=== PATIENT | female | born 1970 | race Caucasian/White ===

== ENCOUNTER 2016-03-24 18:18 | Emergency (ER) | payer OTHER ==
[~2016-03-24 18:18] MED LIST: CETI10TA3 PO; DIPH50CA OR; LISI5TAB PO; MAALSUS8 PO; carafate OR; motrin PO; proventil inhaler INH; singulair OR; vicodin PO
[2016-03-24] MEDS ORDERED: ONDANSETRON 4MG/2ML VIAL (J2405) As Ordered ONE (21:33)
[2016-03-24] MEDS ORDERED: KETOROLAC 30 MG/ML VIAL (J1885) As Ordered ONE (21:33)
[2016-03-24 21:38] LABS: CONTROL LINE UCG INT CTR LINE PRESENT
[2016-03-24 21:39] LABS: CALCIUM OXALATE CRYSTALS SMALL
[2016-03-24 21:48] LABS: BASO # 0.1 K/mm3 (0.0-0.2); BASO % 0.6 % (0.0-1.0); EOS # 0.2 K/mm3 (0.0-0.50); EOS % 1.6 % (0.0-3.0); LARGE UNSTAINED CELL # 0.2 K/mm3 (0.0-0.4); LARGE UNSTAINED CELL % 1.6 % (0.0-4.0); LYMPH # 2.7 K/mm3 (1.5-4.5); LYMPH % 27.1 % (24.0-44.0); MEAN CORPUSCULAR HEMOGLOBIN 32.9 pg (27.0-33.0); MEAN CORPUSCULAR HGB CONC 34.3 g/dl (32.0-36.5); MEAN CORPUSCULAR VOLUME 95.8 fl (80.0-96.0); MONO # 0.5 K/mm3 (0.0-0.8); MONO % 5.3 % (0.0-5.0); NEUTROPHILS # 6.5 K/mm3 (1.8-7.7); NEUTROPHILS % 63.9 % (36.0-66.0); PLATELET COUNT, AUTOMATED 218 k/mm3 (150-450); RED CELL DISTRIBUTION WIDTH 11.7 % (11.5-14.5); WHITE BLOOD COUNT 10.1 K/mm3 (4.0-10.0)
[2016-03-24 22:24] LABS: ALBUMIN 3.8 GM/DL (3.2-5.2); ALBUMIN/GLOBULIN RATIO 1.27 (1.00-1.93); ALKALINE PHOSPHATASE 92 U/L (45-117); ALT/SGPT 23 U/L (12-78); AMYLASE 52 U/L (25-115); ANION GAP 8 MEQ/L (8-16); AST/SGOT 12 U/L (15-37); BILIRUBIN,DIRECT < 0.1 MG/DL (0.0-0.2); BILIRUBIN,TOTAL 0.2 MG/DL (0.2-1.0); BLOOD UREA NITROGEN 15 MG/DL (7-18); CALCIUM LEVEL 8.5 MG/DL (8.5-10.1); CARBON DIOXIDE LEVEL 28 MEQ/L (21-32); CHLORIDE LEVEL 108 MEQ/L (98-107); CREATININE FOR GFR 0.53 MG/DL (0.55-1.02); GLOMERULAR FILTRATION RATE > 60.0 (>58); GLUCOSE, FASTING 88 MG/DL (70-105); POTASSIUM SERUM 4.2 MEQ/L (3.5-5.1); SODIUM LEVEL 144 MEQ/L (136-145); TOTAL PROTEIN 6.8 GM/DL (6.4-8.2)
--- NOTE | 2016-03-24 23:40 | REPUSA ---
CT of the abdomen and pelvis without contrast Clinical statement: Pain. Technique: Multiple axial CT images were obtained from the base of the lungs to the floor of the pelv is utilizing 5 mm axial slices without administration of contrast. Coronal and sagittal reconstructio ns were also obtained. No comparison is available. Findings: Chest: The visualized lung bases are clear. Abdomen: The kidneys are normal in size bilaterally. There is no evidence of hydronephrosis or nephro lithiasis. The liver, spleen, pancreas, and adrenal glands are unremarkable. The aorta demonstrates n ormal caliber and contour. There is no abdominal lymphadenopathy or ascites. Pelvis: The bowel is unremarkable, with no obstructive or inflammatory changes. The urinary bladder i s within normal limits. There is no pelvic lymphadenopathy or ascites. The other pelvic structures ap pear unremarkable. Bones: There are no suspicious osseous abnormalities seen. Impression: Unremarkable CT examination of the abdomen and pelvis.
[2016-03-25] MEDS ORDERED: ACETAMINOPH W/CODEINE #3 TAB UD As Ordered ONE ×2 (00:07→00:13)
[2016-03-25] MEDS ORDERED: ONDANSETRON 4MG/2ML VIAL (J2405) As Ordered ONE (00:08)
[2016-03-25] MEDS ORDERED: PHENAZOPYRIDINE 100 MG TAB As Ordered ONE (00:54)
--- NOTE | 2016-03-25 01:01 | EDDOCDS ---
Nurse's Notes [facility] Name: Nadiya Lozada Age: 45 yrs Sex: Female : 1970 Arrival Date: 03/24/2016 Time: 18:18 Bed I4 / M4 Private MD: Taya Chavez Diagnosis: Low back pain;Dysuria Presentation: 03/24 18:45 Presenting complaint: Patient states: she has had severe pain in her low back - thinks kcs it is her kidneys - pain started a week ago but has been worse the last 2 days - also 'peed her pants and is dizzy. Hurts her back to pee.". Acute neurological deficits are not present. Mechanism of Injury: No Mechanism of Injury. Adult Sepsis Screening: The patient does not have new or worsening altered mentation. Patient's respiratory rate is less than 22. Systolic blood pressure is greater than 100. Patient has a qSOFA score of 0- Negative Sepsis Screen. Suicide/Homicide risk assessment- the patient denies having any suicidal and/or homicidal ideations and does not present with any other emotional, behavioral or mental health complaints. Status: Patient is not a clerk telegraph service or dependent. Transition of care: patient was not received from another setting of care. 18:45 Acuity: RAJIV Level 3 kcs 18:45 Method Of Arrival: Walkin/Carried/Asstd kcs Triage Assessment: 18:53 General: Appears uncomfortable, well developed, well nourished, well groomed, Behavior kcs is cooperative, crying. Pain: Location: low back Pain currently is 10 out of 10 on a pain scale. HIV screening NA for this visit Offered previously. Neurological: Level of Consciousness is awake, alert. Respiratory: Airway is patent Respiratory effort is even, unlabored, Respiratory pattern is regular, symmetrical. : Reports burning with urination incontinence urgency. Derm: Skin is intact, is healthy with good turgor, Skin is dry, Skin is normal. PSYCHOLOGY TECH: 18:53 LMP N/A - Hysterectomy kcs Historical: - Allergies: Erythromycin (Hives); aspartame (Upset stomach); Ceclor (Wheezing); Dilaudid; Latex; liquid magnesium (Anaphylaxis); SUCCINYLCHOLINE; - Home Meds: 1. bariatric fusion chewable tabs 2 tabs twice a day 2. cetirizine 10 mg oral tab 1 tab once daily 3. pantoprazole 40 mg oral TbEC 1 tab 2 times per day 4. azelastine 0.1% 2 sprays in each nostril in am 5. potassium chloride 10 mEq Oral cpER 1 cap once daily 6. Premarin 0.625 mg Oral tab once daily 7. biotin oral 5000 mg 2 in am oral 8. ferrous fumarate 324 mg (106 mg iron) oral tab daily 9. Singulair 10 mg Oral tab 1 tab once daily 10. Magnesium Oxide 64 mg Oral 1 tab daily 11. Benadryl 25 mg Oral cap 2 caps nightly 12. Carafate 1 gram Oral tab 1 tab 4 times per day 13. Cytotec 200 mcg oral tab 4 times per day 14. yeast 2 daily 15. uricalm cranberry 2 chewables daily - PMHx: pseydicholinesterase deficiency; Asthma; brain aneurysm; Hypertension; Seasonal Allergies; - PSHx: Gastric Bypass; Cholecystectomy; Hysterectomy; right knee; Carpal Tunnel Repair- Bilateral; - Social history: Smoking status: Patient uses tobacco products, light tobacco smoker. No barriers to communication noted, The patient speaks fluent Croatian. - Family history: Not pertinent. - : The pt / caregiver states he / she is not on anticoagulants. Home medication list is obtained from the patient. - Exposure Risk Screening:: None identified. Screenin:03 Screening information is obtained from the patient. Fall risk: No risks identified. lf1 Assistance ADL's: requires no assistance with activities of daily living. Abuse/DV Screen: The patient / caregiver reports he/she is: not in a situation that causes fear, pain or injury. Nutritional screening: gastric bypass. Advance Directives: Currently, there is no health care proxy. There is no active DNR order. There is no living will. home support is adequate. Assessment: 21:03 General: Appears uncomfortable, Behavior is cooperative. Pain: Location: BL flank pain lf1 Pain currently is 10 out of 10 on a pain scale. Neurological: Level of Consciousness is awake, alert, Oriented to person, place, time. EENT: No deficits noted. Cardiovascular: Chest pain is denied. Respiratory: Respiratory effort is even, unlabored, Respiratory pattern is regular. GI: Reports diarrhea, nausea. : Reports burning with urination inability to void pain in right in left in bilateral flank(s) with urination urgency urinary frequency. Derm: Skin is pink, warm & dry. Musculoskeletal: No deficits noted. 21:40 General: Appears uncomfortable, Behavior is cooperative. Pain: Location: back and ead abdomen Pain currently is 10 out of 10 on a pain scale. Neurological: No deficits noted. Respiratory: Airway is patent Respiratory effort is unlabored. GI: Abdomen is non- distended Bowel sounds present X 4 quads. Reports diarrhea, lower abdominal pain, nausea. : Reports inability to void pain in right in left in bilateral flank(s) with urination urgency urinary frequency. Derm: Skin is pink, warm & dry. 22:30 General: pt just returned from CT vis wheelchair . dsf 23:30 General: Appears in no apparent distress, Behavior is appropriate for age, cooperative. ead Neurological: No deficits noted. Respiratory: Airway is patent Respiratory effort is even, unlabored. Derm: Skin is pink, warm & dry. 03/25 00:18 General: pt denies being incontinent of urine. pt states she felt like she was going to dsf pee her pants but did not . 00:45 Reassessment: Patient states symptoms have improved. General: Appears in no apparent ead distress. Pain: Pain currently is 6 out of 10 on a pain scale. Neurological: No deficits noted. GI: Denies nausea, vomiting. : Denies discharge, vaginal bleeding. Derm: Skin is pink, warm & dry. Vital Signs: 03/24 18:19 BP 158 / 83; Pulse 82; Resp 18 S; Temp 96.3; Pulse Ox 97% ; Weight 63.5 kg (R); Height gr2 5 ft. 0 in. (152.40 cm) (R); Pain 8/10; 21:03 BP 155 / 86; Pulse 67; Resp 16; Temp 99.3(TE); Pulse Ox 99% ; Pain 10/10; lf1 03/25 00:44 BP 151 / 77; Pulse 72; Resp 16; Temp 96.0(O); Pulse Ox 99% on R/A; Pain 6/10; ead 03/24 18:19 Body Mass Index 27.34 (63.50 kg, 152.40 cm) gr2 Vitals: 03/24 18:19 Log In Time: March 24, 2016 at 18:19. gr2 ED Course: 18:19 Patient visited by Mireille Gupta. gr2 18:19 Taya Chavez is Private Physician. gr2 18:19 Patient moved to Waiting gr2 18:20 Patient visited by Mireille Gupta. gr2 18:20 Patient moved to Pre RCE gr2 18:47 Triage Initiated kcs 21:02 [facility] ck7 21:02 Oj Altamirano MD is Attending Physician. ck7 21:02 Patient moved to Triage 1 lf1 21:16 Patient visited by Francis Christy RPA-C. ck7 21:25 Patient moved to I4 / M4 lf1 21:27 UCG- In Lab Sent. ar3 21:27 Urine Culture Sent. ar3 21:27 UA Sent. ar3 21:38 Amylase Sent. dsf 21:38 Basic Metabolic Profile Sent. dsf 21:39 CBC with Diff Sent. dsf 21:39 Lipase Sent. dsf 21:39 Liver Profile Sent. dsf 21:40 Inserted peripheral IV: 20gauge IV in left antecubital area and blood collected. ead Patient tolerated the procedure well. 21:55 Patient visited by Francis Christy RPA-C. ck7 22:30 Patient visited by Maya Bucio RN. dsf 23:23 Patient visited by Francis Christy RPA-C. ck7 23:54 Patient visited by Francis Christy RPA-C. ck7 03/25 00:15 CT ABD & PELVIS: No Contrast Returned. EDMS 00:19 Patient visited by Maya Bucio RN. dsf 00:38 [facility] Payment Agreement was scanned into [employer] and attached to record. lja 00:46 Taya Chavez is Referral Physician. ck7 00:59 Discontinued IV intact, bleeding controlled, pressure dressing applied, No ead redness/swelling at site. No procedures done that require assistance. 01:00 The patient / caregiver is instructed regarding the plan of care and ED course. ead Administered Medications: 03/24 21:38 Drug: NS 0.9% 1000 ml [sodium chloride 0.9 % injection solution] Route: IV; Rate: dsf bolus; Site: left antecubital; 03/25 00:39 Follow up: IV Status: Completed infusion; IV Intake: 1000ml ead 03/24 21:38 Drug: Ondansetron 4 mg [ondansetron HCl 2 mg/mL intravenous solution (2 mL)] Route: dsf IVP; Site: left antecubital; 22:00 Follow up: Response: Nausea is decreased; No Adverse Reaction ead 21:38 Drug: ketorolac 30 mg [ketorolac 30 mg/mL (1 mL) injection solution (1 mL)] Route: IVP; dsf Site: left antecubital; 22:00 Follow up: Response: No Adverse Reaction; Pain is decreased ead 03/25 00:13 Drug: Ondansetron 4 mg [ondansetron HCl 2 mg/mL intravenous solution (2 mL)] Route: ead IVP; Site: right antecubital; 00:46 Follow up: Response: Nausea is resolved; No Adverse Reaction ead 00:15 Drug: Acetaminophen-Codeine 2 tabs [acetaminophen 300 mg-codeine 30 mg tablet (2 tabs)] ead Route: PO; 00:45 Follow up: Response: Confirmed pt not driving.; No Adverse Reaction; Pain is decreased ead 00:59 Drug: Phenazopyridine 200 mg [phenazopyridine 100 mg tablet (2 tabs)] Route: PO; ead Intake: 00:39 IV: 1000.00ml; Total: 1000.00ml. ead Order Results: Lab Order: UA; SPEC'M 03/24/16 21:24 Test: APPEARANCE, URINE; Value: CLEAR; Range: CLEAR; Status: F Test: COLOR, URINE; Value: YELLOW; Range: YELLOW; Status: F Test: PH,URINE; Value: 5.0; Range: 5.0-9.0; Units: UNITS; Status: F Test: SPECIFIC GRAVITY URINE AUTO; Value: 1.026; Range: 1.002-1.035; Status: F Test: PROTEIN, URINE AUTO; Value: NEGATIVE; Range: NEGATIVE; Units: mg/dL; Status: F Test: GLUCOSE, URINE (UA) AUTO; Value: NEGATIVE; Range: NEGATIVE; Units: mg/dL; Status: F Test: KETONE, URINE AUTO; Value: NEGATIVE; Range: NEGATIVE; Units: mg/dL; Status: F Test: UROBILINOGEN, URINE AUTO; Value: 2.0; Range: 0.0-2.0; Abnormal: Above high normal; Units: mg/dL; Status: F Test: BILIRUBIN, URINE AUTO; Value: NEGATIVE; Range: NEGATIVE; Status: F Test: NITRITE, URINE AUTO; Value: NEGATIVE; Range: NEGATIVE; Status: F Test: LEUKOCYTE ESTERASE, URINE AUTO; Value: NEGATIVE; Range: NEGATIVE; Status: F Test: BLOOD, URINE BLOOD; Value: NEGATIVE; Range: NEGATIVE; Status: F Test: WBC, URINE AUTO; Value: 0; Range: 0-3; Units: /HPF; Status: F Test: RBC, URINE AUTO; Value: 4; Range: 0-3; Abnormal: Above high normal; Units: /HPF; Status: F Test: BACTERIA, URINE AUTO; Value: NEGATIVE; Range: NEGATIVE; Status: F Test: SQUAMOUS EPITHELIAL CELL UR AU; Value: 1; Range: 0-6; Units: /HPF; Status: F Test: MUCUS, URINE; Value: SMALL; Range: NEGATIVE; Status: F Test: HYALINE CAST, URINE AUTO; Value: 0; Range: 0-1; Units: /LPF; Status: F Test: CALCIUM OXALATE CRYSTALS; Value: SMALL; Range: NONE; Status: F Lab Order: UCG- In Lab; SPEC'M 03/24/16 21:24 Test: URINE PREG TEST; Value: NEGATIVE; Range: NEGATIVE; Status: F Lab Order: Amylase; SPEC'M 03/24/16 21:36 Test: AMYLASE; Value: 52; Range: 25-115; Units: U/L; Status: F Lab Order: Basic Metabolic Profile; SPEC'M 03/24/16 21:36 Test: GLUCOSE, FASTING; Value: 88; Range: 70-105; Units: MG/DL; Status: F Test: BLOOD UREA NITROGEN; Value: 15; Range: 7-18; Units: MG/DL; Status: F Test: CREATININE FOR GFR; Value: 0.53; Range: 0.55-1.02; Abnormal: Below low normal; Units: MG/DL; Status: F Test: GLOMERULAR FILTRATION RATE; Value: > 60.0; Range: >58; Status: F Test: SODIUM LEVEL; Value: 144; Range: 136-145; Units: MEQ/L; Status: F Test: POTASSIUM SERUM; Value: 4.2; Range: 3.5-5.1; Units: MEQ/L; Status: F Test: CHLORIDE LEVEL; Value: 108; Range: 98-107; Abnormal: Above high normal; Units: MEQ/L; Status: F Test: CARBON DIOXIDE LEVEL; Value: 28; Range: 21-32; Units: MEQ/L; Status: F Test: ANION GAP; Value: 8; Range: 8-16; Units: MEQ/L; Status: F Test: CALCIUM LEVEL; Value: 8.5; Range: 8.5-10.1; Units: MG/DL; Status: F Test Note: ; Units are mL/min/1.73 m2 Chronic Kidney Disease Staging per NKF: Stage I & II GFR >=60 Normal to Mildly Decreased Stage III GFR 30-59 Moderately Decreased Stage IV GFR 15-29 Severely Decreased Stage V GFR <15 Very Little GFR Left ESRD GFR <15 on DIE REPAIR Lab Order: CBC with Diff; SPEC'M 03/24/16 21:36 Test: WHITE BLOOD COUNT; Value: 10.1; Range: 4.0-10.0; Abnormal: Above high normal; Units: K/mm3; Status: F Test: RED BLOOD COUNT; Value: 4.21; Range: 4.00-5.40; Units: M/mm3; Status: F Test: HEMOGLOBIN; Value: 13.8; Range: 12.0-16.0; Units: g/dl; Status: F Test: HEMATOCRIT; Value: 40.3; Range: 36.0-47.0; Units: %; Status: F Test: MEAN CORPUSCULAR VOLUME; Value: 95.8; Range: 80.0-96.0; Units: fl; Status: F Test: MEAN CORPUSCULAR HEMOGLOBIN; Value: 32.9; Range: 27.0-33.0; Units: pg; Status: F Test: MEAN CORPUSCULAR HGB CONC; Value: 34.3; Range: 32.0-36.5; Units: g/dl; Status: F Test: RED CELL DISTRIBUTION WIDTH; Value: 11.7; Range: 11.5-14.5; Units: %; Status: F Test: PLATELET COUNT, AUTOMATED; Value: 218; Range: 150-450; Units: k/mm3; Status: F Test: NEUTROPHILS %; Value: 63.9; Range: 36.0-66.0; Units: %; Status: F Test: LYMPH %; Value: 27.1; Range: 24.0-44.0; Units: %; Status: F Test: MONO %; Value: 5.3; Range: 0.0-5.0; Abnormal: Above high normal; Units: %; Status: F Test: EOS %; Value: 1.6; Range: 0.0-3.0; Units: %; Status: F Test: BASO %; Value: 0.6; Range: 0.0-1.0; Units: %; Status: F Test: LARGE UNSTAINED CELL %; Value: 1.6; Range: 0.0-4.0; Units: %; Status: F Test: NEUTROPHILS #; Value: 6.5; Range: 1.8-7.7; Units: K/mm3; Status: F Test: LYMPH #; Value: 2.7; Range: 1.5-4.5; Units: K/mm3; Status: F Test: MONO #; Value: 0.5; Range: 0.0-0.8; Units: K/mm3; Status: F Test: EOS #; Value: 0.2; Range: 0.0-0.50; Units: K/mm3; Status: F Test: BASO #; Value: 0.1; Range: 0.0-0.2; Units: K/mm3; Status: F Test: LARGE UNSTAINED CELL #; Value: 0.2; Range: 0.0-0.4; Units: K/mm3; Status: F Lab Order: Lipase; SPEC'M 03/24/16 21:36 Test: LIPASE; Value: 183; Range: 73-393; Units: U/L; Status: F Lab Order: Liver Profile; SPEC'M 03/24/16 21:36 Test: AST/SGOT; Value: 12; Range: 15-37; Abnormal: Below low normal; Units: U/L; Status: F Test: ALT/SGPT; Value: 23; Range: 12-78; Units: U/L; Status: F Test: ALKALINE PHOSPHATASE; Value: 92; Range: 45-117; Units: U/L; Status: F Test: BILIRUBIN,TOTAL; Value: 0.2; Range: 0.2-1.0; Units: MG/DL; Status: F Test: BILIRUBIN,DIRECT; Value: < 0.1; Range: 0.0-0.2; Units: MG/DL; Status: F Test: TOTAL PROTEIN; Value: 6.8; Range: 6.4-8.2; Units: GM/DL; Status: F Test: ALBUMIN; Value: 3.8; Range: 3.2-5.2; Units: GM/DL; Status: F Test: ALBUMIN/GLOBULIN RATIO; Value: 1.27; Range: 1.00-1.93; Status: F Radiology Order: CT ABD & PELVIS: No Contrast Test: CT ABD & PELVIS: No Contrast REASON FOR EXAMINATION: bilateral flank pain, r/o stone; ; CT of the abdomen and pelvis without contrast; Clinical statement: Pain.; Technique: Multiple axial CT images were obtained from the base of the lungs to the floor of the pelv; is utilizing 5 mm axial slices without administration of contrast. Coronal and sagittal reconstructio; ns were also obtained.; No comparison is available.; Findings:; Chest: The visualized lung bases are clear.; Abdomen: The kidneys are normal in size bilaterally. There is no evidence of hydronephrosis or nephro; lithiasis. The liver, spleen, pancreas, and adrenal glands are unremarkable. The aorta demonstrates n; ormal caliber and contour. There is no abdominal lymphadenopathy or ascites.; Pelvis: The bowel is unremarkable, with no obstructive or inflammatory changes. The urinary bladder i; s within normal limits. There is no pelvic lymphadenopathy or ascites. The other pelvic structures ap; pear unremarkable.; Bones: There are no suspicious osseous abnormalities seen.; Impression: Unremarkable CT examination of the abdomen and pelvis.; ; Outcome: 00:46 Discharge ordered by Provider. ck7 00:59 Discharge Assessment: Patient awake and alert. obeys commands, Oriented to person, ead place and time. patient administered narcotics - yes. Pt provided with safe discharge. The following High Risk Discharge criteria are identified: None. Discharged to home ambulatory, with significant other. Condition: improved. Discharge instructions given to patient, significant other, Instructed on discharge instructions, follow up and referral plans. medication usage, no driving heavy equipment, no drinking with medication, Demonstrated understanding of instructions, medications, Pt was receptive of discharge instructions/ teaching. Prescriptions given X 3. CT Study completed. Property sent home with patient. 01:00 Patient left the ED. mary Signatures: Dispatcher [employer] Gardenia Darnell, RN RN Leisa KaiserRN RN lf1 Elise Stone, BLACK TOPPER BLACK TOPPER ar3 Maya BucioRN RN dsf Francis Christy, RPA-C RPA-Cck7 Mireille Gupta gr2 Jennifer Viramontes,RN RN estelled Leisa Marcos MTDD
--- NOTE | 2016-03-25 01:01 | EDDOCDS ---
Physician Documentation [facility] Name: Nadiya Lozada Age: 45 yrs Sex: Female : 1970 Arrival Date: 03/24/2016 Time: 18:18 Bed I4 / M4 Private MD: Taya Chavez Disposition: 03/25/16 00:46 Discharged to Home/Self Care. Impression: Low back pain, Dysuria. - Condition is Stable. - Discharge Instructions: Back Pain, Adult, Dysuria. - Prescriptions for Robaxin 500 mg Oral Tablet - take 2 tablet by ORAL route every 6 hours As needed; 40 tablet. Tylenol- Codeine #3 300-30 mg Oral Tablet - take 2 tablets by ORAL route every 6 hours As needed MDD: 4 tabs; 12 tablet. Pyridium 200 mg Oral Tablet - take 1 tablet by ORAL route every 8 hours for 3 days; 9 tablet. - Work Release Form - 2 day, Medication Reconciliation, Local Pharmacy Hours form. - Follow up: Taya Chavez; When: Tomorrow; Reason: Recheck today's complaints, Continuance of care. - Problem is new. - Symptoms have improved. - Notes: USE MEDICATIONS INSTRUCTED, FOLLOW UP WITH YOUR DOCTOR TOMORROW Historical: - Allergies: Erythromycin (Hives); aspartame (Upset stomach); Ceclor (Wheezing); Dilaudid; Latex; liquid magnesium (Anaphylaxis); SUCCINYLCHOLINE; - Home Meds: 1. bariatric fusion chewable tabs 2 tabs twice a day 2. cetirizine 10 mg oral tab 1 tab once daily 3. pantoprazole 40 mg oral TbEC 1 tab 2 times per day 4. azelastine 0.1% 2 sprays in each nostril in am 5. potassium chloride 10 mEq Oral cpER 1 cap once daily 6. Premarin 0.625 mg Oral tab once daily 7. biotin oral 5000 mg 2 in am oral 8. ferrous fumarate 324 mg (106 mg iron) oral tab daily 9. Singulair 10 mg Oral tab 1 tab once daily 10. Magnesium Oxide 64 mg Oral 1 tab daily 11. Benadryl 25 mg Oral cap 2 caps nightly 12. Carafate 1 gram Oral tab 1 tab 4 times per day 13. Cytotec 200 mcg oral tab 4 times per day 14. yeast 2 daily 15. uricalm cranberry 2 chewables daily - PMHx: pseydicholinesterase deficiency; Asthma; brain aneurysm; Hypertension; Seasonal Allergies; - PSHx: Gastric Bypass; Cholecystectomy; Hysterectomy; right knee; Carpal Tunnel Repair- Bilateral; - Social history: Smoking status: Patient uses tobacco products, light tobacco smoker. No barriers to communication noted, The patient speaks fluent Jordanian. - Family history: Not pertinent. - : The pt / caregiver states he / she is not on anticoagulants. Home medication list is obtained from the patient. - Exposure Risk Screening:: None identified. 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 0 in. (152.40 cm) (R); Pain 8/10; 21:03 BP 155 / 86; Pulse 67; Resp 16; Temp 99.3(TE); Pulse Ox 99% ; Pain 10/10; lf1 03/25 00:44 BP 151 / 77; Pulse 72; Resp 16; Temp 96.0(O); Pulse Ox 99% on R/A; Pain 6/10; ead 03/24 18:19 Body Mass Index 27.34 (63.50 kg, 152.40 cm) gr2 MDM: 03/24 20:00 UA Ordered. EDMS 20:00 Urine Culture Ordered. EDMS 20:01 UCG- In Lab Ordered. EDMS 21:20 Undress patient appropriately for examination ordered. ck7 21:20 IV Saline Lock ordered. ck7 21:20 NS 0.9% 1000 ml IV at bolus once ordered. ck7 21:20 Ondansetron 4 mg IVP once ordered. ck7 21:21 Amylase Ordered. EDMS 21:21 Basic Metabolic Profile Ordered. EDMS 21:21 CBC with Diff Ordered. EDMS 21:21 Lipase Ordered. EDMS 21:21 Liver Profile Ordered. EDMS 21:22 NOTHING BY MOUTH+DIET ordered. EDMS 21:22 ketorolac 30 mg IVP once ordered. ck7 21:55 UA Reviewed. ck7 21:55 CBC with Diff Reviewed. ck7 21:55 UCG- In Lab Reviewed. ck7 21:58 CT ABD & PELVIS: No Contrast Ordered. EDMS 22:32 Basic Metabolic Profile Reviewed. ck7 22:32 Liver Profile Reviewed. ck7 22:32 Amylase Reviewed. ck7 22:32 Lipase Reviewed. ck7 23:42 Financial registration complete. 03/25 00:06 Ondansetron 4 mg IVP once ordered. ck7 00:06 Acetaminophen-Codeine 300 mg-30 mg 2 tabs PO once ordered. ck7 00:38 [facility] Payment Agreement was scanned into [facility] and attached to record. 00:53 Phenazopyridine 200 mg PO once ordered. ck7 Administered Medications: 03/24 21:38 Drug: NS 0.9% 1000 ml [sodium chloride 0.9 % injection solution] Route: IV; Rate: dsf bolus; Site: left antecubital; 03/25 00:39 Follow up: IV Status: Completed infusion; IV Intake: 1000ml ead 03/24 21:38 Drug: Ondansetron 4 mg [ondansetron HCl 2 mg/mL intravenous solution (2 mL)] Route: dsf IVP; Site: left antecubital; 22:00 Follow up: Response: Nausea is decreased; No Adverse Reaction ead 21:38 Drug: ketorolac 30 mg [ketorolac 30 mg/mL (1 mL) injection solution (1 mL)] Route: IVP; dsf Site: left antecubital; 22:00 Follow up: Response: No Adverse Reaction; Pain is decreased ead 03/25 00:13 Drug: Ondansetron 4 mg [ondansetron HCl 2 mg/mL intravenous solution (2 mL)] Route: ead IVP; Site: right antecubital; 00:46 Follow up: Response: Nausea is resolved; No Adverse Reaction ead 00:15 Drug: Acetaminophen-Codeine 2 tabs [acetaminophen 300 mg-codeine 30 mg tablet (2 tabs)] ead Route: PO; 00:45 Follow up: Response: Confirmed pt not driving.; No Adverse Reaction; Pain is decreased ead 00:59 Drug: Phenazopyridine 200 mg [phenazopyridine 100 mg tablet (2 tabs)] Route: PO; ead Signatures: Dispatcher [facility] ED[facility] Gardenia Fall RN RN Leisa Kaiser RN RN lf1 Francis Christy, RPA-C RPA-Cck7 Jennifer Viramontes RN RN ead Arekatelynn, Maya Rdz RNf The chart was reviewed and I authenticate all verbal orders and agree with the evaluation and treatment provided.Attachments: 00:38 [facility] Payment Agreement juan manuel SRINIVASD
--- NOTE | 2016-03-27 02:02 | EDDOCDS ---
[facility]ation [facility]: Nadiya Loz[facility] Age: 45 yrs Sex: Female : 1970 Arrival Date: 03/24/2016 Time: 18:18 Bed I4 / M4 Private MD: Taya Chavez Disposition: 03/25/16 00:46 Discharged to Home/Self Care. Impression: Low back pain, Dysuria. - Condition is Stable. - Discharge Instructions: Back Pain, Adult, Dysuria. - Prescriptions for Robaxin 500 mg Oral Tablet - take 2 tablet by ORAL route every 6 hours As needed; 40 tablet. Tylenol- Codeine #3 300-30 mg Oral Tablet - take 2 tablets by ORAL route every 6 hours As needed MDD: 4 tabs; 12 tablet. Pyridium 200 mg Oral Tablet - take 1 tablet by ORAL route every 8 hours for 3 days; 9 tablet. - Work Release Form - 2 day, Medication Reconciliation, Local Pharmacy Hours form. - Follow up: Taya Chavez; When: Tomorrow; Reason: Recheck today's complaints, Continuance of care. - Problem is new. - Symptoms have improved. - Notes: USE MEDICATIONS INSTRUCTED, FOLLOW UP WITH YOUR DOCTOR TOMORROW Historical: - Allergies: Erythromycin (Hives); aspartame (Upset stomach); Ceclor (Wheezing); Dilaudid; Latex; liquid magnesium (Anaphylaxis); SUCCINYLCHOLINE; - Home Meds: 1. bariatric fusion chewable tabs 2 tabs twice a day 2. cetirizine 10 mg oral tab 1 tab once daily 3. pantoprazole 40 mg oral TbEC 1 tab 2 times per day 4. azelastine 0.1% 2 sprays in each nostril in am 5. potassium chloride 10 mEq Oral cpER 1 cap once daily 6. Premarin 0.625 mg Oral tab once daily 7. biotin oral 5000 mg 2 in am oral 8. ferrous fumarate 324 mg (106 mg iron) oral tab daily 9. Singulair 10 mg Oral tab 1 tab once daily 10. Magnesium Oxide 64 mg Oral 1 tab daily 11. Benadryl 25 mg Oral cap 2 caps nightly 12. Carafate 1 gram Oral tab 1 tab 4 times per day 13. Cytotec 200 mcg oral tab 4 times per day 14. yeast 2 daily 15. uricalm cranberry 2 chewables daily - PMHx: pseydicholinesterase deficiency; Asthma; brain aneurysm; Hypertension; Seasonal Allergies; - PSHx: Gastric Bypass; Cholecystectomy; Hysterectomy; right knee; Carpal Tunnel Repair- Bilateral; - Social history: Smoking status: Patient uses tobacco products, light tobacco smoker. No barriers to communication noted, The patient speaks fluent Latvian. - Family history: Not pertinent. - : The pt / caregiver states he / she is not on anticoagulants. Home medication list is obtained from the patient. - Exposure Risk Screening:: None identified. PHARMACEUTICAL OFFICER: 03/24 18:53 LMP N/A - Hysterectomy kcs Vital Signs: 18:19 BP 158 / 83; Pulse 82; Resp 18 S; Temp 96.3; Pulse Ox 97% ; Weight 63.5 kg / 139.99 lbs gr2 (R); Height 5 ft. 0 in. (152.40 cm) (R); Pain 8/10; 21:03 BP 155 / 86; Pulse 67; Resp 16; Temp 99.3(TE); Pulse Ox 99% ; Pain 10/10; lf1 03/25 00:44 BP 151 / 77; Pulse 72; Resp 16; Temp 96.0(O); Pulse Ox 99% on R/A; Pain 6/10; ead 03/24 18:19 Body Mass Index 27.34 (63.50 kg, 152.40 cm) gr2 MDM: 03/24 20:00 UA Ordered. EDMS 20:00 Urine Culture Ordered. EDMS 20:01 UCG- In Lab Ordered. EDMS 21:20 Undress patient appropriately for examination ordered. ck7 21:20 IV Saline Lock ordered. ck7 21:20 NS 0.9% 1000 ml IV at bolus once ordered. ck7 21:20 Ondansetron 4 mg IVP once ordered. ck7 21:21 Amylase Ordered. EDMS 21:21 Basic Metabolic Profile Ordered. EDMS 21:21 CBC with Diff Ordered. EDMS 21:21 Lipase Ordered. EDMS 21:21 Liver Profile Ordered. EDMS 21:22 NOTHING BY MOUTH+DIET ordered. EDMS 21:22 ketorolac 30 mg IVP once ordered. ck7 21:55 UA Reviewed. ck7 21:55 CBC with Diff Reviewed. ck7 21:55 UCG- In Lab Reviewed. ck7 21:58 CT ABD & PELVIS: No Contrast Ordered. EDMS 22:32 Basic Metabolic Profile Reviewed. ck7 22:32 Liver Profile Reviewed. ck7 22:32 Amylase Reviewed. ck7 22:32 Lipase Reviewed. ck7 23:42 Financial registration complete. lja 03/25 00:06 Ondansetron 4 mg IVP once ordered. ck 00:06 Acetaminophen-Codeine 300 mg-30 mg 2 tabs PO once ordered. ck7 00:38 [facility] Payment Agreement was scanned into [employer] and attached to record. lja 00:53 Phenazopyridine 200 mg PO once ordered. ck 09:38 T-Sheet-- Draft Copy was scanned into [employer] and attached to record. gb 09:38 Radiology Report was scanned into [employer] and attached to record. gb Administered Medications: 03/24 21:38 Drug: NS 0.9% 1000 ml [sodium chloride 0.9 % injection solution] Route: IV; Rate: dsf bolus; Site: left antecubital; 03/25 00:39 Follow up: IV Status: Completed infusion; IV Intake: 1000ml ead 03/24 21:38 Drug: Ondansetron 4 mg [ondansetron HCl 2 mg/mL intravenous solution (2 mL)] Route: dsf IVP; Site: left antecubital; 22:00 Follow up: Response: Nausea is decreased; No Adverse Reaction ead 21:38 Drug: ketorolac 30 mg [ketorolac 30 mg/mL (1 mL) injection solution (1 mL)] Route: IVP; dsf Site: left antecubital; 22:00 Follow up: Response: No Adverse Reaction; Pain is decreased ead 03/25 00:13 Drug: Ondansetron 4 mg [ondansetron HCl 2 mg/mL intravenous solution (2 mL)] Route: ead IVP; Site: right antecubital; 00:46 Follow up: Response: Nausea is resolved; No Adverse Reaction ead 00:15 Drug: Acetaminophen-Codeine 2 tabs [acetaminophen 300 mg-codeine 30 mg tablet (2 tabs)] ead Route: PO; 00:45 Follow up: Response: Confirmed pt not driving.; No Adverse Reaction; Pain is decreased ead 00:59 Drug: Phenazopyridine 200 mg [phenazopyridine 100 mg tablet (2 tabs)] Route: PO; ead Signatures: Dispatcher [employer] Gardenia Darnell RN RN Alina Henderson, Reg Reg gb Leisa Mckeon RN RN lf1 Francis Christy, RPA-C [id number] Jennifer Viramontes RN RN ead Arel, Maya Rdz RNf The chart was reviewed and I authenticate all verbal orders and agree with the evaluation and treatment provided.Attachments: 00:38 [facility] Payment Agreement a 09:38 T-Sheet-- Draft Copy gb Chart Complete MTDD
--- NOTE | 2016-03-27 02:02 | EDDOCDS ---
Physician Documentation [facility] Name: Nadiya Lozada Age: 45 yrs Sex: Female : 1970 Arrival Date: 03/24/2016 Time: 18:18 Bed I4 / M4 Private MD: Taya Chavez Disposition: 03/25/16 00:46 Discharged to Home/Self Care. Impression: Low back pain, Dysuria. - Condition is Stable. - Discharge Instructions: Back Pain, Adult, Dysuria. - Prescriptions for Robaxin 500 mg Oral Tablet - take 2 tablet by ORAL route every 6 hours As needed; 40 tablet. Tylenol- Codeine #3 300-30 mg Oral Tablet - take 2 tablets by ORAL route every 6 hours As needed MDD: 4 tabs; 12 tablet. Pyridium 200 mg Oral Tablet - take 1 tablet by ORAL route every 8 hours for 3 days; 9 tablet. - Work Release Form - 2 day, Medication Reconciliation, Local Pharmacy Hours form. - Follow up: Taya Chavez; When: Tomorrow; Reason: Recheck today's complaints, Continuance of care. - Problem is new. - Symptoms have improved. - Notes: USE MEDICATIONS INSTRUCTED, FOLLOW UP WITH YOUR DOCTOR TOMORROW Historical: - Allergies: Erythromycin (Hives); aspartame (Upset stomach); Ceclor (Wheezing); Dilaudid; Latex; liquid magnesium (Anaphylaxis); SUCCINYLCHOLINE; - Home Meds: 1. bariatric fusion chewable tabs 2 tabs twice a day 2. cetirizine 10 mg oral tab 1 tab once daily 3. pantoprazole 40 mg oral TbEC 1 tab 2 times per day 4. azelastine 0.1% 2 sprays in each nostril in am 5. potassium chloride 10 mEq Oral cpER 1 cap once daily 6. Premarin 0.625 mg Oral tab once daily 7. biotin oral 5000 mg 2 in am oral 8. ferrous fumarate 324 mg (106 mg iron) oral tab daily 9. Singulair 10 mg Oral tab 1 tab once daily 10. Magnesium Oxide 64 mg Oral 1 tab daily 11. Benadryl 25 mg Oral cap 2 caps nightly 12. Carafate 1 gram Oral tab 1 tab 4 times per day 13. Cytotec 200 mcg oral tab 4 times per day 14. yeast 2 daily 15. uricalm cranberry 2 chewables daily - PMHx: pseydicholinesterase deficiency; Asthma; brain aneurysm; Hypertension; Seasonal Allergies; - PSHx: Gastric Bypass; Cholecystectomy; Hysterectomy; right knee; Carpal Tunnel Repair- Bilateral; - Social history: Smoking status: Patient uses tobacco products, light tobacco smoker. No barriers to communication noted, The patient speaks fluent Cymro. - Family history: Not pertinent. - : The pt / caregiver states he / she is not on anticoagulants. Home medication list is obtained from the patient. - Exposure Risk Screening:: None identified. NURSE WOUND CARE: 03/24 18:53 LMP N/A - Hysterectomy kcs Vital Signs: 18:19 BP 158 / 83; Pulse 82; Resp 18 S; Temp 96.3; Pulse Ox 97% ; Weight 63.5 kg / 139.99 lbs gr2 (R); Height 5 ft. 0 in. (152.40 cm) (R); Pain 8/10; 21:03 BP 155 / 86; Pulse 67; Resp 16; Temp 99.3(TE); Pulse Ox 99% ; Pain 10/10; lf1 03/25 00:44 BP 151 / 77; Pulse 72; Resp 16; Temp 96.0(O); Pulse Ox 99% on R/A; Pain 6/10; ead 03/24 18:19 Body Mass Index 27.34 (63.50 kg, 152.40 cm) gr2 MDM: 03/24 20:00 UA Ordered. EDMS 20:00 Urine Culture Ordered. EDMS 20:01 UCG- In Lab Ordered. EDMS 21:20 Undress patient appropriately for examination ordered. ck7 21:20 IV Saline Lock ordered. ck7 21:20 NS 0.9% 1000 ml IV at bolus once ordered. ck7 21:20 Ondansetron 4 mg IVP once ordered. ck7 21:21 Amylase Ordered. EDMS 21:21 Basic Metabolic Profile Ordered. EDMS 21:21 CBC with Diff Ordered. EDMS 21:21 Lipase Ordered. EDMS 21:21 Liver Profile Ordered. EDMS 21:22 NOTHING BY MOUTH+DIET ordered. EDMS 21:22 ketorolac 30 mg IVP once ordered. ck7 21:55 UA Reviewed. ck7 21:55 CBC with Diff Reviewed. ck7 21:55 UCG- In Lab Reviewed. ck7 21:58 CT ABD & PELVIS: No Contrast Ordered. EDMS 22:32 Basic Metabolic Profile Reviewed. ck7 22:32 Liver Profile Reviewed. ck7 22:32 Amylase Reviewed. ck7 22:32 Lipase Reviewed. ck7 23:42 Financial registration complete. lja 03/25 00:06 Ondansetron 4 mg IVP once ordered. ck 00:06 Acetaminophen-Codeine 300 mg-30 mg 2 tabs PO once ordered. ck7 00:38 [facility] Payment Agreement was scanned into [employer] and attached to record. lja 00:53 Phenazopyridine 200 mg PO once ordered. ck 09:38 T-Sheet-- Draft Copy was scanned into [employer] and attached to record. gb 09:38 Radiology Report was scanned into [employer] and attached to record. gb Administered Medications: 03/24 21:38 Drug: NS 0.9% 1000 ml [sodium chloride 0.9 % injection solution] Route: IV; Rate: dsf bolus; Site: left antecubital; 03/25 00:39 Follow up: IV Status: Completed infusion; IV Intake: 1000ml ead 03/24 21:38 Drug: Ondansetron 4 mg [ondansetron HCl 2 mg/mL intravenous solution (2 mL)] Route: dsf IVP; Site: left antecubital; 22:00 Follow up: Response: Nausea is decreased; No Adverse Reaction ead 21:38 Drug: ketorolac 30 mg [ketorolac 30 mg/mL (1 mL) injection solution (1 mL)] Route: IVP; dsf Site: left antecubital; 22:00 Follow up: Response: No Adverse Reaction; Pain is decreased ead 03/25 00:13 Drug: Ondansetron 4 mg [ondansetron HCl 2 mg/mL intravenous solution (2 mL)] Route: ead IVP; Site: right antecubital; 00:46 Follow up: Response: Nausea is resolved; No Adverse Reaction ead 00:15 Drug: Acetaminophen-Codeine 2 tabs [acetaminophen 300 mg-codeine 30 mg tablet (2 tabs)] ead Route: PO; 00:45 Follow up: Response: Confirmed pt not driving.; No Adverse Reaction; Pain is decreased ead 00:59 Drug: Phenazopyridine 200 mg [phenazopyridine 100 mg tablet (2 tabs)] Route: PO; ead Signatures: Dispatcher [employer] Gardenia Darnell RN RN Alina Henderson, Reg Reg gb Leisa Mckeon RN RN lf1 Francis Christy, RPA-C [id number] Jennifer Viramontes RN RN ead Arel, Maya Rdz RNf The chart was reviewed and I authenticate all verbal orders and agree with the evaluation and treatment provided.Attachments: 00:38 [facility] Payment Agreement a 09:38 T-Sheet-- Draft Copy gb Chart Complete MTDD
--- NOTE | 2016-03-27 02:03 | EDDOCDS ---
Nurse's Notes [facility] Name: Nadiya Lozada Age: 45 yrs Sex: Female : 1970 Arrival Date: 03/24/2016 Time: 18:18 Bed I4 / M4 Private MD: Taya Chavez Diagnosis: Low back pain;Dysuria Presentation: 03/24 18:45 Presenting complaint: Patient states: she has had severe pain in her low back - thinks kcs it is her kidneys - pain started a week ago but has been worse the last 2 days - also 'peed her pants and is dizzy. Hurts her back to pee.". Acute neurological deficits are not present. Mechanism of Injury: No Mechanism of Injury. Adult Sepsis Screening: The patient does not have new or worsening altered mentation. Patient's respiratory rate is less than 22. Systolic blood pressure is greater than 100. Patient has a qSOFA score of 0- Negative Sepsis Screen. Suicide/Homicide risk assessment- the patient denies having any suicidal and/or homicidal ideations and does not present with any other emotional, behavioral or mental health complaints. Status: Patient is not a customer service attendant or dependent. Transition of care: patient was not received from another setting of care. 18:45 Acuity: RAJIV Level 3 kcs 18:45 Method Of Arrival: Walkin/Carried/Asstd kcs Triage Assessment: 18:53 General: Appears uncomfortable, well developed, well nourished, well groomed, Behavior kcs is cooperative, crying. Pain: Location: low back Pain currently is 10 out of 10 on a pain scale. HIV screening NA for this visit Offered previously. Neurological: Level of Consciousness is awake, alert. Respiratory: Airway is patent Respiratory effort is even, unlabored, Respiratory pattern is regular, symmetrical. : Reports burning with urination incontinence urgency. Derm: Skin is intact, is healthy with good turgor, Skin is dry, Skin is normal. 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 bariatric fusion chewable tabs 2 tabs twice a day 2. cetirizine 10 mg oral tab 1 tab once daily 3. pantoprazole 40 mg oral TbEC 1 tab 2 times per day 4. azelastine 0.1% 2 sprays in each nostril in am 5. potassium chloride 10 mEq Oral cpER 1 cap once daily 6. Premarin 0.625 mg Oral tab once daily 7. biotin oral 5000 mg 2 in am oral 8. ferrous fumarate 324 mg (106 mg iron) oral tab daily 9. Singulair 10 mg Oral tab 1 tab once daily 10. Magnesium Oxide 64 mg Oral 1 tab daily 11. Benadryl 25 mg Oral cap 2 caps nightly 12. Carafate 1 gram Oral tab 1 tab 4 times per day 13. Cytotec 200 mcg oral tab 4 times per day 14. yeast 2 daily 15. uricalm cranberry 2 chewables daily - PMHx: pseydicholinesterase deficiency; Asthma; brain aneurysm; Hypertension; Seasonal Allergies; - PSHx: Gastric Bypass; Cholecystectomy; Hysterectomy; right knee; Carpal Tunnel Repair- Bilateral; - Social history: Smoking status: Patient uses tobacco products, light tobacco smoker. No barriers to communication noted, The patient speaks fluent French. - Family history: Not pertinent. - : The pt / caregiver states he / she is not on anticoagulants. Home medication list is obtained from the patient. - Exposure Risk Screening:: None identified. Screenin:03 Screening information is obtained from the patient. Fall risk: No risks identified. lf1 Assistance ADL's: requires no assistance with activities of daily living. Abuse/DV Screen: The patient / caregiver reports he/she is: not in a situation that causes fear, pain or injury. Nutritional screening: gastric bypass. Advance Directives: Currently, there is no health care proxy. There is no active DNR order. There is no living will. home support is adequate. Assessment: 21:03 General: Appears uncomfortable, Behavior is cooperative. Pain: Location: BL flank pain lf1 Pain currently is 10 out of 10 on a pain scale. Neurological: Level of Consciousness is awake, alert, Oriented to person, place, time. EENT: No deficits noted. Cardiovascular: Chest pain is denied. Respiratory: Respiratory effort is even, unlabored, Respiratory pattern is regular. GI: Reports diarrhea, nausea. : Reports burning with urination inability to void pain in right in left in bilateral flank(s) with urination urgency urinary frequency. Derm: Skin is pink, warm & dry. Musculoskeletal: No deficits noted. 21:40 General: Appears uncomfortable, Behavior is cooperative. Pain: Location: back and ead abdomen Pain currently is 10 out of 10 on a pain scale. Neurological: No deficits noted. Respiratory: Airway is patent Respiratory effort is unlabored. GI: Abdomen is non- distended Bowel sounds present X 4 quads. Reports diarrhea, lower abdominal pain, nausea. : Reports inability to void pain in right in left in bilateral flank(s) with urination urgency urinary frequency. Derm: Skin is pink, warm & dry. 22:30 General: pt just returned from [place] vis wheelchair . dsf 23:30 General: Appears in no apparent distress, Behavior is appropriate for age, cooperative. ead Neurological: No deficits noted. Respiratory: Airway is patent Respiratory effort is even, unlabored. Derm: Skin is pink, warm & dry. 03/25 00:18 General: pt denies being incontinent of urine. pt states she felt like she was going to dsf pee her pants but did not . 00:45 Reassessment: Patient states symptoms have improved. General: Appears in no apparent ead distress. Pain: Pain currently is 6 out of 10 on a pain scale. Neurological: No deficits noted. GI: Denies nausea, vomiting. : Denies discharge, vaginal bleeding. Derm: Skin is pink, warm & dry. Vital Signs: 03/24 18:19 BP 158 / 83; Pulse 82; Resp 18 S; Temp 96.3; Pulse Ox 97% ; Weight 63.5 kg (R); Height gr2 5 ft. 0 in. (152.40 cm) (R); Pain 8/10; 21:03 BP 155 / 86; Pulse 67; Resp 16; Temp 99.3(TE); Pulse Ox 99% ; Pain 10/10; lf1 03/25 00:44 BP 151 / 77; Pulse 72; Resp 16; Temp 96.0(O); Pulse Ox 99% on R/A; Pain 6/10; ead 03/24 18:19 Body Mass Index 27.34 (63.50 kg, 152.40 cm) gr2 Vitals: 03/24 18:19 Log In Time: March 24, 2016 at 18:19. gr2 ED Course: 18:19 Patient visited by Mireille Gupta. gr2 18:19 Taya Chavez is Private Physician. gr2 18:19 Patient moved to Waiting gr2 18:20 Patient visited by Mireille Gupta. gr2 18:20 Patient moved to Pre RCE gr2 18:47 Triage Initiated kcs 21:02 [facility] ck[facility] 21:02 Oj Altamirano MD is Attending Physician. ck7 21:02 Patient moved to Triage 1 lf1 21:16 Patient visited by Francis Christy RPA-C. ck7 21:25 Patient moved to I4 / M4 lf1 21:27 UCG- In Lab Sent. ar3 21:27 Urine Culture Sent. ar3 21:27 UA Sent. ar3 21:38 Amylase Sent. dsf 21:38 Basic Metabolic Profile Sent. dsf 21:39 CBC with Diff Sent. dsf 21:39 Lipase Sent. dsf 21:39 Liver Profile Sent. dsf 21:40 Inserted peripheral IV: 20gauge IV in left antecubital area and blood collected. ead Patient tolerated the procedure well. 21:55 Patient visited by Francis Christy RPA-C. ck7 22:30 Patient visited by Maya Bucio RN. dsf 23:23 Patient visited by Francis Christy RPA-C. ck7 23:54 Patient visited by Francis Christy RPA-C. ck7 0104 00:15 CT ABD & PELVIS: No Contrast Returned. EDMS 00:19 Patient visited by Maya Bucio,TAN. dsf 00:38 [facility] Payment Agreement was scanned into [employer] and attached to record. lja 00:46 Taya Chavez is Referral Physician. ck7 00:59 Discontinued IV intact, bleeding controlled, pressure dressing applied, No ead redness/swelling at site. No procedures done that require assistance. 01:00 The patient / caregiver is instructed regarding the plan of care and ED course. ead 09:38 T-Sheet-- Draft Copy was scanned into [employer] and attached to record. gb 09:38 Radiology Report was scanned into [employer] and attached to record. gb Administered Medications: 03/24 21:38 Drug: NS 0.9% 1000 ml [sodium chloride 0.9 % injection solution] Route: IV; Rate: dsf bolus; Site: left antecubital; 03/25 00:39 Follow up: IV Status: Completed infusion; IV Intake: 1000ml ead 03/24 21:38 Drug: Ondansetron 4 mg [ondansetron HCl 2 mg/mL intravenous solution (2 mL)] Route: dsf IVP; Site: left antecubital; 22:00 Follow up: Response: Nausea is decreased; No Adverse Reaction ead 21:38 Drug: ketorolac 30 mg [ketorolac 30 mg/mL (1 mL) injection solution (1 mL)] Route: IVP; dsf Site: left antecubital; 22:00 Follow up: Response: No Adverse Reaction; Pain is decreased ead 03/25 00:13 Drug: Ondansetron 4 mg [ondansetron HCl 2 mg/mL intravenous solution (2 mL)] Route: ead IVP; Site: right antecubital; 00:46 Follow up: Response: Nausea is resolved; No Adverse Reaction ead 00:15 Drug: Acetaminophen-Codeine 2 tabs [acetaminophen 300 mg-codeine 30 mg tablet (2 tabs)] ead Route: PO; 00:45 Follow up: Response: Confirmed pt not driving.; No Adverse Reaction; Pain is decreased ead 00:59 Drug: Phenazopyridine 200 mg [phenazopyridine 100 mg tablet (2 tabs)] Route: PO; ead Intake: 00:39 IV: 1000.00ml; Total: 1000.00ml. ead Order Results: Lab Order: UA; SPEC'M 03/24/16 21:24 Test: APPEARANCE, URINE; Value: CLEAR; Range: CLEAR; Status: F Test: COLOR, URINE; Value: YELLOW; Range: YELLOW; Status: F Test: PH,URINE; Value: 5.0; Range: 5.0-9.0; Units: UNITS; Status: F Test: SPECIFIC GRAVITY URINE AUTO; Value: 1.026; Range: 1.002-1.035; Status: F Test: PROTEIN, URINE AUTO; Value: NEGATIVE; Range: NEGATIVE; Units: mg/dL; Status: F Test: GLUCOSE, URINE (UA) AUTO; Value: NEGATIVE; Range: NEGATIVE; Units: mg/dL; Status: F Test: KETONE, URINE AUTO; Value: NEGATIVE; Range: NEGATIVE; Units: mg/dL; Status: F Test: UROBILINOGEN, URINE AUTO; Value: 2.0; Range: 0.0-2.0; Abnormal: Above high normal; Units: mg/dL; Status: F Test: BILIRUBIN, URINE AUTO; Value: NEGATIVE; Range: NEGATIVE; Status: F Test: NITRITE, URINE AUTO; Value: NEGATIVE; Range: NEGATIVE; Status: F Test: LEUKOCYTE ESTERASE, URINE AUTO; Value: NEGATIVE; Range: NEGATIVE; Status: F Test: BLOOD, URINE BLOOD; Value: NEGATIVE; Range: NEGATIVE; Status: F Test: WBC, URINE AUTO; Value: 0; Range: 0-3; Units: /HPF; Status: F Test: RBC, URINE AUTO; Value: 4; Range: 0-3; Abnormal: Above high normal; Units: /HPF; Status: F Test: BACTERIA, URINE AUTO; Value: NEGATIVE; Range: NEGATIVE; Status: F Test: SQUAMOUS EPITHELIAL CELL UR AU; Value: 1; Range: 0-6; Units: /HPF; Status: F Test: MUCUS, URINE; Value: SMALL; Range: NEGATIVE; Status: F Test: HYALINE CAST, URINE AUTO; Value: 0; Range: 0-1; Units: /LPF; Status: F Test: CALCIUM OXALATE CRYSTALS; Value: SMALL; Range: NONE; Status: F Lab Order: Urine Culture; [facility] 03/24/16 21:24 Test: URINE CULTURE; Value: URINE CULTURE RESULT NO GROWTH; Status: F Lab Order: UCG- In Lab; [facility] 03/24/16 21:24 Test: URINE PREG TEST; Value: NEGATIVE; Range: NEGATIVE; Status: F Lab Order: Amylase; [facility] 03/24/16 21:36 Test: AMYLASE; Value: 52; Range: 25-115; Units: U/L; Status: F Lab Order: Basic Metabolic Profile; [facility] 03/24/16 21:36 Test: GLUCOSE, FASTING; Value: 88; Range: 70-105; Units: MG/DL; Status: F Test: BLOOD UREA NITROGEN; Value: 15; Range: 7-18; Units: MG/DL; Status: F Test: CREATININE FOR GFR; Value: 0.53; Range: 0.55-1.02; Abnormal: Below low normal; Units: MG/DL; Status: F Test: GLOMERULAR FILTRATION RATE; Value: > 60.0; Range: >58; Status: F Test: SODIUM LEVEL; Value: 144; Range: 136-145; Units: MEQ/L; Status: F Test: POTASSIUM SERUM; Value: 4.2; Range: 3.5-5.1; Units: MEQ/L; Status: F Test: CHLORIDE LEVEL; Value: 108; Range: 98-107; Abnormal: Above high normal; Units: MEQ/L; Status: F Test: CARBON DIOXIDE LEVEL; Value: 28; Range: 21-32; Units: MEQ/L; Status: F Test: ANION GAP; Value: 8; Range: 8-16; Units: MEQ/L; Status: F Test: CALCIUM LEVEL; Value: 8.5; Range: 8.5-10.1; Units: MG/DL; Status: F Test Note: ; Units are mL/min/1.73 m2 Chronic Kidney Disease Staging per NKF: Stage I & II GFR >=60 Normal to Mildly Decreased Stage III GFR 30-59 Moderately Decreased Stage IV GFR 15-29 Severely Decreased Stage V GFR <15 Very Little GFR Left ESRD GFR <15 on HORIZONTAL BORING MILL OPERATOR Lab Order: CBC with Diff; SPEC'M 03/24/16 21:36 Test: WHITE BLOOD COUNT; Value: 10.1; Range: 4.0-10.0; Abnormal: Above high normal; Units: K/mm3; Status: F Test: RED BLOOD COUNT; Value: 4.21; Range: 4.00-5.40; Units: M/mm3; Status: F Test: HEMOGLOBIN; Value: 13.8; Range: 12.0-16.0; Units: g/dl; Status: F Test: HEMATOCRIT; Value: 40.3; Range: 36.0-47.0; Units: %; Status: F Test: MEAN CORPUSCULAR VOLUME; Value: 95.8; Range: 80.0-96.0; Units: fl; Status: F Test: MEAN CORPUSCULAR HEMOGLOBIN; Value: 32.9; Range: 27.0-33.0; Units: pg; Status: F Test: MEAN CORPUSCULAR HGB CONC; Value: 34.3; Range: 32.0-36.5; Units: g/dl; Status: F Test: RED CELL DISTRIBUTION WIDTH; Value: 11.7; Range: 11.5-14.5; Units: %; Status: F Test: PLATELET COUNT, AUTOMATED; Value: 218; Range: 150-450; Units: k/mm3; Status: F Test: NEUTROPHILS %; Value: 63.9; Range: 36.0-66.0; Units: %; Status: F Test: LYMPH %; Value: 27.1; Range: 24.0-44.0; Units: %; Status: F Test: MONO %; Value: 5.3; Range: 0.0-5.0; Abnormal: Above high normal; Units: %; Status: F Test: EOS %; Value: 1.6; Range: 0.0-3.0; Units: %; Status: F Test: BASO %; Value: 0.6; Range: 0.0-1.0; Units: %; Status: F Test: LARGE UNSTAINED CELL %; Value: 1.6; Range: 0.0-4.0; Units: %; Status: F Test: NEUTROPHILS #; Value: 6.5; Range: 1.8-7.7; Units: K/mm3; Status: F Test: LYMPH #; Value: 2.7; Range: 1.5-4.5; Units: K/mm3; Status: F Test: MONO #; Value: 0.5; Range: 0.0-0.8; Units: K/mm3; Status: F Test: EOS #; Value: 0.2; Range: 0.0-0.50; Units: K/mm3; Status: F Test: BASO #; Value: 0.1; Range: 0.0-0.2; Units: K/mm3; Status: F Test: LARGE UNSTAINED CELL #; Value: 0.2; Range: 0.0-0.4; Units: K/mm3; Status: F Lab Order: Lipase; SPEC'M 03/24/16 21:36 Test: LIPASE; Value: 183; Range: 73-393; Units: U/L; Status: F Lab Order: Liver Profile; SPEC'M 03/24/16 21:36 Test: AST/SGOT; Value: 12; Range: 15-37; Abnormal: Below low normal; Units: U/L; Status: F Test: ALT/SGPT; Value: 23; Range: 12-78; Units: U/L; Status: F Test: ALKALINE PHOSPHATASE; Value: 92; Range: 45-117; Units: U/L; Status: F Test: BILIRUBIN,TOTAL; Value: 0.2; Range: 0.2-1.0; Units: MG/DL; Status: F Test: BILIRUBIN,DIRECT; Value: < 0.1; Range: 0.0-0.2; Units: MG/DL; Status: F Test: TOTAL PROTEIN; Value: 6.8; Range: 6.4-8.2; Units: GM/DL; Status: F Test: ALBUMIN; Value: 3.8; Range: 3.2-5.2; Units: GM/DL; Status: F Test: ALBUMIN/GLOBULIN RATIO; Value: 1.27; Range: 1.00-1.93; Status: F Radiology Order: CT ABD & PELVIS: No Contrast Test: CT ABD & PELVIS: No Contrast REASON FOR EXAMINATION: bilateral flank pain, r/o stone; ; CT of the abdomen and pelvis without contrast; Clinical statement: Pain.; Technique: Multiple axial CT images were obtained from the base of the lungs to the floor of the pelv; is utilizing 5 mm axial slices without administration of contrast. Coronal and sagittal reconstructio; ns were also obtained.; No comparison is available.; Findings:; Chest: The visualized lung bases are clear.; Abdomen: The kidneys are normal in size bilaterally. There is no evidence of hydronephrosis or nephro; lithiasis. The liver, spleen, pancreas, and adrenal glands are unremarkable. The aorta demonstrates n; ormal caliber and contour. There is no abdominal lymphadenopathy or ascites.; Pelvis: The bowel is unremarkable, with no obstructive or inflammatory changes. The urinary bladder i; s within normal limits. There is no pelvic lymphadenopathy or ascites. The other pelvic structures ap; pear unremarkable.; Bones: There are no suspicious osseous abnormalities seen.; Impression: Unremarkable CT examination of the abdomen and pelvis.; ; Outcome: 00:46 Discharge ordered by Provider. ck7 00:59 Discharge Assessment: Patient awake and alert. obeys commands, Oriented to person, ead place and time. patient administered narcotics - yes. Pt provided with safe discharge. The following High Risk Discharge criteria are identified: None. Discharged to home ambulatory, with significant other. Condition: improved. Discharge instructions given to patient, significant other, Instructed on discharge instructions, follow up and referral plans. medication usage, no driving heavy equipment, no drinking with medication, Demonstrated understanding of instructions, medications, Pt was receptive of discharge instructions/ teaching. Prescriptions given X 3. CT Study completed. Property sent home with patient. 01:00 Patient left the ED. ead Signatures: Dispatcher [employer] EDMS Gardenia Fall, RN RN kcs Alina Montgomery, Reg Reg gb Leisa MckeonRN RN lf1 Elise Stone, AGRICULTURE CONSULTANT AGRICULTURE CONSULTANT ar3 Maya Bucio,RN RN dsf Francis Christy, RPA-C [id number] Mireille Gupta gr2 Jennifer Viramontes RN RN ead Leisa Marcos Chart [facility]
== END 2016-03-25 01:00 | disposition home or self-care (01) ==
LOC: M ED 18:18
DX: M54.5 Low back pain (principal); R30.0 Dysuria; J45.909 Unspecified asthma, uncomplicated; I10 Essential (primary) hypertension; I67.1 Cerebral aneurysm, nonruptured; Z98.84 Bariatric surgery status; Z79.899 Other long term (current) drug therapy; Z88.8 Allergy status to other drugs, medicaments and biological substances; Z88.1 Allergy status to other antibiotic agents; Z91.040 Latex allergy status; Z88.4 Allergy status to anesthetic agent; F17.210 Nicotine dependence, cigarettes, uncomplicated
CPT/HCPCS: 36415; 74176; 80048; 80076; 81001; 82150; 83690; 84703; 85025; 87086; 99284; J1885; J2405

== ENCOUNTER 2016-04-01 12:01 | Emergency (ER) | payer OTHER ==
[2016-04-01] MEDS ORDERED: GASTROGRAFIN SOLUTION 30ML (Q9963) As Ordered ONE (13:33)
[2016-04-01 13:35] LABS: BASO # 0.1 K/mm3 (0.0-0.2); BASO % 1.5 % (0.0-1.0); EOS # 0.2 K/mm3 (0.0-0.50); EOS % 2.5 % (0.0-3.0); LARGE UNSTAINED CELL # 0.1 K/mm3 (0.0-0.4); LARGE UNSTAINED CELL % 1.6 % (0.0-4.0); LYMPH # 2.4 K/mm3 (1.5-4.5); LYMPH % 36.9 % (24.0-44.0); MEAN CORPUSCULAR HGB CONC 34.5 g/dl (32.0-36.5); MEAN CORPUSCULAR VOLUME 95.6 fl (80.0-96.0); MONO # 0.3 K/mm3 (0.0-0.8); MONO % 5.2 % (0.0-5.0); NEUTROPHILS # 3.3 K/mm3 (1.8-7.7); NEUTROPHILS % 52.2 % (36.0-66.0); PLATELET COUNT, AUTOMATED 229 k/mm3 (150-450); RED CELL DISTRIBUTION WIDTH 12.4 % (11.5-14.5); WHITE BLOOD COUNT 6.2 K/mm3 (4.0-10.0)
[2016-04-01] MEDS ORDERED: ONDANSETRON 4MG/2ML VIAL (J2405) As Ordered ONE (13:35)
[2016-04-01] MEDS ORDERED: MORPHINE 4 MG/ML 1ML SYRINGE As Ordered ONE ×2 (13:35→14:35)
[2016-04-01 13:58] LABS: ALBUMIN 3.9 GM/DL (3.2-5.2); ALBUMIN/GLOBULIN RATIO 1.22 (1.00-1.93); ALKALINE PHOSPHATASE 94 U/L (45-117); ALT/SGPT 39 U/L (12-78); ANION GAP 7 MEQ/L (8-16); AST/SGOT 19 U/L (15-37); BILIRUBIN,DIRECT 0.1 MG/DL (0.0-0.2); BILIRUBIN,TOTAL 0.2 MG/DL (0.2-1.0); BLOOD UREA NITROGEN 10 MG/DL (7-18); CALCIUM LEVEL 8.9 MG/DL (8.5-10.1); CARBON DIOXIDE LEVEL 30 MEQ/L (21-32); CHLORIDE LEVEL 106 MEQ/L (98-107); CREATININE FOR GFR 0.52 MG/DL (0.55-1.02); GLOMERULAR FILTRATION RATE > 60.0 (>58); GLUCOSE, FASTING 92 MG/DL (70-105); POTASSIUM SERUM 4.1 MEQ/L (3.5-5.1); SODIUM LEVEL 143 MEQ/L (136-145); TOTAL PROTEIN 7.1 GM/DL (6.4-8.2)
[2016-04-01] MEDS ORDERED: ISOVUE-370 76% 100ML VIAL (Q9967) As Ordered ONE (15:02)
[2016-04-01] MEDS ORDERED: METOCLOPRAMIDE INJ 10MG/2ML VIAL (J2765) As Ordered ONE (15:09)
--- NOTE | 2016-04-01 16:05 | REP ---
CT abdomen and pelvis with IV and oral contrast 04/01/2016 Indication: Right abdominal pain Comparison: CT abdomen and pelvis 03/24/2016 performed without contrast, CT abdomen and pelvis 05/16/2013, with IV and oral contrast Findings: Lung bases are clear bilaterally . Liver, spleen, pancreas are unremarkable. There has been a prior cholecystectomy. There are bilateral low-density adrenal nodules consistent with adenomas when compared with unenhanced CT abdomen and pelvis 03/24/2016. Kidneys are without hydronephrosis bilaterally. There is a moderate to large distension of the lateral portion of the contrast-filled stomach to region of duodenal bulb . Patient has had prior gastric bypass procedure. Oral contrast is identified throughout the small bowel and there is no evidence of small-bowel obstruction. Mural thickening is seen in the terminal ileum which is a nonspecific finding, but can be seen with inflammatory bowel disease. The appendix is without inflammation. Abdominal aorta is of normal course and caliber. Bladder is normal. Uterus is absent; there are no adnexal masses. There is moderate to large amount of retained stool seen throughout colon. There is no free air or ascites. Ventral hernia mesh is seen in the periumbilical region consistent with prior hernia repair. There is no evidence of recurrent hernia. Impression: [id number] amount of distension seen within the lateral region of the stomach to duodenal bulb region, in the setting of previous gastric bypass surgery. There is no visualized contrast extravasation, and no free air or ascites. Clinical followup recommended. Mural thickening within the terminal ileum, nonspecific finding but can be seen with Crohn's/inflammatory bowel disease. No small bowel obstruction. Moderate to large amount of diffuse retained colonic stool. Signed by Kristi Hylton MD 04/02/2016 07:54 P
[2016-04-01] MEDS ORDERED: MAGNESIUM CITRATE 300 ML BTL As Ordered ONE (16:28)
--- NOTE | 2016-04-01 16:45 | EDDOCDS ---
Nurse's Notes [facility] Name: Nadiya Lozada Age: 45 yrs Sex: Female : 1970 Arrival Date: 04/01/2016 Time: 12:01 Bed I1 / M1 Private MD: Taya Chavez Diagnosis: Other and unspecified noninfective gastroenteritis and colitis;Other abdominal pain Presentation: 04/01 12:10 Presenting complaint: Patient states: "my doctor sent me over for a CT with contrast". ttb Abd pain and right lower back/flank pain x7 days. Sent from PCP office. Nausea. States urgency. Risk factors: the patient reports no vaginal bleeding. Adult Sepsis Screening: The patient does not have new or worsening altered mentation. Patient's respiratory rate is less than 22. Systolic blood pressure is greater than 100. Patient has a qSOFA score of 0- Negative Sepsis Screen. Suicide/Homicide risk assessment- the patient denies having any suicidal and/or homicidal ideations and does not present with any other emotional, behavioral or mental health complaints. Status: Patient is not a service observer chief or dependent. Transition of care: patient was not received from another setting of care. 12:10 Acuity: RAJIV Level 3 ttb 12:10 Method Of Arrival: Walkin/Carried/Asstd ttb Triage Assessment: 12:15 General: Appears in no apparent distress, well nourished, well groomed, Behavior is ttb appropriate for age, cooperative, pleasant. Pain: Location: right lower abd/flank Pain currently is 10 out of 10 on a pain scale. HIV screening NA for this visit Offered previously. Neurological: Level of Consciousness is awake, alert. GI: Reports constipation, lower abdominal pain, nausea, Denies diarrhea, vomiting. : Reports urgency. Derm: Skin is normal. Injury Description: No known injury. NOCTURNIST: 12:15 LMP N/A - Hysterectomy ttb Historical: - Allergies: SUCCINYLCHOLINE; liquid magnesium (Anaphylaxis); Latex; Erythromycin (Hives); Dilaudid; Ceclor (Wheezing); aspartame (Upset stomach); - Home Meds: 1. yeast 2 daily daily (Last dose: 04/01/2016 08:00) 2. uricalm cranberry 2 chewables daily (Last dose: 04/01/2016 05:00) 3. Singulair 10 mg Oral tab 1 tab once daily (Last dose: 03/31/2016 20:00) 4. Premarin 0.625 mg Oral tab once daily (Last dose: 04/01/2016 05:00) 5. potassium chloride 10 mEq Oral cpER 1 cap once daily (Last dose: 04/01/2016 05:00) 6. pantoprazole 40 mg oral TbEC 1 tab 2 times per day (Last dose: 04/01/2016 05:00) 7. Magnesium Oxide 64 mg Oral 1 tab daily (Last dose: 03/31/2016 20:00) 8. ferrous fumarate 324 mg (106 mg iron) oral tab daily (Last dose: 04/01/2016 05:00) 9. Cytotec 200 mcg Oral tab 4 times per day (Last dose: 04/01/2016 09:00) 10. cetirizine 10 mg oral tab 1 tab once daily (Last dose: 04/01/2016 05:00) 11. Carafate 1 gram Oral tab 1 tab 4 times per day (Last dose: 04/01/2016 10:00) 12. biotin 5000 mg 2 in am oral (Last dose: 04/01/2016 05:00) 13. Benadryl 25 mg Oral cap 2 caps nightly (Last dose: 03/31/2016 21:00) 14. bariatric fusion chewable tabs 2 tabs twice a day (Last dose: 04/01/2016 05:00) 15. azelastine 0.1% 2 sprays in each nostril in am (Last dose: 04/01/2016 05:00) - PMHx: Asthma; brain aneurysm; Hypertension; Seasonal Allergies; pseydicholinesterase deficiency; - PSHx: Gastric Bypass; Cholecystectomy; Hysterectomy; right knee; Carpal Tunnel Repair- Bilateral; - Social history: Smoking status: Patient uses tobacco products, current every day smoker. Patient/guardian denies using alcohol, street drugs, No barriers to communication noted, The patient speaks fluent Mauritian, Speaks appropriately for age. - Family history: Not pertinent. - : The pt / caregiver states he / she is not on anticoagulants. Home medication list is obtained from the patient, [employer] import data. - Exposure Risk Screening:: None identified. Screenin:47 Screening information is obtained from the patient. Fall risk: No risks identified. kc3 Assistance ADL's: requires no assistance with activities of daily living. Abuse/DV Screen: The patient / caregiver reports he/she is: not in a situation that causes fear, pain or injury. Nutritional screening: No deficits noted. Advance Directives: Currently, there is no health care proxy. home support is adequate. Assessment: 13:46 General: Appears in no apparent distress, Behavior is appropriate for age, cooperative. kc3 Pain: Location: right lower quadrant. Neurological: Level of Consciousness is awake, alert, obeys commands, Oriented to person, place, time. Respiratory: Airway is patent Respiratory effort is even, unlabored. GI: Abdomen is flat, Bowel sounds present X 4 quads. Abd is soft X 4 quads Abd is tender to palpation in right lower quadrant Reports constipation, nausea. Derm: Skin is pink, warm & dry. 14:25 Reassessment: Patient states symptoms have not improved. Pain: Location: right lower kc3 quadrant. Neurological: Level of Consciousness is awake, alert, obeys commands. Respiratory: Respiratory effort is even, unlabored. GI: Reports lower abdominal pain. Derm: Skin is pink, warm & dry. 15:31 General: Appears uncomfortable, Behavior is appropriate for age, cooperative. Pain: kc3 Location: right lower quadrant. Neurological: Level of Consciousness is awake, alert, obeys commands, Oriented to person, place, time. Respiratory: Respiratory effort is even, unlabored. GI: Reports lower abdominal pain. Derm: Skin is pink, warm & dry. 16:43 General: Appears in no apparent distress, Behavior is appropriate for age, cooperative. kc3 Neurological: Level of Consciousness is awake, alert, obeys commands. Respiratory: Airway is patent Respiratory effort is even, unlabored. GI: Denies nausea. Derm: Skin is pink, warm & dry. Vital Signs: 12:02 BP 148 / 91; Pulse 80; Resp 18; Temp 98.1(O); Pulse Ox 100% ; Weight 63.5 kg; Height 5 cmb ft. 0 in. (152.40 cm); Pain 10/10; 14:19 BP 138 / 71; Pulse 76; Resp 18; Pulse Ox 100% ; Pain 6/10; jrd 16:29 BP 138 / 71 RA Sitting (auto/reg); Pulse 71; Resp 16; Temp 97.1; Pulse Ox 98% on R/A; jrd Pain 5/10; 12:02 Body Mass Index 27.34 (63.50 kg, 152.40 cm) cmb Vitals: 12:02 Log In Time: April 01, 2016 at 12:01. cmb ED Course: 12:02 Patient visited by Suzie Delgado. cmb 12:02 Taya Chavez is Private Physician. cmb 12:02 Patient moved to Waiting cmb 12:03 Patient moved to Pre RCE cmb 12:12 Triage Initiated ttb 12:23 Patient visited by Mis Keating PCA. rs6 12:23 Assisted to bathroom. rs6 12:23 UA Sent. rs6 12:47 Patient moved to Triage 3 rs6 12:57 [facility]ledso[facility]. ar2 12:57 Moises Gray MD is Attending Physician. ar2 12:57 Patient visited by Huy Bledsoe PA-C. ar2 13:29 Lactic Acid (Cooper tube on ice) Sent. jf3 13:29 Liver Profile Sent. jf3 13:29 MED Profile Sent. jf3 13:29 CBC with Diff Sent. jf3 13:29 Inserted saline lock: 20 gauge in right antecubital area The patient tolerated the jf3 procedure well. 13:30 Patient visited by Ciro Whitaker,TAN. jf3 13:34 Patient moved to I1 / M1 rs6 13:47 The patient / caregiver is instructed regarding the plan of care and ED course. kc3 14:16 Patient visited by Tresa Hamilton RN. kc3 14:40 Patient visited by Priyanka Smiley, TAN. srm 15:14 Patient visited by Tresa Hamilton,TAN. kc3 15:34 [facility] Payment Agreement was scanned into [employer] and attached to record. lg 15:42 Patient visited by Radha Rojas,TAN. ck1 16:10 CT ABD & PELVIS: IV and Oral Contrast Returned. EDMS 16:12 Win Cleveland MD is Referral Physician. ar2 16:43 Discontinued IV lock intact, bleeding controlled, pressure dressing applied, No kc3 redness/swelling at site. No procedures done that require assistance. Administered Medications: 13:38 Drug: Diatrizoate Meglumine & Sodium 10 ml [diatrizoate meglumine and diat.sodium 66 jf3 %-10 % oral solution (10 mL)] Route: PO; 13:46 Drug: NS 0.9% 1000 ml [sodium chloride 0.9 % intravenous solution] Route: IV; Rate: kc3 bolus; Site: right antecubital; 15:45 Follow up: IV Status: Completed infusion ck1 13:46 Drug: morphine 4 mg [morphine 4 mg/mL intravenous cartridge (1 mL)] Route: IVP; Site: kc3 right antecubital; 15:33 Follow up: Response: Pain is unchanged, physician notified kc3 13:46 Drug: Ondansetron 4 mg [ondansetron HCl 2 mg/mL intravenous solution (2 mL)] Route: kc3 IVP; Site: right antecubital; 15:34 Follow up: Response: No Adverse Reaction kc3 14:16 Drug: Diatrizoate Meglumine & Sodium 10 ml [diatrizoate meglumine and diat.sodium 66 kc3 %-10 % oral solution (10 mL)] Route: PO; 14:36 Drug: morphine 4 mg [morphine 4 mg/mL intravenous cartridge (1 mL)] Route: IVP; Site: srm right antecubital; 15:33 Follow up: Response: Pain is unchanged, physician notified kc3 15:13 Drug: Metoclopramide 10 mg [metoclopramide 5 mg/mL injection solution] Route: IV; Rate: srm 40 mg/hr; Infused Over: 15 mins; Site: right antecubital; 15:42 Follow up: IV Status: Completed infusion ck1 16:44 Drug: Magnesium Citrate 300 ml [magnesium citrate oral solution (300 mL)] Route: PO; kc3 Order Results: Lab Order: UA; SPEC'M 04/01/16 12:21 Test: APPEARANCE, URINE; Value: CLEAR; Range: CLEAR; Status: F Test: COLOR, URINE; Value: YELLOW; Range: YELLOW; Status: F Test: PH,URINE; Value: 6.0; Range: 5.0-9.0; Units: UNITS; Status: F Test: SPECIFIC GRAVITY URINE AUTO; Value: 1.015; Range: 1.002-1.035; Status: F Test: PROTEIN, URINE AUTO; Value: NEGATIVE; Range: NEGATIVE; Units: mg/dL; Status: F Test: GLUCOSE, URINE (UA) AUTO; Value: NEGATIVE; Range: NEGATIVE; Units: mg/dL; Status: F Test: KETONE, URINE AUTO; Value: NEGATIVE; Range: NEGATIVE; Units: mg/dL; Status: F Test: UROBILINOGEN, URINE AUTO; Value: 0.2; Range: 0.0-2.0; Units: mg/dL; Status: F Test: BILIRUBIN, URINE AUTO; Value: NEGATIVE; Range: NEGATIVE; Status: F Test: NITRITE, URINE AUTO; Value: NEGATIVE; Range: NEGATIVE; Status: F Test: LEUKOCYTE ESTERASE, URINE AUTO; Value: NEGATIVE; Range: NEGATIVE; Status: F Test: BLOOD, URINE BLOOD; Value: NEGATIVE; Range: NEGATIVE; Status: F Test: WBC, URINE AUTO; Value: 1; Range: 0-3; Units: /HPF; Status: F Test: RBC, URINE AUTO; Value: 2; Range: 0-3; Units: /HPF; Status: F Test: BACTERIA, URINE AUTO; Value: NEGATIVE; Range: NEGATIVE; Status: F Test: SQUAMOUS EPITHELIAL CELL UR AU; Value: 2; Range: 0-6; Units: /HPF; Status: F Test: MUCUS, URINE; Value: SMALL; Range: NEGATIVE; Status: F Test: HYALINE CAST, URINE AUTO; Value: 0; Range: 0-1; Units: /LPF; Status: F Lab Order: CBC with Diff; SPEC'M 04/01/16 13:28 Test: WHITE BLOOD COUNT; Value: 6.2; Range: 4.0-10.0; Units: K/mm3; Status: F Test: RED BLOOD COUNT; Value: 4.48; Range: 4.00-5.40; Units: M/mm3; Status: F Test: HEMOGLOBIN; Value: 14.8; Range: 12.0-16.0; Units: g/dl; Status: F Test: HEMATOCRIT; Value: 42.8; Range: 36.0-47.0; Units: %; Status: F Test: MEAN CORPUSCULAR VOLUME; Value: 95.6; Range: 80.0-96.0; Units: fl; Status: F Test: MEAN CORPUSCULAR HEMOGLOBIN; Value: 33.0; Range: 27.0-33.0; Units: pg; Status: F Test: MEAN CORPUSCULAR HGB CONC; Value: 34.5; Range: 32.0-36.5; Units: g/dl; Status: F Test: RED CELL DISTRIBUTION WIDTH; Value: 12.4; Range: 11.5-14.5; Units: %; Status: F Test: PLATELET COUNT, AUTOMATED; Value: 229; Range: 150-450; Units: k/mm3; Status: F Test: NEUTROPHILS %; Value: 52.2; Range: 36.0-66.0; Units: %; Status: F Test: LYMPH %; Value: 36.9; Range: 24.0-44.0; Units: %; Status: F Test: MONO %; Value: 5.2; Range: 0.0-5.0; Abnormal: Above high normal; Units: %; Status: F Test: EOS %; Value: 2.5; Range: 0.0-3.0; Units: %; Status: F Test: BASO %; Value: 1.5; Range: 0.0-1.0; Abnormal: Above high normal; Units: %; Status: F Test: LARGE UNSTAINED CELL %; Value: 1.6; Range: 0.0-4.0; Units: %; Status: F Test: NEUTROPHILS #; Value: 3.3; Range: 1.8-7.7; Units: K/mm3; Status: F Test: LYMPH #; Value: 2.4; Range: 1.5-4.5; Units: K/mm3; Status: F Test: MONO #; Value: 0.3; Range: 0.0-0.8; Units: K/mm3; Status: F Test: EOS #; Value: 0.2; Range: 0.0-0.50; Units: K/mm3; Status: F Test: BASO #; Value: 0.1; Range: 0.0-0.2; Units: K/mm3; Status: F Test: LARGE UNSTAINED CELL #; Value: 0.1; Range: 0.0-0.4; Units: K/mm3; Status: F Lab Order: MED Profile; SPEC'M 04/01/16 13:28 Test: GLUCOSE, FASTING; Value: 92; Range: 70-105; Units: MG/DL; Status: F Test: BLOOD UREA NITROGEN; Value: 10; Range: 7-18; Units: MG/DL; Status: F Test: CREATININE FOR GFR; Value: 0.52; Range: 0.55-1.02; Abnormal: Below low normal; Units: MG/DL; Status: F Test: GLOMERULAR FILTRATION RATE; Value: > 60.0; Range: >58; Status: F Test: SODIUM LEVEL; Value: 143; Range: 136-145; Units: MEQ/L; Status: F Test: POTASSIUM SERUM; Value: 4.1; Range: 3.5-5.1; Units: MEQ/L; Status: F Test: CHLORIDE LEVEL; Value: 106; Range: 98-107; Units: MEQ/L; Status: F Test: CARBON DIOXIDE LEVEL; Value: 30; Range: 21-32; Units: MEQ/L; Status: F Test: ANION GAP; Value: 7; Range: 8-16; Abnormal: Below low normal; Units: MEQ/L; Status: F Test: CALCIUM LEVEL; Value: 8.9; Range: 8.5-10.1; Units: MG/DL; Status: F Test Note: ; Units are mL/min/1.73 m2 Chronic Kidney Disease Staging per NKF: Stage I & II GFR >=60 Normal to Mildly Decreased Stage III GFR 30-59 Moderately Decreased Stage IV GFR 15-29 Severely Decreased Stage V GFR <15 Very Little GFR Left ESRD GFR <15 on CAFE ATTENDANT Lab Order: Liver Profile; SPEC'M 04/01/16 13:28 Test: AST/SGOT; Value: 19; Range: 15-37; Units: U/L; Status: F Test: ALT/SGPT; Value: 39; Range: 12-78; Units: U/L; Status: F Test: ALKALINE PHOSPHATASE; Value: 94; Range: 45-117; Units: U/L; Status: F Test: BILIRUBIN,TOTAL; Value: 0.2; Range: 0.2-1.0; Units: MG/DL; Status: F Test: BILIRUBIN,DIRECT; Value: 0.1; Range: 0.0-0.2; Units: MG/DL; Status: F Test: TOTAL PROTEIN; Value: 7.1; Range: 6.4-8.2; Units: GM/DL; Status: F Test: ALBUMIN; Value: 3.9; Range: 3.2-5.2; Units: GM/DL; Status: F Test: ALBUMIN/GLOBULIN RATIO; Value: 1.22; Range: 1.00-1.93; Status: F Lab Order: Lactic Acid (Cooper tube on ice); CLAUDE'M 04/01/16 13:28 Test: LACTIC ACID LEVEL, LACTATE; Value: 0.6; Range: 0.4-2.0; Units: MMOL/L; Status: F Radiology Order: CT ABD & PELVIS: IV and Oral Contrast Test: CT ABD & PELVIS: IV and Oral Contrast REASON FOR EXAMINATION: right abdominal pain; CT abdomen and pelvis with IV and oral contrast 04/01/2016; ; Indication: Right abdominal pain; ; Comparison: CT abdomen and pelvis 03/24/2016 performed without contrast, CT; abdomen and pelvis 05/16/2013, with IV and oral contrast; ; Findings: Lung bases are clear bilaterally .; ; Liver, spleen, pancreas are unremarkable. There has been a prior; cholecystectomy. There are bilateral low-density adrenal nodules consistent with; adenomas when compared with unenhanced CT abdomen and pelvis 03/24/2016. Kidneys; are without hydronephrosis bilaterally. There is a moderate to large distension; of the lateral portion of the contrast-filled stomach to region of duodenal bulb; . Patient has had prior gastric bypass procedure. Oral contrast is identified; throughout the small bowel and there is no evidence of small-bowel obstruction.; Mural thickening is seen in the terminal ileum which is a nonspecific finding,; but can be seen with inflammatory bowel disease. The appendix is without; inflammation. Abdominal aorta is of normal course and caliber.; ; Bladder is normal. Uterus is absent; there are no adnexal masses. There is; moderate to large amount of retained stool seen throughout colon. There is no; free air or ascites. Ventral hernia mesh is seen in the periumbilical region; consistent with prior hernia repair. There is no evidence of recurrent hernia.; ; Impression:; ; [id number] amount of distension seen within the lateral region of the; stomach to duodenal bulb region, in the setting of previous gastric bypass; surgery. There is no visualized contrast extravasation, and no free air or; ascites. Clinical followup recommended.; ; Mural thickening within the terminal ileum, nonspecific finding but can be seen; with Crohn's/inflammatory bowel disease. No small bowel obstruction.; ; Moderate to large amount of diffuse retained colonic stool.; ; ; ; ; ; ; ; ; Unreviewed; Outcome: 15:33 CT Study completed. kc3 16:14 Discharge ordered by Provider. ar2 16:43 Discharge Assessment: Patient awake, alert and oriented x 3. No cognitive and/or kc3 functional deficits noted. Patient verbalized understanding of disposition instructions. patient administered narcotics - yes. Pt provided with safe discharge. The following High Risk Discharge criteria are identified: None. Condition: stable. Discharge instructions given to patient, Instructed on discharge instructions, follow up and referral plans. medication usage, Demonstrated understanding of instructions, medications, Pt was receptive of discharge instructions/ teaching. Prescriptions given X 4. Property :Personal belongings accompany Pt. 16:44 Patient left the ED. kc3 Signatures: Dispatcher [employer] EDMS Priyanka Smiley, TAN RN [facility] Lolita Gracia, Reg Reg lg Radha RojasRN RN ck1 Huy Bledsoe, PA-C PA-C ar2 Suzie Delgado cmClarice Parkinson RN RN ttb Venkat Santiago, RADIO RIGGER RADIO RIGGER jrd Mis Keating, RADIO RIGGER RADIO RIGGER rs6 Tresa Hamilton RN RN kc3 Ciro Whitaker,TAN RN jf3 MTDD
--- NOTE | 2016-04-01 16:45 | EDDOCDS ---
Physician Documentation [facility] Name: Nadiya Lozada Age: 45 yrs Sex: Female : 1970 Arrival Date: 04/01/2016 Time: 12:01 Bed I1 / M1 Private MD: Taya Chavez Disposition: 04/01/16 16:14 Discharged to Home/Self Care. Impression: Other and unspecified noninfective gastroenteritis and colitis, Other abdominal pain. - Condition is Stable. - Discharge Instructions: Abdominal Pain, Adult. - Prescriptions for Colace 100 mg Oral Tablet - take 1 tablet by ORAL route every 12 hours; 14 tablet. Ultram 50 mg Oral Tablet - take 1 tablet by ORAL route every 6 hours As needed MDD: 4 tabs; 8 tablet. Prednisone 20 mg Oral Tablet - take 2 tablet by ORAL route once daily for 5 days; 10 tablet. ZOFRAN ODT 4 mg - dissolve 1 tablet by ORAL route 4 times per day As needed do not chew, do not swallow whole; 10 tablet. Miralax 17 gram/dose - take 17 gram by ORAL route once daily As needed dilute in 8 ounces of water or juice; 1 bottle. - Medication Reconciliation, Local Pharmacy Hours, Work Release Form - 2 day form. - Follow up: Private Physician; When: Call to arrange an appointment; Reason: Further diagnostic work-up, Recheck today's complaints. Follow up: Win Cleveland MD; When: 2 - 3 days; Reason: Recheck today's complaints. Follow up: Emergency Department; When: As needed; Reason: Fever > 102F, Worsening of conditions. - Problem is new. - Symptoms have improved. Historical: - Allergies: SUCCINYLCHOLINE; liquid magnesium (Anaphylaxis); Latex; Erythromycin (Hives); Dilaudid; Ceclor (Wheezing); aspartame (Upset stomach); - Home Meds: 1. yeast 2 daily daily (Last dose: 04/01/2016 08:00) 2. uricalm cranberry 2 chewables daily (Last dose: 04/01/2016 05:00) 3. Singulair 10 mg Oral tab 1 tab once daily (Last dose: 03/31/2016 20:00) 4. Premarin 0.625 mg Oral tab once daily (Last dose: 04/01/2016 05:00) 5. potassium chloride 10 mEq Oral cpER 1 cap once daily (Last dose: 04/01/2016 05:00) 6. pantoprazole 40 mg oral TbEC 1 tab 2 times per day (Last dose: 04/01/2016 05:00) 7. Magnesium Oxide 64 mg Oral 1 tab daily (Last dose: 03/31/2016 20:00) 8. ferrous fumarate 324 mg (106 mg iron) oral tab daily (Last dose: 04/01/2016 05:00) 9. Cytotec 200 mcg Oral tab 4 times per day (Last dose: 04/01/2016 09:00) 10. cetirizine 10 mg oral tab 1 tab once daily (Last dose: 04/01/2016 05:00) 11. Carafate 1 gram Oral tab 1 tab 4 times per day (Last dose: 04/01/2016 10:00) 12. biotin 5000 mg 2 in am oral (Last dose: 04/01/2016 05:00) 13. Benadryl 25 mg Oral cap 2 caps nightly (Last dose: 03/31/2016 21:00) 14. bariatric fusion chewable tabs 2 tabs twice a day (Last dose: 04/01/2016 05:00) 15. azelastine 0.1% 2 sprays in each nostril in am (Last dose: 04/01/2016 05:00) - PMHx: Asthma; brain aneurysm; Hypertension; Seasonal Allergies; pseydicholinesterase deficiency; - PSHx: Gastric Bypass; Cholecystectomy; Hysterectomy; right knee; Carpal Tunnel Repair- Bilateral; - Social history: Smoking status: Patient uses tobacco products, current every day smoker. Patient/guardian denies using alcohol, street drugs, No barriers to communication noted, The patient speaks fluent Australian, Speaks appropriately for age. - Family history: Not pertinent. - : The pt / caregiver states he / she is not on anticoagulants. Home medication list is obtained from the patient, [employer] import data. - Exposure Risk Screening:: None identified. EXCHANGE CONSULTANT: 04/01 12:15 LMP N/A - Hysterectomy ttb Vital Signs: 12:02 BP 148 / 91; Pulse 80; Resp 18; Temp 98.1(O); Pulse Ox 100% ; Weight 63.5 kg / 139.99 cmb lbs; Height 5 ft. 0 in. (152.40 cm); Pain 10/10; 14:19 BP 138 / 71; Pulse 76; Resp 18; Pulse Ox 100% ; Pain 6/10; jrd 16:29 BP 138 / 71 RA Sitting (auto/reg); Pulse 71; Resp 16; Temp 97.1; Pulse Ox 98% on R/A; jrd Pain 5/10; 12:02 Body Mass Index 27.34 (63.50 kg, 152.40 cm) cmb MDM: 12:18 UA Ordered. EDMS 13:06 UA Reviewed. ar2 13:10 IV Saline Lock ordered. ar2 13:10 NS 0.9% 1000 ml IV at bolus once ordered. ar2 13:10 morphine 4 mg IVP once ordered. ar2 13:10 Ondansetron 4 mg IVP once ordered. ar2 13:12 CBC with Diff Ordered. EDMS 13:12 MED Profile Ordered. EDMS 13:12 Liver Profile Ordered. EDMS 13:12 Lactic Acid (Cooper tube on ice) Ordered. EDMS 13:12 CT ABD & PELVIS: IV and Oral Contrast Ordered. EDMS 13:31 Diatrizoate Meglumine & Sodium Liquid 10 ml PO once; mix in 290cc of water \T\ 1335. jf3 ordered. 13:31 Diatrizoate Meglumine & Sodium Liquid 10 ml PO once; mix in 290cc of water \T\ 1405 jf3 ordered. 13:36 Financial registration complete. lg 14:30 CBC with Diff Reviewed. ar2 14:30 MED Profile Reviewed. ar2 14:30 Liver Profile Reviewed. ar2 14:30 Lactic Acid (Cooper tube on ice) Reviewed. ar2 14:33 morphine 4 mg IVP once ordered. ar2 14:57 Metoclopramide 10 mg IV at 40 mg/hr once over 15 mins ordered. srm 15:34 [facility] Payment Agreement was scanned into [employer] and attached to record. lg 16:20 Magnesium Citrate Liquid 300 ml PO once; Dispense home with pt. take 1/2 bottle as ar2 needed ordered. Administered Medications: 13:38 Drug: Diatrizoate Meglumine & Sodium 10 ml [diatrizoate meglumine and diat.sodium 66 jf3 %-10 % oral solution (10 mL)] Route: PO; 13:46 Drug: NS 0.9% 1000 ml [sodium chloride 0.9 % intravenous solution] Route: IV; Rate: kc3 bolus; Site: right antecubital; 15:45 Follow up: IV Status: Completed infusion ck1 13:46 Drug: morphine 4 mg [morphine 4 mg/mL intravenous cartridge (1 mL)] Route: IVP; Site: kc3 right antecubital; 15:33 Follow up: Response: Pain is unchanged, physician notified kc3 13:46 Drug: Ondansetron 4 mg [ondansetron HCl 2 mg/mL intravenous solution (2 mL)] Route: kc3 IVP; Site: right antecubital; 15:34 Follow up: Response: No Adverse Reaction kc3 14:16 Drug: Diatrizoate Meglumine & Sodium 10 ml [diatrizoate meglumine and diat.sodium 66 kc3 %-10 % oral solution (10 mL)] Route: PO; 14:36 Drug: morphine 4 mg [morphine 4 mg/mL intravenous cartridge (1 mL)] Route: IVP; Site: [facility] right antecubital; 15:33 Follow up: Response: Pain is unchanged, physician notified kc3 15:13 Drug: Metoclopramide 10 mg [metoclopramide 5 mg/mL injection solution] Route: IV; Rate: srm 40 mg/hr; Infused Over: 15 mins; Site: right antecubital; 15:42 Follow up: IV Status: Completed infusion ck1 16:44 Drug: Magnesium Citrate 300 ml [magnesium citrate oral solution (300 mL)] Route: PO; kc3 Signatures: Dispatcher [employer] EDMS Priyanka Smiley RN RN srm Lolita Gracia, Gordon Leyva lg Huy Bledsoe PA-C PAAbdias ar2 Clarice Benz RN RN ttb Tresa Hamilton RN RN kc3 Ciro Whitaker RN RN elias3 Radha Rojas RN ck1 The chart was reviewed and I authenticate all verbal orders and agree with the evaluation and treatment provided.Attachments: 15:34 [facility] Payment Agreement lg MTDD
--- NOTE | 2016-04-03 17:45 | EDDOCDS ---
Physician Documentation [facility] Name: Nadiya Lozada Age: 45 yrs Sex: Female : 1970 Arrival Date: 04/01/2016 Time: 12:01 Bed I1 / M1 Private MD: Taya Chavez Disposition: 04/01/16 16:14 Discharged to Home/Self Care. Impression: Other and unspecified noninfective gastroenteritis and colitis, Other abdominal pain. - Condition is Stable. - Discharge Instructions: Abdominal Pain, Adult. - Prescriptions for Colace 100 mg Oral Tablet - take 1 tablet by ORAL route every 12 hours; 14 tablet. Ultram 50 mg Oral Tablet - take 1 tablet by ORAL route every 6 hours As needed MDD: 4 tabs; 8 tablet. Prednisone 20 mg Oral Tablet - take 2 tablet by ORAL route once daily for 5 days; 10 tablet. ZOFRAN ODT 4 mg - dissolve 1 tablet by ORAL route 4 times per day As needed do not chew, do not swallow whole; 10 tablet. Miralax 17 gram/dose - take 17 gram by ORAL route once daily As needed dilute in 8 ounces of water or juice; 1 bottle. - Medication Reconciliation, Local Pharmacy Hours, Work Release Form - 2 day form. - Follow up: Private Physician; When: Call to arrange an appointment; Reason: Further diagnostic work-up, Recheck today's complaints. Follow up: Win Cleveland MD; When: 2 - 3 days; Reason: Recheck today's complaints. Follow up: Emergency Department; When: As needed; Reason: Fever > 102F, Worsening of conditions. - Problem is new. - Symptoms have improved. Historical: - Allergies: SUCCINYLCHOLINE; liquid magnesium (Anaphylaxis); Latex; Erythromycin (Hives); Dilaudid; Ceclor (Wheezing); aspartame (Upset stomach); - Home Meds: 1. yeast 2 daily daily (Last dose: 04/01/2016 08:00) 2. uricalm cranberry 2 chewables daily (Last dose: 04/01/2016 05:00) 3. Singulair 10 mg Oral tab 1 tab once daily (Last dose: 03/31/2016 20:00) 4. Premarin 0.625 mg Oral tab once daily (Last dose: 04/01/2016 05:00) 5. potassium chloride 10 mEq Oral cpER 1 cap once daily (Last dose: 04/01/2016 05:00) 6. pantoprazole 40 mg oral TbEC 1 tab 2 times per day (Last dose: 04/01/2016 05:00) 7. Magnesium Oxide 64 mg Oral 1 tab daily (Last dose: 03/31/2016 20:00) 8. ferrous fumarate 324 mg (106 mg iron) oral tab daily (Last dose: 04/01/2016 05:00) 9. Cytotec 200 mcg Oral tab 4 times per day (Last dose: 04/01/2016 09:00) 10. cetirizine 10 mg oral tab 1 tab once daily (Last dose: 04/01/2016 05:00) 11. Carafate 1 gram Oral tab 1 tab 4 times per day (Last dose: 04/01/2016 10:00) 12. biotin 5000 mg 2 in am oral (Last dose: 04/01/2016 05:00) 13. Benadryl 25 mg Oral cap 2 caps nightly (Last dose: 03/31/2016 21:00) 14. bariatric fusion chewable tabs 2 tabs twice a day (Last dose: 04/01/2016 05:00) 15. azelastine 0.1% 2 sprays in each nostril in am (Last dose: 04/01/2016 05:00) - PMHx: Asthma; brain aneurysm; Hypertension; Seasonal Allergies; pseydicholinesterase deficiency; - PSHx: Gastric Bypass; Cholecystectomy; Hysterectomy; right knee; Carpal Tunnel Repair- Bilateral; - Social history: Smoking status: Patient uses tobacco products, current every day smoker. Patient/guardian denies using alcohol, street drugs, No barriers to communication noted, The patient speaks fluent Estonian, Speaks appropriately for age. - Family history: Not pertinent. - : The pt / caregiver states he / she is not on anticoagulants. Home medication list is obtained from the patient, [employer] import data. - Exposure Risk Screening:: None identified. FRONT OFFICE COORDINATOR: 04/01 12:15 LMP N/A - Hysterectomy ttb Vital Signs: 12:02 BP 148 / 91; Pulse 80; Resp 18; Temp 98.1(O); Pulse Ox 100% ; Weight 63.5 kg / 139.99 cmb lbs; Height 5 ft. 0 in. (152.40 cm); Pain 10/10; 14:19 BP 138 / 71; Pulse 76; Resp 18; Pulse Ox 100% ; Pain 6/10; jrd 16:29 BP 138 / 71 RA Sitting (auto/reg); Pulse 71; Resp 16; Temp 97.1; Pulse Ox 98% on R/A; jrd Pain 5/10; 12:02 Body Mass Index 27.34 (63.50 kg, 152.40 cm) cmb MDM: 12:18 UA Ordered. EDMS 13:06 UA Reviewed. ar2 13:10 IV Saline Lock ordered. ar2 13:10 NS 0.9% 1000 ml IV at bolus once ordered. ar2 13:10 morphine 4 mg IVP once ordered. ar2 13:10 Ondansetron 4 mg IVP once ordered. ar2 13:12 CBC with Diff Ordered. EDMS 13:12 MED Profile Ordered. EDMS 13:12 Liver Profile Ordered. EDMS 13:12 Lactic Acid (Cooper tube on ice) Ordered. EDMS 13:12 CT ABD & PELVIS: IV and Oral Contrast Ordered. EDMS 13:31 Diatrizoate Meglumine & Sodium Liquid 10 ml PO once; mix in 290cc of water \T\ 1335. jf3 ordered. 13:31 Diatrizoate Meglumine & Sodium Liquid 10 ml PO once; mix in 290cc of water \T\ 1405 jf3 ordered. 13:36 Financial registration complete. lg 14:30 CBC with Diff Reviewed. ar2 14:30 MED Profile Reviewed. ar2 14:30 Liver Profile Reviewed. ar2 14:30 Lactic Acid (Cooper tube on ice) Reviewed. ar2 14:33 morphine 4 mg IVP once ordered. ar2 14:57 Metoclopramide 10 mg IV at 40 mg/hr once over 15 mins ordered. srm 15:34 [facility] [place] was scanned into [employer] and attached to record. lg 16:20 Magnesium Citrate Liquid 300 ml PO once; Dispense home with pt. take 1/2 bottle as ar2 needed ordered. 04/02 09:16 T-Sheet-- Draft Copy was scanned into [employer] and attached to record. gb Administered Medications: 04/01 13:38 Drug: Diatrizoate Meglumine & Sodium 10 ml [diatrizoate meglumine and diat.sodium 66 jf3 %-10 % oral solution (10 mL)] Route: PO; 13:46 Drug: NS 0.9% 1000 ml [sodium chloride 0.9 % intravenous solution] Route: IV; Rate: kc3 bolus; Site: right antecubital; 15:45 Follow up: IV Status: Completed infusion ck1 13:46 Drug: morphine 4 mg [morphine 4 mg/mL intravenous cartridge (1 mL)] Route: IVP; Site: kc3 right antecubital; 15:33 Follow up: Response: Pain is unchanged, physician notified kc3 13:46 Drug: Ondansetron 4 mg [ondansetron HCl 2 mg/mL intravenous solution (2 mL)] Route: kc3 IVP; Site: right antecubital; 15:34 Follow up: Response: No Adverse Reaction kc3 14:16 Drug: Diatrizoate Meglumine & Sodium 10 ml [diatrizoate meglumine and diat.sodium 66 kc3 %-10 % oral solution (10 mL)] Route: PO; 14:36 Drug: morphine 4 mg [morphine 4 mg/mL intravenous cartridge (1 mL)] Route: IVP; Site: srm right antecubital; 15:33 Follow up: Response: Pain is unchanged, physician notified kc3 15:13 Drug: Metoclopramide 10 mg [metoclopramide 5 mg/mL injection solution] Route: IV; Rate: srm 40 mg/hr; Infused Over: 15 mins; Site: right antecubital; 15:42 Follow up: IV Status: Completed infusion ck1 16:44 Drug: Magnesium Citrate 300 ml [magnesium citrate oral solution (300 mL)] Route: PO; kc3 Signatures: Dispatcher [employer] EDMS Priyanka Smiley, RN RN [facility] Alina Montgomery, Reg Reg gb Lolita Gracia, Reg Reg lg Huy Bledsoe PA-C PA-C ar2 Clarice Benz RN RN minab Tresa Hamilton RN RN kc3 Ciro Whitaker RN RN jf3 Radha Rojas RN ck1 The chart was reviewed and I authenticate all verbal orders and agree with the evaluation and treatment provided.Attachments: 15:34 [facility] Payment Agreement 04/02 09:16 T-Sheet-- Draft Copy gb Chart Complete MTDD
--- NOTE | 2016-04-03 17:45 | EDDOCDS ---
Physician Documentation [facility] Name: Nadiya Lozada Age: 45 yrs Sex: Female : 1970 Arrival Date: 04/01/2016 Time: 12:01 Bed I1 / M1 Private MD: Taya Chavez Disposition: 04/01/16 16:14 Discharged to Home/Self Care. Impression: Other and unspecified noninfective gastroenteritis and colitis, Other abdominal pain. - Condition is Stable. - Discharge Instructions: Abdominal Pain, Adult. - Prescriptions for Colace 100 mg Oral Tablet - take 1 tablet by ORAL route every 12 hours; 14 tablet. Ultram 50 mg Oral Tablet - take 1 tablet by ORAL route every 6 hours As needed MDD: 4 tabs; 8 tablet. Prednisone 20 mg Oral Tablet - take 2 tablet by ORAL route once daily for 5 days; 10 tablet. ZOFRAN ODT 4 mg - dissolve 1 tablet by ORAL route 4 times per day As needed do not chew, do not swallow whole; 10 tablet. Miralax 17 gram/dose - take 17 gram by ORAL route once daily As needed dilute in 8 ounces of water or juice; 1 bottle. - Medication Reconciliation, Local Pharmacy Hours, Work Release Form - 2 day form. - Follow up: Private Physician; When: Call to arrange an appointment; Reason: Further diagnostic work-up, Recheck today's complaints. Follow up: Win Cleveland MD; When: 2 - 3 days; Reason: Recheck today's complaints. Follow up: Emergency Department; When: As needed; Reason: Fever > 102F, Worsening of conditions. - Problem is new. - Symptoms have improved. Historical: - Allergies: SUCCINYLCHOLINE; liquid magnesium (Anaphylaxis); Latex; Erythromycin (Hives); Dilaudid; Ceclor (Wheezing); aspartame (Upset stomach); - Home Meds: 1. yeast 2 daily daily (Last dose: 04/01/2016 08:00) 2. uricalm cranberry 2 chewables daily (Last dose: 04/01/2016 05:00) 3. Singulair 10 mg Oral tab 1 tab once daily (Last dose: 03/31/2016 20:00) 4. Premarin 0.625 mg Oral tab once daily (Last dose: 04/01/2016 05:00) 5. potassium chloride 10 mEq Oral cpER 1 cap once daily (Last dose: 04/01/2016 05:00) 6. pantoprazole 40 mg oral TbEC 1 tab 2 times per day (Last dose: 04/01/2016 05:00) 7. Magnesium Oxide 64 mg Oral 1 tab daily (Last dose: 03/31/2016 20:00) 8. ferrous fumarate 324 mg (106 mg iron) oral tab daily (Last dose: 04/01/2016 05:00) 9. Cytotec 200 mcg Oral tab 4 times per day (Last dose: 04/01/2016 09:00) 10. cetirizine 10 mg oral tab 1 tab once daily (Last dose: 04/01/2016 05:00) 11. Carafate 1 gram Oral tab 1 tab 4 times per day (Last dose: 04/01/2016 10:00) 12. biotin 5000 mg 2 in am oral (Last dose: 04/01/2016 05:00) 13. Benadryl 25 mg Oral cap 2 caps nightly (Last dose: 03/31/2016 21:00) 14. bariatric fusion chewable tabs 2 tabs twice a day (Last dose: 04/01/2016 05:00) 15. azelastine 0.1% 2 sprays in each nostril in am (Last dose: 04/01/2016 05:00) - PMHx: Asthma; brain aneurysm; Hypertension; Seasonal Allergies; pseydicholinesterase deficiency; - PSHx: Gastric Bypass; Cholecystectomy; Hysterectomy; right knee; Carpal Tunnel Repair- Bilateral; - Social history: Smoking status: Patient uses tobacco products, current every day smoker. Patient/guardian denies using alcohol, street drugs, No barriers to communication noted, The patient speaks fluent Venezuelan, Speaks appropriately for age. - Family history: Not pertinent. - : The pt / caregiver states he / she is not on anticoagulants. Home medication list is obtained from the patient, [employer] import data. - Exposure Risk Screening:: None identified. STRADDLE BUG: 04/01 12:15 LMP N/A - Hysterectomy ttb Vital Signs: 12:02 BP 148 / 91; Pulse 80; Resp 18; Temp 98.1(O); Pulse Ox 100% ; Weight 63.5 kg / 139.99 cmb lbs; Height 5 ft. 0 in. (152.40 cm); Pain 10/10; 14:19 BP 138 / 71; Pulse 76; Resp 18; Pulse Ox 100% ; Pain 6/10; jrd 16:29 BP 138 / 71 RA Sitting (auto/reg); Pulse 71; Resp 16; Temp 97.1; Pulse Ox 98% on R/A; jrd Pain 5/10; 12:02 Body Mass Index 27.34 (63.50 kg, 152.40 cm) cmb MDM: 12:18 UA Ordered. EDMS 13:06 UA Reviewed. ar2 13:10 IV Saline Lock ordered. ar2 13:10 NS 0.9% 1000 ml IV at bolus once ordered. ar2 13:10 morphine 4 mg IVP once ordered. ar2 13:10 Ondansetron 4 mg IVP once ordered. ar2 13:12 CBC with Diff Ordered. EDMS 13:12 MED Profile Ordered. EDMS 13:12 Liver Profile Ordered. EDMS 13:12 Lactic Acid (Cooper tube on ice) Ordered. EDMS 13:12 CT ABD & PELVIS: IV and Oral Contrast Ordered. EDMS 13:31 Diatrizoate Meglumine & Sodium Liquid 10 ml PO once; mix in 290cc of water \T\ 1335. jf3 ordered. 13:31 Diatrizoate Meglumine & Sodium Liquid 10 ml PO once; mix in 290cc of water \T\ 1405 jf3 ordered. 13:36 Financial registration complete. lg 14:30 CBC with Diff Reviewed. ar2 14:30 MED Profile Reviewed. ar2 14:30 Liver Profile Reviewed. ar2 14:30 Lactic Acid (Cooper tube on ice) Reviewed. ar2 14:33 morphine 4 mg IVP once ordered. ar2 14:57 Metoclopramide 10 mg IV at 40 mg/hr once over 15 mins ordered. srm 15:34 [facility] [place] [place] Payment Agreement was scanned into [employer] and attached to record. lg 16:20 Magnesium Citrate Liquid 300 ml PO once; Dispense home with pt. take 1/2 bottle as ar2 needed ordered. 04/02 09:16 T-Sheet-- Draft Copy was scanned into [employer] and attached to record. gb Administered Medications: 04/01 13:38 Drug: Diatrizoate Meglumine & Sodium 10 ml [diatrizoate meglumine and diat.sodium 66 jf3 %-10 % oral solution (10 mL)] Route: PO; 13:46 Drug: NS 0.9% 1000 ml [sodium chloride 0.9 % intravenous solution] Route: IV; Rate: kc3 bolus; Site: right antecubital; 15:45 Follow up: IV Status: Completed infusion ck1 13:46 Drug: morphine 4 mg [morphine 4 mg/mL intravenous cartridge (1 mL)] Route: IVP; Site: kc3 right antecubital; 15:33 Follow up: Response: Pain is unchanged, physician notified kc3 13:46 Drug: Ondansetron 4 mg [ondansetron HCl 2 mg/mL intravenous solution (2 mL)] Route: kc3 IVP; Site: right antecubital; 15:34 Follow up: Response: No Adverse Reaction kc3 14:16 Drug: Diatrizoate Meglumine & Sodium 10 ml [diatrizoate meglumine and diat.sodium 66 kc3 %-10 % oral solution (10 mL)] Route: PO; 14:36 Drug: morphine 4 mg [morphine 4 mg/mL intravenous cartridge (1 mL)] Route: IVP; Site: srm right antecubital; 15:33 Follow up: Response: Pain is unchanged, physician notified kc3 15:13 Drug: Metoclopramide 10 mg [metoclopramide 5 mg/mL injection solution] Route: IV; Rate: srm 40 mg/hr; Infused Over: 15 mins; Site: right antecubital; 15:42 Follow up: IV Status: Completed infusion ck1 16:44 Drug: Magnesium Citrate 300 ml [magnesium citrate oral solution (300 mL)] Route: PO; kc3 Signatures: Dispatcher [employer] EDMS Priyanka Smiley, RN RN [facility] Alina Montgomery, Reg Reg gb Lolita Gracia, Reg Reg lg Huy Bledsoe PA-C PA-C ar2 Clarice Benz RN RN minab Tresa Hamilton RN RN kc3 Ciro Whitaker RN RN jf3 Radha Rojas RN ck1 The chart was reviewed and I authenticate all verbal orders and agree with the evaluation and treatment provided.Attachments: 15:34 [facility] Payment Agreement 04/02 09:16 T-Sheet-- Draft Copy gb Chart Complete MTDD
--- NOTE | 2016-04-03 17:45 | EDDOCDS ---
Nurse's Notes [facility] Name: Nadiya Lozada Age: 45 yrs Sex: Female : 1970 Arrival Date: 04/01/2016 Time: 12:01 Bed I1 / M1 Private MD: Taya Chavez Diagnosis: Other and unspecified noninfective gastroenteritis and colitis;Other abdominal pain Presentation: 04/01 12:10 Presenting complaint: Patient states: "my doctor sent me over for a CT with contrast". ttb Abd pain and right lower back/flank pain x7 days. Sent from PCP office. Nausea. States urgency. Risk factors: the patient reports no vaginal bleeding. Adult Sepsis Screening: The patient does not have new or worsening altered mentation. Patient's respiratory rate is less than 22. Systolic blood pressure is greater than 100. Patient has a qSOFA score of 0- Negative Sepsis Screen. Suicide/Homicide risk assessment- the patient denies having any suicidal and/or homicidal ideations and does not present with any other emotional, behavioral or mental health complaints. Status: Patient is not a business services vice president or dependent. Transition of care: patient was not received from another setting of care. 12:10 Acuity: RAJIV Level 3 ttb 12:10 Method Of Arrival: Walkin/Carried/Asstd ttb Triage Assessment: 12:15 General: Appears in no apparent distress, well nourished, well groomed, Behavior is ttb appropriate for age, cooperative, pleasant. Pain: Location: right lower abd/flank Pain currently is 10 out of 10 on a pain scale. HIV screening NA for this visit Offered previously. Neurological: Level of Consciousness is awake, alert. GI: Reports constipation, lower abdominal pain, nausea, Denies diarrhea, vomiting. : Reports urgency. Derm: Skin is normal. Injury Description: No known injury. 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 yeast 2 daily daily (Last dose: 04/01/2016 08:00) 2. uricalm cranberry 2 chewables daily (Last dose: 04/01/2016 05:00) 3. Singulair 10 mg Oral tab 1 tab once daily (Last dose: 03/31/2016 20:00) 4. Premarin 0.625 mg Oral tab once daily (Last dose: 04/01/2016 05:00) 5. potassium chloride 10 mEq Oral cpER 1 cap once daily (Last dose: 04/01/2016 05:00) 6. pantoprazole 40 mg oral TbEC 1 tab 2 times per day (Last dose: 04/01/2016 05:00) 7. Magnesium Oxide 64 mg Oral 1 tab daily (Last dose: 03/31/2016 20:00) 8. ferrous fumarate 324 mg (106 mg iron) oral tab daily (Last dose: 04/01/2016 05:00) 9. Cytotec 200 mcg Oral tab 4 times per day (Last dose: 04/01/2016 09:00) 10. cetirizine 10 mg oral tab 1 tab once daily (Last dose: 04/01/2016 05:00) 11. Carafate 1 gram Oral tab 1 tab 4 times per day (Last dose: 04/01/2016 10:00) 12. biotin 5000 mg 2 in am oral (Last dose: 04/01/2016 05:00) 13. Benadryl 25 mg Oral cap 2 caps nightly (Last dose: 03/31/2016 21:00) 14. bariatric fusion chewable tabs 2 tabs twice a day (Last dose: 04/01/2016 05:00) 15. azelastine 0.1% 2 sprays in each nostril in am (Last dose: 04/01/2016 05:00) - PMHx: Asthma; brain aneurysm; Hypertension; Seasonal Allergies; pseydicholinesterase deficiency; - PSHx: Gastric Bypass; Cholecystectomy; Hysterectomy; right knee; Carpal Tunnel Repair- Bilateral; - Social history: Smoking status: Patient uses tobacco products, current every day smoker. Patient/guardian denies using alcohol, street drugs, No barriers to communication noted, The patient speaks fluent Kitt[place], Speaks appropriately for age. - Family history: Not pertinent. - : The pt / caregiver states he / she is not on anticoagulants. Home medication list is obtained from the patient, [employer] import data. - Exposure Risk Screening:: None identified. Screenin:47 Screening information is obtained from the patient. Fall risk: No risks identified. kc3 Assistance ADL's: requires no assistance with activities of daily living. Abuse/DV Screen: The patient / caregiver reports he/she is: not in a situation that causes fear, pain or injury. Nutritional screening: No deficits noted. Advance Directives: Currently, there is no health care proxy. home support is adequate. Assessment: 13:46 General: Appears in no apparent distress, Behavior is appropriate for age, cooperative. kc3 Pain: Location: right lower quadrant. Neurological: Level of Consciousness is awake, alert, obeys commands, Oriented to person, place, time. Respiratory: Airway is patent Respiratory effort is even, unlabored. GI: Abdomen is flat, Bowel sounds present X 4 quads. Abd is soft X 4 quads Abd is tender to palpation in right lower quadrant Reports constipation, nausea. Derm: Skin is pink, warm & dry. 14:25 Reassessment: Patient states symptoms have not improved. Pain: Location: right lower kc3 quadrant. Neurological: Level of Consciousness is awake, alert, obeys commands. Respiratory: Respiratory effort is even, unlabored. GI: Reports lower abdominal pain. Derm: Skin is pink, warm & dry. 15:31 General: Appears uncomfortable, Behavior is appropriate for age, cooperative. Pain: kc3 Location: right lower quadrant. Neurological: Level of Consciousness is awake, alert, obeys commands, Oriented to person, place, time. Respiratory: Respiratory effort is even, unlabored. GI: Reports lower abdominal pain. Derm: Skin is pink, warm & dry. 16:43 General: Appears in no apparent distress, Behavior is appropriate for age, cooperative. kc3 Neurological: Level of Consciousness is awake, alert, obeys commands. Respiratory: Airway is patent Respiratory effort is even, unlabored. GI: Denies nausea. Derm: Skin is pink, warm & dry. Vital Signs: 12:02 BP 148 / 91; Pulse 80; Resp 18; Temp 98.1(O); Pulse Ox 100% ; Weight 63.5 kg; Height 5 cmb ft. 0 in. (152.40 cm); Pain 10/10; 14:19 BP 138 / 71; Pulse 76; Resp 18; Pulse Ox 100% ; Pain 6/10; jrd 16:29 BP 138 / 71 RA Sitting (auto/reg); Pulse 71; Resp 16; Temp 97.1; Pulse Ox 98% on R/A; jrd Pain 5/10; 12:02 Body Mass Index 27.34 (63.50 kg, 152.40 cm) cmb Vitals: 12:02 Log In Time: April 01, 2016 at 12:01. cmb ED Course: 12:02 Patient visited by Suzie Delgado. cmb 12:02 Taya Chavez is Private Physician. cmb 12:02 Patient moved to Waiting cmb 12:03 Patient moved to Pre RCE cmb 12:12 Triage Initiated ttb 12:23 Patient visited by Mis Keating PCA. rs6 12:23 Assisted to bathroom. rs6 12:23 UA Sent. rs6 12:47 Patient moved to Triage 3 rs6 12:57 [facility] Bledsoe [facility]-C [facility]. ar2 12:57 Moises Gray MD is Attending Physician. ar2 12:57 Patient visited by Huy Bledsoe PA-C. ar2 13:29 Lactic Acid (Cooper tube on ice) Sent. jf3 13:29 Liver Profile Sent. jf3 13:29 MED Profile Sent. jf3 13:29 CBC with Diff Sent. jf3 13:29 Inserted saline lock: 20 gauge in right antecubital area The patient tolerated the jf3 procedure well. 13:30 Patient visited by Ciro Whitaker,TAN. jf3 13:34 Patient moved to I1 / M1 rs6 13:47 The patient / caregiver is instructed regarding the plan of care and ED course. kc3 14:16 Patient visited by Tresa Hamilton,TAN. kc3 14:40 Patient visited by Priyanka Smiley, TAN. srm 15:14 Patient visited by Tresa Hamilton,TAN. kc3 15:34 [facility] Payment Agreement was scanned into [employer] and attached to record. lg 15:42 Patient visited by Radha Rojas,TAN. ck1 16:10 CT ABD & PELVIS: IV and Oral Contrast Returned. EDMS 16:12 Win Cleveland MD is Referral Physician. ar2 16:43 Discontinued IV lock intact, bleeding controlled, pressure dressing applied, No kc3 redness/swelling at site. No procedures done that require assistance. 04/02 09:16 T-Sheet-- Draft Copy was scanned into [employer] and attached to record. gb Administered Medications: 04/01 13:38 Drug: Diatrizoate Meglumine & Sodium 10 ml [diatrizoate meglumine and diat.sodium 66 jf3 %-10 % oral solution (10 mL)] Route: PO; 13:46 Drug: NS 0.9% 1000 ml [sodium chloride 0.9 % intravenous solution] Route: IV; Rate: kc3 bolus; Site: right antecubital; 15:45 Follow up: IV Status: Completed infusion ck1 13:46 Drug: morphine 4 mg [morphine 4 mg/mL intravenous cartridge (1 mL)] Route: IVP; Site: kc3 right antecubital; 15:33 Follow up: Response: Pain is unchanged, physician notified kc3 13:46 Drug: Ondansetron 4 mg [ondansetron HCl 2 mg/mL intravenous solution (2 mL)] Route: kc3 IVP; Site: right antecubital; 15:34 Follow up: Response: No Adverse Reaction kc3 14:16 Drug: Diatrizoate Meglumine & Sodium 10 ml [diatrizoate meglumine and diat.sodium 66 kc3 %-10 % oral solution (10 mL)] Route: PO; 14:36 Drug: morphine 4 mg [morphine 4 mg/mL intravenous cartridge (1 mL)] Route: IVP; Site: [facility] right antecubital; 15:33 Follow up: Response: Pain is unchanged, physician notified kc3 15:13 Drug: Metoclopramide 10 mg [metoclopramide 5 mg/mL injection solution] Route: IV; Rate: srm 40 mg/hr; Infused Over: 15 mins; Site: right antecubital; 15:42 Follow up: IV Status: Completed infusion ck1 16:44 Drug: Magnesium Citrate 300 ml [magnesium citrate oral solution (300 mL)] Route: PO; kc3 Order Results: Lab Order: UA; SPEC'M 04/01/16 12:21 Test: APPEARANCE, URINE; Value: CLEAR; Range: CLEAR; Status: F Test: COLOR, URINE; Value: YELLOW; Range: YELLOW; Status: F Test: PH,URINE; Value: 6.0; Range: 5.0-9.0; Units: UNITS; Status: F Test: SPECIFIC GRAVITY URINE AUTO; Value: 1.015; Range: 1.002-1.035; Status: F Test: PROTEIN, URINE AUTO; Value: NEGATIVE; Range: NEGATIVE; Units: mg/dL; Status: F Test: GLUCOSE, URINE (UA) AUTO; Value: NEGATIVE; Range: NEGATIVE; Units: mg/dL; Status: F Test: KETONE, URINE AUTO; Value: NEGATIVE; Range: NEGATIVE; Units: mg/dL; Status: F Test: UROBILINOGEN, URINE AUTO; Value: 0.2; Range: 0.0-2.0; Units: mg/dL; Status: F Test: BILIRUBIN, URINE AUTO; Value: NEGATIVE; Range: NEGATIVE; Status: F Test: NITRITE, URINE AUTO; Value: NEGATIVE; Range: NEGATIVE; Status: F Test: LEUKOCYTE ESTERASE, URINE AUTO; Value: NEGATIVE; Range: NEGATIVE; Status: F Test: BLOOD, URINE BLOOD; Value: NEGATIVE; Range: NEGATIVE; Status: F Test: WBC, URINE AUTO; Value: 1; Range: 0-3; Units: /HPF; Status: F Test: RBC, URINE AUTO; Value: 2; Range: 0-3; Units: /HPF; Status: F Test: BACTERIA, URINE AUTO; Value: NEGATIVE; Range: NEGATIVE; Status: F Test: SQUAMOUS EPITHELIAL CELL UR AU; Value: 2; Range: 0-6; Units: /HPF; Status: F Test: MUCUS, URINE; Value: SMALL; Range: NEGATIVE; Status: F Test: HYALINE CAST, URINE AUTO; Value: 0; Range: 0-1; Units: /LPF; Status: F Lab Order: CBC with Diff; SPEC'M 04/01/16 13:28 Test: WHITE BLOOD COUNT; Value: 6.2; Range: 4.0-10.0; Units: K/mm3; Status: F Test: RED BLOOD COUNT; Value: 4.48; Range: 4.00-5.40; Units: M/mm3; Status: F Test: HEMOGLOBIN; Value: 14.8; Range: 12.0-16.0; Units: g/dl; Status: F Test: HEMATOCRIT; Value: 42.8; Range: 36.0-47.0; Units: %; Status: F Test: MEAN CORPUSCULAR VOLUME; Value: 95.6; Range: 80.0-96.0; Units: fl; Status: F Test: MEAN CORPUSCULAR HEMOGLOBIN; Value: 33.0; Range: 27.0-33.0; Units: pg; Status: F Test: MEAN CORPUSCULAR HGB CONC; Value: 34.5; Range: 32.0-36.5; Units: g/dl; Status: F Test: RED CELL DISTRIBUTION WIDTH; Value: 12.4; Range: 11.5-14.5; Units: %; Status: F Test: PLATELET COUNT, AUTOMATED; Value: 229; Range: 150-450; Units: k/mm3; Status: F Test: NEUTROPHILS %; Value: 52.2; Range: 36.0-66.0; Units: %; Status: F Test: LYMPH %; Value: 36.9; Range: 24.0-44.0; Units: %; Status: F Test: MONO %; Value: 5.2; Range: 0.0-5.0; Abnormal: Above high normal; Units: %; Status: F Test: EOS %; Value: 2.5; Range: 0.0-3.0; Units: %; Status: F Test: BASO %; Value: 1.5; Range: 0.0-1.0; Abnormal: Above high normal; Units: %; Status: F Test: LARGE UNSTAINED CELL %; Value: 1.6; Range: 0.0-4.0; Units: %; Status: F Test: NEUTROPHILS #; Value: 3.3; Range: 1.8-7.7; Units: K/mm3; Status: F Test: LYMPH #; Value: 2.4; Range: 1.5-4.5; Units: K/mm3; Status: F Test: MONO #; Value: 0.3; Range: 0.0-0.8; Units: K/mm3; Status: F Test: EOS #; Value: 0.2; Range: 0.0-0.50; Units: K/mm3; Status: F Test: BASO #; Value: 0.1; Range: 0.0-0.2; Units: K/mm3; Status: F Test: LARGE UNSTAINED CELL #; Value: 0.1; Range: 0.0-0.4; Units: K/mm3; Status: F Lab Order: MED Profile; SPEC'M 04/01/16 13:28 Test: GLUCOSE, FASTING; Value: 92; Range: 70-105; Units: MG/DL; Status: F Test: BLOOD UREA NITROGEN; Value: 10; Range: 7-18; Units: MG/DL; Status: F Test: CREATININE FOR GFR; Value: 0.52; Range: 0.55-1.02; Abnormal: Below low normal; Units: MG/DL; Status: F Test: GLOMERULAR FILTRATION RATE; Value: > 60.0; Range: >58; Status: F Test: SODIUM LEVEL; Value: 143; Range: 136-145; Units: MEQ/L; Status: F Test: POTASSIUM SERUM; Value: 4.1; Range: 3.5-5.1; Units: MEQ/L; Status: F Test: CHLORIDE LEVEL; Value: 106; Range: 98-107; Units: MEQ/L; Status: F Test: CARBON DIOXIDE LEVEL; Value: 30; Range: 21-32; Units: MEQ/L; Status: F Test: ANION GAP; Value: 7; Range: 8-16; Abnormal: Below low normal; Units: MEQ/L; Status: F Test: CALCIUM LEVEL; Value: 8.9; Range: 8.5-10.1; Units: MG/DL; Status: F Test Note: ; Units are mL/min/1.73 m2 Chronic Kidney Disease Staging per NKF: Stage I & II GFR >=60 Normal to Mildly Decreased Stage III GFR 30-59 Moderately Decreased Stage IV GFR 15-29 Severely Decreased Stage V GFR <15 Very Little GFR Left ESRD GFR <15 on DEPARTMENT CLERK Lab Order: Liver Profile; SPEC'M 04/01/16 13:28 Test: AST/SGOT; Value: 19; Range: 15-37; Units: U/L; Status: F Test: ALT/SGPT; Value: 39; Range: 12-78; Units: U/L; Status: F Test: ALKALINE PHOSPHATASE; Value: 94; Range: 45-117; Units: U/L; Status: F Test: BILIRUBIN,TOTAL; Value: 0.2; Range: 0.2-1.0; Units: MG/DL; Status: F Test: BILIRUBIN,DIRECT; Value: 0.1; Range: 0.0-0.2; Units: MG/DL; Status: F Test: TOTAL PROTEIN; Value: 7.1; Range: 6.4-8.2; Units: GM/DL; Status: F Test: ALBUMIN; Value: 3.9; Range: 3.2-5.2; Units: GM/DL; Status: F Test: ALBUMIN/GLOBULIN RATIO; Value: 1.22; Range: 1.00-1.93; Status: F Lab Order: Lactic Acid (Cooper tube on ice); SPEC'M 04/01/16 13:28 Test: LACTIC ACID LEVEL, LACTATE; Value: 0.6; Range: 0.4-2.0; Units: MMOL/L; Status: F Radiology Order: CT ABD & PELVIS: IV and Oral Contrast Test: CT ABD & PELVIS: IV and Oral Contrast REASON FOR EXAMINATION: right abdominal pain; CT abdomen and pelvis with IV and oral contrast 04/01/2016; ; Indication: Right abdominal pain; ; Comparison: CT abdomen and pelvis 03/24/2016 performed without contrast, CT; abdomen and pelvis 05/16/2013, with IV and oral contrast; ; Findings: Lung bases are clear bilaterally .; ; Liver, spleen, pancreas are unremarkable. There has been a prior; cholecystectomy. There are bilateral low-density adrenal nodules consistent with; adenomas when compared with unenhanced CT abdomen and pelvis 03/24/2016. Kidneys; are without hydronephrosis bilaterally. There is a moderate to large distension; of the lateral portion of the contrast-filled stomach to region of duodenal bulb; . Patient has had prior gastric bypass procedure. Oral contrast is identified; throughout the small bowel and there is no evidence of small-bowel obstruction.; Mural thickening is seen in the terminal ileum which is a nonspecific finding,; but can be seen with inflammatory bowel disease. The appendix is without; inflammation. Abdominal aorta is of normal course and caliber.; ; Bladder is normal. Uterus is absent; there are no adnexal masses. There is; moderate to large amount of retained stool seen throughout colon. There is no; free air or ascites. Ventral hernia mesh is seen in the periumbilical region; consistent with prior hernia repair. There is no evidence of recurrent hernia.; ; Impression:; ; [id number] amount of distension seen within the lateral region of the; stomach to duodenal bulb region, in the setting of previous gastric bypass; surgery. There is no visualized contrast extravasation, and no free air or; ascites. Clinical followup recommended.; ; Mural thickening within the terminal ileum, nonspecific finding but can be seen; with Crohn's/inflammatory bowel disease. No small bowel obstruction.; ; Moderate to large amount of diffuse retained colonic stool.; ; ; ; ; ; ; Signed by; Kristi Hylton MD 04/02/2016 07:54 P; Outcome: 15:33 CT Study completed. kc3 16:14 Discharge ordered by Provider. ar2 16:43 Discharge Assessment: Patient awake, alert and oriented x 3. No cognitive and/or kc3 functional deficits noted. Patient verbalized understanding of disposition instructions. patient administered narcotics - yes. Pt provided with safe discharge. The following High Risk Discharge criteria are identified: None. Condition: stable. Discharge instructions given to patient, Instructed on discharge instructions, follow up and referral plans. medication usage, Demonstrated understanding of instructions, medications, Pt was receptive of discharge instructions/ teaching. Prescriptions given X 4. Property :Personal belongings accompany Pt. 16:44 Patient left the ED. kc3 Signatures: Dispatcher [employer] EDMS Priyanka Smiley, RN RN srm Ulises, Alina, Reg Reg gb Lolita Gracia, Reg Reg lg Radha Rojas,RN RN ck1 Huy Bledsoe PA-C PAAbdias ar2 Suzie Delgado Teresa, RN RN ttb Venkat Santiago, HAUNTED HISTORY TOUR GUIDE HAUNTED HISTORY TOUR GUIDE jrd Mis Keating, HAUNTED HISTORY TOUR GUIDE HAUNTED HISTORY TOUR GUIDE rs6 Tresa Hamilton RN RN kc3 Ciro Whitaker,TAN RN jf3 Chart Complete MTDD
--- NOTE | 2016-04-07 20:43 | EDDOCDS ---
Physician Documentation [facility] Name: Nadiya Lozada Age: 45 yrs Sex: Female : 1970 Arrival Date: 04/01/2016 Time: 12:01 Bed I1 / M1 Private MD: Taya Chavez Disposition: 04/01/16 16:14 Discharged to Home/Self Care. Impression: Other and unspecified noninfective gastroenteritis and colitis, Other abdominal pain. - Condition is Stable. - Discharge Instructions: Abdominal Pain, Adult. - Prescriptions for Colace 100 mg Oral Tablet - take 1 tablet by ORAL route every 12 hours; 14 tablet. Ultram 50 mg Oral Tablet - take 1 tablet by ORAL route every 6 hours As needed MDD: 4 tabs; 8 tablet. Prednisone 20 mg Oral Tablet - take 2 tablet by ORAL route once daily for 5 days; 10 tablet. ZOFRAN ODT 4 mg - dissolve 1 tablet by ORAL route 4 times per day As needed do not chew, do not swallow whole; 10 tablet. Miralax 17 gram/dose - take 17 gram by ORAL route once daily As needed dilute in 8 ounces of water or juice; 1 bottle. - Medication Reconciliation, Local Pharmacy Hours, Work Release Form - 2 day form. - Follow up: Private Physician; When: Call to arrange an appointment; Reason: Further diagnostic work-up, Recheck today's complaints. Follow up: Win Seyd MD; When: 2 - 3 days; Reason: Recheck today's complaints. Follow up: Emergency Department; When: As needed; Reason: Fever > 102F, Worsening of conditions. - Problem is new. - Symptoms have improved. Historical: - Allergies: SUCCINYLCHOLINE; liquid magnesium (Anaphylaxis); Latex; Erythromycin (Hives); Dilaudid; Ceclor (Wheezing); aspartame (Upset stomach); - Home Meds: 1. yeast 2 daily daily (Last dose: 04/01/2016 08:00) 2. uricalm cranberry 2 chewables daily (Last dose: 04/01/2016 05:00) 3. Singulair 10 mg Oral tab 1 tab once daily (Last dose: 03/31/2016 20:00) 4. Premarin 0.625 mg Oral tab once daily (Last dose: 04/01/2016 05:00) 5. potassium chloride 10 mEq Oral cpER 1 cap once daily (Last dose: 04/01/2016 05:00) 6. pantoprazole 40 mg oral TbEC 1 tab 2 times per day (Last dose: 04/01/2016 05:00) 7. Magnesium Oxide 64 mg Oral 1 tab daily (Last dose: 03/31/2016 20:00) 8. ferrous fumarate 324 mg (106 mg iron) oral tab daily (Last dose: 04/01/2016 05:00) 9. Cytotec 200 mcg Oral tab 4 times per day (Last dose: 04/01/2016 09:00) 10. cetirizine 10 mg oral tab 1 tab once daily (Last dose: 04/01/2016 05:00) 11. Carafate 1 gram Oral tab 1 tab 4 times per day (Last dose: 04/01/2016 10:00) 12. biotin 5000 mg 2 in am oral (Last dose: 04/01/2016 05:00) 13. Benadryl 25 mg Oral cap 2 caps nightly (Last dose: 03/31/2016 21:00) 14. bariatric fusion chewable tabs 2 tabs twice a day (Last dose: 04/01/2016 05:00) 15. azelastine 0.1% 2 sprays in each nostril in am (Last dose: 04/01/2016 05:00) - PMHx: Asthma; brain aneurysm; Hypertension; Seasonal Allergies; pseydicholinesterase deficiency; - PSHx: Gastric Bypass; Cholecystectomy; Hysterectomy; right knee; Carpal Tunnel Repair- Bilateral; - Social history: Smoking status: Patient uses tobacco products, current every day smoker. Patient/guardian denies using alcohol, street drugs, No barriers to communication noted, The patient speaks fluent Uzbek, Speaks appropriately for age. - Family history: Not pertinent. - : The pt / caregiver states he / she is not on anticoagulants. Home medication list is obtained from the patient, [employer] import data. - Exposure Risk Screening:: None identified. 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 0 in. (152.40 cm); Pain 10/10; 14:19 BP 138 / 71; Pulse 76; Resp 18; Pulse Ox 100% ; Pain 6/10; jrd 16:29 BP 138 / 71 RA Sitting (auto/reg); Pulse 71; Resp 16; Temp 97.1; Pulse Ox 98% on R/A; jrd Pain 5/10; 12:02 Body Mass Index 27.34 (63.50 kg, 152.40 cm) cmb MDM: 12:18 UA Ordered. EDMS 13:06 UA Reviewed. ar2 13:10 IV Saline Lock ordered. ar2 13:10 NS 0.9% 1000 ml IV at bolus once ordered. ar2 13:10 morphine 4 mg IVP once ordered. ar2 13:10 Ondansetron 4 mg IVP once ordered. ar2 13:12 CBC with Diff Ordered. EDMS 13:12 MED Profile Ordered. EDMS 13:12 Liver Profile Ordered. EDMS 13:12 Lactic Acid (Cooper tube on ice) Ordered. EDMS 13:12 CT ABD & PELVIS: IV and Oral Contrast Ordered. EDMS 13:31 Diatrizoate Meglumine & Sodium Liquid 10 ml PO once; mix in 290cc of water \T\ 1335. jf3 ordered. 13:31 Diatrizoate Meglumine & Sodium Liquid 10 ml PO once; mix in 290cc of water \T\ 1405 jf3 ordered. 13:36 Financial registration complete. lg 14:30 CBC with Diff Reviewed. ar2 14:30 MED Profile Reviewed. ar2 14:30 Liver Profile Reviewed. ar2 14:30 Lactic Acid (Cooper tube on ice) Reviewed. ar2 14:33 morphine 4 mg IVP once ordered. ar2 14:57 Metoclopramide 10 mg IV at 40 mg/hr once over 15 mins ordered. srm 15:34 [facility] Agreement was scanned into [employer] and attached to record. lg 16:20 Magnesium Citrate Liquid 300 ml PO once; Dispense home with pt. take 1/2 bottle as ar2 needed ordered. 04/02 09:16 T-Sheet-- Draft Copy was scanned into [employer] and attached to record. gb Administered Medications: 04/01 13:38 Drug: Diatrizoate Meglumine & Sodium 10 ml [diatrizoate meglumine and diat.sodium 66 jf3 %-10 % oral solution (10 mL)] Route: PO; 13:46 Drug: NS 0.9% 1000 ml [sodium chloride 0.9 % intravenous solution] Route: IV; Rate: kc3 bolus; Site: right antecubital; 15:45 Follow up: IV Status: Completed infusion ck1 13:46 Drug: morphine 4 mg [morphine 4 mg/mL intravenous cartridge (1 mL)] Route: IVP; Site: kc3 right antecubital; 15:33 Follow up: Response: Pain is unchanged, physician notified kc3 13:46 Drug: Ondansetron 4 mg [ondansetron HCl 2 mg/mL intravenous solution (2 mL)] Route: kc3 IVP; Site: right antecubital; 15:34 Follow up: Response: No Adverse Reaction kc3 14:16 Drug: Diatrizoate Meglumine & Sodium 10 ml [diatrizoate meglumine and diat.sodium 66 kc3 %-10 % oral solution (10 mL)] Route: PO; 14:36 Drug: morphine 4 mg [morphine 4 mg/mL intravenous cartridge (1 mL)] Route: IVP; Site: [facility] right antecubital; 15:33 Follow up: Response: Pain is unchanged, physician notified kc3 15:13 Drug: Metoclopramide 10 mg [metoclopramide 5 mg/mL injection solution] Route: IV; Rate: srm 40 mg/hr; Infused Over: 15 mins; Site: right antecubital; 15:42 Follow up: IV Status: Completed infusion ck1 16:44 Drug: Magnesium Citrate 300 ml [magnesium citrate oral solution (300 mL)] Route: PO; kc3 Addendum: 04/07/2016 20:42 Radiology Callback: Radiology results faxed to primary care physician/provider. dr nikos syed faxed formal report of ct abd/p for ml. Signatures: Dispatcher [employer] EDMS Moises Gray MD MD ml Michelson, Staci, RN RN [facility] Ulises, Alina, Reg Reg gb Lolita Gracia, Reg Reg lg Huy Bledsoe, PA-C PA-C ar2 Clarice Benz, RN RN ttb Tresa Hamilton RN RN kc3 Ciro Whitaker RN RN jf3 Radha Rojas RN ck1 The chart was reviewed and I authenticate all verbal orders and agree with the evaluation and treatment provided.Attachments: 04/01 15:34 [facility] [place] Agreement lg 04/02 09:16 T-Sheet-- Draft Copy gb MTDD
--- NOTE | 2016-04-07 20:43 | EDDOCDS ---
Physician Documentation [facility] Name: Nadiya Lozada Age: 45 yrs Sex: Female : 1970 Arrival Date: 04/01/2016 Time: 12:01 Bed I1 / M1 Private MD: Taya Chavez Disposition: 04/01/16 16:14 Discharged to Home/Self Care. Impression: Other and unspecified noninfective gastroenteritis and colitis, Other abdominal pain. - Condition is Stable. - Discharge Instructions: Abdominal Pain, Adult. - Prescriptions for Colace 100 mg Oral Tablet - take 1 tablet by ORAL route every 12 hours; 14 tablet. Ultram 50 mg Oral Tablet - take 1 tablet by ORAL route every 6 hours As needed MDD: 4 tabs; 8 tablet. Prednisone 20 mg Oral Tablet - take 2 tablet by ORAL route once daily for 5 days; 10 tablet. ZOFRAN ODT 4 mg - dissolve 1 tablet by ORAL route 4 times per day As needed do not chew, do not swallow whole; 10 tablet. Miralax 17 gram/dose - take 17 gram by ORAL route once daily As needed dilute in 8 ounces of water or juice; 1 bottle. - Medication Reconciliation, Local Pharmacy Hours, Work Release Form - 2 day form. - Follow up: Private Physician; When: Call to arrange an appointment; Reason: Further diagnostic work-up, Recheck today's complaints. Follow up: Win Syed MD; When: 2 - 3 days; Reason: Recheck today's complaints. Follow up: Emergency Department; When: As needed; Reason: Fever > 102F, Worsening of conditions. - Problem is new. - Symptoms have improved. Historical: - Allergies: SUCCINYLCHOLINE; liquid magnesium (Anaphylaxis); Latex; Erythromycin (Hives); Dilaudid; Ceclor (Wheezing); aspartame (Upset stomach); - Home Meds: 1. yeast 2 daily daily (Last dose: 04/01/2016 08:00) 2. uricalm cranberry 2 chewables daily (Last dose: 04/01/2016 05:00) 3. Singulair 10 mg Oral tab 1 tab once daily (Last dose: 03/31/2016 20:00) 4. Premarin 0.625 mg Oral tab once daily (Last dose: 04/01/2016 05:00) 5. potassium chloride 10 mEq Oral cpER 1 cap once daily (Last dose: 04/01/2016 05:00) 6. pantoprazole 40 mg oral TbEC 1 tab 2 times per day (Last dose: 04/01/2016 05:00) 7. Magnesium Oxide 64 mg Oral 1 tab daily (Last dose: 03/31/2016 20:00) 8. ferrous fumarate 324 mg (106 mg iron) oral tab daily (Last dose: 04/01/2016 05:00) 9. Cytotec 200 mcg Oral tab 4 times per day (Last dose: 04/01/2016 09:00) 10. cetirizine 10 mg oral tab 1 tab once daily (Last dose: 04/01/2016 05:00) 11. Carafate 1 gram Oral tab 1 tab 4 times per day (Last dose: 04/01/2016 10:00) 12. biotin 5000 mg 2 in am oral (Last dose: 04/01/2016 05:00) 13. Benadryl 25 mg Oral cap 2 caps nightly (Last dose: 03/31/2016 21:00) 14. bariatric fusion chewable tabs 2 tabs twice a day (Last dose: 04/01/2016 05:00) 15. azelastine 0.1% 2 sprays in each nostril in am (Last dose: 04/01/2016 05:00) - PMHx: Asthma; brain aneurysm; Hypertension; Seasonal Allergies; pseydicholinesterase deficiency; - PSHx: Gastric Bypass; Cholecystectomy; Hysterectomy; right knee; Carpal Tunnel Repair- Bilateral; - Social history: Smoking status: Patient uses tobacco products, current every day smoker. Patient/guardian denies using alcohol, street drugs, No barriers to communication noted, The patient speaks fluent Algerian, Speaks appropriately for age. - Family history: Not pertinent. - : The pt / caregiver states he / she is not on anticoagulants. Home medication list is obtained from the patient, [employer] import data. - Exposure Risk Screening:: None identified. 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 0 in. (152.40 cm); Pain 10/10; 14:19 BP 138 / 71; Pulse 76; Resp 18; Pulse Ox 100% ; Pain 6/10; jrd 16:29 BP 138 / 71 RA Sitting (auto/reg); Pulse 71; Resp 16; Temp 97.1; Pulse Ox 98% on R/A; jrd Pain 5/10; 12:02 Body Mass Index 27.34 (63.50 kg, 152.40 cm) cmb MDM: 12:18 UA Ordered. EDMS 13:06 UA Reviewed. ar2 13:10 IV Saline Lock ordered. ar2 13:10 NS 0.9% 1000 ml IV at bolus once ordered. ar2 13:10 morphine 4 mg IVP once ordered. ar2 13:10 Ondansetron 4 mg IVP once ordered. ar2 13:12 CBC with Diff Ordered. EDMS 13:12 MED Profile Ordered. EDMS 13:12 Liver Profile Ordered. EDMS 13:12 Lactic Acid (Cooper tube on ice) Ordered. EDMS 13:12 CT ABD & PELVIS: IV and Oral Contrast Ordered. EDMS 13:31 Diatrizoate Meglumine & Sodium Liquid 10 ml PO once; mix in 290cc of water \T\ 1335. jf3 ordered. 13:31 Diatrizoate Meglumine & Sodium Liquid 10 ml PO once; mix in 290cc of water \T\ 1405 jf3 ordered. 13:36 Financial registration complete. lg 14:30 CBC with Diff Reviewed. ar2 14:30 MED Profile Reviewed. ar2 14:30 Liver Profile Reviewed. ar2 14:30 Lactic Acid (Cooper tube on ice) Reviewed. ar2 14:33 morphine 4 mg IVP once ordered. ar2 14:57 Metoclopramide 10 mg IV at 40 mg/hr once over 15 mins ordered. srm 15:34 [facility] Payment Agreement was scanned into [employer] and attached to record. lg 16:20 Magnesium Citrate Liquid 300 ml PO once; Dispense home with pt. take 1/2 bottle as ar2 needed ordered. 04/02 09:16 T-Sheet-- Draft Copy was scanned into [employer] and attached to record. gb Administered Medications: 04/01 13:38 Drug: Diatrizoate Meglumine & Sodium 10 ml [diatrizoate meglumine and diat.sodium 66 jf3 %-10 % oral solution (10 mL)] Route: PO; 13:46 Drug: NS 0.9% 1000 ml [sodium chloride 0.9 % intravenous solution] Route: IV; Rate: kc3 bolus; Site: right antecubital; 15:45 Follow up: IV Status: Completed infusion ck1 13:46 Drug: morphine 4 mg [morphine 4 mg/mL intravenous cartridge (1 mL)] Route: IVP; Site: kc3 right antecubital; 15:33 Follow up: Response: Pain is unchanged, physician notified kc3 13:46 Drug: Ondansetron 4 mg [ondansetron HCl 2 mg/mL intravenous solution (2 mL)] Route: kc3 IVP; Site: right antecubital; 15:34 Follow up: Response: No Adverse Reaction kc3 14:16 Drug: Diatrizoate Meglumine & Sodium 10 ml [diatrizoate meglumine and diat.sodium 66 kc3 %-10 % oral solution (10 mL)] Route: PO; 14:36 Drug: morphine 4 mg [morphine 4 mg/mL intravenous cartridge (1 mL)] Route: IVP; Site: [facility] right antecubital; 15:33 Follow up: Response: Pain is unchanged, physician notified kc3 15:13 Drug: Metoclopramide 10 mg [metoclopramide 5 mg/mL injection solution] Route: IV; Rate: srm 40 mg/hr; Infused Over: 15 mins; Site: right antecubital; 15:42 Follow up: IV Status: Completed infusion ck1 16:44 Drug: Magnesium Citrate 300 ml [magnesium citrate oral solution (300 mL)] Route: PO; kc3 Addendum: 04/07/2016 20:42 Radiology Callback: Radiology results faxed to primary care physician/provider. dr nikos syed faxed formal report of ct abd/p for ml. Signatures: Dispatcher [employer] EDMS Moises Gray MD MD ml Michelson, Staci, RN RN [facility] Ulises, Alina, Reg Reg gb Lolita Gracia, Reg Reg lg Huy Bledsoe, PA-C PA-C ar2 Clarice Benz, RN RN ttb Tresa Hamilton RN RN kc3 Ciro Whitaker RN RN jf3 Radha Rojas RN ck1 The chart was reviewed and I authenticate all verbal orders and agree with the evaluation and treatment provided.Attachments: 04/01 15:34 [facility] Payment Agreement lg 04/02 09:16 T-Sheet-- Draft Copy gb MTDD
--- NOTE | 2016-04-07 20:44 | EDDOCDS ---
Physician Documentation [facility] Name: Nadiya Lozada Age: 45 yrs Sex: Female : 1970 Arrival Date: 04/01/2016 Time: 12:01 Bed I1 / M1 Private MD: Taya Chavez Disposition: 04/01/16 16:14 Discharged to Home/Self Care. Impression: Other and unspecified noninfective gastroenteritis and colitis, Other abdominal pain. - Condition is Stable. - Discharge Instructions: Abdominal Pain, Adult. - Prescriptions for Colace 100 mg Oral Tablet - take 1 tablet by ORAL route every 12 hours; 14 tablet. Ultram 50 mg Oral Tablet - take 1 tablet by ORAL route every 6 hours As needed MDD: 4 tabs; 8 tablet. Prednisone 20 mg Oral Tablet - take 2 tablet by ORAL route once daily for 5 days; 10 tablet. ZOFRAN ODT 4 mg - dissolve 1 tablet by ORAL route 4 times per day As needed do not chew, do not swallow whole; 10 tablet. Miralax 17 gram/dose - take 17 gram by ORAL route once daily As needed dilute in 8 ounces of water or juice; 1 bottle. - Medication Reconciliation, Local Pharmacy Hours, Work Release Form - 2 day form. - Follow up: Private Physician; When: Call to arrange an appointment; Reason: Further diagnostic work-up, Recheck today's complaints. Follow up: Win Syed MD; When: 2 - 3 days; Reason: Recheck today's complaints. Follow up: Emergency Department; When: As needed; Reason: Fever > 102F, Worsening of conditions. - Problem is new. - Symptoms have improved. Historical: - Allergies: SUCCINYLCHOLINE; liquid magnesium (Anaphylaxis); Latex; Erythromycin (Hives); Dilaudid; Ceclor (Wheezing); aspartame (Upset stomach); - Home Meds: 1. yeast 2 daily daily (Last dose: 04/01/2016 08:00) 2. uricalm cranberry 2 chewables daily (Last dose: 04/01/2016 05:00) 3. Singulair 10 mg Oral tab 1 tab once daily (Last dose: 03/31/2016 20:00) 4. Premarin 0.625 mg Oral tab once daily (Last dose: 04/01/2016 05:00) 5. potassium chloride 10 mEq Oral cpER 1 cap once daily (Last dose: 04/01/2016 05:00) 6. pantoprazole 40 mg oral TbEC 1 tab 2 times per day (Last dose: 04/01/2016 05:00) 7. Magnesium Oxide 64 mg Oral 1 tab daily (Last dose: 03/31/2016 20:00) 8. ferrous fumarate 324 mg (106 mg iron) oral tab daily (Last dose: 04/01/2016 05:00) 9. Cytotec 200 mcg Oral tab 4 times per day (Last dose: 04/01/2016 09:00) 10. cetirizine 10 mg oral tab 1 tab once daily (Last dose: 04/01/2016 05:00) 11. Carafate 1 gram Oral tab 1 tab 4 times per day (Last dose: 04/01/2016 10:00) 12. biotin 5000 mg 2 in am oral (Last dose: 04/01/2016 05:00) 13. Benadryl 25 mg Oral cap 2 caps nightly (Last dose: 03/31/2016 21:00) 14. bariatric fusion chewable tabs 2 tabs twice a day (Last dose: 04/01/2016 05:00) 15. azelastine 0.1% 2 sprays in each nostril in am (Last dose: 04/01/2016 05:00) - PMHx: Asthma; brain aneurysm; Hypertension; Seasonal Allergies; pseydicholinesterase deficiency; - PSHx: Gastric Bypass; Cholecystectomy; Hysterectomy; right knee; Carpal Tunnel Repair- Bilateral; - Social history: Smoking status: Patient uses tobacco products, current every day smoker. Patient/guardian denies using alcohol, street drugs, No barriers to communication noted, The patient speaks fluent [place], Speaks appropriately for age. - Family history: Not pertinent. - : The pt / caregiver states he / she is not on anticoagulants. Home medication list is obtained from the patient, [employer] import data. - Exposure Risk Screening:: None identified. 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 0 in. (152.40 cm); Pain 10/10; 14:19 BP 138 / 71; Pulse 76; Resp 18; Pulse Ox 100% ; Pain 6/10; jrd 16:29 BP 138 / 71 RA Sitting (auto/reg); Pulse 71; Resp 16; Temp 97.1; Pulse Ox 98% on R/A; jrd Pain 5/10; 12:02 Body Mass Index 27.34 (63.50 kg, 152.40 cm) cmb MDM: 12:18 UA Ordered. EDMS 13:06 UA Reviewed. ar2 13:10 IV Saline Lock ordered. ar2 13:10 NS 0.9% 1000 ml IV at bolus once ordered. ar2 13:10 morphine 4 mg IVP once ordered. ar2 13:10 Ondansetron 4 mg IVP once ordered. ar2 13:12 CBC with Diff Ordered. EDMS 13:12 MED Profile Ordered. EDMS 13:12 Liver Profile Ordered. EDMS 13:12 Lactic Acid (Cooper tube on ice) Ordered. EDMS 13:12 CT ABD & PELVIS: IV and Oral Contrast Ordered. EDMS 13:31 Diatrizoate Meglumine & Sodium Liquid 10 ml PO once; mix in 290cc of water \T\ 1335. jf3 ordered. 13:31 Diatrizoate Meglumine & Sodium Liquid 10 ml PO once; mix in 290cc of water \T\ 1405 jf3 ordered. 13:36 Financial registration complete. lg 14:30 CBC with Diff Reviewed. ar2 14:30 MED Profile Reviewed. ar2 14:30 Liver Profile Reviewed. ar2 14:30 Lactic Acid (Cooper tube on ice) Reviewed. ar2 14:33 morphine 4 mg IVP once ordered. ar2 14:57 Metoclopramide 10 mg IV at 40 mg/hr once over 15 mins ordered. srm 15:34 [facility] Payment Agreement was scanned into [employer] and attached to record. lg 16:20 Magnesium Citrate Liquid 300 ml PO once; Dispense home with pt. take 1/2 bottle as ar2 needed ordered. 04/02 09:16 T-Sheet-- Draft Copy was scanned into [employer] and attached to record. gb Administered Medications: 04/01 13:38 Drug: Diatrizoate Meglumine & Sodium 10 ml [diatrizoate meglumine and diat.sodium 66 jf3 %-10 % oral solution (10 mL)] Route: PO; 13:46 Drug: NS 0.9% 1000 ml [sodium chloride 0.9 % intravenous solution] Route: IV; Rate: kc3 bolus; Site: right antecubital; 15:45 Follow up: IV Status: Completed infusion ck1 13:46 Drug: morphine 4 mg [morphine 4 mg/mL intravenous cartridge (1 mL)] Route: IVP; Site: kc3 right antecubital; 15:33 Follow up: Response: Pain is unchanged, physician notified kc3 13:46 Drug: Ondansetron 4 mg [ondansetron HCl 2 mg/mL intravenous solution (2 mL)] Route: kc3 IVP; Site: right antecubital; 15:34 Follow up: Response: No Adverse Reaction kc3 14:16 Drug: Diatrizoate Meglumine & Sodium 10 ml [diatrizoate meglumine and diat.sodium 66 kc3 %-10 % oral solution (10 mL)] Route: PO; 14:36 Drug: morphine 4 mg [morphine 4 mg/mL intravenous cartridge (1 mL)] Route: IVP; Site: [facility] right antecubital; 15:33 Follow up: Response: Pain is unchanged, physician notified kc3 15:13 Drug: Metoclopramide 10 mg [metoclopramide 5 mg/mL injection solution] Route: IV; Rate: srm 40 mg/hr; Infused Over: 15 mins; Site: right antecubital; 15:42 Follow up: IV Status: Completed infusion ck1 16:44 Drug: Magnesium Citrate 300 ml [magnesium citrate oral solution (300 mL)] Route: PO; kc3 Addendum: 04/07/2016 20:42 Radiology Callback: Radiology results faxed to primary care physician/provider. dr nikos syed faxed formal report of ct abd/p for ml. Signatures: Dispatcher [employer] EDMS Moises Gray MD MD ml Michelson, Staci, RN RN [facility] Ulises, Alina, Reg Reg gb Lolita Gracia, Reg Reg lg Huy Bledsoe, PA-C PA-C ar2 Clarice Benz, RN RN ttb Tresa Hamilton RN RN kc3 Ciro Whitaker RN RN jf3 Radha Rojas RN ck1 The chart was reviewed and I authenticate all verbal orders and agree with the evaluation and treatment provided.Attachments: 04/01 15:34 [facility] Payment Agreement lg 04/02 09:16 T-Sheet-- Draft Copy gb Chart Complete MTDD
--- NOTE | 2016-04-07 20:44 | EDDOCDS ---
Physician Documentation [facility] Name: Nadiya Lozada Age: 45 yrs Sex: Female : 1970 Arrival Date: 04/01/2016 Time: 12:01 Bed I1 / M1 Private MD: Taya Chavez Disposition: 04/01/16 16:14 Discharged to Home/Self Care. Impression: Other and unspecified noninfective gastroenteritis and colitis, Other abdominal pain. - Condition is Stable. - Discharge Instructions: Abdominal Pain, Adult. - Prescriptions for Colace 100 mg Oral Tablet - take 1 tablet by ORAL route every 12 hours; 14 tablet. Ultram 50 mg Oral Tablet - take 1 tablet by ORAL route every 6 hours As needed MDD: 4 tabs; 8 tablet. Prednisone 20 mg Oral Tablet - take 2 tablet by ORAL route once daily for 5 days; 10 tablet. ZOFRAN ODT 4 mg - dissolve 1 tablet by ORAL route 4 times per day As needed do not chew, do not swallow whole; 10 tablet. Miralax 17 gram/dose - take 17 gram by ORAL route once daily As needed dilute in 8 ounces of water or juice; 1 bottle. - Medication Reconciliation, Local Pharmacy Hours, Work Release Form - 2 day form. - Follow up: Private Physician; When: Call to arrange an appointment; Reason: Further diagnostic work-up, Recheck today's complaints. Follow up: Win Syed MD; When: 2 - 3 days; Reason: Recheck today's complaints. Follow up: Emergency Department; When: As needed; Reason: Fever > 102F, Worsening of conditions. - Problem is new. - Symptoms have improved. Historical: - Allergies: SUCCINYLCHOLINE; liquid magnesium (Anaphylaxis); Latex; Erythromycin (Hives); Dilaudid; Ceclor (Wheezing); aspartame (Upset stomach); - Home Meds: 1. yeast 2 daily daily (Last dose: 04/01/2016 08:00) 2. uricalm cranberry 2 chewables daily (Last dose: 04/01/2016 05:00) 3. Singulair 10 mg Oral tab 1 tab once daily (Last dose: 03/31/2016 20:00) 4. Premarin 0.625 mg Oral tab once daily (Last dose: 04/01/2016 05:00) 5. potassium chloride 10 mEq Oral cpER 1 cap once daily (Last dose: 04/01/2016 05:00) 6. pantoprazole 40 mg oral TbEC 1 tab 2 times per day (Last dose: 04/01/2016 05:00) 7. Magnesium Oxide 64 mg Oral 1 tab daily (Last dose: 03/31/2016 20:00) 8. ferrous fumarate 324 mg (106 mg iron) oral tab daily (Last dose: 04/01/2016 05:00) 9. Cytotec 200 mcg Oral tab 4 times per day (Last dose: 04/01/2016 09:00) 10. cetirizine 10 mg oral tab 1 tab once daily (Last dose: 04/01/2016 05:00) 11. Carafate 1 gram Oral tab 1 tab 4 times per day (Last dose: 04/01/2016 10:00) 12. biotin 5000 mg 2 in am oral (Last dose: 04/01/2016 05:00) 13. Benadryl 25 mg Oral cap 2 caps nightly (Last dose: 03/31/2016 21:00) 14. bariatric fusion chewable tabs 2 tabs twice a day (Last dose: 04/01/2016 05:00) 15. azelastine 0.1% 2 sprays in each nostril in am (Last dose: 04/01/2016 05:00) - PMHx: Asthma; brain aneurysm; Hypertension; Seasonal Allergies; pseydicholinesterase deficiency; - PSHx: Gastric Bypass; Cholecystectomy; Hysterectomy; right knee; Carpal Tunnel Repair- Bilateral; - Social history: Smoking status: Patient uses tobacco products, current every day smoker. Patient/guardian denies using alcohol, street drugs, No barriers to communication noted, The patient speaks fluent Malagasy, Speaks appropriately for age. - Family history: Not pertinent. - : The pt / caregiver states he / she is not on anticoagulants. Home medication list is obtained from the patient, [employer] import data. - Exposure Risk Screening:: None identified. 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 0 in. (152.40 cm); Pain 10/10; 14:19 BP 138 / 71; Pulse 76; Resp 18; Pulse Ox 100% ; Pain 6/10; jrd 16:29 BP 138 / 71 RA Sitting (auto/reg); Pulse 71; Resp 16; Temp 97.1; Pulse Ox 98% on R/A; jrd Pain 5/10; 12:02 Body Mass Index 27.34 (63.50 kg, 152.40 cm) cmb MDM: 12:18 UA Ordered. EDMS 13:06 UA Reviewed. ar2 13:10 IV Saline Lock ordered. ar2 13:10 NS 0.9% 1000 ml IV at bolus once ordered. ar2 13:10 morphine 4 mg IVP once ordered. ar2 13:10 Ondansetron 4 mg IVP once ordered. ar2 13:12 CBC with Diff Ordered. EDMS 13:12 MED Profile Ordered. EDMS 13:12 Liver Profile Ordered. EDMS 13:12 Lactic Acid (Cooper tube on ice) Ordered. EDMS 13:12 CT ABD & PELVIS: IV and Oral Contrast Ordered. EDMS 13:31 Diatrizoate Meglumine & Sodium Liquid 10 ml PO once; mix in 290cc of water \T\ 1335. jf3 ordered. 13:31 Diatrizoate Meglumine & Sodium Liquid 10 ml PO once; mix in 290cc of water \T\ 1405 jf3 ordered. 13:36 Financial registration complete. lg 14:30 CBC with Diff Reviewed. ar2 14:30 MED Profile Reviewed. ar2 14:30 Liver Profile Reviewed. ar2 14:30 Lactic Acid (Cooper tube on ice) Reviewed. ar2 14:33 morphine 4 mg IVP once ordered. ar2 14:57 Metoclopramide 10 mg IV at 40 mg/hr once over 15 mins ordered. srm 15:34 [facility] Payment Agreement was scanned into [employer] and attached to record. lg 16:20 Magnesium Citrate Liquid 300 ml PO once; Dispense home with pt. take 1/2 bottle as ar2 needed ordered. 04/02 09:16 T-Sheet-- Draft Copy was scanned into [employer] and attached to record. gb Administered Medications: 04/01 13:38 Drug: Diatrizoate Meglumine & Sodium 10 ml [diatrizoate meglumine and diat.sodium 66 jf3 %-10 % oral solution (10 mL)] Route: PO; 13:46 Drug: NS 0.9% 1000 ml [sodium chloride 0.9 % intravenous solution] Route: IV; Rate: kc3 bolus; Site: right antecubital; 15:45 Follow up: IV Status: Completed infusion ck1 13:46 Drug: morphine 4 mg [morphine 4 mg/mL intravenous cartridge (1 mL)] Route: IVP; Site: kc3 right antecubital; 15:33 Follow up: Response: Pain is unchanged, physician notified kc3 13:46 Drug: Ondansetron 4 mg [ondansetron HCl 2 mg/mL intravenous solution (2 mL)] Route: kc3 IVP; Site: right antecubital; 15:34 Follow up: Response: No Adverse Reaction kc3 14:16 Drug: Diatrizoate Meglumine & Sodium 10 ml [diatrizoate meglumine and diat.sodium 66 kc3 %-10 % oral solution (10 mL)] Route: PO; 14:36 Drug: morphine 4 mg [morphine 4 mg/mL intravenous cartridge (1 mL)] Route: IVP; Site: [facility] right antecubital; 15:33 Follow up: Response: Pain is unchanged, physician notified kc3 15:13 Drug: Metoclopramide 10 mg [metoclopramide 5 mg/mL injection solution] Route: IV; Rate: srm 40 mg/hr; Infused Over: 15 mins; Site: right antecubital; 15:42 Follow up: IV Status: Completed infusion ck1 16:44 Drug: Magnesium Citrate 300 ml [magnesium citrate oral solution (300 mL)] Route: PO; kc3 Addendum: 04/07/2016 20:42 Radiology Callback: Radiology results faxed to primary care physician/provider. dr nikos syed faxed formal report of ct abd/p for ml. Signatures: Dispatcher [employer] EDMS Moises Gray MD MD ml Michelson, Staci, RN RN [facility] Ulises, Alina, Reg Reg gb Lolita Gracia, Reg Reg lg Huy Bledsoe, PA-C PA-C ar2 Clarice Benz, RN RN ttb Tresa Hamilton RN RN kc3 Ciro Whitaker RN RN jf3 Radha Rojas RN ck1 The chart was reviewed and I authenticate all verbal orders and agree with the evaluation and treatment provided.Attachments: 04/01 15:34 [facility] Payment Agreement lg 04/02 09:16 T-Sheet-- Draft Copy gb Chart Complete MTDD
--- NOTE | 2016-04-07 20:44 | EDDOCDS ---
Nurse's Notes [facility] Name: Nadiya Lozada Age: 45 yrs Sex: Female : 1970 Arrival Date: 04/01/2016 Time: 12:01 Bed I1 / M1 Private MD: Taya Chavez Diagnosis: Other and unspecified noninfective gastroenteritis and colitis;Other abdominal pain Presentation: 04/01 12:10 Presenting complaint: Patient states: "my doctor sent me over for a CT with contrast". ttb Abd pain and right lower back/flank pain x7 days. Sent from PCP office. Nausea. States urgency. Risk factors: the patient reports no vaginal bleeding. Adult Sepsis Screening: The patient does not have new or worsening altered mentation. Patient's respiratory rate is less than 22. Systolic blood pressure is greater than 100. Patient has a qSOFA score of 0- Negative Sepsis Screen. Suicide/Homicide risk assessment- the patient denies having any suicidal and/or homicidal ideations and does not present with any other emotional, behavioral or mental health complaints. 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 Transition of care: patient was not received from another setting of care. 12:10 Acuity: RAJIV Level 3 ttb 12:10 Method Of Arrival: Walkin/Carried/Asstd ttb Triage Assessment: 12:15 General: Appears in no apparent distress, well nourished, well groomed, Behavior is ttb appropriate for age, cooperative, pleasant. Pain: Location: right lower abd/flank Pain currently is 10 out of 10 on a pain scale. HIV screening NA for this visit Offered previously. Neurological: Level of Consciousness is awake, alert. GI: Reports constipation, lower abdominal pain, nausea, Denies diarrhea, vomiting. : Reports urgency. Derm: Skin is normal. Injury Description: No known injury. 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 yeast 2 daily daily (Last dose: 04/01/2016 08:00) 2. uricalm cranberry 2 chewables daily (Last dose: 04/01/2016 05:00) 3. Singulair 10 mg Oral tab 1 tab once daily (Last dose: 03/31/2016 20:00) 4. Premarin 0.625 mg Oral tab once daily (Last dose: 04/01/2016 05:00) 5. potassium chloride 10 mEq Oral cpER 1 cap once daily (Last dose: 04/01/2016 05:00) 6. pantoprazole 40 mg oral TbEC 1 tab 2 times per day (Last dose: 04/01/2016 05:00) 7. Magnesium Oxide 64 mg Oral 1 tab daily (Last dose: 03/31/2016 20:00) 8. ferrous fumarate 324 mg (106 mg iron) oral tab daily (Last dose: 04/01/2016 05:00) 9. Cytotec 200 mcg Oral tab 4 times per day (Last dose: 04/01/2016 09:00) 10. cetirizine 10 mg oral tab 1 tab once daily (Last dose: 04/01/2016 05:00) 11. Carafate 1 gram Oral tab 1 tab 4 times per day (Last dose: 04/01/2016 10:00) 12. biotin 5000 mg 2 in am oral (Last dose: 04/01/2016 05:00) 13. Benadryl 25 mg Oral cap 2 caps nightly (Last dose: 03/31/2016 21:00) 14. bariatric fusion chewable tabs 2 tabs twice a day (Last dose: 04/01/2016 05:00) 15. azelastine 0.1% 2 sprays in each nostril in am (Last dose: 04/01/2016 05:00) - PMHx: Asthma; brain aneurysm; Hypertension; Seasonal Allergies; pseydicholinesterase deficiency; - PSHx: Gastric Bypass; Cholecystectomy; Hysterectomy; right knee; Carpal Tunnel Repair- Bilateral; - Social history: Smoking status: Patient uses tobacco products, current every day smoker. Patient/guardian denies using alcohol, street drugs, No barriers to communication noted, The patient speaks fluent Nigerian, Speaks appropriately for age. - Family history: Not pertinent. - : The pt / caregiver states he / she is not on anticoagulants. Home medication list is obtained from the patient, [employer] import data. - Exposure Risk Screening:: None identified. Screenin:47 Screening information is obtained from the patient. Fall risk: No risks identified. kc3 Assistance ADL's: requires no assistance with activities of daily living. Abuse/DV Screen: The patient / caregiver reports he/she is: not in a situation that causes fear, pain or injury. Nutritional screening: No deficits noted. Advance Directives: Currently, there is no health care proxy. home support is adequate. Assessment: 13:46 General: Appears in no apparent distress, Behavior is appropriate for age, cooperative. kc3 Pain: Location: right lower quadrant. Neurological: Level of Consciousness is awake, alert, obeys commands, Oriented to person, place, time. Respiratory: Airway is patent Respiratory effort is even, unlabored. GI: Abdomen is flat, Bowel sounds present X 4 quads. Abd is soft X 4 quads Abd is tender to palpation in right lower quadrant Reports constipation, nausea. Derm: Skin is pink, warm & dry. 14:25 Reassessment: Patient states symptoms have not improved. Pain: Location: right lower kc3 quadrant. Neurological: Level of Consciousness is awake, alert, obeys commands. Respiratory: Respiratory effort is even, unlabored. GI: Reports lower abdominal pain. Derm: Skin is pink, warm & dry. 15:31 General: Appears uncomfortable, Behavior is appropriate for age, cooperative. Pain: kc3 Location: right lower quadrant. Neurological: Level of Consciousness is awake, alert, obeys commands, Oriented to person, place, time. Respiratory: Respiratory effort is even, unlabored. GI: Reports lower abdominal pain. Derm: Skin is pink, warm & dry. 16:43 General: Appears in no apparent distress, Behavior is appropriate for age, cooperative. kc3 Neurological: Level of Consciousness is awake, alert, obeys commands. Respiratory: Airway is patent Respiratory effort is even, unlabored. GI: Denies nausea. Derm: Skin is pink, warm & dry. Vital Signs: 12:02 BP 148 / 91; Pulse 80; Resp 18; Temp 98.1(O); Pulse Ox 100% ; Weight 63.5 kg; Height 5 cmb ft. 0 in. (152.40 cm); Pain 10/10; 14:19 BP 138 / 71; Pulse 76; Resp 18; Pulse Ox 100% ; Pain 6/10; jrd 16:29 BP 138 / 71 RA Sitting (auto/reg); Pulse 71; Resp 16; Temp 97.1; Pulse Ox 98% on R/A; jrd Pain 5/10; 12:02 Body Mass Index 27.34 (63.50 kg, 152.40 cm) cmb Vitals: 12:02 Log In Time: April 01, 2016 at 12:01. cmb ED Course: 12:02 Patient visited by Suzie Delgado. cmb 12:02 Taya Chavez is Private Physician. cmb 12:02 Patient moved to Waiting cmb 12:03 Patient moved to Pre RCE cmb 12:12 Triage Initiated ttb 12:23 Patient visited by Mis Keating PCA. rs6 12:23 Assisted to bathroom. rs6 12:23 UA Sent. rs6 12:47 Patient moved to Triage 3 rs6 12:57 [facility] ar2 12:57 Moises Gray MD is Attending Physician. ar2 12:57 Patient visited by Huy Bledsoe PA-C. ar2 13:29 Lactic Acid (Cooper tube on ice) Sent. jf3 13:29 Liver Profile Sent. jf3 13:29 MED Profile Sent. jf3 13:29 CBC with Diff Sent. jf3 13:29 Inserted saline lock: 20 gauge in right antecubital area The patient tolerated the jf3 procedure well. 13:30 Patient visited by Ciro Whitaker,TAN. jf3 13:34 Patient moved to I1 / M1 rs6 13:47 The patient / caregiver is instructed regarding the plan of care and ED course. kc3 14:16 Patient visited by Tresa Hamilton,TAN. kc3 14:40 Patient visited by Priyanka Smiley, TAN. srm 15:14 Patient visited by Tresa Hamilton,TAN. kc3 15:34 [facility] Payment Agreement was scanned into [employer] and attached to record. lg 15:42 Patient visited by Radha Rojas,TAN. ck1 16:10 CT ABD & PELVIS: IV and Oral Contrast Returned. EDMS 16:12 Win Cleveland MD is Referral Physician. ar2 16:43 Discontinued IV lock intact, bleeding controlled, pressure dressing applied, No kc3 redness/swelling at site. No procedures done that require assistance. 04/02 09:16 T-Sheet-- Draft Copy was scanned into [employer] and attached to record. gb Administered Medications: 04/01 13:38 Drug: Diatrizoate Meglumine & Sodium 10 ml [diatrizoate meglumine and diat.sodium 66 jf3 %-10 % oral solution (10 mL)] Route: PO; 13:46 Drug: NS 0.9% 1000 ml [sodium chloride 0.9 % intravenous solution] Route: IV; Rate: kc3 bolus; Site: right antecubital; 15:45 Follow up: IV Status: Completed infusion ck1 13:46 Drug: morphine 4 mg [morphine 4 mg/mL intravenous cartridge (1 mL)] Route: IVP; Site: kc3 right antecubital; 15:33 Follow up: Response: Pain is unchanged, physician notified kc3 13:46 Drug: Ondansetron 4 mg [ondansetron HCl 2 mg/mL intravenous solution (2 mL)] Route: kc3 IVP; Site: right antecubital; 15:34 Follow up: Response: No Adverse Reaction kc3 14:16 Drug: Diatrizoate Meglumine & Sodium 10 ml [diatrizoate meglumine and diat.sodium 66 kc3 %-10 % oral solution (10 mL)] Route: PO; 14:36 Drug: morphine 4 mg [morphine 4 mg/mL intravenous cartridge (1 mL)] Route: IVP; Site: [facility] right antecubital; 15:33 Follow up: Response: Pain is unchanged, physician notified kc3 15:13 Drug: Metoclopramide 10 mg [metoclopramide 5 mg/mL injection solution] Route: IV; Rate: srm 40 mg/hr; Infused Over: 15 mins; Site: right antecubital; 15:42 Follow up: IV Status: Completed infusion ck1 16:44 Drug: Magnesium Citrate 300 ml [magnesium citrate oral solution (300 mL)] Route: PO; kc3 Order Results: Lab Order: UA; SPEC'M 04/01/16 12:21 Test: APPEARANCE, URINE; Value: CLEAR; Range: CLEAR; Status: F Test: COLOR, URINE; Value: YELLOW; Range: YELLOW; Status: F Test: PH,URINE; Value: 6.0; Range: 5.0-9.0; Units: UNITS; Status: F Test: SPECIFIC GRAVITY URINE AUTO; Value: 1.015; Range: 1.002-1.035; Status: F Test: PROTEIN, URINE AUTO; Value: NEGATIVE; Range: NEGATIVE; Units: mg/dL; Status: F Test: GLUCOSE, URINE (UA) AUTO; Value: NEGATIVE; Range: NEGATIVE; Units: mg/dL; Status: F Test: KETONE, URINE AUTO; Value: NEGATIVE; Range: NEGATIVE; Units: mg/dL; Status: F Test: UROBILINOGEN, URINE AUTO; Value: 0.2; Range: 0.0-2.0; Units: mg/dL; Status: F Test: BILIRUBIN, URINE AUTO; Value: NEGATIVE; Range: NEGATIVE; Status: F Test: NITRITE, URINE AUTO; Value: NEGATIVE; Range: NEGATIVE; Status: F Test: LEUKOCYTE ESTERASE, URINE AUTO; Value: NEGATIVE; Range: NEGATIVE; Status: F Test: BLOOD, URINE BLOOD; Value: NEGATIVE; Range: NEGATIVE; Status: F Test: WBC, URINE AUTO; Value: 1; Range: 0-3; Units: /HPF; Status: F Test: RBC, URINE AUTO; Value: 2; Range: 0-3; Units: /HPF; Status: F Test: BACTERIA, URINE AUTO; Value: NEGATIVE; Range: NEGATIVE; Status: F Test: SQUAMOUS EPITHELIAL CELL UR AU; Value: 2; Range: 0-6; Units: /HPF; Status: F Test: MUCUS, URINE; Value: SMALL; Range: NEGATIVE; Status: F Test: HYALINE CAST, URINE AUTO; Value: 0; Range: 0-1; Units: /LPF; Status: F Lab Order: CBC with Diff; SPEC'M 04/01/16 13:28 Test: WHITE BLOOD COUNT; Value: 6.2; Range: 4.0-10.0; Units: K/mm3; Status: F Test: RED BLOOD COUNT; Value: 4.48; Range: 4.00-5.40; Units: M/mm3; Status: F Test: HEMOGLOBIN; Value: 14.8; Range: 12.0-16.0; Units: g/dl; Status: F Test: HEMATOCRIT; Value: 42.8; Range: 36.0-47.0; Units: %; Status: F Test: MEAN CORPUSCULAR VOLUME; Value: 95.6; Range: 80.0-96.0; Units: fl; Status: F Test: MEAN CORPUSCULAR HEMOGLOBIN; Value: 33.0; Range: 27.0-33.0; Units: pg; Status: F Test: MEAN CORPUSCULAR HGB CONC; Value: 34.5; Range: 32.0-36.5; Units: g/dl; Status: F Test: RED CELL DISTRIBUTION WIDTH; Value: 12.4; Range: 11.5-14.5; Units: %; Status: F Test: PLATELET COUNT, AUTOMATED; Value: 229; Range: 150-450; Units: k/mm3; Status: F Test: NEUTROPHILS %; Value: 52.2; Range: 36.0-66.0; Units: %; Status: F Test: LYMPH %; Value: 36.9; Range: 24.0-44.0; Units: %; Status: F Test: MONO %; Value: 5.2; Range: 0.0-5.0; Abnormal: Above high normal; Units: %; Status: F Test: EOS %; Value: 2.5; Range: 0.0-3.0; Units: %; Status: F Test: BASO %; Value: 1.5; Range: 0.0-1.0; Abnormal: Above high normal; Units: %; Status: F Test: LARGE UNSTAINED CELL %; Value: 1.6; Range: 0.0-4.0; Units: %; Status: F Test: NEUTROPHILS #; Value: 3.3; Range: 1.8-7.7; Units: K/mm3; Status: F Test: LYMPH #; Value: 2.4; Range: 1.5-4.5; Units: K/mm3; Status: F Test: MONO #; Value: 0.3; Range: 0.0-0.8; Units: K/mm3; Status: F Test: EOS #; Value: 0.2; Range: 0.0-0.50; Units: K/mm3; Status: F Test: BASO #; Value: 0.1; Range: 0.0-0.2; Units: K/mm3; Status: F Test: LARGE UNSTAINED CELL #; Value: 0.1; Range: 0.0-0.4; Units: K/mm3; Status: F Lab Order: MED Profile; SPEC'M 04/01/16 13:28 Test: GLUCOSE, FASTING; Value: 92; Range: 70-105; Units: MG/DL; Status: F Test: BLOOD UREA NITROGEN; Value: 10; Range: 7-18; Units: MG/DL; Status: F Test: CREATININE FOR GFR; Value: 0.52; Range: 0.55-1.02; Abnormal: Below low normal; Units: MG/DL; Status: F Test: GLOMERULAR FILTRATION RATE; Value: > 60.0; Range: >58; Status: F Test: SODIUM LEVEL; Value: 143; Range: 136-145; Units: MEQ/L; Status: F Test: POTASSIUM SERUM; Value: 4.1; Range: 3.5-5.1; Units: MEQ/L; Status: F Test: CHLORIDE LEVEL; Value: 106; Range: 98-107; Units: MEQ/L; Status: F Test: CARBON DIOXIDE LEVEL; Value: 30; Range: 21-32; Units: MEQ/L; Status: F Test: ANION GAP; Value: 7; Range: 8-16; Abnormal: Below low normal; Units: MEQ/L; Status: F Test: CALCIUM LEVEL; Value: 8.9; Range: 8.5-10.1; Units: MG/DL; Status: F Test Note: ; Units are mL/min/1.73 m2 Chronic Kidney Disease Staging per NKF: Stage I & II GFR >=60 Normal to Mildly Decreased Stage III GFR 30-59 Moderately Decreased Stage IV GFR 15-29 Severely Decreased Stage V GFR <15 Very Little GFR Left ESRD GFR <15 on RECREATION THERAPIST Lab Order: Liver Profile; SPEC'M 04/01/16 13:28 Test: AST/SGOT; Value: 19; Range: 15-37; Units: U/L; Status: F Test: ALT/SGPT; Value: 39; Range: 12-78; Units: U/L; Status: F Test: ALKALINE PHOSPHATASE; Value: 94; Range: 45-117; Units: U/L; Status: F Test: BILIRUBIN,TOTAL; Value: 0.2; Range: 0.2-1.0; Units: MG/DL; Status: F Test: BILIRUBIN,DIRECT; Value: 0.1; Range: 0.0-0.2; Units: MG/DL; Status: F Test: TOTAL PROTEIN; Value: 7.1; Range: 6.4-8.2; Units: GM/DL; Status: F Test: ALBUMIN; Value: 3.9; Range: 3.2-5.2; Units: GM/DL; Status: F Test: ALBUMIN/GLOBULIN RATIO; Value: 1.22; Range: 1.00-1.93; Status: F Lab Order: Lactic Acid (Cooper tube on ice); SPEC'M 04/01/16 13:28 Test: LACTIC ACID LEVEL, LACTATE; Value: 0.6; Range: 0.4-2.0; Units: MMOL/L; Status: F Radiology Order: CT ABD & PELVIS: IV and Oral Contrast Test: CT ABD & PELVIS: IV and Oral Contrast REASON FOR EXAMINATION: right abdominal pain; CT abdomen and pelvis with IV and oral contrast 04/01/2016; ; Indication: Right abdominal pain; ; Comparison: CT abdomen and pelvis 03/24/2016 performed without contrast, CT; abdomen and pelvis 05/16/2013, with IV and oral contrast; ; Findings: Lung bases are clear bilaterally .; ; Liver, spleen, pancreas are unremarkable. There has been a prior; cholecystectomy. There are bilateral low-density adrenal nodules consistent with; adenomas when compared with unenhanced CT abdomen and pelvis 03/24/2016. Kidneys; are without hydronephrosis bilaterally. There is a moderate to large distension; of the lateral portion of the contrast-filled stomach to region of duodenal bulb; . Patient has had prior gastric bypass procedure. Oral contrast is identified; throughout the small bowel and there is no evidence of small-bowel obstruction.; Mural thickening is seen in the terminal ileum which is a nonspecific finding,; but can be seen with inflammatory bowel disease. The appendix is without; inflammation. Abdominal aorta is of normal course and caliber.; ; Bladder is normal. Uterus is absent; there are no adnexal masses. There is; moderate to large amount of retained stool seen throughout colon. There is no; free air or ascites. Ventral hernia mesh is seen in the periumbilical region; consistent with prior hernia repair. There is no evidence of recurrent hernia.; ; Impression:; ; Izycxzah-mr-zpgub amount of distension seen within the lateral region of the; stomach to duodenal bulb region, in the setting of previous gastric bypass; surgery. There is no visualized contrast extravasation, and no free air or; ascites. Clinical followup recommended.; ; Mural thickening within the terminal ileum, nonspecific finding but can be seen; with Crohn's/inflammatory bowel disease. No small bowel obstruction.; ; Moderate to large amount of diffuse retained colonic stool.; ; ; ; ; ; ; Signed by; Kristi Hylton MD 04/02/2016 07:54 P; Outcome: 15:33 CT Study completed. kc3 16:14 Discharge ordered by Provider. ar2 16:43 Discharge Assessment: Patient awake, alert and oriented x 3. No cognitive and/or kc3 functional deficits noted. Patient verbalized understanding of disposition instructions. patient administered narcotics - yes. Pt provided with safe discharge. The following High Risk Discharge criteria are identified: None. Condition: stable. Discharge instructions given to patient, Instructed on discharge instructions, follow up and referral plans. medication usage, Demonstrated understanding of instructions, medications, Pt was receptive of discharge instructions/ teaching. Prescriptions given X 4. Property :Personal belongings accompany Pt. 16:44 Patient left the ED. kc3 Signatures: Dispatcher [employer] EDMS Priyanka Smiley, RN RN srm Ulises, Alina, Reg Reg gb Lolita Gracia, Reg Reg lg Radha Rojas,RN RN ck1 Huy Bledsoe PA-C PAAbdias ar2 Suzie Delgado Teresa, RN RN ttb Venkat Santiago, TRASH TRUCK DRIVER TRASH TRUCK DRIVER jrd Mis Keating, TRASH TRUCK DRIVER TRASH TRUCK DRIVER rs6 Tresa Hamilton RN RN kc3 Ciro Whitaker,TAN RN jf3 MTDD
== END 2016-04-01 16:44 | disposition home or self-care (01) ==
LOC: M ED 12:01
DX: K59.00 Constipation, unspecified (principal); K31.89 Other diseases of stomach and duodenum; K52.89 Other specified noninfective gastroenteritis and colitis; J45.909 Unspecified asthma, uncomplicated; I10 Essential (primary) hypertension; E88.09 Other disorders of plasma-protein metabolism, not elsewhere classified; Z86.79 Personal history of other diseases of the circulatory system; Z98.84 Bariatric surgery status; Z72.0 Tobacco use; Z79.899 Other long term (current) drug therapy; Z88.8 Allergy status to other drugs, medicaments and biological substances; Z91.040 Latex allergy status; Z88.1 Allergy status to other antibiotic agents; Z88.5 Allergy status to narcotic agent
CPT/HCPCS: 74177; 80048; 80076; 81001; 83605; 85025; 96361; 96365; 96375; 96376; 99284; J2405; J2765; Q9963; Q9967

== ENCOUNTER → 2016-04-01 | Outpatient (REF) | payer OTHER ==
[2016-04-01 18:45] LABS: AMYLASE 46 U/L (25-115)
== END ==
LOC: M LAB REF 16:31
PROVIDERS: ATTEND Nurse Practitioner Adult Health
DX: R10.9 Unspecified abdominal pain (principal)

== ENCOUNTER → 2016-04-27 | Outpatient (CLI) | payer OTHER ==
[2016-04-27 11:31] LABS: BASO % 0.5 % (0.0-1.0); EOS # 0.1 K/mm3 (0.0-0.50); EOS % 2.2 % (0.0-3.0); LARGE UNSTAINED CELL # 0.1 K/mm3 (0.0-0.4); LYMPH # 2.3 K/mm3 (1.5-4.5); LYMPH % 33.3 % (24.0-44.0); MEAN CORPUSCULAR HEMOGLOBIN 32.9 pg (27.0-33.0); MEAN CORPUSCULAR HGB CONC 33.5 g/dl (32.0-36.5); MEAN CORPUSCULAR VOLUME 98.4 fl (80.0-96.0); MONO # 0.4 K/mm3 (0.0-0.8); MONO % 5.7 % (0.0-5.0); NEUTROPHILS # 3.7 K/mm3 (1.8-7.7); NEUTROPHILS % 56.3 % (36.0-66.0); PLATELET COUNT, AUTOMATED 195 k/mm3 (150-450); WHITE BLOOD COUNT 6.5 K/mm3 (4.0-10.0)
[2016-04-27 12:15] LABS: ALBUMIN 3.8 GM/DL (3.2-5.2); ALBUMIN/GLOBULIN RATIO 1.46 (1.00-1.93); ALKALINE PHOSPHATASE 81 U/L (45-117); ALT/SGPT 29 U/L (12-78); ANION GAP 7 MEQ/L (8-16); AST/SGOT 12 U/L (15-37); BILIRUBIN,TOTAL 0.3 MG/DL (0.2-1.0); BLOOD UREA NITROGEN 11 MG/DL (7-18); CALCIUM LEVEL 8.4 MG/DL (8.5-10.1); CARBON DIOXIDE LEVEL 29 MEQ/L (21-32); CHLORIDE LEVEL 106 MEQ/L (98-107); CREATININE FOR GFR 0.62 MG/DL (0.55-1.02); FERRITIN 16 NG/ML (8-252); GLOMERULAR FILTRATION RATE > 60.0 (>58); GLUCOSE, FASTING 125 MG/DL (70-105); MAGNESIUM LEVEL 2.2 MG/DL (1.8-2.4); PERCENT SATURATION 19.7 % (13.2-37.4); PHOSPHORUS LEVEL 3.8 MG/DL (2.5-4.9); SODIUM LEVEL 142 MEQ/L (136-145); TOTAL IRON BINDING CAPACITY 304 UG/DL (250-450); TOTAL PROTEIN 6.4 GM/DL (6.4-8.2)
[2016-04-27 12:23] LABS: VITAMIN B12 LEVEL 877 PG/ML (247-911)
[2016-04-28 10:10] LABS: PRETREATED FOLATE FOR RBCFOL 23.5 NG/ML
== END ==
LOC: M LAB 11:02
PROVIDERS: ATTEND Surgery
DX: Z98.84 Bariatric surgery status (principal)

== ENCOUNTER → 2016-05-28 | Outpatient (CLI) | payer OTHER ==
[~2016-05-28] VITALS: Ht 152.4 cm; Wt 85.7 kg
[~2016-05-28] MED LIST changes: +ALBU17IN2 INH; +AZO-95TA2 PO; +BARI1CHW PO; +BENA25CA4 PO; +BIOT1TAB PO; +CETI5TAB2 PO; +CYTO1TAB; +ESTR625TA PO; +FERR324T12 PO; +K-TA10TA2 PO; +LIDOCAINE 2% INJ 100 MG/5 ML SDV (FOR ANES.) As Ordered ONE; +MAGN65TA PO; +MIDAZOLAM INJ 2 MG/2 ML VIAL (J2250) As Ordered ONE; +NS 1,000 ML IV SCH; +ONDANSETRON 4MG/2ML VIAL (J2405) As Ordered ONE; +PAME25CA PO; +PROPOFOL 200 MG/20 ML VIAL As Ordered ONE; +PROTPAK PO; +SING10TA32 PO; +SUCR1TA PO; +TIZA2CAP3 PO; +[UNRECOGNIZED DRUG - OTHER] PO
--- NOTE | 2016-05-28 13:25 | ROOR ---
Patient Name: Nadiya Lozada Procedure Date: 05/28/2016 1:12 PM Date of : 1970 Age: 46 Room: [facility] Gender: Female Note Status: Finalized Procedure: Upper GI endoscopy Indications: Generalized abdominal pain, Nausea Providers: Alvino Sousa Jr, MD Referring MD: Taya Chavez NP Requesting Provider: Medicines: Propofol per Anesthesia Complications: No immediate complications. Procedure: Pre-Anesthesia Assessment: - Prior to the procedure, a History and Physical was performed, and patient medications and allergies were reviewed. The patient is competent. The risks and benefits of the procedure and the sedation options and risks were discussed with the patient. All questions were answered and informed consent was obtained. Patient identification and proposed procedure were verified by the physician and the nurse in the pre-procedure area and in the procedure room. Mental Status Examination: alert and oriented. Airway Examination: normal oropharyngeal airway and neck mobility. Respiratory Examination: clear to auscultation. CV Examination: normal. ASA Grade Assessment: II - A patient with mild systemic disease. After reviewing the risks and benefits, the patient was deemed in satisfactory condition to undergo the procedure. The anesthesia plan was to use moderate sedation / analgesia (conscious sedation). Immediately prior to administration of medications, the patient was re-assessed for adequacy to receive sedatives. The heart rate, respiratory rate, oxygen saturations, blood pressure, adequacy of pulmonary ventilation, and response to care were monitored throughout the procedure. The physical status of the patient was re-assessed after the procedure. The Endoscope was introduced through the mouth, and advanced to the afferent jejunal loop. The upper GI endoscopy was accomplished without difficulty. The patient tolerated the procedure well. Findings: The upper third of the esophagus, middle third of the esophagus and lower third of the esophagus were normal. A small hiatal hernia was present. Evidence of a gastric bypass was found. A gastric pouch with a normal size was found. The staple line appeared intact. The gastrojejunal anastomosis was characterized by congestion, edema, erythema, friable mucosa and a hemorrhagic appearance. This was traversed. The kuckm-am-bjftosp limb was characterized by erythema and friable mucosa. Impression: - Normal upper third of esophagus, middle third of esophagus and lower third of esophagus. - Small hiatal hernia. - Gastric bypass with a normal-sized pouch and intact staple line. Gastrojejunal anastomosis characterized by congestion, edema, erythema, friable mucosa and a hemorrhagic appearance. - No specimens collected. Recommendation: - Discharge patient to home (ambulatory). - Return to my office in 2 weeks. Alvino Sousa MD Alvino Sousa Jr, MD 05/28/2016 1:24:34 PM This report has been signed electronically. Number of Addenda: 0 Note Initiated On: 05/28/2016 1:12 PM Estimated Blood Loss: Estimated blood loss: none.
--- NOTE | 2016-05-28 13:42 | ROOR ---
Patient Name: Nadiya Lozada Procedure Date: 05/28/2016 1:13 PM Date of : 1970 Age: 46 Room: [facility] Gender: Female Note Status: Finalized Procedure: Colonoscopy Indications: Abnormal CT of the GI tract Providers: Alvino Sousa Jr, MD Referring MD: Taya Chavez NP Requesting Provider: Medicines: Propofol per Anesthesia Complications: No immediate complications. Procedure: Pre-Anesthesia Assessment: - Prior to the procedure, a History and Physical was performed, and patient medications and allergies were reviewed. The patient is competent. The risks and benefits of the procedure and the sedation options and risks were discussed with the patient. All questions were answered and informed consent was obtained. Patient identification and proposed procedure were verified by the physician and the nurse in the pre-procedure area and in the procedure room. Mental Status Examination: alert and oriented. Airway Examination: normal oropharyngeal airway and neck mobility. Respiratory Examination: clear to auscultation. CV Examination: normal. ASA Grade Assessment: II - A patient with mild systemic disease. After reviewing the risks and benefits, the patient was deemed in satisfactory condition to undergo the procedure. The anesthesia plan was to use moderate sedation / analgesia (conscious sedation). Immediately prior to administration of medications, the patient was re-assessed for adequacy to receive sedatives. The heart rate, respiratory rate, oxygen saturations, blood pressure, adequacy of pulmonary ventilation, and response to care were monitored throughout the procedure. The physical status of the patient was re-assessed after the procedure. The Colonoscope was introduced through the anus and advanced to the terminal ileum. The patient tolerated the procedure well. The quality of the bowel preparation was adequate. Findings: The perianal exam findings include non-thrombosed external hemorrhoids, non-thrombosed internal hemorrhoids and internal hemorrhoids that prolapse with straining, but spontaneously regress to the resting position (Grade II). The rectum, recto-sigmoid colon, sigmoid colon, descending colon, transverse colon, ascending colon, cecum, appendiceal orifice and ileocecal valve appeared normal. The terminal ileum appeared normal. Biopsies were taken with a cold forceps for histology. Impression: - Non-thrombosed external hemorrhoids, non-thrombosed internal hemorrhoids and internal hemorrhoids that prolapse with straining, but spontaneously regress to the resting position (Grade II) found on perianal exam. - The rectum, recto-sigmoid colon, sigmoid colon, descending colon, transverse colon, ascending colon, cecum, appendiceal orifice and ileocecal valve are normal. - The examined portion of the ileum was normal. Biopsied. Recommendation: - Discharge patient to home (ambulatory). - Repeat colonoscopy in 10 years. Alvino Sousa MD Alvino Sousa Jr, MD 05/28/2016 1:41:31 PM This report has been signed electronically. Number of Addenda: 0 Note Initiated On: 05/28/2016 1:13 PM Estimated Blood Loss: Estimated blood loss: none.
[2016-05-28 14:05] VITALS: BP 155/95
== END ==
LOC: M OPP 12:19
PROVIDERS: ATTEND Surgery
DX: R93.3 Abnormal findings on diagnostic imaging of other parts of digestive tract (principal); K64.4 Residual hemorrhoidal skin tags; K64.1 Second degree hemorrhoids; R10.84 Generalized abdominal pain; R11.0 Nausea; K44.9 Diaphragmatic hernia without obstruction or gangrene; Z98.84 Bariatric surgery status; Z80.0 Family history of malignant neoplasm of digestive organs; J45.909 Unspecified asthma, uncomplicated; K21.9 Gastro-esophageal reflux disease without esophagitis; E66.9 Obesity, unspecified; F17.200 Nicotine dependence, unspecified, uncomplicated; Z79.899 Other long term (current) drug therapy; Z88.8 Allergy status to other drugs, medicaments and biological substances; Z88.1 Allergy status to other antibiotic agents; Z91.040 Latex allergy status
CPT/HCPCS: 43235; 45380; 88305; 99156; 99157; J2250; J2405

== ENCOUNTER 2016-06-21 08:04 | Emergency (ER) | payer OTHER ==
[~2016-06-21 08:04] MED LIST changes: -LIDOCAINE 2% INJ 100 MG/5 ML SDV (FOR ANES.) As Ordered ONE; -MIDAZOLAM INJ 2 MG/2 ML VIAL (J2250) As Ordered ONE; -NS 1,000 ML IV SCH; -ONDANSETRON 4MG/2ML VIAL (J2405) As Ordered ONE; -PROPOFOL 200 MG/20 ML VIAL As Ordered ONE
[2016-06-21] MEDS ORDERED: VARE1TA PO (08:18)
[2016-06-21 09:48] VITALS: BP 132/83
== END 2016-06-21 09:51 | disposition home or self-care (01) ==
LOC: M ED 09:16
DX: B34.9 Viral infection, unspecified (principal); J06.9 Acute upper respiratory infection, unspecified; R50.9 Fever, unspecified; G43.909 Migraine, unspecified, not intractable, without status migrainosus; J45.909 Unspecified asthma, uncomplicated; F32.9 Major depressive disorder, single episode, unspecified; Z88.1 Allergy status to other antibiotic agents; Z88.8 Allergy status to other drugs, medicaments and biological substances; Z91.040 Latex allergy status; Z79.51 Long term (current) use of inhaled steroids; Z79.899 Other long term (current) drug therapy

== ENCOUNTER → 2016-07-20 | Outpatient (REF) | payer OTHER ==
[~2016-07-20] MED LIST changes: +VARE1TA PO
[2016-07-20 13:46] LABS: AMYLASE 68 U/L (25-115)
== END ==
LOC: M LAB REF 12:20
PROVIDERS: ATTEND Nurse Practitioner Adult Health
DX: R01.1 Cardiac murmur, unspecified (principal)

== ENCOUNTER → 2016-07-31 | Outpatient (REF) | payer OTHER | LOC: M SFHCLERA 18:34 | PROVIDERS: ATTEND Physician Assistant | DX: J02.9 Acute pharyngitis, unspecified (principal) ==

== ENCOUNTER → 2016-08-31 | Outpatient (CLI) | payer OTHER ==
[2016-08-31 13:03] LABS: BASO % 0.6 % (0.0-1.0); EOS # 0.1 K/mm3 (0.0-0.50); LARGE UNSTAINED CELL # 0.1 K/mm3 (0.0-0.4); LARGE UNSTAINED CELL % 2.2 % (0.0-4.0); LYMPH # 2.4 K/mm3 (1.5-4.5); LYMPH % 37.1 % (24.0-44.0); MEAN CORPUSCULAR HEMOGLOBIN 34.8 pg (27.0-33.0); MEAN CORPUSCULAR HGB CONC 35.2 g/dl (32.0-36.5); MEAN CORPUSCULAR VOLUME 98.6 fl (80.0-96.0); MONO # 0.3 K/mm3 (0.0-0.8); MONO % 4.9 % (0.0-5.0); NEUTROPHILS # 3.3 K/mm3 (1.8-7.7); NEUTROPHILS % 53.1 % (36.0-66.0); PLATELET COUNT, AUTOMATED 221 k/mm3 (150-450); RED CELL DISTRIBUTION WIDTH 11.7 % (11.5-14.5); WHITE BLOOD COUNT 6.1 K/mm3 (4.0-10.0)
[2016-08-31 13:17] LABS: ALBUMIN 3.4 GM/DL (3.2-5.2); ALBUMIN/GLOBULIN RATIO 1.17 (1.00-1.93); ALKALINE PHOSPHATASE 71 U/L (45-117); ALT/SGPT 23 U/L (12-78); AMYLASE 41 U/L (25-115); ANION GAP 5 MEQ/L (8-16); AST/SGOT 9 U/L (15-37); BILIRUBIN,TOTAL 0.4 MG/DL (0.2-1.0); BLOOD UREA NITROGEN 11 MG/DL (7-18); CALCIUM LEVEL 8.6 MG/DL (8.5-10.1); CARBON DIOXIDE LEVEL 32 MEQ/L (21-32); CHLORIDE LEVEL 106 MEQ/L (98-107); CREATININE FOR GFR 0.53 MG/DL (0.55-1.02); GLOMERULAR FILTRATION RATE > 60.0 (>58); GLUCOSE, FASTING 91 MG/DL (70-105); POTASSIUM SERUM 4.4 MEQ/L (3.5-5.1); SODIUM LEVEL 143 MEQ/L (136-145); TOTAL PROTEIN 6.3 GM/DL (6.4-8.2)
== END ==
LOC: M LAB 12:22
PROVIDERS: ATTEND Surgery
DX: K91.2 Postsurgical malabsorption, not elsewhere classified (principal)

== ENCOUNTER → 2016-11-27 | Outpatient (REF) | payer OTHER | LOC: M SFHCWAGY 15:35 | PROVIDERS: ATTEND Nurse Practitioner Family | DX: Z12.72 Encounter for screening for malignant neoplasm of vagina (principal) ==

== ENCOUNTER → 2016-12-18 | Outpatient (CLI) | payer OTHER ==
[2016-12-18 21:07] LABS: ALBUMIN 3.5 GM/DL (3.2-5.2); ALBUMIN/GLOBULIN RATIO 1.25 (1.00-1.93); ALKALINE PHOSPHATASE 73 U/L (45-117); ALT/SGPT 25 U/L (12-78); AMYLASE 53 U/L (25-115); AST/SGOT 10 U/L (15-37); BILIRUBIN,DIRECT < 0.1 MG/DL (0.0-0.2); BILIRUBIN,TOTAL 0.2 MG/DL (0.2-1.0); TOTAL PROTEIN 6.3 GM/DL (6.4-8.2)
== END ==
LOC: M LAB 18:17
PROVIDERS: ATTEND Internal Medicine Gastroenterology
DX: R10.13 Epigastric pain (principal); K21.9 Gastro-esophageal reflux disease without esophagitis

== ENCOUNTER → 2017-01-11 | Outpatient (REF) | payer OTHER | LOC: M LAB REF 12:54 | PROVIDERS: ATTEND Nurse Practitioner Adult Health | DX: M79.672 Pain in left foot (principal) ==

== ENCOUNTER → 2017-04-11 | Outpatient (REF) | payer OTHER | LOC: M SFHCLERA 17:39 | DX: R68.89 Other general symptoms and signs (principal) ==

== ENCOUNTER → 2017-05-30 | Outpatient (CLI) | payer OTHER ==
[2017-05-30 12:32] LABS: BASO # 0.1 10^3/uL (0.0-0.2); BASO % 0.7 % (0.0-1.0); EOS # 0.1 10^3/uL (0.0-0.50); EOS % 1.6 % (0.0-3.0); HEMATOCRIT 40.9 % (36.0-47.0); IMMATURE GRANULOCYTE % 0.4 % (0-3.0); LYMPH # 2.6 10^3/uL (1.5-4.5); LYMPH % 32.1 % (24.0-44.0); MEAN CORPUSCULAR HEMOGLOBIN 33.6 pg (27.0-33.0); MEAN CORPUSCULAR HGB CONC 34.2 g/dl (32.0-36.5); MEAN CORPUSCULAR VOLUME 98.1 fl (80.0-96.0); MONO # 0.4 10^3/uL (0.0-0.8); NEUTROPHILS # 4.9 10^3/uL (1.8-7.7); NEUTROPHILS % 60.2 % (36.0-66.0); PLATELET COUNT, AUTOMATED 220 10^3/uL (150-450); RED BLOOD COUNT 4.17 10^6/uL (4.00-5.40); RED CELL DISTRIBUTION WIDTH 11.8 % (11.5-14.5); WHITE BLOOD COUNT 8.2 10^3/uL (4.0-10.0)
[2017-05-30 12:33] LABS: HEMATOCRIT 40.9 % (36.0-47.0)
[2017-05-30 12:53] LABS: ESTIMATED AVERAGE GLUCOSE 105 MG/DL (60-110); HEMOGLOBIN A1c 5.3 %
[2017-05-30 13:00] LABS: ALBUMIN 3.8 GM/DL (3.2-5.2); ALBUMIN/GLOBULIN RATIO 1.36 (1.00-1.93); ALKALINE PHOSPHATASE 83 U/L (45-117); ALT/SGPT 18 U/L (12-78); ANION GAP 5 MEQ/L (8-16); AST/SGOT 8 U/L (7-37); BILIRUBIN,TOTAL 0.2 MG/DL (0.2-1.0); BLOOD UREA NITROGEN 11 MG/DL (7-18); CALCIUM LEVEL 8.4 MG/DL (8.5-10.1); CARBON DIOXIDE LEVEL 29 MEQ/L (21-32); CHLORIDE LEVEL 107 MEQ/L (98-107); FERRITIN 25 NG/ML (8-252); GLOMERULAR FILTRATION RATE > 60.0 (>58); GLUCOSE, FASTING 67 MG/DL (70-100); IRON (FE) 69 UG/DL (50-170); MAGNESIUM LEVEL 2.3 MG/DL (1.8-2.4); PHOSPHORUS LEVEL 3.4 MG/DL (2.5-4.9); SODIUM LEVEL 141 MEQ/L (136-145); TOTAL PROTEIN 6.6 GM/DL (6.4-8.2)
[2017-05-31 10:44] LABS: TOTAL 25(OH) VITAMIN D 28.1 NG/ML (30.0-100.0)
[2017-05-31 12:33] LABS: VITAMIN B12 LEVEL 980 PG/ML (247-911)
[2017-06-01 10:54] LABS: PRETREATED FOLATE FOR RBCFOL 9.2 NG/ML; RBC FOLATE 472.4 NG/ML (280-791)
== END ==
LOC: M LAB 12:07
DX: K91.2 Postsurgical malabsorption, not elsewhere classified (principal)
CPT/HCPCS: 83540

== ENCOUNTER 2017-07-19 19:48 | Emergency (ER) | payer OTHER ==
[2017-07-19] MEDS: KETOROLAC 30 MG/ML VIAL (J1885) IV ×2 (21:10)
[2017-07-19] MEDS: METOCLOPRAMIDE INJ 10MG/2ML VIAL (J2765) IV ×2 (21:10)
[2017-07-19] MEDS: NS 1,000 ML IV ×2 (21:10)
[2017-07-19] MEDS: diphenhydrAMINE INJ 50MG/ML VIAL (J1200) IV ×2 (21:10)
[2017-07-19] MEDS: PERCOCET 5MG/325MG TAB PO ×2 (23:00)
== END 2017-07-19 23:20 | disposition home or self-care (01) ==
LOC: M ED 19:48
DX: G43.909 Migraine, unspecified, not intractable, without status migrainosus (principal); J45.909 Unspecified asthma, uncomplicated; K43.9 Ventral hernia without obstruction or gangrene; Z98.84 Bariatric surgery status; Z86.79 Personal history of other diseases of the circulatory system; Z79.899 Other long term (current) drug therapy; Z88.8 Allergy status to other drugs, medicaments and biological substances; Z88.5 Allergy status to narcotic agent; Z88.1 Allergy status to other antibiotic agents; Z91.040 Latex allergy status
CPT/HCPCS: J1200

== ENCOUNTER → 2017-12-10 | Outpatient (REF) | payer OTHER | LOC: M SFHCLERA 10:52 | DX: J02.9 Acute pharyngitis, unspecified (principal) ==

== ENCOUNTER → 2018-03-03 | Outpatient (REF) | payer OTHER | LOC: M SFHCLERA 15:35 | DX: J02.9 Acute pharyngitis, unspecified (principal) ==

== ENCOUNTER → 2018-04-24 | Outpatient (CLI) | payer OTHER ==
[~2018-04-24] MED LIST changes: +REGL10TA6 PO; +TIZA2CAP PO; -TIZA2CAP3 PO
--- NOTE | 2018-04-24 18:40 | REP ---
Clinical: Trauma. Technique: AP, lateral, bilateral oblique views right foot . Findings: The osseous structures and joint spaces are intact and normal. There is no evidence for acute fracture or dislocation. Surrounding soft tissues are unremarkable. No subcutaneous emphysema or radiodense foreign body. Impression: No acute fracture or dislocation. Electronically Signed by Hao Leyva MD 04/24/2018 06:32 P
== END ==
LOC: M LRY 17:50
PROVIDERS: ATTEND Nurse Practitioner Family
DX: S99.921A Unspecified injury of right foot, initial encounter (principal); X58.XXXA Exposure to other specified factors, initial encounter; Y92.89 Other specified places as the place of occurrence of the external cause

== ENCOUNTER → 2018-05-30 | Outpatient (REF) | payer OTHER | LOC: M SFHCLERA 20:43 | PROVIDERS: ATTEND Physician Assistant | DX: R50.9 Fever, unspecified (principal) ==

== ENCOUNTER → 2018-09-26 | Outpatient (CLI) | payer OTHER ==
[2018-09-26 15:19] LABS: BASO # 0.1 10^3/uL (0.0-0.2); BASO % 0.7 % (0.0-1.0); EOS # 0.1 10^3/uL (0.0-0.50); EOS % 1.5 % (0.0-3.0); HEMATOCRIT 40.8 % (36.0-47.0); HEMOGLOBIN 13.9 g/dl (12.0-15.5); LYMPH # 3.1 10^3/uL (1.5-4.5); LYMPH % 41.9 % (24.0-44.0); MEAN CORPUSCULAR HGB CONC 34.1 g/dl (32.0-36.5); MEAN CORPUSCULAR VOLUME 99.8 fl (80.0-96.0); MONO # 0.6 10^3/uL (0.0-0.8); MONO % 7.8 % (0.0-5.0); NEUTROPHILS # 3.5 10^3/uL (1.8-7.7); PLATELET COUNT, AUTOMATED 231 10^3/uL (150-450); RED BLOOD COUNT 4.09 10^6/uL (4.00-5.40); WHITE BLOOD COUNT 7.3 10^3/uL (4.0-10.0)
[2018-09-26 15:20] LABS: HEMATOCRIT 40.8 % (36.0-47.0)
[2018-09-26 15:38] LABS: HEMOGLOBIN A1c 5.7 %
[2018-09-26 15:44] LABS: ALBUMIN 3.8 GM/DL (3.2-5.2); ALT/SGPT 16 U/L (12-78); BILIRUBIN,TOTAL 0.3 MG/DL (0.2-1.0); BLOOD UREA NITROGEN 9 MG/DL (7-18); CALCIUM LEVEL 9.1 MG/DL (8.5-10.1); CARBON DIOXIDE LEVEL 29 MEQ/L (21-32); CHLORIDE LEVEL 107 MEQ/L (98-107); CREATININE FOR GFR 0.61 MG/DL (0.55-1.30); FERRITIN 27 NG/ML (8-252); GLOMERULAR FILTRATION RATE > 60.0 (>58); GLUCOSE, FASTING 80 MG/DL (70-100); IRON (FE) 62 UG/DL (50-170); MAGNESIUM LEVEL 2.2 MG/DL (1.8-2.4); PERCENT SATURATION 19.7 % (13.2-45.0); PHOSPHORUS LEVEL 4.3 MG/DL (2.5-4.9); POTASSIUM SERUM 4.2 MEQ/L (3.5-5.1); SODIUM LEVEL 143 MEQ/L (136-145); TOTAL IRON BINDING CAPACITY 314 UG/DL (250-450); TOTAL PROTEIN 6.8 GM/DL (6.4-8.2)
[2018-09-26 15:55] LABS: TOTAL 25(OH) VITAMIN D 48.7 NG/ML (30.0-100.0); VITAMIN B12 LEVEL 872 PG/ML (247-911)
== END ==
LOC: M LAB 14:26
PROVIDERS: ATTEND Physician Assistant
DX: K91.2 Postsurgical malabsorption, not elsewhere classified (principal); Z98.84 Bariatric surgery status; E55.9 Vitamin D deficiency, unspecified

== ENCOUNTER → 2018-12-06 | Outpatient (REF) | payer OTHER ==
[2018-12-06 12:53] LABS: INFLUENZA A AMPLIFICATION NEGATIVE (NEGATIVE); INFLUENZA B AMPLIFICATION NEGATIVE (NEGATIVE)
== END ==
LOC: M LAB REF 12:01
PROVIDERS: ATTEND Nurse Practitioner Adult Health
DX: R50.9 Fever, unspecified (principal)

== ENCOUNTER → 2019-01-31 | Outpatient (CLI) | payer OTHER ==
[~2019-01-31] MED LIST changes: +GASTROGRAFIN SOLUTION 30ML (Q9963) As Ordered ONE; +ISOVUE-370 76% 100ML VIAL (Q9967) As Ordered ONE
--- NOTE | 2019-02-01 03:32 | REP ---
Clinical: Epigastric pain. Technique: Axial contrast enhanced images from the lung bases to the pubic symphysis using 100 ml Isovue 370 intravenous contrast material with coronal and sagittal re-formations. Comparison: 04/01/2016. Findings: Lung bases are clear. Visualized heart and pericardium normal. Evidence of prior gastric bypass surgery with normal, appropriate postsurgical changes noted. Liver, spleen, pancreas, bilateral adrenal glands and kidneys are normal / stable. Small, 1 cm left adrenal adenoma remains unchanged. Evidence of prior cholecystectomy noted. The enteric system is without obstruction or acute inflammatory process. Pelvis demonstrates normal bladder and evidence for prior appendectomy and hysterectomy. No ascites. No free air. No adenopathy. Abdominal aorta and vasculature without aneurysm or dissection. Musculoskeletal structures are intact. Impression: 1. No acute abdominopelvic pathology appreciated. Electronically Signed by Hao Leyva MD 02/01/2019 03:23 A
== END ==
LOC: M RAD 15:13
PROVIDERS: ATTEND Physician Assistant
DX: D35.00 Benign neoplasm of unspecified adrenal gland (principal); R10.13 Epigastric pain; Z98.84 Bariatric surgery status
CPT/HCPCS: 74177; Q9963; Q9967

== ENCOUNTER 2019-02-20 10:09 | Emergency (ER) | payer OTHER ==
[~2019-02-20] VITALS: Ht 149.9 cm; Wt 69.9 kg
[~2019-02-20 10:09] MED LIST changes: -GASTROGRAFIN SOLUTION 30ML (Q9963) As Ordered ONE; -ISOVUE-370 76% 100ML VIAL (Q9967) As Ordered ONE
[2019-02-20] MEDS ORDERED: ONDANSETRON 4MG/2ML VIAL (J2405) IV ONE (10:45)
[2019-02-20] MEDS ORDERED: MORPHINE 4 MG/ML 1ML VIAL/SYRINGE (J2270) IV ONE (10:45)
[2019-02-20] MEDS ORDERED: NS 1,000 ML IV ONE (10:45)
[2019-02-20 11:06] LABS: BASO % 0.4 % (0.0-1.0); EOS # 0.1 10^3/uL (0.0-0.5); EOS % 0.8 % (0.0-3.0); HEMOGLOBIN 14.3 g/dl (12.0-15.5); LYMPH # 2.9 10^3/uL (1.5-5.0); LYMPH % 30.3 % (24.0-44.0); MEAN CORPUSCULAR HEMOGLOBIN 33.9 pg (27.0-33.0); MEAN CORPUSCULAR HGB CONC 33.3 g/dl (32.0-36.5); MEAN CORPUSCULAR VOLUME 101.9 fl (80.0-96.0); MONO # 0.5 10^3/uL (0.0-0.8); MONO % 4.8 % (0.0-5.0); NEUTROPHILS % 63.4 % (36.0-66.0); PLATELET COUNT, AUTOMATED 246 10^3/uL (150-450); RED BLOOD COUNT 4.22 10^6/uL (4.00-5.40); WHITE BLOOD COUNT 9.5 10^3/uL (4.0-10.0)
[2019-02-20] MEDS ORDERED: FAMO1TAB11 (11:06)
[2019-02-20 11:24] LABS: INR 1.17; PROTHROMBIN TIME 14.6 SECONDS (11.8-14.0)
[2019-02-20 11:25] LABS: PARTIAL THROMBOPLASTIN TIME 31.3 SECONDS (25.0-38.4)
--- NOTE | 2019-02-20 11:28 | REP ---
Clinical: Epigastric pain with history of peptic ulcer disease. Technique: Axial noncontrast images from the lung bases to the pubic symphysis with coronal and sagittal re-formations. Comparison: 01/31/2019. Findings: Lung bases are clear. Visualized heart and pericardium normal. Liver, spleen, pancreas, and bilateral kidneys are normal. The adrenal glands demonstrate a subtle nodular hyperplastic change which remain stable. Evidence of prior cholecystectomy and gastric bypass surgery without acute changes. There is no evidence for bowel obstruction or obvious acute inflammatory process. Normal terminal ileum along with evidence of prior appendectomy in the right lower quadrant. Pelvis demonstrates normal bladder and evidence for prior hysterectomy. No ascites. No free air. No adenopathy. Atherosclerotic changes to the aorta without aneurysm. Musculoskeletal structures are intact. Impression: 1. Postsurgical changes including evidence of prior gastric bypass surgery, cholecystectomy, appendectomy and hysterectomy. 2. No obvious acute abdominopelvic pathology appreciated. Electronically Signed by Hao Leyva MD 02/20/2019 11:20 A
[2019-02-20 11:31] LABS: ALBUMIN 3.9 GM/DL (3.2-5.2); ALT/SGPT 22 U/L (12-78); BILIRUBIN,DIRECT < 0.1 MG/DL (0.0-0.2); BILIRUBIN,TOTAL 0.3 MG/DL (0.2-1.0); BLOOD UREA NITROGEN 10 MG/DL (7-18); CARBON DIOXIDE LEVEL 30 MEQ/L (21-32); CHLORIDE LEVEL 109 MEQ/L (98-107); CREATININE FOR GFR 0.57 MG/DL (0.55-1.30); GLOMERULAR FILTRATION RATE > 60.0 (>58); GLUCOSE, FASTING 94 MG/DL (70-100); LIPASE 138 U/L (73-393); POTASSIUM SERUM 3.7 MEQ/L (3.5-5.1); SODIUM LEVEL 143 MEQ/L (136-145); TOTAL PROTEIN 7.1 GM/DL (6.4-8.2)
[2019-02-20] MEDS ORDERED: GI COCKTAIL 50ML BTL(HYOSCYAMINE/MAALOX/LIDOCAINE VISCOUS)(1:3:1) PO ONE (12:00)
[2019-02-20 12:59] VITALS: BP 134/78
== END 2019-02-20 13:21 | disposition home or self-care (01) ==
LOC: M ED 10:09
DX: R10.13 Epigastric pain (principal); K27.9 Peptic ulcer, site unspecified, unspecified as acute or chronic, without hemorrhage or perforation; Z98.84 Bariatric surgery status; F17.200 Nicotine dependence, unspecified, uncomplicated; Z88.1 Allergy status to other antibiotic agents; Z88.8 Allergy status to other drugs, medicaments and biological substances; Z88.5 Allergy status to narcotic agent; Z91.040 Latex allergy status; Z91.018 Allergy to other foods; Z79.899 Other long term (current) drug therapy
CPT/HCPCS: 74176; 80048; 80076; 83605; 83690; 85025; 85610; 85730; 86850; 86900; 86901; 96374; 96375; 99284; J2270; J2405

== ENCOUNTER → 2019-03-08 | Outpatient (REF) | payer OTHER ==
[~2019-03-08] MED LIST changes: +FAMO1TAB11
== END ==
LOC: M LAB REF 10:44
PROVIDERS: ATTEND Physician Assistant
DX: R19.7 Diarrhea, unspecified (principal)

== ENCOUNTER → 2019-04-03 | Outpatient (REF) | payer OTHER | LOC: M SFHCLERA 17:43 | PROVIDERS: ATTEND Physician Assistant | DX: R50.9 Fever, unspecified (principal) ==

== ENCOUNTER → 2019-04-05 | Outpatient (REF) | payer OTHER | LOC: M LAB REF 10:57 | PROVIDERS: ATTEND Nurse Practitioner Adult Health | DX: R19.7 Diarrhea, unspecified (principal) ==

== ENCOUNTER 2019-05-21 16:21 | Emergency (ER) | payer OTHER ==
[~2019-05-21] VITALS: Ht 152.4 cm; Wt 69.5 kg
[2019-05-21] MEDS ORDERED: diphenhydrAMINE INJ 50MG/ML VIAL (J1200) IV ONE (17:45)
[2019-05-21] MEDS ORDERED: KETOROLAC 30 MG/ML VIAL (J1885) IV ONE (17:45)
[2019-05-21] MEDS ORDERED: ACETAMINOPHEN 325 MG TAB PO ONE (17:45)
[2019-05-21] MEDS ORDERED: NS 1,000 ML IV ONE (17:45)
[2019-05-21] MEDS ORDERED: METOCLOPRAMIDE INJ 10MG/2ML VIAL (J2765) IV ONE (17:45)
[2019-05-21 18:17] LABS: BASO # 0.1 10^3/uL (0.0-0.2); BASO % 0.9 % (0.0-1.0); EOS # 0.1 10^3/uL (0.0-0.5); EOS % 1.4 % (0.0-3.0); HEMOGLOBIN 13.8 g/dl (12.0-15.5); LYMPH # 3.6 10^3/uL (1.5-5.0); LYMPH % 46.8 % (24.0-44.0); MEAN CORPUSCULAR HEMOGLOBIN 32.9 pg (27.0-33.0); MEAN CORPUSCULAR HGB CONC 33.7 g/dl (32.0-36.5); MEAN CORPUSCULAR VOLUME 97.6 fl (80.0-96.0); MONO # 0.7 10^3/uL (0.0-0.8); MONO % 8.5 % (0.0-5.0); NEUTROPHILS # 3.2 10^3/uL (1.5-8.5); NEUTROPHILS % 42.1 % (36.0-66.0); PLATELET COUNT, AUTOMATED 264 10^3/uL (150-450); WHITE BLOOD COUNT 7.7 10^3/uL (4.0-10.0)
[2019-05-21 18:30] LABS: INR 1.06; PROTHROMBIN TIME 13.5 SECONDS (11.8-14.0)
[2019-05-21 18:42] LABS: BLOOD UREA NITROGEN 9 MG/DL (7-18); C REACTIVE PROTEIN QUANTITATIV 0.46 MG/DL (0.00-0.30); CALCIUM LEVEL 9.1 MG/DL (8.5-10.1); CARBON DIOXIDE LEVEL 30 MEQ/L (21-32); CHLORIDE LEVEL 105 MEQ/L (98-107); CREATININE FOR GFR 0.58 MG/DL (0.55-1.30); GLOMERULAR FILTRATION RATE > 60.0 (>58); GLUCOSE, FASTING 92 MG/DL (70-100); POTASSIUM SERUM 3.8 MEQ/L (3.5-5.1); SODIUM LEVEL 138 MEQ/L (136-145)
[2019-05-21 18:48] LABS: INFLUENZA A AMPLIFICATION NEGATIVE (NEGATIVE); INFLUENZA B AMPLIFICATION NEGATIVE (NEGATIVE)
[2019-05-21 19:11] LABS: ERYTHROCYTE SEDIMENTATION RATE 10 mm/hr (0-20)
[2019-05-21] MEDS ORDERED: ISOVUE-370 76% 100ML VIAL (Q9967) As Ordered ONE (20:10)
--- NOTE | 2019-05-21 20:45 | REPVR ---
PROCEDURE INFORMATION: Exam: CT Angiography Head With Contrast Exam date and time: 05/21/2019 8:28 PM Age: 49 years old Clinical indication: Pain; Headache; Additional info: Headache, back right side, HX of brain aneurysm-congenital TECHNIQUE: Imaging protocol: Computed tomography angiography of the head with intravenous contrast. 3D rendering: MIP and/or 3D reconstructed images were created by the technologist. Radiation optimization: All CT scans at this facility use at least one of these dose optimization techniques: automated exposure control; mA and/or kV adjustment per patient size (includes targeted exams where dose is matched to clinical indication); or iterative reconstruction. Contrast material: ISO 370; Contrast volume: 75 ml; Contrast route: IV; COMPARISON: CT Head without contrast 07/19/2017 9:54 PM FINDINGS: Right internal carotid artery: 4 mm saccular aneurysm arising from the medial surface of the right supraclinoid ICA. No right ICA stenosis. Right anterior cerebral artery: Unremarkable. No occlusion or significant stenosis. No aneurysm. Right middle cerebral artery: 3 x 3 mm saccular aneurysm arising from the superior surface of the right middle cerebral artery. Right middle cerebral artery is patent without significant stenosis. Right posterior cerebral artery: Unremarkable. No occlusion or significant stenosis. No aneurysm. Right vertebral artery: Unremarkable. No occlusion or significant stenosis. No aneurysm. Left internal carotid artery: Unremarkable. Intracranial segment is patent with no significant stenosis. No aneurysm. Left anterior cerebral artery: Unremarkable. No occlusion or significant stenosis. No aneurysm. Left middle cerebral artery: Unremarkable. No occlusion or significant stenosis. No aneurysm. Left posterior cerebral artery: Unremarkable. No occlusion or significant stenosis. No aneurysm. Left vertebral artery: Unremarkable. No occlusion or significant stenosis. No aneurysm. Basilar artery: Unremarkable. No occlusion or significant stenosis. No aneurysm. IMPRESSION: 1. 4 mm right supraclinoid ICA aneurysm. 2. 3 mm saccular aneurysm arising from the right MCA. 3. No other significant stenosis or vascular occlusion. Electronically signed by: David Little On 05/21/2019 20:45:17 PM
--- NOTE | 2019-05-21 20:49 | REPVR ---
PROCEDURE INFORMATION: Exam: CT Head Without Contrast Exam date and time: 05/21/2019 8:28 PM Age: 49 years old Clinical indication: Pain; Headache; Additional info: Headache, back right side, HX of brain aneurysm-congenital TECHNIQUE: Imaging protocol: Computed tomography of the head without contrast. Radiation optimization: All CT scans at this facility use at least one of these dose optimization techniques: automated exposure control; mA and/or kV adjustment per patient size (includes targeted exams where dose is matched to clinical indication); or iterative reconstruction. COMPARISON: CT Head without contrast 07/19/2017 9:54 PM FINDINGS: Brain: Normal. No hemorrhage. Unremarkable white matter. No mass effect. Ventricles: Normal. No ventriculomegaly. Bones/joints: Unremarkable. No acute fracture. Sinuses: Visualized sinuses are unremarkable. No fluid levels. Mastoid air cells: Visualized mastoid air cells are well aerated. Soft tissues: Unremarkable. IMPRESSION: No acute intracranial abnormality. Electronically signed by: David Little On 05/21/2019 20:49:16 PM
[2019-05-21 22:18] VITALS: BP 137/95
== END 2019-05-21 22:41 | disposition home or self-care (01) ==
LOC: M ED 16:21
DX: G43.909 Migraine, unspecified, not intractable, without status migrainosus (principal); R68.84 Jaw pain; J02.9 Acute pharyngitis, unspecified; M79.10 Myalgia, unspecified site; Z20.828 Contact with and (suspected) exposure to other viral communicable diseases; I72.0 Aneurysm of carotid artery; I67.1 Cerebral aneurysm, nonruptured; Z98.84 Bariatric surgery status; Z87.891 Personal history of nicotine dependence; Z91.02 Food additives allergy status; Z88.1 Allergy status to other antibiotic agents; Z88.8 Allergy status to other drugs, medicaments and biological substances; Z88.5 Allergy status to narcotic agent; Z91.040 Latex allergy status; Z79.899 Other long term (current) drug therapy; Z79.890 Hormone replacement therapy
CPT/HCPCS: 36415; 70450; 70496; 80048; 85025; 85610; 85652; 85730; 86140; 87502; 87880; 96361; 96374; 96375; 99284; J1200; J1885; J2765; Q9967

== ENCOUNTER → 2019-05-30 | Outpatient (REF) | payer OTHER ==
[~2019-05-30] MED LIST changes: -CYTO1TAB; +CYTO200T
[2019-05-30 17:19] LABS: INFLUENZA A AMPLIFICATION NEGATIVE (NEGATIVE); INFLUENZA B AMPLIFICATION NEGATIVE (NEGATIVE)
== END ==
LOC: M LAB REF 15:48
PROVIDERS: ATTEND Nurse Practitioner Family
DX: R50.9 Fever, unspecified (principal)

== ENCOUNTER 2019-08-09 16:10 | Emergency (ER) | payer OTHER ==
[~2019-08-09] VITALS: Ht 152.4 cm; Wt 68.2 kg
[2019-08-09] MEDS ORDERED: ENAL5TAB PO (16:36)
[2019-08-09] MEDS ORDERED: NS 1,000 ML IV ONE (17:30)
[2019-08-09] MEDS ORDERED: diazePAM 10MG/2ML SYRINGE (J3360 PER 5MG) IV ONE (17:30)
[2019-08-09] MEDS ORDERED: ACETAMINOPHEN 500 MG TAB PO ONE (17:30)
[2019-08-09] MEDS ORDERED: METOCLOPRAMIDE INJ 10MG/2ML VIAL (J2765 PER 1) IV ONE (17:30)
[2019-08-09] MEDS ORDERED: ISOVUE-370 76% 100ML VIAL As Ordered ONE (17:40)
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
[2019-08-09] MEDS ORDERED: KETOROLAC 30 MG/ML 1ML VIAL IV ONE (19:45)
[2019-08-09 19:56] VITALS: BP 134/74
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
== END 2019-08-09 20:15 | disposition home or self-care (01) ==
LOC: M ED 16:10
DX: S16.1XXA Strain of muscle, fascia and tendon at neck level, initial encounter (principal); M54.6 Pain in thoracic spine; M25.512 Pain in left shoulder; V43.52XA Car driver injured in collision with other type car in traffic accident, initial encounter; Y92.410 Unspecified street and highway as the place of occurrence of the external cause; I10 Essential (primary) hypertension; J45.909 Unspecified asthma, uncomplicated; I67.1 Cerebral aneurysm, nonruptured; F17.200 Nicotine dependence, unspecified, uncomplicated; Z88.1 Allergy status to other antibiotic agents; Z88.5 Allergy status to narcotic agent; Z88.8 Allergy status to other drugs, medicaments and biological substances; Z91.040 Latex allergy status; Z79.899 Other long term (current) drug therapy; Z79.890 Hormone replacement therapy
CPT/HCPCS: 70450; 70496; 72125; 72128; 73030; 96361; 96374; 96375; 99284; J1885; J2765; J3360; Q9967

== ENCOUNTER 2020-01-08 10:15 | Emergency (ER) | payer OTHER ==
[~2020-01-08] VITALS: Ht 152.4 cm; Wt 70.0 kg
[~2020-01-08 10:15] MED LIST changes: +ENAL5TA PO; -FAMO1TAB11; +FAMO1TAB11 PO
[2020-01-08] MEDS ORDERED: ONDANSETRON 4MG/2ML VIAL IV ONE (11:15)
[2020-01-08] MEDS ORDERED: KETOROLAC 30 MG/ML 1ML VIAL IV ONE (11:15)
[2020-01-08] MEDS ORDERED: NS 1,000 ML IV ONE (11:15)
--- NOTE | 2020-01-08 11:39 | REPVR ---
PROCEDURE INFORMATION: Exam: CT Abdomen And Pelvis Without Contrast Exam date and time: 01/08/2020 11:20 AM Age: 49 years old Clinical indication: Other: Dysuria; Abdominal pain; Localized; Right; Additional info: Right flank pain, dysuria TECHNIQUE: Imaging protocol: Computed tomography of the abdomen and pelvis without contrast. Radiation optimization: All CT scans at this facility use at least one of these dose optimization techniques: automated exposure control; mA and/or kV adjustment per patient size (includes targeted exams where dose is matched to clinical indication); or iterative reconstruction. COMPARISON: CT ABD PELVIS W/O CONTRAST 02/20/2019 11:07 AM FINDINGS: Limitations: Lack of intravenous contrast material limits evaluation of the vascular and visceral structures. Liver: Normal. No mass. Gallbladder and bile ducts: There has been a cholecystectomy. Pancreas: Normal. No ductal dilation. Spleen: Normal. No splenomegaly. Adrenals: 16 mm benign right adrenal myelolipoma. No follow-up imaging is recommended. Stable mild left adrenal gland thickening. Kidneys and ureters: Normal. No hydronephrosis. Stomach and bowel: Status post gastric bypass procedure. No bowel obstruction. Appendix: Suspected appendectomy. Intraperitoneal space: Unremarkable. No free air. No significant fluid collection. Vasculature: Mild to moderate atherosclerotic vascular calcifications. Lymph nodes: Unremarkable. No enlarged lymph nodes. Urinary bladder: Unremarkable as visualized. Reproductive: The patient appears to be status post hysterectomy. Bones/joints: Degenerative change of the spine. Right sacroiliac joint DJD. Soft tissues: Postsurgical change of the ventral abdominal wall. Incidental umbilical piercing. IMPRESSION: No acute abnormality is identified within the abdomen/pelvis. Electronically signed by: Kimberly Dorantes On 01/08/2020 11:39:35 AM
[2020-01-08 11:49] LABS: BILIRUBIN, URINE MANUAL NEGATIVE (NEGATIVE); GLUCOSE, URINE (UA) MANUAL NEGATIVE (NEGATIVE); KETONE, URINE MANUAL NEGATIVE (NEGATIVE); UROBILINOGEN, URINE MANUAL NORMAL (NORMAL)
[2020-01-08 12:01] LABS: BACTERIA, URINE SMALL AMOUNT; HYALINE CAST, URINE NONE SEEN /lpf (0-1); SQUAMOUS EPITHELIAL CELL URINE LARGE AMOUNT /hpf (SMALL AMT)
[2020-01-08 12:22] LABS: BASO # 0.1 10^3/uL (0.0-0.2); BASO % 0.5 % (0.0-1.0); EOS # 0.1 10^3/uL (0.0-0.5); EOS % 1.3 % (0.0-3.0); HEMATOCRIT 38.1 % (36.0-47.0); HEMOGLOBIN 12.6 g/dl (12.0-15.5); LYMPH # 2.4 10^3/uL (1.5-5.0); LYMPH % 24.3 % (24.0-44.0); MEAN CORPUSCULAR HEMOGLOBIN 33.1 pg (27.0-33.0); MEAN CORPUSCULAR HGB CONC 33.1 g/dl (32.0-36.5); MONO # 0.6 10^3/uL (0.0-0.8); NEUTROPHILS # 6.6 10^3/uL (1.5-8.5); NEUTROPHILS % 67.7 % (36.0-66.0); PLATELET COUNT, AUTOMATED 250 10^3/uL (150-450); RED BLOOD COUNT 3.81 10^6/uL (4.00-5.40); WHITE BLOOD COUNT 9.8 10^3/uL (4.0-10.0)
[2020-01-08] MEDS ORDERED: LevoFLOXacin IV 750 MG in IV 1 EA IV ONE (12:30)
[2020-01-08 12:38] LABS: BLOOD UREA NITROGEN 9 MG/DL (7-18); CALCIUM LEVEL 8.1 MG/DL (8.5-10.1); CARBON DIOXIDE LEVEL 28 MEQ/L (21-32); CHLORIDE LEVEL 107 MEQ/L (98-107); CREATININE FOR GFR 0.46 MG/DL (0.55-1.30); GLOMERULAR FILTRATION RATE > 60.0 (>58); GLUCOSE, FASTING 89 MG/DL (70-100); SODIUM LEVEL 141 MEQ/L (136-145)
[2020-01-08] MEDS ORDERED: MAGI615T2 PO (14:36)
[2020-01-08] MEDS ORDERED: ALBU8.5H INH (14:36)
[2020-01-08] MEDS ORDERED: LEVA750T7 PO (15:20)
[2020-01-08 15:29] VITALS: BP 129/64
[2020-01-08] MEDS ORDERED: ACETAMINOPHEN 325 MG TAB PO ONE (15:30)
== END 2020-01-08 15:43 | disposition home or self-care (01) ==
LOC: M ED 10:15
DX: N10 Acute pyelonephritis (principal); G43.909 Migraine, unspecified, not intractable, without status migrainosus; I10 Essential (primary) hypertension; J45.909 Unspecified asthma, uncomplicated; F41.9 Anxiety disorder, unspecified; F32.9 Major depressive disorder, single episode, unspecified; Z79.899 Other long term (current) drug therapy; Z79.890 Hormone replacement therapy
CPT/HCPCS: 74176; 80048; 81000; 85025; 87088; 87186; 96365; 96366; 96375; 99284; J1885; J1956; J2405

== ENCOUNTER 2020-04-04 11:31 | Emergency (ER) | payer OTHER ==
[~2020-04-04] VITALS: Ht 149.9 cm; Wt 72.3 kg
[~2020-04-04 11:31] MED LIST changes: +ALBU8.5H INH; +LEVA750T7 PO; +MAGI615T2 PO
[2020-04-04 11:32] VITALS: BP 164/83
--- OUTSIDE RECORDS SUMMARY | 2020-04-04 12:16 | CCD | Continuity of Care Document ---
Author Author Nadiya ASHER M.D. Organization Unknown Address [address], [place] [address] Phone [phone] Problems Active Problems Provider Date Mild persistent asthma Onset: 04/12/2018 Allergic rhinitis due to pollen Onset: 1 Note: 3+ reaction to ragweed on intrader mal test. Allergic rhinitis due to animal dander O nset: 12/24/2015 Note: 3+ reaction to cat dander on scrat ch test. 3+ reaction to dog dander on intradermal test. Allergic rhinitis caused by feathers Ons et: 12/24/2015 Intermittent asthma Onset: 12/24/2015 Allergic rhinitis due to house dust mite Triston Asher M.D. Onset: 05/02/2019 Note: 4+ reaction to dust mites on scrat ch test. 4+ reaction to cockroaches on intradermal test. Allergic rhinitis caused by mold Triston Asher M.D. O nset: 05/02/2019 Note: 3+ reaction to alternaria molds on scratch test on 12/24/2015 Social History Type Date Description Comments Sex Unknown Tobacco Use Start: 03/22/88 End: 03/22/18 Patient is a forme r smoker 1/2 Pack Per Day Allergies, Adverse Reactions, Alerts Active Allergies Reaction Severity Comments Date Ceclor sob 11/12/2018 Erythromycin urticaria, emesis 11/12/2018 Medications Active Medications SIG Qnty Indications Ordering Provide r Date Azelastine HCL (Nasal) 0.1% Soluti on Instill 2 Sprays Into Each Nostril Once Daily Every Morning. Unknown 11/07/2018 Chlorhexidine Gluconate 0.12% Solution Unknown Valacyclovir HCL 1gm Tablets Take 2 Tablets By Mouth Twice A Day For 1 Day as Needed Unknown Triamcinolone Acetonide 55mcg/Act Aerosol instill 2 sprays in each nostril once in the evening. 16.900ml Triston Asher M.D. Enalapril Maleate 5mg Tablets Take 1 Tablet By Mouth Every Day Unknown Klor-Con M10 10Meq Tablets ER Unknown Famotidine 20mg Tablets Unknown Gabapentin 100mg Capsules Unknown Cyclobenzaprine HCL 10mg Tablets Unknown Montelukast Sodium 10mg Tablets take one tablet by mouth every evening 30tabs J45.20 Triston Hartman i, M.D. J30.89 Carafate 1gm Tablets take 1 tablet (1 gram) by oral route 4 times per day on an empty stomach 1 hour before meals and at bedtime Unknown Cytotec 200mcg Tablets take 1 tablet (200 mcg) by oral route 4 times per day after meals and at bedtime Unknown Omeprazole Magnesium 20.6(20Base) mg Capsules DR take 1 capsule (20 mg) by oral route once daily before a meal Unknown Premarin 0.625mg Tablets take 1 tablet (0.625 mg) by oral route once daily Unknown Protonix 40mg Tablets DR take 1 tablet (40 mg) by oral route 2 times per day for 30 days Un known Potassium Chloride ER 10Meq Tablet s ER take 1 tablet (10 meq) by oral route once daily Unknown Ferrous Fumarate 324(106Fe) mg Tab lets take 1 tablet by oral route daily for 30 days Un known Tizanidine HCL 2mg Tablets take 2 tablets (4 mg) by oral route every 8 hours as needed not to exceed 3 doses in 24 hours for 30 days Unknown Nortriptyline HCL 50mg Capsules take 1 capsule (50 mg) by oral route QHS Unknown Cetirizine HCL 10mg Tablets take 1 tablet (10 mg) by oral route once daily for 30 days Unk nown Albuterol Sulfate HFA 108(90Base) mcg/Act Aerosol inhale 1 - 2 puffs by inhalation route every 6 hours as needed Unknown Benadryl Allergy 25mg Capsules take 2 capsules (50 mg) by oral route once daily at bedtime as needed Unknown Medications Administered in Office Medication SIG Qnty Indications Ordering Provider Date Allergy Injection 2 Or More Injection Triston Asher M.D. 03/06/2020 Allergy Injection 2 Or More Injection Triston Asher M.D. 02/12/2020 Allergy Injection 2 Or More Injection Triston Asher M.D. 01/24/2020 Allergy Injection 2 Or More Injection Triston Asher M.D. 01/05/2020 Allergy Injection 2 Or More Injection Triston Asher M.D. 12/13/2019 Allergy Injection 2 Or More Injection Triston Asher M.D. 11/28/2019 Allergy Injection 2 Or More Injection Triston Asher M.D. 11/02/2019 Allergy Injection 2 Or More Injection Triston Asher M.D. 10/17/2019 Allergy Injection 2 Or More Injection Triston Asher M.D. 09/27/2019 Allergy Injection 2 Or More Injection Triston Asher M.D. 09/11/2019 Allergy Injection 2 Or More Injection Triston Asher M.D. 08/28/2019 Allergy Injection 2 Or More Injection Triston Asher M.D. 08/11/2019 Allergy Injection 2 Or More Injection Triston Asher M.D. 07/28/2019 Allergy Injection 2 Or More Injection Triston Asher M.D. 07/12/2019 Allergy Injection 2 Or More Injection Triston Asher M.D. 06/27/2019 Allergy Injection 2 Or More Injection Triston Asher M.D. 06/09/2019 Allergy Injection 2 Or More Injection SHAWN Clements-Harsh 05/18/2019 Allergy Injection 2 Or More Injection Triston Asher M.D. 05/18/2019 Allergy Injection 2 Or More Injection Triston Asher M.D. 05/05/2019 Allergy Injection 2 Or More Injection Triston Asher M.D. 03/29/2019 Allergy Injection 2 Or More Injection Triston Asher M.D. 03/08/2019 Allergy Injection 2 Or More Injection Triston Asher M.D. 02/13/2019 Allergy Injection 2 Or More Injection Triston Asher M.D. 01/26/2019 Allergy Injection 2 Or More Injection Triston Asher M.D. 01/06/2019 Allergy Injection 2 Or More Injection MASSIMO Jacobo 12/19/2018 Allergy Injection 2 Or More Injection Triston Asher M.D. 12/19/2018 Allergy Injection 2 Or More Injection Triston Asher M.D. 11/23/2018 Immunizations Description No Information Available Vital Signs Date Vital Result Comment 05/17/2019 9:52am Weight 161.00 lb Height 60 inches 5'0" Heart Rate 79 /min Respiratory Rate 20 /min BP Systolic 127 mmHg BP Diastolic 81 mmHg BMI (Body Mass Index) 31.4 kg/m2 04/12/2018 10:34am BMI (Body Mass Index) 31.27 kg/m2 Results Description No Information Available Procedures Date Code Description Status 03/06/2020 37728 Allergy Injection 2 Or More Comp leted 02/13/2020 62323 Allergy Antigens Single Or Multi ple Completed 02/12/2020 31954 Allergy Injection 2 Or More Comp leted 01/24/2020 93342 Allergy Injection 2 Or More Comp leted 01/05/2020 84488 Allergy Injection 2 Or More Comp leted 12/13/2019 61724 Allergy Injection 2 Or More Comp leted 11/28/2019 82293 Allergy Injection 2 Or More Comp leted 11/02/2019 71737 Allergy Injection 2 Or More Comp leted 10/17/2019 87164 Allergy Injection 2 Or More Comp leted 09/27/2019 99662 Allergy Injection 2 Or More Comp leted 09/19/2019 00470 Allergy Antigens Single Or Multi ple Completed 09/11/2019 84826 Allergy Injection 2 Or More Comp leted Medical Devices Description No Information Available Encounters Description No Information Available Assessments Date Code Description Provider 03/06/2020 J30.1 Allergic rhinitis due to pollen Triston Asher M.D. 03/06/2020 J30.81 Allergic rhinitis due to animal (cat) (dog) hair and dander Triston Asher M.D. 03/06/2020 J30.89 Other allergic rhinitis Triston Asher M.D. Plan of Treatment Future Appointment(s):* 03/27/2020 10:10 am - Allergy Injection at Main Office * 05/15/2020 10:30 am - Triston Asher M.D. at Main Office 05/17/2019 - MASSIMO Clements* J30.89 Other allergic rhinitis* Recommendations:* The patient should stay on immunotherapy as per protocol. Risks and benefits associated with allergy injections were reviewed. The patient should use antihistamine prn itching and sneezing. Should continue using nasal spray every night. Should use nasal spray consistently for the spray to be effective. Should stay on daily Singulair as directed. Effective allergy avoidance measures were reviewed. * J30.1 Allergic rhinitis due to pollen* Recommendations:* See recommendations above. * J30.81 Allergic rhinitis due to animal (cat) (dog) hair and dander* Recommendations:* See recommendations above. * J45.20 Mild intermittent asthma, uncomplicated* Recommendations:* The patient should stay on Singulair as directed. Singulair is likely helping not only with the patient's environmental allergy problem but also with asthma. The patient should still use albuterol prn cough and wheezing and for activity pro phylaxis. Functional Status Description No Information Available Mental Status Description No Information Available Referrals Description No Information Available
--- OUTSIDE RECORDS SUMMARY | 2020-04-04 12:16 | CCD | Continuity of Care Document ---
Author Author Nadiya ASHER M.D. Organization Unknown Address [address], [place] [address] Phone [phone] Problems Active Problems Provider Date Mild persistent [...] 06/09/2019 Allergy Injection 2 Or More Injection MASSIMO Clements 05/18/2019 Allergy Injection 2 Or More Injection [...] Information Available Procedures Date Code Description Status 02/12/2020 89288 Allergy Injection 2 Or More Comp leted 01/24/2020 06991 Allergy Injection 2 Or More Comp leted 01/05/2020 46810 Allergy Injection 2 Or More Comp leted 12/13/2019 46137 Allergy Injection 2 Or More Comp leted 11/28/2019 98608 Allergy Injection 2 Or More Comp leted 11/02/2019 57725 Allergy Injection 2 Or More Comp leted 10/17/2019 91074 Allergy Injection 2 Or More Comp leted 09/27/2019 14446 Allergy Injection 2 Or More Comp leted 09/19/2019 94444 Allergy Antigens Single Or Multi ple Completed 09/11/2019 60316 Allergy Injection 2 Or More Comp leted 08/28/2019 37136 Allergy Injection 2 Or More Comp leted Medical Devices Description No Information Available Encounters Description No Information Available Assessments Date Code Description Provider 02/12/2020 J30.1 Allergic rhinitis due to pollen Triston Asher M.D. 02/12/2020 J30.81 Allergic rhinitis due to animal (cat) (dog) hair and dander Triston Asher M.D. 02/12/2020 J30.89 Other allergic rhinitis Triston Asher M.D. Plan of Treatment Future Appointment(s):* 03/04/2020 11:20 am - Allergy Injection at Main Office [...]
--- OUTSIDE RECORDS SUMMARY | 2020-04-04 12:16 | CCD | Continuity of Care Document ---
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 Worker Name Role Phone Taya Chavez AUTM [phone] Problems Active Problems Provider Date Chronic intractable migraine without aura Anna Lisa Onset: 01/03/2015 Acute upper respiratory infection Onset: Migraine Onset: Epigastric pain Onset: Peptic ulcer Onset: Social History Type Date Description Comments Sex Unknown Tobacco Use Start: Unknown End: Unknown Patient is a former smoker Allergies, Adverse Reactions, Alerts Active Allergies Reaction Severity Comments Date Erythromycin 01/03/2015 Ceclor 01/03/2015 Aspartame hurts my belly 06/27/2019 Cephalexin Stops Breathing Severe 06/27/2019 Erythromycin Hives And Vomiting Moderate 0 Magnesium Stops Breathing Severe 06/27/2019 Hydromorphone tremors 06/27/2019 Latex Hives Moderate 06/27/2019 Medications Active Medications SIG Qnty Indications Ordering Provide r Date Botox 200Unit Solution Rec inject 155 units intramuscular into head neck and shoulders for migraines every 3 months wasting 45 units 1units Reanna Turner M.D. 0 Diazepam 5mg Tablets take 1 tab 30-60 minutes prior to mri. TELECOMMUNICATIONS SUPPORT [id number] 1claudia robertson M.D. 10/04/2019 Verapamil HCL 40mg Tablets take by mouth 1/2 tab twice a day for 1 week then take 1 tab PO bid 60tabs Reanna Turner M.D. 07/31/2019 Ondansetron 4mg Tablets Dispers take 1 tab every 8 hours as needed for nausea and vomiting and or migraine. 30claudia Turner M.D. 02/18/2018 Nortriptyline HCL 75mg Capsules take one capsule at bedtime 30capmarcela Turner M.D. 018 Metoclopramide HCL 10mg Tablets Every 6 Hours as needed for Nausea 20tabs Unknown 07/19 Meclizine HCL 25mg Tablets take one tablet every 8 hours as needed for dizzines and vertigo 90claudia Turner M.D. 05/01/2016 Medrol 4mg TBPK take 6 tabs in the morning on day 1, then reduce by one tab each day till completed over 6 days. 21víctor Turner M.D. 12/03/2015 Alprazolam 0.5mg Tablets 1 tab by mouth half an hour before mri scan. may repeat once if needed. [facility] reference #: [id number] 2claudia Ha M.D. 07/17/2015 Medrol 4mg TBPK take 6 tabs in the morning on day 1, then reduce by one tab each day till completed over 6 days. 21víctor Turner M.D. 07/11/2015 Tizanidine HCL 2mg Tablets take one tab up to three times a day as needed for neck pain and headaches. 15claudia Turner M.D. 05/14/2015 Ventolin 90mcg/Act Aerosol As Needed Unknown Cetirizine HCL 5mg Tablets Da margareth Unknown Conjugated Estrogens 0.625mg Table ts Daily Unknown Diphenhydramine HCL 25mg Capsules Daily At Bedtime Unknown Famotidine 20mg Tablets Unknown Ferrous Fumarate 324(106Fe) mg Tab lets Daily Unknown Misoprostol 200mcg Tablets Da margareth Unknown Montelukast Sodium 10mg Tablets Daily At Bedtime Unknown Potassium Chloride [place] ER 10Meq Tablets ER Daily Unknown Sucralfate 1gm Tablets Before Meals And At Bedtime Unknown Immunizations Description No Information Available Vital Signs Date Vital Result Comment 10/03/2019 2:19pm Respiratory Rate 12 /min Height 60 inches 5'0" Weight 154.00 lb BMI (Body Mass Index) 30.1 kg/m2 [place] Body Weight 100 lb 07/31/2019 12:09pm Respiratory Rate 12 /min Height 60 inches 5'0" Weight 154.00 lb BMI (Body Mass Index) 30.1 kg/m2 [place] Body Weight 100 lb Results Description No Information Available Procedures Date Code Description Status 02/28/2020 84367 [place] Muscles Inn ervated By Facial, Trigeminal, Cerv And Acces Completed 11/20/2019 87550 [place] Muscles Inn ervated By Facial, Trigeminal, Cerv And Acces Completed 10/07/2019 62823 MRI Brain W/O Contrast Completed 10/07/2019 99191 MRI Brain W/O Contrast Completed 10/07/2019 75824 Magnetic Resonance Angiogtaphy H ead W/O Contrast Material(S) Completed 10/07/2019 86194 Magnetic Resonance Angiogtaphy H ead W/O Contrast Material(S) Completed Medical Devices Description No Information Available Encounters Type Date Location Provider Dx Diagnosis Office Visit 10/03/2019 2:00p Main office - [place] Reanna robertson M.D. G43.719 Chronic migraine w/o aura, intractable, w/o stat migr Assessments Date Code Description Provider 02/28/2020 G43.719 Chronic migraine wit hout aura, intractable, without status migrainosus Reanna Turner M.D. 11/20/2019 G43.719 Chronic migraine wit hout aura, intractable, without status migrainosus Reanna Turner M.D. 10/07/2019 G43.719 Chronic migraine wit hout aura, intractable, without status migrainosus Daniela Tucker M.D. 10/07/2019 G43.719 Chronic migraine wit hout aura, intractable, without status migrainosus MRI 10/07/2019 R20.2 Paresthesia of skin Daniela Tucker M.D. 10/07/2019 R20.2 Paresthesia of skin MRI 10/07/2019 R55 Syncope and collapse Daniela Tucker M.D. 10/07/2019 R55 Syncope and collapse MRI 10/07/2019 I67.1 Cerebral aneurysm, nonruptured A madelin Tucker M.D. 10/07/2019 I67.1 Cerebral aneurysm, nonruptured M RI 10/03/2019 G43.719 Chronic migraine wit hout aura, intractable, without status migrainosus Renana Turner M.D. Plan of Treatment Future Appointment(s):* 04/04/2020 1:45 pm - Reanna Turner M.D. at Main office - [place] Functional Status Description No Information Available Mental Status Description No Information Available Referrals Refer to Reason for Referral Status Appt Date Reanna Turner M.D. Created [address] [place] [address] [phone] Reanna Turner M.D. Created [address] [place] [address] [phone]
--- OUTSIDE RECORDS SUMMARY | 2020-04-04 12:16 | CCD | Continuity of Care Document ---
Author Author Nadiya ASHER M.D. Organization Unknown Address [address], [address], [place] [address] Phone [phone] Problems Active Problems Provider Date Mild persistent [...] Information Available Procedures Date Code Description Status 02/13/2020 14323 Allergy Antigens Single Or Multi ple Completed 02/12/2020 67792 Allergy Injection 2 Or More Comp leted 01/24/2020 83631 Allergy Injection 2 Or More Comp leted 01/05/2020 48623 Allergy Injection 2 Or More Comp leted 12/13/2019 99103 Allergy Injection 2 Or More Comp leted 11/28/2019 19336 Allergy Injection 2 Or More Comp leted 11/02/2019 20597 Allergy Injection 2 Or More Comp leted 10/17/2019 42023 Allergy Injection 2 Or More Comp leted 09/27/2019 98968 Allergy Injection 2 Or More Comp leted 09/19/2019 21822 Allergy Antigens Single Or Multi ple Completed 09/11/2019 18245 Allergy Injection 2 Or More Comp leted 08/28/2019 39502 Allergy Injection 2 Or More Comp leted Medical Devices Description No Information Available Encounters Description No Information Available Assessments Date Code Description Provider 02/13/2020 J30.1 Allergic rhinitis due to pollen Triston Asher M.D. 02/13/2020 J30.81 Allergic rhinitis due to animal (cat) (dog) hair and dander Triston Asher M.D. 02/13/2020 J30.89 Other allergic rhinitis Triston Asher M.D. [...]
--- OUTSIDE RECORDS SUMMARY | 2020-04-04 12:16 | CCD | Continuity of Care Document ---
Author Nadiya Dudley M.D. Organization Unknown Address [address] [place] [address] Phone [phone] Care Team Providers Care Manager Field Services Name Role Phone Taya Chavez AUTM [phone] Problems Active Problems Provider Date Chronic intractable [...] 1 tab 30-60 minutes prior to mri. MEDIA LIAISON OFFICER [id number] 1tasharon robertson M.D. 10/04/2019 Verapamil HCL 40mg Tablets [...] mri scan. may repeat once if needed. [facility] reference #: [id number] 2claudia Ha M.D. 07/17/2015 Medrol 4mg TBPK [...] lb BMI (Body Mass Index) 30.1 kg/m2 [place] Body Weight 100 lb 07/31/2019 12:09pm Respiratory Rate 12 /min Height 60 inches 5'0" Weight 154.00 lb BMI (Body Mass Index) 30.1 kg/m2 [place] Body Weight 100 lb Results Description No Information Available Procedures Date Code Description Status 11/20/2019 02124 [place] Muscles Inn ervated By Facial, Trigeminal, Cerv And Acces Completed 10/07/2019 24499 MRI Brain W/O Contrast Completed 10/07/2019 92273 MRI Brain W/O Contrast Completed 10/07/2019 62160 Magnetic Resonance Angiogtaphy H ead W/O Contrast Material(S) Completed 10/07/2019 47161 Magnetic Resonance Angiogtaphy H ead W/O Contrast Material(S) Completed Medical Devices Description No Information Available Encounters Type Date Location Provider Dx Diagnosis Office Visit 10/03/2019 2:00p Main office - [place] Reanna robertson M.D. G43.719 Chronic migraine w/o aura, intractable, w/o stat migr Assessments Date Code Description Provider 11/20/2019 G43.719 Chronic migraine wit hout aura, [...] intractable, without status migrainosus Reanna Turner M.D. Plan of Treatment Future Appointment(s):* 03/20/2020 11:45 am - Ans/VS at [facility] * 04/04/2020 1:45 pm - Reanna Turner M.D. at [facility] Functional Status Description No Information Available Mental Status Description No Information Available Referrals Refer to Dr Reason for Referral Status Appt Date Reanna Turner M.D. Created [address] [place] [address] [phone] Reanna Turner M.D. Created [address] [place] [address] [phone]
--- OUTSIDE RECORDS SUMMARY | 2020-04-04 12:16 | CCD | Continuity of Care Document ---
Author Author Vahid/Nadiya SMITH Organization Unknown Address [address] [place] [address] Phone [phone] Care Team Providers Care Brim Welt Sewing Machine Operator Name Role Phone Taya Chavez AUTM [phone] Problems Active Problems Provider Date Chronic intractable [...] 1 tab 30-60 minutes prior to mri. CANDLEMAKING LABORER [id number] 1claudia robertson M.D. 10/04/2019 Verapamil HCL 40mg [...] mri scan. may repeat once if needed. [facility] reference #: [id number] 2claudia Ha M.D. 07/17/2015 Medrol 4mg TBPK [...] lb BMI (Body Mass Index) 30.1 kg/m2 [place] Body Weight 100 lb 07/31/2019 12:09pm Respiratory Rate 12 /min Height 60 inches 5'0" Weight 154.00 lb BMI (Body Mass Index) 30.1 kg/m2 [place] Body Weight 100 lb Results Description No Information Available Procedures Date Code Description Status 03/20/2020 76839 Sympathetic Skin Responses Compl eted 03/20/2020 21516 Sympathetic Skin Responses Compl eted 03/20/2020 15765 Test Autonomic Nervous System, C ardiovagal Innervation Completed 03/20/2020 06508 Test Autonomic Nervous System, C ardiovagal Innervation Completed 02/28/2020 05802 [place] Muscles Inn ervated By Facial, Trigeminal, Cerv And Acces Completed 11/20/2019 87066 [place] Muscles Inn ervated By Facial, Trigeminal, Cerv And Acces Completed 10/07/2019 60651 MRI Brain W/O Contrast Completed 10/07/2019 41323 MRI Brain W/O Contrast Completed 10/07/2019 19003 Magnetic Resonance Angiogtaphy H ead W/O Contrast Material(S) Completed 10/07/2019 08854 Magnetic Resonance Angiogtaphy H ead W/O Contrast Material(S) Completed Medical Devices Description No Information Available Encounters Type Date Location Provider Dx Diagnosis Office Visit 10/03/2019 2:00p Main office - [place] Reanna robertson M.D. G43.719 Chronic migraine w/o aura, intractable, w/o stat migr Assessments Date Code Description Provider 03/20/2020 R55 Syncope and collapse Reanna martines M.D. 03/20/2020 R55 Syncope and collapse Ans/VS 02/28/2020 G43.719 Chronic migraine wit hout aura, intractable, without status migrainosus Reanna Turner M.D. 11/20/2019 G43.719 Chronic migraine wit hout aura, intractable, without status migrainosus Reanna Turner M.D. 10/07/2019 G43.719 Chronic migraine wit hout aura, intractable, without status migrainosus Daniela Garrett, M.DJose David 10/07/2019 G43.719 Chronic migraine wit hout aura, intractable, without status migrainosus MRI 10/07/2019 R20.2 Paresthesia of skin Daniela Garrett, M.D. 10/07/2019 R20.2 Paresthesia of skin MRI 10/07/2019 R55 Syncope and collapse Daniela Garrett , M.D. 10/07/2019 R55 Syncope and collapse MRI 10/07/2019 I67.1 Cerebral aneurysm, nonruptured A bdul Garrett, M.D. 10/07/2019 I67.1 Cerebral aneurysm, nonruptured M RI 10/03/2019 G43.719 Chronic migraine wit hout aura, intractable, without status migrainosus Reanna Turner M.D. Plan of Treatment Future Appointment(s):* 04/04/2020 1:45 pm - Reanna Turner M.D. at Main office - [place] Functional Status Description No Information Available Mental Status Description No Information Available Referrals Refer to Reason for Referral Status Appt Date Reanna Turner M.D. Created [address] [place] [address] [phone] Reanna Turner M.D. Created [address] [place] [address] [phone]
--- OUTSIDE RECORDS SUMMARY | 2020-04-04 12:16 | CCD | Continuity of Care Document ---
Author Author Nadiya ASHER M.D. Organization Unknown Address [address], [place] [address] Phone [phone] Problems Active Problems Provider Date Allergic rhinitis due to pollen Onset: 1 Note: On IT. 3+ reaction to ragweed on i ntradermal test. Completed 2015. Allergic rhinitis due to animal dander O nset: 12/24/2015 Note: On IT. 3+ reaction to cat dander o n scratch test. 3+ reaction to dog dander on intradermal test. Completed 2015. Allergic rhinitis due to house dust mite Triston Asher M.D. Onset: 05/02/2019 Note: On IT. 4+ reaction to dust mites o n scratch test. 4+ reaction to cockroaches on intradermal test Completed 2015. Allergic rhinitis caused by mold Triston Asher M.D. O nset: 05/02/2019 Note: On IT. 3+ reaction to alternaria m olds on scratch test. Completed 2015. Mild intermittent asthma Triston Asher M.D. Onset: Social History Type Date Description Comments [...] route once daily for 30 days Unk abby Albuterol Sulfate HFA 108(90Base) mcg/Act Aerosol inhale 1 - 2 puffs by inhalation route every 6 hours as needed Unknown Benadryl Allergy 25mg Capsules take 2 capsules (50 mg) by oral route once daily at bedtime as needed Unknown Medications Administered in Office Medication SIG Qnty Indications Ordering Provider Date Allergy Injection 2 Or More Injection Triston Asher M.D. 04/01/2020 Allergy Injection 2 Or More Injection Triston [...] Information Available Procedures Date Code Description Status 04/01/2020 57886 Allergy Injection 2 Or More Comp leted 03/06/2020 59864 Allergy Injection 2 Or More Comp leted 02/13/2020 81325 Allergy Antigens Single Or Multi ple Completed 02/12/2020 03806 Allergy Injection 2 Or More Comp leted 01/24/2020 40778 Allergy Injection 2 Or More Comp leted 01/05/2020 15415 Allergy Injection 2 Or More Comp leted 12/13/2019 59009 Allergy Injection 2 Or More Comp leted 11/28/2019 84417 Allergy Injection 2 Or More Comp leted 11/02/2019 04645 Allergy Injection 2 Or More Comp leted 10/17/2019 31891 Allergy Injection 2 Or More Comp leted Medical Devices Description No Information Available Encounters Description No Information Available Assessments Date Code Description Provider 04/01/2020 J30.1 Allergic rhinitis due to pollen Triston Asher M.D. 04/01/2020 J30.81 Allergic rhinitis due to animal (cat) (dog) hair and dander Triston Asher M.D. 04/01/2020 J30.89 Other allergic rhinitis Triston Asher M.D. Plan of Treatment Future Appointment(s):* 05/15/2020 10:30 am - Triston Asher M.D. [...]
--- OUTSIDE RECORDS SUMMARY | 2020-04-04 12:16 | CCD | Continuity of Care Document ---
Author Author Nadiya Chavez Organization Unknown Address [address] [facility] [address] [place] [address] Phone [phone] Care Team Providers Care Eating Disorder Psychologist Name Role Phone Taya Chavez AUTM [phone] Problems Active Problems Provider Date Asthma without status asthmaticus ANN Vera Onset : 11/26/2010 Gastroesophageal reflux disease ANN Vera Onset: 11/26/2010 Metabolic syndrome X ANN Vera Onset: 11/26/2010 Nonruptured cerebral aneurysm ANN Vera Onset: Social History Type Date Description Comments Sex Unknown ETOH Use Occasionally Consumed Alcoholic Beverages Tobacco Use Start: Unknown Light tobacco smoker (10 or fewe r cigarettes/day) Allergies, Adverse Reactions, Alerts Active Allergies Reaction Severity Comments Date Ceclor Stops Breathing Severe 05/08/2008 Pseudocholinescrease low heart rate 04/10 Erythromycin Hives, N/V 04/22/2017 Magnesium IV dosing- throat edema 03/2017 Inactive Allergies Erythromycin Rash 05/08/2008 Medications Active Medications SIG Qnty Indications Ordering Provide r Date Amoxicillin/Clavulanate Potassium 875-125mg Tablets 1 by mouth twice a day 20tabs Konrad Vera WET PRESS TENDER 01/24/2020 Diflucan 150mg Tablets 1 by mouth may repeat in 3 days 2tabs ANN Vera 01/24/2020 Pantoprazole Sodium 40mg Tablets D R Take 1 Tablet By Mouth Every Morning And AT 1PM 60tabs ANN Simmons 01/21/2020 Albuterol Sulfate HFA 108(90Base) mcg/Act Aerosol Inhale Two Puffs By Mouth Four Times Daily as Needed 18units Taya Chavez, ANN 11/28/2019 Nasacort Allergy 24HR 55mcg/Act Ae rosol Instill 2 Sprays Into Each Nostril Once Daily 10.8units Ariela Cleveland MD 08/11/2019 Klor-Con M10 10Meq Tablets ER Take 1 Tablet By Mouth Once A Day For Potassium. 30tabs Lisa Londono, [facility] 03/30/2019 Valacyclovir HCL 1gm Tablets Take 2 Tablets By Mouth Twice A Day For 1 Day as Needed 4tabs Taya Chavez, ANN 01/10/2019 Enalapril Maleate 5mg Tablets take 1 tablet by mouth every day 30tabs Win Cleveland MD 12/06/2018 Peridex 0.12% Solution 15 milliliters swish for 30 seconds and spit twice a day as needed 118ml Win Cleveland MD 12/06/2018 Thumb Splint/Left Small Misc wear when resting s63.602D 1units Taya Chavez, ANN 04/05/2018 Sucralfate 1gm Tablets Take 1 Tablet By Mouth 4 Times Daily (Before Meals And AT Bedtime) 120tabs ANN Vera 03/07/2018 Linzess 72mcg Capsules 1 every 2 days by mouth prn 15caps Taya Chavez, ANN 12/02/2017 Triamcinolone Acetonide 55mcg/Act Aerosol instill 2 sprays into each nostril once daily 16.9units Ariela Cleveland MD 10/19/2017 Cytotec 200mcg Tablets 1 q.i. d 120tabs Win Cleveland MD 06/30/2017 Premarin 0.9mg Tablets take 1 tablet by mouth once a day 30tabs Win Cleveland MD 7 Anusol-HC 25mg Suppository use every 8 hours as needed rectal 1Box Taya Chavez, ANN 03/22 Mag64 CR 64mg T jatinder One Tablet By Mouth Twice Daily 180units Taya Chavez, ANN 09/04/2015 Bariatric Fusion Chewtabs four times a day Taya Chavez, ANN 08/12/2015 Singulair 10mg Tablets Take 1 Tablet By Mouth Once Nightly AT Bedtime. 30tabs ANN Vera 10/22/2014 Elbow Brace [facility] for tendonititis of rt elbow 1units ANN Vera 10/24/2013 Cetirizine HCL 10mg Tablets Take 1 Tablet By Mouth Every Day 30tabs ANN Vera 09/08/19 12 Albuterol Sulfate (2 .5mg/3ML) 0.083% Nebulizer use one vial in nebulizer 4 times a day as needed 300units ANN Vera 04/17/2008 Nebulizer Kit [facility] us e as directed 1units ANN Vera 10/19/2007 Nebulizer [facility] use as direct ed 1units ANN Vera 10/19/2007 Tizanidine HCL 2mg Capsules at at bedtime as needed 30caps Win Cleveland MD Nortriptyline HCL 25mg Capsules 1 at hs prn Unknown Immunizations CPT Code Status Date Vaccine Lot # [id number] Given 01/18/2017 Adacel- Tetanus Diphtheria P ertussis (Age64 & Under) [id number] Given 02/18/2016 Fluvirin Virus Vaccine [id number] 01 Q2037 Given 12/27/2014 Fluvirin Virus Vaccine [id number] 01 Q2037 Given 01/22/2014 Fluvirin Virus Vaccine 21687 [id number] [id number] Refused 12/23/2017 Influenza Virus Vaccine, Quadrivalent (Cciiv4), Derived From Cell Vital Signs Date Vital Result Comment 01/24/2020 3:14pm BP Systolic 120 mmHg BP Diastolic 70 mmHg Heart Rate 92 /min Height 60.25 inches 5'0.25" Weight 154.00 lb O2 % BldC Oximetry 95 % BMI (Body Mass Index) 29.8 kg/m2 08/11/2019 12:57pm BP Systolic 124 mmHg RT Arm BP Diastolic 80 mmHg RT Arm Heart Rate 104 /min Height 60.25 inches 5'0.25" Weight 157.00 lb BMI (Body Mass Index) 30.4 kg/m2 Results Test Acquired Date Facility Test Result H/L Range Note Ua Dipstick Only 01/24/2020 [facility] Accounts Payable Processor: Dr [place], [place] [id number] [phone] Urine Color YELLOW Yellow Urine Appearance CLEAR Clear Urine PH 7.0 units 5.0 - 9.0 Urine Specific [place] 1.015 1.005 - 1.030 Urine Leukocytes NEGATIVE Negative Urine Blood NEGATIVE Negative Urine Protein NEGATIVE Negative -Trace Urine Glucose NEGATIVE mg/dL Negative Urine Nitrite NEGATIVE Negative Urine Ketone NEGATIVE mg/dL Negative Urine Bilirubin NEGATIVE Negative Urine Urobilinogen 0.2 mg/dL 0.2 - 1.0 CBC With Differential 01/08/[address] [address] [phone] White Blood Count 9.8 10 Normal 4.0-10.0 Red Blood Count 3.81 10 Low 4.00-5.40 Hemoglobin 12.6 g/dL Normal 12.0-15.5 Hematocrit 38.1 % Normal 36.0-47.0 Mean Corpuscular Volume 100.0 fl High 80.0-96.0 Mean Corpuscular Hemoglobin 33.1 pg High 27.0-33.0 Mean Corpuscular HGB Conc 33.1 g/dL Normal 32.0-36.5 Red Cell Distribution Width 11.7 % Normal 11.5-14.5 Platelet Count, Automated 250 10 Normal 150-450 Neutrophils % 67.7 % High 36.0-66.0 Lymph % 24.3 % Normal 24.0-44.0 [place] % 6.0 % High 0.0-5.0 Eos % 1.3 % Normal 0.0-3.0 Baso % 0.5 % Normal 0.0-1.0 Immature Granulocyte % 0.2 % Normal 0-3.0 Nucleated Red Blood Cell % 0.0 % Normal 0-0 Neutrophils # 6.6 10 Normal 1.5-8.5 Lymph # 2.4 10 Normal 1.5-5.0 [place] # 0.6 10 Normal 0.0-0.8 Eos # 0.1 10 Normal 0.0-0.5 Baso # 0.1 10 Normal 0.0-0.2 Basic Metabolic Profile 01/08/[address] [address] [phone] Glucose, Fasting 89 mg/dL Normal 70-100 Blood Urea Nitrogen 9 mg/dL Normal 7-18 Creatinine For GFR 0.46 mg/dL Low 0.55-1.30 Glomerular Filtration Rate > 60.0 Normal >58 1 Sodium Level 141 mEq/L Normal 136-145 Potassium Serum 4.0 mEq/L Normal 3.5-5.1 Chloride Level 107 mEq/L Normal 98-107 Carbon Dioxide Level 28 mEq/L Normal 21-32 Anion Gap 6 mEq/L Low 8-16 Calcium Level 8.1 mg/dL Low 8.5-10.1 Urinalysis Manual RFLX Ucult 01/08/[address] [address] [phone] Appearance, Urine Manual RFX HAZY High [place] ar Color, Urine Manual Reflex YELLOW Normal Yellow PH,Urine Man Reflex 8.0 units Normal 5.0 - 7.0 SP [place],Urine Manual Reflex 1.005 Normal 1.002-1.03 5 Protein, Urine Manual Reflex NEGATIVE mg/dL Normal Negative Glucose, Urine (Ua) Manual NEGATIVE mg/dL Normal Negative Ketone, Urine Manual NEGATIVE mg/dL Normal Negative Urobilinogen, Urine Manual NORMAL mg/dL Normal Normal Bilirubin, Urine Manual NEGATIVE Normal Negative Nitrite, Urine Manual RFX NEGATIVE Normal Negative Leukocyte Esterase, Ur Man RFX POSITIVE High Negative Blood Urine Manual RFX POSITIVE High Negative Microscopic Urine RFX 01/08/[address] [address] [phone] WBC, Urine Man RFX TNTC /hpf High 0-3 RBC, Urine 3-5 /hpf High 0-3 Squamous Epithelial Cell Urine LARGE AMOUNT /hpf High Small Amt Bacteria, Urine SMALL AMOUNT High None Hyaline Cast, Urine NONE SEEN /lpf Normal 0-1 Microscopic Exam PERFORMED Normal Reflex Urine Culture 01/08/2020 [facility] [address] [place] [address] [phone] Reflex Urine Culture FULL REPORT IN L <SEE NOTE> Norm al 2 1 Units are mL/min/1.73 m2 Chronic Kidney Disease Staging per NKF: Stage I & II GFR >=60 Normal to Mildly Decreased Stage III GFR 30-59 Moderately Decreased Stage IV GFR 15-29 Severely Decreased Stage V GFR <15 Very Little GFR Left ESRD GFR <15 on ELECTRONICS COMMODITY MANAGER 2 FULL REPORT IN LAB NOTES (eC W and Medent). ORGANISM 1: ESCHERICHIA COLI COLONY COUNT 100,000 ORGANISM 2: LACTOBACILLUS SPECIES COLONY COUNT 100,000 Most Lactobacillus species recovered from clinical specimens are rarely pathogenic. Penicillin or ampicillin with or without gentamicin is recommended for treatment. Clindamycin and erythromycin are alternative treatments. Vancomycin resistance has been reported. ORGANISM 1: ESCHERICHIA COLI ORGANISM 2: LACTOBACILLUS SPECIES ESCHERICHIA COLI: REACTION TRIMETHOPRIM/SULFAMETHOXAZOLE IV 160mg TMP & 800mg SMXq6h >=320 R TRIMETHOPRIM/SULFAMETHOXAZOLE PO Bactrim DS Bid >=320 R AMPICILLIN IV 500mg q6h >=32 R AMPICILLIN PO 500mg q6h fasting >=32 R GENTAMICIN IV 80mg q8h <=1 S NITROFURANTOIN PO 100mg BID <=16 S CEFAZOLIN IV 1gm q8h <=4 S LEVOFLOXACIN IV 500mg qd 1 S LEVOFLOXACIN PO 250mg qd 1 S LEVOFLOXACIN PO 500mg qd 1 S TOBRAMYCIN IV 80mg q8h <=1 S CEFTRIAXONE IV 1gm q24h <=1 S CEFTAZIDIME IV 1gm q8h <=1 S AMPICILLIN/SULBACTAM IV 1.5g q6h >=32 R PIPERACILLIN/TAZOBACTAM IV 2.25 gm q6h <=4 S AZTREONAM IV 1gm q8h <=1 S ERTAPENEM IV 1gm qd <=0.5 S MEROPENEM IV 1 gm q8h <=0.25 S MEROPENEM IV 500 mg q8h <=0.25 S TIGECYCLINE IV 50mg q12h <=0.5 S CEFEPIME IV 1 gm q12h <=1 S CEFEPIME IV 2 gm q12h <=1 S EXTD BRD SPCTRM BETA LACTAMASE IV NEGATIVE FOR ESBL Procedures Date Code Description Status 05/28/2016 28750364 Colonoscopy Completed 03/12/2011 [id number] Colonoscopy Completed 06/16/2010 [id number] Mammogram Completed Medical Devices Description No Information Available Encounters Type Date Location Provider Dx Diagnosis Office Visit 01/24/2020 3[facility]p [facility], ANN J01.90 Acute sinusitis, unspecified R30.0 Dysuria Office Visit 08/11/2019 1:00p [facility] FNP I10 Essential (primary) hypertension M54.2 Cervicalgia M25.512 Pain in left shoulder Assessments Date Code Description Provider 01/24/2020 J01.90 Acute sinusitis, unspecified ANN Dior 01/24/2020 R30.0 Dysuria ANN Vera 08/11/2019 I10 Essential (primary) hypertension Alice Garcia, MARKETING COMMUNICATIONS ASSOCIATE 08/11/2019 M54.2 Cervicalgia Alice Garcia, F WET PRESS TENDER 08/11/2019 M25.512 Pain in left shoulder SHAWN Mendoza Ma Plan of Treatment Future Appointment(s):* 04/30/2020 10:00 am - ANN Vera at [facility] 01/24/2020 - ANN Vera* J01.90 Acute sinusitis, unspecified * R30.0 Dysuria * All * New Medication:* Amoxicillin/Clavulanate Potassium 875-125 mg - 1 by mouth twice a day * Diflucan 150 mg - 1 by mouth may repeat in 3 days Functional Status Description No Information Available Mental Status Description No Information Available Referrals Refer to Reason for Referral Status Appt Date Michelle Sousa MD CONSULT FOR F/U OF PEPTIC ULCERS Sent [address] [place] [address] [place] [address] [phone]
--- OUTSIDE RECORDS SUMMARY | 2020-04-04 12:16 | CCD | Continuity of Care Document ---
Author Author Nadiya Chavez Organization Unknown Address [address] [facility] [address] [place] [address] Phone [phone] Care Team Providers Care Yarn Winder Name Role Phone Taya Chavez AUTM [phone] Problems Active Problems Provider Date Asthma without [...] mouth twice a day 20tabs Konrad Vera WICKER WORKER 01/24/2020 Diflucan 150mg Tablets 1 by mouth [...] A Day For Potassium. 30tabs Lisa Londono, [facility] 03/30/2019 Valacyclovir HCL 1gm Tablets Take 2 [...] Bedtime. 30tabs ANN Vera 10/22/2014 Elbow Brace [facility] for tendonititis of rt elbow 1units ANN Vera 10/24/2013 Cetirizine HCL 10mg Tablets Take 1 Tablet By Mouth Every Day 30tabs ANN Vera 09/08/19 12 Albuterol Sulfate (2 .5mg/3ML) 0.083% Nebulizer use one vial in nebulizer 4 times a day as needed 300units ANN Vera 04/17/2008 Nebulizer Kit [facility] us e as directed 1units ANN Vera 10/19/2007 Nebulizer [facility] use as direct ed 1units ANN Vera 10/19/2007 Tizanidine HCL 2mg Capsules at at bedtime as needed 30caps Win Cleveland MD Nortriptyline HCL 25mg Capsules 1 at hs prn Unknown Immunizations CPT Code Status Date Vaccine Lot # [id number] Given 01/18/2017 Adacel- Tetanus Diphtheria P ertussis (Age64 & Under) [id number] Q2037 Given 02/18/2016 Fluvirin Virus Vaccine 30200 01 Q2037 Given 12/27/2014 Fluvirin Virus Vaccine 45663 01 Q2037 Given 01/22/2014 Fluvirin Virus Vaccine 18808 21 47557 Refused 12/23/2017 Influenza Virus Vaccine, Quadrivalent (Cciiv4), [...] Dipstick Only 01/24/2020 [facility] Labor Gang Supervisor: Dr [address] [place], [place] [id number] [phone] Urine Color YELLOW Yellow Urine Appearance CLEAR Clear Urine PH 7.0 units 5.0 - 9.0 Urine Specific [place] 1.015 1.005 - 1.030 Urine Leukocytes NEGATIVE Negative Urine Blood NEGATIVE Negative Urine Protein NEGATIVE Negative -Trace Urine Glucose NEGATIVE mg/dL Negative Urine Nitrite NEGATIVE Negative Urine Ketone NEGATIVE mg/dL Negative Urine Bilirubin NEGATIVE Negative Urine Urobilinogen 0.2 mg/dL 0.2 - 1.0 CBC With Differential 01/08/[address] [address] [phone] White Blood Count 9.8 10 Normal 4.0-10.0 [...] 36.0-66.0 Lymph % 24.3 % Normal 24.0-44.0 [place] % 6.0 % High 0.0-5.0 Eos % 1.3 % Normal 0.0-3.0 Baso % 0.5 % Normal 0.0-1.0 Immature Granulocyte % 0.2 % Normal 0-3.0 Nucleated Red Blood Cell % 0.0 % Normal 0-0 Neutrophils # 6.6 10 Normal 1.5-8.5 Lymph # 2.4 10 Normal 1.5-5.0 [place] # 0.6 10 Normal 0.0-0.8 Eos # 0.1 10 Normal 0.0-0.5 Baso # 0.1 10 Normal 0.0-0.2 Basic Metabolic Profile 01/08/[address] [address] [phone] Glucose, Fasting 89 mg/dL Normal 70-100 Blood [...] Low 8.5-10.1 Urinalysis Manual RFLX Ucult 01/08/[address] [address] [phone] Appearance, Urine Manual RFX HAZY High [place] ar Color, Urine Manual Reflex YELLOW Normal Yellow PH,Urine Man Reflex 8.0 units Normal 5.0 - 7.0 SP [place],Urine Manual Reflex 1.005 Normal 1.002-1.03 5 Protein, [...] POSITIVE High Negative Microscopic Urine RFX 01/08/[address] [address] [phone] WBC, Urine Man RFX TNTC /hpf High 0-3 RBC, Urine 3-5 /hpf High 0-3 Squamous Epithelial Cell Urine LARGE AMOUNT /hpf High Small Amt Bacteria, Urine SMALL AMOUNT High None Hyaline Cast, Urine NONE SEEN /lpf Normal 0-1 Microscopic Exam PERFORMED Normal Reflex Urine Culture 01/08/2020 [facility] enter [address] [place] [address] [phone] Reflex Urine Culture FULL REPORT IN L <SEE NOTE> Norm al 2 1 Units are mL/min/1.73 m2 Chronic Kidney Disease Staging per NKF: Stage I & II GFR >=60 Normal to Mildly Decreased Stage III GFR 30-59 Moderately Decreased Stage IV GFR 15-29 Severely Decreased Stage V GFR <15 Very Little GFR Left ESRD GFR <15 on SHEET METAL WORKER APPRENTICE 2 FULL REPORT IN LAB NOTES (eC [...] ESBL Procedures Date Code Description Status 05/28/2016 [id number] Colonoscopy Completed 03/12/2011 [id number] Colonoscopy Completed 06/16/2010 [id number] Mammogram Completed Medical Devices Description No Information Available Encounters Type Date Location Provider Dx Diagnosis Office Visit 08/11/2019 1:00p [facility] I10 Essential (primary) hypertension M54.2 Cervicalgia M25.512 Pain in left shoulder Assessments Date Code Description Provider 08/11/2019 I10 Essential (primary) hypertension SHAWN Faust 08/11/2019 M54.2 Cervicalgia Alice Garcia, F WICKER WORKER 08/11/2019 M25.512 Pain in left shoulder Alice pittman, SHAWN Plan of Treatment 01/24/2020 - ANN Vera* All * New Medication:* Amoxicillin/Clavulanate Potassium 875-125 mg - 1 by mouth twice a day * Diflucan 150 mg - 1 by mouth may repeat in 3 days Functional Status Description No Information Available Mental Status Description No Information Available Referrals Description No Information Available
--- OUTSIDE RECORDS SUMMARY | 2020-04-04 12:16 | CCD | Continuity of Care Document ---
Author Nadiya Dudley M.D. Organization Unknown Address [address] [place] [address] Phone [phone] Care Team Providers Care Guard Immigration Name Role Phone Taya Chavez AUTM [phone] Problems Active Problems Provider Date Chronic intractable [...] 1 tab 30-60 minutes prior to mri. EARLY CHILDHOOD EDUCATION SPECIALIST [id number] 1tasharon robertson M.D. 10/04/2019 Verapamil HCL 40mg [...] mri scan. may repeat once if needed. [facility] reference #: [id number] 2claudia Ha M.D. 07/17/2015 Medrol 4mg TBPK [...] lb BMI (Body Mass Index) 30.1 kg/m2 [place] Body Weight 100 lb 07/31/2019 12:09pm Respiratory Rate 12 /min Height 60 inches 5'0" Weight 154.00 lb BMI (Body Mass Index) 30.1 kg/m2 [place] Body Weight 100 lb Results Description No Information Available Procedures Date Code Description Status 02/28/2020 71070 [place] Muscles Inn ervated By Facial, Trigeminal, Cerv And Acces Completed 11/20/2019 89047 [place] Muscles Inn ervated By Facial, Trigeminal, Cerv And Acces Completed 10/07/2019 55570 MRI Brain W/O Contrast Completed 10/07/2019 48992 MRI Brain W/O Contrast Completed 10/07/2019 67930 Magnetic Resonance Angiogtaphy H ead W/O Contrast Material(S) Completed 10/07/2019 45379 Magnetic Resonance Angiogtaphy H ead W/O Contrast Material(S) Completed Medical Devices Description No Information Available Encounters Type Date Location Provider Dx Diagnosis Office Visit 10/03/2019 2:00p Main office - [place] Reanna robertson M.D. G43.719 Chronic migraine w/o [...] M.D. 10/07/2019 I67.1 Cerebral aneurysm, nonruptured M [place] 10/03/2019 G43.719 Chronic migraine wit hout aura, intractable, without status migrainosus Reanna Turner M.D. Plan of Treatment Future Appointment(s):* 03/20/2020 11:45 am - [facility] at [facility] * 04/04/2020 1:45 pm - Reanna Turner M.D. at [facility] Functional Status Description No Information Available Mental Status Description No Information Available Referrals Refer to Dr Reason for Referral Status Appt Date Reanna Turner M.D. Created [address] [place] [address] [phone] Reanna Turner M.D. Created [address] [place] [address] [phone]
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
--- OUTSIDE RECORDS SUMMARY | 2020-04-04 12:17 | CCD | Continuity of Care Document ---
Author Author Nadiya Chavez Organization Unknown Address [address] [facility] [address] [place] [address] Phone [phone] Care Team Providers Care Director Peoplesoft Name Role Phone Taya Chavez AUTM [phone] Problems Active Problems Provider Date Asthma without [...] SIG Qnty Indications Ordering Provide r Date Albuterol Sulfate HFA 108(90Base) mcg/Act Aerosol Inhale Two Puffs By Mouth Four Times Daily as Needed 18units ANN Vera 11/28/2019 Nasacort Allergy 24HR 55mcg/Act Ae rosol Instill 2 Sprays Into Each Nostril Once Daily 10.8units Ariela Cleveland MD 08/11/2019 Klor-Con M10 10Meq Tablets ER Take 1 Tablet By Mouth Once A Day For Potassium. 30tabs SHAWN Mercer 03/30/2019 Valacyclovir HCL 1gm Tablets Take 2 [...] a day 30tabs Win Cleveland MD [address] take 1 tablet by mouth every morning and at 1pm 60tabs Taya Chavez, ANN 07/20/2016 Anusol-HC 25mg Suppository use every 8 hours as needed rectal 1Box Taya Chavez, ANN 03/22 Mag64 CR 64mg T jatinder One Tablet By Mouth Twice Daily 180units Taya Chavez, ANN 09/04/2015 Bariatric Fusion Chewtabs four times a day Taya Chavez, ANN 08/12/2015 Singulair 10mg Tablets Take 1 Tablet By Mouth Once Nightly AT Bedtime. 30tabs Taya Chavez, ANN 10/22/2014 Elbow Brace [facility] [place] for tendonititis of rt elbow 1units Taya Chavez, ANN 10/24/2013 Cetirizine HCL 10mg Tablets Take 1 Tablet By Mouth Every Day 30tabs ANN Vera 09/08/19 12 Albuterol Sulfate (2 .5mg/3ML) 0.083% Nebulizer Use One Vial In Nebulizer 4 Times A Day as Needed 300units ANN Vera 04/17/2008 Nebulizer Kit [facility] us e as directed 1unANN Baires 10/19/2007 Nebulizer [facility] use as direct ed 1unANN Baires 10/19/2007 Tizanidine HCL 2mg Capsules at at bedtime as needed 30caps Win Cleveland MD Nortriptyline HCL 25mg Capsules 1 at hs prn Unknown History Medications Tramadol HCL 50mg Tablets take one tablet PO qam x 7 days 7tabs M54.2 Win Cleveland MD 07/19/2019 - 07/26/2019 Immunizations CPT Code Status Date Vaccine Lot # [id number] Given 01/18/2017 Adacel- Tetanus Diphtheria P ertussis (Age64 & Under) [id number] [id number] Given 02/18/2016 Fluvirin Virus Vaccine [id number] 01 Q2037 Given 12/27/2014 Fluvirin Virus Vaccine 62642 01 Q2037 Given 01/22/2014 Fluvirin Virus Vaccine 37966 21 74631 Refused 12/23/2017 Influenza Virus Vaccine, Quadrivalent (Cciiv4), Derived From Cell Vital Signs Date Vital Result Comment 08/11/2019 12:57pm BP Systolic 124 mmHg RT Arm BP Diastolic 80 mmHg RT Arm Heart Rate 104 /min Height 60.25 inches 5'0.25" Weight 157.00 lb BMI (Body Mass Index) 30.4 kg/m2 07/19/2019 9:08am BP Systolic 132 mmHg RT Arm BP Diastolic 70 mmHg RT Arm Heart Rate 88 /min Height 60.25 inches 5'0.25" Weight 161.00 lb O2 % BldC Oximetry 97 % RM Air BMI (Body Mass Index) 31.2 kg/m2 Results Test Acquired Date Facility Test Result H/L Range Note CBC With Differential 01/08/[address] [address] [phone] White Blood Count 9.8 10 Normal 4.0-10.0 [...] 36.0-66.0 Lymph % 24.3 % Normal 24.0-44.0 [place] % 6.0 % High 0.0-5.0 Eos % 1.3 % Normal 0.0-3.0 Baso % 0.5 % Normal 0.0-1.0 Immature Granulocyte % 0.2 % Normal 0-3.0 Nucleated Red Blood Cell % 0.0 % Normal 0-0 Neutrophils # 6.6 10 Normal 1.5-8.5 Lymph # 2.4 10 Normal 1.5-5.0 [place] # 0.6 10 Normal 0.0-0.8 Eos # 0.1 10 Normal 0.0-0.5 Baso # 0.1 10 Normal 0.0-0.2 Basic Metabolic Profile 01/08/[address] [address] [phone] Glucose, Fasting 89 mg/dL Normal 70-100 Blood [...] Low 8.5-10.1 Urinalysis Manual RFLX Ucult 01/08/[address] [id number] [phone] Appearance, Urine Manual RFX HAZY High Jayson ar Color, Urine Manual Reflex YELLOW Normal Yellow PH,Urine Man Reflex 8.0 units Normal 5.0 - 7.0 SP [place],Urine Manual Reflex 1.005 Normal 1.002-1.03 5 Protein, [...] POSITIVE High Negative Microscopic Urine RFX 01/08/[address] [address] [phone] WBC, Urine Man RFX TNTC /hpf High 0-3 RBC, Urine 3-5 /hpf High 0-3 Squamous Epithelial Cell Urine LARGE AMOUNT /hpf High Small Amt Bacteria, Urine SMALL AMOUNT High None Hyaline Cast, Urine NONE SEEN /lpf Normal 0-1 Microscopic Exam PERFORMED Normal Reflex Urine Culture 01/08/2020 [facility] enter [address] [place], [place] [address] [phone] Reflex Urine Culture FULL REPORT IN L <SEE NOTE> Norm al 2 1 Units are mL/min/1.73 m2 Chronic Kidney Disease Staging per NKF: Stage I & II GFR >=60 Normal to Mildly Decreased Stage III GFR 30-59 Moderately Decreased Stage IV GFR 15-29 Severely Decreased Stage V GFR <15 Very Little GFR Left ESRD GFR <15 on KNIFER UP 2 FULL REPORT IN LAB NOTES (eC [...] ESBL Procedures Date Code Description Status 05/28/2016 [id number] Colonoscopy Completed 03/12/2011 [id number] Colonoscopy Completed 06/16/2010 [id number] Mammogram Completed Medical Devices Description No Information Available Encounters Type Date Location Provider Dx Diagnosis Office Visit 08/11/2019 1:00p Margoth Belcher FNP I10 Essential (primary) hypertension M54.2 Cervicalgia M25.512 Pain in left shoulder Office Visit 07/19/2019 9:20a Margoth Belcher FNP M54.2 Cervicalgia R51 Headache Assessments Date Code Description Provider 08/11/2019 I10 Essential (primary) hypertension SHAWN Faust 08/11/2019 M54.2 Cervicalgia Burke Faust DUST COLLECTOR TREATER 08/11/2019 M25.512 Pain in left shoulder SHAWN Mendoza Ma 07/19/2019 M54.2 Cervicalgia Burke Faust DUST COLLECTOR TREATER 07/19/2019 R51 Headache Burke Faust DUST COLLECTOR TREATER Plan of Treatment 08/11/2019 - SHAWN Faust* I10 Essential (primary) hypertension* Comments: * BP [...]
--- OUTSIDE RECORDS SUMMARY | 2020-04-04 12:17 | CCD | Continuity of Care Document ---
Author Author Nadiya ASHER M.D. Organization Unknown Address [address], [place] [address] Phone [phone] Problems Active Problems Provider Date Mild persistent [...] Information Available Procedures Date Code Description Status 01/24/2020 65832 Allergy Injection 2 Or More Comp leted 01/05/2020 79147 Allergy Injection 2 Or More Comp leted 12/13/2019 45123 Allergy Injection 2 Or More Comp leted 11/28/2019 48069 Allergy Injection 2 Or More Comp leted 11/02/2019 49802 Allergy Injection 2 Or More Comp leted 10/17/2019 20084 Allergy Injection 2 Or More Comp leted 09/27/2019 74057 Allergy Injection 2 Or More Comp leted 09/19/2019 28467 Allergy Antigens Single Or Multi ple Completed 09/11/2019 91345 Allergy Injection 2 Or More Comp leted 08/28/2019 20043 Allergy Injection 2 Or More Comp leted 08/11/2019 01166 Allergy Injection 2 Or More Comp leted 07/28/2019 04569 Allergy Injection 2 Or More Comp leted Medical Devices Description No Information Available Encounters Description No Information Available Assessments Date Code Description Provider 01/24/2020 J30.1 Allergic rhinitis due to pollen Triston Asher M.D. 01/24/2020 J30.81 Allergic rhinitis due to animal (cat) (dog) hair and dander Triston Asher M.D. 01/24/2020 J30.89 Other allergic rhinitis Triston Asher M.D. [...]
--- OUTSIDE RECORDS SUMMARY | 2020-04-04 12:17 | CCD | Continuity of Care Document ---
Author Author Nadiya ASHER M.D. Organization Unknown Address [address], [place] [address] Phone [phone] Problems Active Problems Provider Date Mild persistent [...] Information Available Procedures Date Code Description Status 01/05/2020 88903 Allergy Injection 2 Or More Comp leted 12/13/2019 27831 Allergy Injection 2 Or More Comp leted 11/28/2019 35074 Allergy Injection 2 Or More Comp leted 11/02/2019 55247 Allergy Injection 2 Or More Comp leted 10/17/2019 05857 Allergy Injection 2 Or More Comp leted 09/27/2019 65861 Allergy Injection 2 Or More Comp leted 09/19/2019 70599 Allergy Antigens Single Or Multi ple Completed 09/11/2019 53444 Allergy Injection 2 Or More Comp leted 08/28/2019 07619 Allergy Injection 2 Or More Comp leted 08/11/2019 26412 Allergy Injection 2 Or More Comp leted 07/28/2019 49108 Allergy Injection 2 Or More Comp leted 07/12/2019 79771 Allergy Injection 2 Or More Comp leted Medical Devices Description No Information Available Encounters Description No Information Available Assessments Date Code Description Provider 01/05/2020 J30.1 Allergic rhinitis due to pollen Triston Asher M.D. 01/05/2020 J30.81 Allergic rhinitis due to animal (cat) (dog) hair and dander Triston Asher M.D. 01/05/2020 J30.89 Other allergic rhinitis Triston Asher M.D. Plan of Treatment Future Appointment(s):* 01/26/2020 9:00 am - Allergy Injection at Main Office [...]
--- OUTSIDE RECORDS SUMMARY | 2020-04-04 12:17 | CCD | Continuity of Care Document ---
Author Organization Unknown Address Unknown Phone Unavailable Care Team Providers Care Case Worker Name Role Phone Taya Chavez AUTM [phone] Problems Active Problems Provider Date Asthma without [...] Day For 1 Day as Needed 4tabs ANN Vera 01/10/2019 Enalapril Maleate 5mg Tablets take 1 [...] 30tabs Taya Chavez, ANN 10/22/2014 Elbow Brace [facility] [place] for tendonititis of rt elbow 1units Taya Chavez, ANN 10/24/2013 Cetirizine HCL 10mg Tablets Take 1 Tablet By Mouth Every Day 30tabs Taya Chavez, ANN 09/08/19 12 Albuterol Sulfate (2 .5mg/3ML) 0.083% Nebulizer Use One Vial In Nebulizer 4 Times A Day as Needed 300units ANN Vera 04/17/2008 Nebulizer Kit [facility] [place] us e as directed 1units ANN Vera 10/19/2007 Nebulizer [facility] use as direct ed 1units ANN Vera 10/19/2007 Tizanidine HCL 2mg Capsules at at bedtime as needed 30caps Win Cleveland MD Nortriptyline HCL 25mg Capsules 1 at hs prn Unknown History Medications Tramadol HCL 50mg Tablets take one tablet PO qam x 7 days 7tabs M54.2 Win Cleveland MD 07/19/2019 - 07/26/2019 Immunizations CPT Code Status Date Vaccine Lot # [id number] Given 01/18/2017 Adacel- Tetanus Diphtheria P ertussis (Age64 & Under) [id number] Q2037 Given 02/18/2016 Fluvirin Virus Vaccine 47600 01 Q2037 Given 12/27/2014 Fluvirin Virus Vaccine 66315 01 Q2037 Given 01/22/2014 Fluvirin Virus Vaccine 25621 21 84827 Refused 12/23/2017 Influenza Virus Vaccine, Quadrivalent (Cciiv4), [...] H/L Range Note CBC With Differential 01/08/2020 [facility] [address] [place] [address] [phone] White Blood Count 9.8 10 Normal 4.0-10.0 [...] 36.0-66.0 Lymph % 24.3 % Normal 24.0-44.0 [place] % 6.0 % High 0.0-5.0 Eos % 1.3 % Normal 0.0-3.0 Baso % 0.5 % Normal 0.0-1.0 Immature Granulocyte % 0.2 % Normal 0-3.0 Nucleated Red Blood Cell % 0.0 % Normal 0-0 Neutrophils # 6.6 10 Normal 1.5-8.5 Lymph # 2.4 10 Normal 1.5-5.0 [place] # 0.6 10 Normal 0.0-0.8 Eos # 0.1 10 Normal 0.0-0.5 Baso # 0.1 10 Normal 0.0-0.2 Basic Metabolic Profile 01/08/[address] [address] [phone] Glucose, Fasting 89 mg/dL Normal 70-100 Blood [...] Low 8.5-10.1 Urinalysis Manual RFLX Ucult 01/08/[address] [address] [phone] Appearance, Urine Manual RFX HAZY High Jayson ar Color, Urine Manual Reflex YELLOW Normal Yellow PH,Urine Man Reflex 8.0 units Normal 5.0 - 7.0 SP Amanda,Urine Manual Reflex 1.005 Normal 1.002-1.03 5 Protein, [...] POSITIVE High Negative Microscopic Urine RFX 01/08/2020 [facility] [address] [place] [address] [phone] WBC, Urine Man RFX TNTC /hpf High 0-3 RBC, Urine 3-5 /hpf High 0-3 Squamous Epithelial Cell Urine LARGE AMOUNT /hpf High Small Amt Bacteria, Urine SMALL AMOUNT High None Hyaline Cast, Urine NONE SEEN /lpf Normal 0-1 Microscopic Exam PERFORMED Normal Reflex Urine Culture 01/08/2020 [facility] enter [address] [place] [address] [phone] Reflex Urine Culture FULL REPORT IN L <SEE NOTE> Norm al 2 1 Units are mL/min/1.73 m2 Chronic Kidney Disease Staging per NKF: Stage I & II GFR >=60 Normal to Mildly Decreased Stage III GFR 30-59 Moderately Decreased Stage IV GFR 15-29 Severely Decreased Stage V GFR <15 Very Little GFR Left ESRD GFR <15 on RUG INSPECTOR HELPER 2 FULL REPORT IN LAB NOTES (eC [...] ESBL Procedures Date Code Description Status 05/28/2016 [id number] Colonoscopy Completed 03/12/2011 [id number] Colonoscopy Completed 06/16/2010 [id number] Mammogram Completed Medical Devices Description No Information Available Encounters Type Date Location Provider Dx Diagnosis Office Visit 08/11/2019 1:00p [facility] InternMargoth lal FNP I10 Essential (primary) hypertension M54.2 Cervicalgia M25.512 Pain in left shoulder Office Visit 07/19/2019 9:20a Anu InternMargoth lal FNP M54.2 Cervicalgia R51 Headache Assessments Date Code Description Provider 08/11/2019 I10 Essential (primary) hypertension SHAWN Faust 08/11/2019 M54.2 Cervicalgia Burke Faust TRANSFORMER ASSEMBLY SUPERVISOR 08/11/2019 M25.512 Pain in left shoulder SHAWN Mendoza Ma 07/19/2019 M54.2 Cervicalgia Alice Garcia F TRANSFORMER ASSEMBLY SUPERVISOR 07/19/2019 R51 Headache Burke Faust TRANSFORMER ASSEMBLY SUPERVISOR Plan of Treatment 08/11/2019 - SHAWN Faust* [...]
--- OUTSIDE RECORDS SUMMARY | 2020-04-04 12:18 | CCD ---
Author Author [facility] Organization [facility] Address Unknown Phone Unavailable Care Team Providers Care Automotive Detailer Name Role Phone ABBY DINH Unavailable Unavailable ABBY DINH Unavailable Unavailable ABBY DINH Unavailable Unavailable PETROFF, ABBY PA Unavailable Unavailable PETROFF, ABBY PA Unavailable Unavailable PETROFF, ABBY PA Unavailable Unavailable PETROFF, ABBY PA Unavailable Unavailable PETROFF, ABBY PA Unavailable Unavailable MARK ANTHONY, J Taya ANP Unavailable Unavailable MARK ANTHONY, J Taya ANP Unavailable Unavailable MARK ANTHONY, J Taya ANP Unavailable Unavailable MARK ANTHONY, J Taya ANP Unavailable Unavailable MARK ANTHONY, J Taya ANP Unavailable Unavailable MARK ANTHONY, J Taya ANP Unavailable Unavailable MARK ANTHONY, J Taya ANP Unavailable Unavailable MARK ANTHONY, J Taya ANP Unavailable Unavailable MARK ANTHONY, J Taya ANP Unavailable Unavailable MARK ANTHONY, J Taya ANP Unavailable Unavailable MARK ANTHONY, J Taya ANP Unavailable Unavailable MARK ANTHONY, J Taya ANP Unavailable Unavailable MARK ANTHONY, J Taya ANP Unavailable Unavailable MARK ANTHONY, J Taya ANP Unavailable Unavailable MARK ANTHONY, J Taya ANP Unavailable Unavailable MARK ANTHONY, J Taya ANP Unavailable Unavailable MARK ANTHONY, J Taya ANP Unavailable Unavailable MARK ANTHONY, J Taya ANP Unavailable Unavailable MARK ANTHONY, J Taya ANP Unavailable Unavailable MARK ANTHONY, J Taya ANP Unavailable Unavailable MARK ANTHONY, J Taya ANP Unavailable Unavailable MARK ANTHONY, J Taya ANP Unavailable Unavailable MARK ANTHONY, J Taya ANP Unavailable Unavailable MARK ANTHONY, J Taya ANP Unavailable Unavailable MARK ANTHONY, J Taya ANP Unavailable Unavailable MARK ANTHONY, J Taya ANP Unavailable Unavailable MARK ANTHONY, J Taya ANP Unavailable Unavailable MARK ANTHONY, J Taya ANP Unavailable Unavailable MARK ANTHONY, J Taya ANP Unavailable Unavailable MARK ANTHONY, J Taya ANP Unavailable Unavailable MARK ANTHONY, J Taya ANP Unavailable Unavailable MARK ANTHONY, J Taya ANP Unavailable Unavailable MARK ANTHONY, J Taya ANP Unavailable Unavailable MARK ANTHONY, J Taya ANP Unavailable Unavailable MARK ANTHONY, J Taya ANP Unavailable Unavailable MARK ANTHONY, J Taya ANP Unavailable Unavailable MARK ANTHONY, J Taya ANP Unavailable Unavailable MARK ANTHONY, J Taya ANP Unavailable Unavailable MARK ANTHONY, J Taya ANP Unavailable Unavailable MARK ANTOHNY, J Taya ANP Unavailable Unavailable MARK ANTHONY, J Taya ANP Unavailable Unavailable MARK ANTHONY, J Taya ANP Unavailable Unavailable MARK ANTHONY, J Taya ANP Unavailable Unavailable MARK ANTHONY, J Taay ANP Unavailable Unavailable MARK ANTHONY, J Taya ANP Unavailable Unavailable MARK ANTHONY, J Taya ANP Unavailable Unavailable MARK ANTHONY, J Taya ANP Unavailable Unavailable MARK ANTHONY, J Taya ANP Unavailable Unavailable MARK ANTHONY, J Taya ANP Unavailable Unavailable MARK ANTHONY, J Taya ANP Unavailable Unavailable MARK ANTHONY, J Taya ANP Unavailable Unavailable MARK ANTHONY, J Taya ANP Unavailable Unavailable MARK ANTHONY, J Taya ANP Unavailable Unavailable MARK ANTHONY, J Taya ANP Unavailable Unavailable MARK ANTHONY, J Taya ANP Unavailable Unavailable MARK ANTHONY, J Taya ANP Unavailable Unavailable MARK ANTHONY, J Taya ANP Unavailable Unavailable MARK ANTHONY, J Taya ANP Unavailable Unavailable MARK ANTHONY, J Taya ANP Unavailable Unavailable MARK ANTHONY, J Taya ANP Unavailable Unavailable MARK ANTHONY, J Taya ANP Unavailable Unavailable MARK ANTHONY, J Taya ANP Unavailable Unavailable MARK ANTHONY, J Taya ANP Unavailable Unavailable MARK ANTHONY, J Taya ANP Unavailable Unavailable MARK ANTHONY, J Taya ANP Unavailable Unavailable Radha, Alice WINDER OPERATOR Unavailable Unavailable Radha, Alice WINDER OPERATOR Unavailable Unavailable Radha, Alice WINDER OPERATOR Unavailable Unavailable Radha, Alice WINDER OPERATOR Unavailable Unavailable Radha, Alice WINDER OPERATOR Unavailable Unavailable Radha, Alice WINDER OPERATOR Unavailable Unavailable Radha, Alice WINDER OPERATOR Unavailable Unavailable Radha, Alice WINDER OPERATOR Unavailable Unavailable Radha, Alice WINDER OPERATOR Unavailable Unavailable Radha, Alice WINDER OPERATOR Unavailable Unavailable Radha, Alice WINDER OPERATOR Unavailable Unavailable Radha, Alice WINDER OPERATOR Unavailable Unavailable Radha, Alice WINDER OPERATOR Unavailable Unavailable Radha, Alice WINDER OPERATOR Unavailable Unavailable Radha, Alice WINDER OPERATOR Unavailable Unavailable Radha, Alice WINDER OPERATOR Unavailable Unavailable Radha, Alice WINDER OPERATOR Unavailable Unavailable Radha, Alice WINDER OPERATOR Unavailable Unavailable Radha, Alice WINDER OPERATOR Unavailable Unavailable Radha, Alice WINDER OPERATOR Unavailable Unavailable Radha, Alice WINDER OPERATOR Unavailable Unavailable Radha, Alice WINDER OPERATOR Unavailable Unavailable Radha, Alice WINDER OPERATOR Unavailable Unavailable Radha, Alice WINDER OPERATOR Unavailable Unavailable Radha, Alice WINDER OPERATOR Unavailable Unavailable Radha, Alice WINDER OPERATOR Unavailable Unavailable ELAINE, R DANA PAINT FACTORY WORKER Unavailable Unavailable ELAINE, R DANA PAINT FACTORY WORKER Unavailable Unavailable ELAINE, R DANA PAINT FACTORY WORKER Unavailable Unavailable ELAINE, R ADNA PAINT FACTORY WORKER Unavailable Unavailable ELAINE, R DANA PAINT FACTORY WORKER Unavailable Unavailable ELAINE, R DANA PAINT FACTORY WORKER Unavailable Unavailable ELAINE, R DANA PAINT FACTORY WORKER Unavailable Unavailable ELAINE, R DANA PAINT FACTORY WORKER Unavailable Unavailable ELAINE, R DANA PAINT FACTORY WORKER Unavailable Unavailable ELAINE, R DANA PAINT FACTORY WORKER Unavailable Unavailable ELAINE, R DANA PAINT FACTORY WORKER Unavailable Unavailable ELAINE, R DANA PAINT FACTORY WORKER Unavailable Unavailable ELAINE, R DANA PAINT FACTORY WORKER Unavailable Unavailable ELAINE, R DANA PAINT FACTORY WORKER Unavailable Unavailable ELAINE, R DANA PAINT FACTORY WORKER Unavailable Unavailable ELAINE, R DANA PAINT FACTORY WORKER Unavailable Unavailable ELAINE, R DANA PAINT FACTORY WORKER Unavailable Unavailable ELAINE, R DANA PAINT FACTORY WORKER Unavailable Unavailable ELAINE, R DANA PAINT FACTORY WORKER Unavailable Unavailable ELAINE, R DANA PAINT FACTORY WORKER Unavailable Unavailable ELAINE, R DANA PAINT FACTORY WORKER Unavailable Unavailable ELAINE, R DANA PAINT FACTORY WORKER Unavailable Unavailable ELAINE, R DANA PAINT FACTORY WORKER Unavailable Unavailable ELAINE, R DANA PAINT FACTORY WORKER Unavailable Unavailable ELAINE, R DANA PAINT FACTORY WORKER Unavailable Unavailable ELAINE, R DANA PAINT FACTORY WORKER Unavailable Unavailable ELAINE, R DANA PAINT FACTORY WORKER Unavailable Unavailable ELAINE, R DANA PAINT FACTORY WORKER Unavailable Unavailable ELAINE, R DANA PAINT FACTORY WORKER Unavailable Unavailable ELAINE, R DANA PAINT FACTORY WORKER Unavailable Unavailable ELAINE, R DANA PAINT FACTORY WORKER Unavailable Unavailable ELAINE, R DANA PAINT FACTORY WORKER Unavailable Unavailable ELAINE, R DANA PAINT FACTORY WORKER Unavailable Unavailable ELAINE, R DANA PAINT FACTORY WORKER Unavailable Unavailable ELAINE, R DANA PAINT FACTORY WORKER Unavailable Unavailable ELAINE, R DANA PAINT FACTORY WORKER Unavailable Unavailable ELAINE, R DANA PAINT FACTORY WORKER Unavailable Unavailable ELAINE, R DANA PAINT FACTORY WORKER Unavailable Unavailable ELAINE, R DANA PAINT FACTORY WORKER Unavailable Unavailable ELAINE, R DANA PAINT FACTORY WORKER Unavailable Unavailable ELAINE, R DANA PAINT FACTORY WORKER Unavailable Unavailable LV, JARON GARZA MD Unavailable Unavailable LV, JARON GARZA MD Unavailable Unavailable LV, JARON GARZA MD Unavailable Unavailable LV, JARON GARZA MD Unavailable Unavailable LV, JARON GARZA MD Unavailable Unavailable LV, JARON GARZA MD Unavailable Unavailable LV, JARON GARZA MD Unavailable Unavailable LVJARON MD Unavailable Unavailable LVJARON MD Unavailable Unavailable LVJARON MD Unavailable Unavailable LV, JARON GARZA MD Unavailable Unavailable LV, JARON GARZA MD Unavailable Unavailable LV, JARON GARZA MD Unavailable Unavailable LVJARON MD Unavailable Unavailable LV, JARON GARZA MD Unavailable Unavailable LV, JARON GARZA MD Unavailable Unavailable LV, JARON GARZA MD Unavailable Unavailable LV, JARON GARZA MD Unavailable Unavailable JARON AWAN MD Unavailable Unavailable LVJARON Ferguson MD Unavailable Unavailable JARON AWAN MD Unavailable Unavailable JARON AWAN MD Unavailable Unavailable JARON AWAN MD Unavailable Unavailable JARON AWAN MD Unavailable Unavailable LVJARON Ferguson MD Unavailable Unavailable JARON AWAN MD Unavailable Unavailable LVJARON Ferguson MD Unavailable Unavailable LVJARON Ferguson MD Unavailable Unavailable MARK ANTHONY, J Taya ANP Unavailable Unavailable MARK ANTHONY, J Taya ANP Unavailable Unavailable MARK ANTHONY, J Taya ANP Unavailable Unavailable MARK ANTHONY, J Taya ANP Unavailable Unavailable MARK ANTHONY, J Taya ANP Unavailable Unavailable MARK ANTHONY, J Taya ANP Unavailable Unavailable MARK ANTHONY, J Taya ANP Unavailable Unavailable MARK ANTHONY, J Taya ANP Unavailable Unavailable MARK ANTHONY, J Taya ANP Unavailable Unavailable MARK ANTHONY, J Taya ANP Unavailable Unavailable MARK ANTHONY, J Taya ANP Unavailable Unavailable MARK ANTHONY, J Taya ANP Unavailable Unavailable MARK ANTHONY, J Taya ANP Unavailable Unavailable MARK ANTHONY, J Tyaa ANP Unavailable Unavailable MARK ANTHONY, J Taya ANP Unavailable Unavailable MARK ANTHONY, J Taya ANP Unavailable Unavailable MARK ANTHONY, J Taya ANP Unavailable Unavailable MARK ANTHONY, J Taya ANP Unavailable Unavailable MARK ANTHONY, J Taya ANP Unavailable Unavailable MARK ANTHONY, J Taya ANP Unavailable Unavailable MARK ANTHONY, J Taya ANP Unavailable Unavailable MARK ANTHONY, J Taya ANP Unavailable Unavailable MARK ANTHONY, J Taya ANP Unavailable Unavailable MARK ANTHONY, J Taya ANP Unavailable Unavailable MARK ANTHONY, J Taya ANP Unavailable Unavailable MARK ANTHONY, J Taya ANP Unavailable Unavailable MARK ANTHONY, J Taya ANP Unavailable Unavailable MARK ANTHONY, J Taya ANP Unavailable Unavailable MARK ANTHONY, J Taya ANP Unavailable Unavailable MARK ANTHONY, J Taya ANP Unavailable Unavailable MARK ANTHONY, J Taya ANP Unavailable Unavailable MARK ANTHONY, J Taya ANP Unavailable Unavailable MARK ANTHONY, J Taya ANP Unavailable Unavailable MARK ANTHONY, J Taya ANP Unavailable Unavailable MARK ANTHONY, J Taya ANP Unavailable Unavailable MARK ANTHONY, J Taya ANP Unavailable Unavailable MARK ANTHONY, J Taya ANP Unavailable Unavailable MARK ANTHONY, J Taya ANP Unavailable Unavailable MARK ANTHONY, J Taya ANP Unavailable Unavailable MARK ANTHONY, J Taya ANP Unavailable Unavailable MARK ANTHONY, J Taya ANP Unavailable Unavailable MARK ANTHONY, J Taya ANP Unavailable Unavailable MARK ANTHONY, J Taya ANP Unavailable Unavailable MARK ANTHONY, J Taya ANP Unavailable Unavailable MARK ANTHONY, J Taya ANP Unavailable Unavailable MARK ANTHONY, J Taya ANP Unavailable Unavailable MARK ANTHONY, J Taya ANP Unavailable Unavailable MARK ANTHONY, J Taya ANP Unavailable Unavailable MARK ANTHONY, J Taya ANP Unavailable Unavailable MARK ANTHONY, J Taya ANP Unavailable Unavailable MARK ANTHONY, J Taya ANP Unavailable Unavailable MARK ANTHONY, J Taya ANP Unavailable Unavailable MARK ANTHONY, J Taya ANP Unavailable Unavailable MARK ANTHONY, J Taya ANP Unavailable Unavailable MARK ANTHONY, J Taya ANP Unavailable Unavailable MARK ANTHONY, J Taya ANP Unavailable Unavailable MARK ANTHONY, J Taya ANP Unavailable Unavailable MARK ANTHONY, J Taya ANP Unavailable Unavailable MARK ANTHONY, J Taya ANP Unavailable Unavailable MARK ANTHONY, J Taya ANP Unavailable Unavailable MARK ANTHONY, J Taya ANP Unavailable Unavailable MARK ANTHONY, J Taya ANP Unavailable Unavailable MARK ANTHONY, J Taya ANP Unavailable Unavailable MARK ANTHONY, J Taya ANP Unavailable Unavailable MARK ANTHONY, J Taya ANP Unavailable Unavailable BOWLING, W GIRISH PA Unavailable Unavailable BOWLING, W GIRISH PA Unavailable Unavailable BOWLING, W GIRISH PA Unavailable Unavailable BOWLING, W GIRISH PA Unavailable Unavailable BOWLING, W GIRISH PA Unavailable Unavailable BOWLING, W GIRISH PA Unavailable Unavailable BOWLING, W GIRISH PA Unavailable Unavailable BOWLING, W GIRISH PA Unavailable Unavailable BOWLING, W GIRISH PA Unavailable Unavailable BOWLING, W GIRISH PA Unavailable Unavailable BOWLING, W GIRISH PA Unavailable Unavailable BOWLING, W GIRISH PA Unavailable Unavailable BOWLING, W GIRISH PA Unavailable Unavailable BOWLING, W GIRISH PA Unavailable Unavailable BOWLING, W GIRISH PA Unavailable Unavailable BOWLING, W GIRISH PA Unavailable Unavailable BOWLING, W GIRISH PA Unavailable Unavailable BOWLING, W GIRISH PA Unavailable Unavailable BOWLING, W GIRISH PA Unavailable Unavailable BOWLING, W GIRISH PA Unavailable Unavailable BOWLING, W GIRISH PA Unavailable Unavailable BOWLING, W GIRISH PA Unavailable Unavailable BOWLING, W GIRISH PA Unavailable Unavailable BOWLING, W GIRISH PA Unavailable Unavailable BOWLING, W GIRISH PA Unavailable Unavailable BOWLING, W GIRISH PA Unavailable Unavailable BOWLING, W GIRISH PA Unavailable Unavailable BOWLING, W GIRISH PA Unavailable Unavailable BOWLING, W GIRISH PA Unavailable Unavailable BOWLING, W GIRISH PA Unavailable Unavailable BOWLING, W GIRISH PA Unavailable Unavailable BOWLING, W GIRISH PA Unavailable Unavailable BOWLING, W GIRISH PA Unavailable Unavailable BOWLING, W GIRISH PA Unavailable Unavailable BOWLING, W GIRISH PA Unavailable Unavailable BOWLING, W GIRISH PA Unavailable Unavailable BOWLING, W GIRISH PA Unavailable Unavailable BOWLING, W GIRISH PA Unavailable Unavailable BOWLING, W GIRISH PA Unavailable Unavailable BOWLING, W GIRISH PA Unavailable Unavailable BOWLING, W GIRISH PA Unavailable Unavailable BOWLING, W GIRISH PA Unavailable Unavailable BOWLING, W GIRISH PA Unavailable Unavailable BOWLING, W GIRISH PA Unavailable Unavailable BOWLING, W GIRISH PA Unavailable Unavailable BOWLING, W GIRISH PA Unavailable Unavailable VINEET GOETZ Unavailable Unavailable MARK ANTHONY, J Taya ANP Unavailable Unavailable MARK ANTHONY, J Taya ANP Unavailable Unavailable MARK ANTHONY, J Taya ANP Unavailable Unavailable MARK ANTHONY, J Taya ANP Unavailable Unavailable MARK ANTHONY, J Taya ANP Unavailable Unavailable MARK ANTHONY, J Taya ANP Unavailable Unavailable MARK ANTHONY, J Taya ANP Unavailable Unavailable MARK ANTHONY, J Taya ANP Unavailable Unavailable MARK ANTHONY, J Taya ANP Unavailable Unavailable MARK ANTHONY, J Taya ANP Unavailable Unavailable MARK ANTHONY, J Taya ANP Unavailable Unavailable MARK ANTHONY, J Taya ANP Unavailable Unavailable MARK ANTHONY, J Taya ANP Unavailable Unavailable MARK ANTHONY, J Taya ANP Unavailable Unavailable MARK ANTHONY, J Taya ANP Unavailable Unavailable MARK ANTHONY, J Taya ANP Unavailable Unavailable MARK ANTHONY, J Taya ANP Unavailable Unavailable MARK ANTHONY, J Taya ANP Unavailable Unavailable MARK ANTHONY, J Taya ANP Unavailable Unavailable MARK ANTHONY, J Taya ANP Unavailable Unavailable MARK ANTHONY, J Taya ANP Unavailable Unavailable MARK ANTHONY, J Taya ANP Unavailable Unavailable MARK ANTHONY, J Taya ANP Unavailable Unavailable MARK ANTHONY, J Taya ANP Unavailable Unavailable MARK ANTHONY, J Taya ANP Unavailable Unavailable MARK ANTHONY, J Taya ANP Unavailable Unavailable MARK ANTHONY, J Taya ANP Unavailable Unavailable MARK ANTHONY, J Taya ANP Unavailable Unavailable MARK ANTHONY, J Taya ANP Unavailable Unavailable MARK ANTHONY, J Taya ANP Unavailable Unavailable MARK ANTHONY, J Taya ANP Unavailable Unavailable MARK ANTHONY, J Taya ANP Unavailable Unavailable MARK ANTHONY, J Taya ANP Unavailable Unavailable MARK ANTHONY, J Taya ANP Unavailable Unavailable MARK ANTHONY, J Taya ANP Unavailable Unavailable MARK ANTHONY, J Taya ANP Unavailable Unavailable MARK ANTHONY, J Taya ANP Unavailable Unavailable MARK ANTHONY, J Taya ANP Unavailable Unavailable MARK ANTHONY, J Taya ANP Unavailable Unavailable MARK ANTHONY, J Taya ANP Unavailable Unavailable MARK ANTHONY, J Taya ANP Unavailable Unavailable MARK ANTHONY, J Taya ANP Unavailable Unavailable MARK ANTHONY, J Taya ANP Unavailable Unavailable MARK ANTHONY, J Taya ANP Unavailable Unavailable MARK ANTHONY, J Taya ANP Unavailable Unavailable MARK ANTHONY, J Taya ANP Unavailable Unavailable MARK ANTHONY, J Taya ANP Unavailable Unavailable MARK ANTHONY, J Taya ANP Unavailable Unavailable MARK ANTHONY, J Taya ANP Unavailable Unavailable MARK ANTHONY, J Taya ANP Unavailable Unavailable MARK ANTHONY, J Taya ANP Unavailable Unavailable MARK ANTHONY, J Taya ANP Unavailable Unavailable MARK ANTHONY, J Taya ANP Unavailable Unavailable MARK ANTHONY, J Taya ANP Unavailable Unavailable MARK ANTHONY, J Taya ANP Unavailable Unavailable MARK ANTHONY, J Taya ANP Unavailable Unavailable MARK ANTHONY, J Taya ANP Unavailable Unavailable MARK ANTHONY, J Taya ANP Unavailable Unavailable MARK ANTHONY, J Taya ANP Unavailable Unavailable MARK ANTHONY, J Taya ANP Unavailable Unavailable MARK ANTHONY, J Taya ANP Unavailable Unavailable MARK ANTHONY, J Taya ANP Unavailable Unavailable MARK ANTHONY, J Taya ANP Unavailable Unavailable MARK ANTHONY, J Taya ANP Unavailable Unavailable MARK ANTHONY, J Taya ANP Unavailable Unavailable VINEET GOETZ Unavailable Unavailable MARK ANTHONY, J Taya ANP Unavailable Unavailable MARK ANTHONY, J Taya ANP Unavailable Unavailable MARK ANTHONY, J Taya ANP Unavailable Unavailable MARK ANTHONY, J Taya ANP Unavailable Unavailable MARK ANTHONY, J Taya ANP Unavailable Unavailable MARK ANTHONY, J Taya ANP Unavailable Unavailable MARK ANTHONY, J Taya ANP Unavailable Unavailable MARK ANTHONY, J Taya ANP Unavailable Unavailable MARK ANTHONY, J Taya ANP Unavailable Unavailable MARK ANTHONY, J Taya ANP Unavailable Unavailable MARK ANTHONY, J Taya ANP Unavailable Unavailable MARK ANTHONY, J Taya ANP Unavailable Unavailable MARK ANTHONY, J Taya ANP Unavailable Unavailable MARK ANTHONY, J Taya ANP Unavailable Unavailable MARK ANTHONY, J Taya ANP Unavailable Unavailable MARK ANTHONY, J Taya ANP Unavailable Unavailable MARK ANTHONY, J Taya ANP Unavailable Unavailable MARK ANTHONY, J Taya ANP Unavailable Unavailable MARK ANTHONY, J Taya ANP Unavailable Unavailable MARK ANTHONY, J Taya ANP Unavailable Unavailable MARK ANTHONY, J Taya ANP Unavailable Unavailable MARK ANTHONY, J Taya ANP Unavailable Unavailable MARK ANTHONY, J Taya ANP Unavailable Unavailable MARK ANTHONY, J Taya ANP Unavailable Unavailable MARK ANTHONY, J Taya ANP Unavailable Unavailable MARK ANTHONY, J Taya ANP Unavailable Unavailable MARK ANTHONY, J Taya ANP Unavailable Unavailable MARK ANTHONY, J Taya ANP Unavailable Unavailable MARK ANTHONY, J Taya ANP Unavailable Unavailable MARK ANTHONY, J Taya ANP Unavailable Unavailable MARK ANTHONY, J Taya ANP Unavailable Unavailable MARK ANTHONY, J Taya ANP Unavailable Unavailable MARK ANTHONY, J Taya ANP Unavailable Unavailable MARK ANTHONY, J Taya ANP Unavailable Unavailable MARK ATNHONY, J Taya ANP Unavailable Unavailable MARK ANTHONY, J Taya ANP Unavailable Unavailable MARK ANTHONY, J Taya ANP Unavailable Unavailable MARK ANTHONY, J Taya ANP Unavailable Unavailable MARK ANTHONY, J Taya ANP Unavailable Unavailable MARK ANTHONY, J Taya ANP Unavailable Unavailable MARK ANTHONY, J Taya ANP Unavailable Unavailable MARK ANTHONY, J Taya ANP Unavailable Unavailable MARK ANTHONY, J Taya ANP Unavailable Unavailable MARK ANTHONY, J Taya ANP Unavailable Unavailable MARK ANTHONY, J Taya ANP Unavailable Unavailable MARK ANTHONY, J Taya ANP Unavailable Unavailable MARK ANTHONY, J Taya ANP Unavailable Unavailable MARK ANTHONY, J Taya ANP Unavailable Unavailable MARK ANTHONY, J Taya ANP Unavailable Unavailable MARK ANTHONY, J Taya ANP Unavailable Unavailable MARK ANTHONY, J Taya ANP Unavailable Unavailable MARK ANTHONY, J Taya ANP Unavailable Unavailable MARK ANTHONY, J Taya ANP Unavailable Unavailable MARK ANTHONY, J Taya ANP Unavailable Unavailable MARK ANTHONY, J Taya ANP Unavailable Unavailable MARK ANTHONY, J Taya ANP Unavailable Unavailable MARK ANTHONY, J Taya ANP Unavailable Unavailable MARK ANTHONY, J Taya ANP Unavailable Unavailable MARK ANTHONY, J Taya ANP Unavailable Unavailable MARK ANTHONY, J Taya ANP Unavailable Unavailable MARK ANTHONY, J Taya ANP Unavailable Unavailable MARK ANTHONY, J Taya ANP Unavailable Unavailable MARK ANTHONY, J Taya ANP Unavailable Unavailable MARK ANTHONY, J Taya ANP Unavailable Unavailable MARK ANTHONY, J Taya ANP Unavailable Unavailable Gregorio Quiles MD Unavailable Unavailable Gregorio Quiles MD Unavailable Unavailable Gregorio Quiles MD Unavailable Unavailable Gregorio Quiles MD Unavailable Unavailable Gregorio Quiles MD Unavailable Unavailable Gregorio Quiles MD Unavailable Unavailable Gregorio Quiles MD Unavailable Unavailable Gregorio Quiles MD Unavailable Unavailable Gregorio Quiles MD Unavailable Unavailable Gregorio Quiles MD Unavailable Unavailable Gregorio Quiles MD Unavailable Unavailable Gregorio Quiles MD Unavailable Unavailable Gregorio Quiles MD Unavailable Unavailable Gregorio Quiles MD Unavailable Unavailable Gregorio Quiles MD Unavailable Unavailable Gregorio Quiles MD Unavailable Unavailable Gregorio Quiles MD Unavailable Unavailable Gregorio Quiles MD Unavailable Unavailable Gregorio Quiles MD Unavailable Unavailable Gregorio Quiles MD Unavailable Unavailable Gregorio Quiles MD Unavailable Unavailable Buniak, Borys Unavailable Unavailable [place], Borys Unavailable Unavailable [place], Borys MD Unavailable Unavailable [place], Borys MD Unavailable Unavailable [place], Borys MD Unavailable Unavailable [place], Borys MD Unavailable Unavailable [place], Borys MD Unavailable Unavailable [place], Borys Unavailable Unavailable [place], Borys MD Unavailable Unavailable [place], Borys MD Unavailable Unavailable [place], Borys MD Unavailable Unavailable [place], Borys MD Unavailable Unavailable [place], Borys MD Unavailable Unavailable [place], Borys MD Unavailable Unavailable [place], Borys MD Unavailable Unavailable [place], Borys MD Unavailable Unavailable [place], Borys MD Unavailable Unavailable [place], Borys MD Unavailable Unavailable [place], Borys MD Unavailable Unavailable [place], Borys MD Unavailable Unavailable [place], Borys Unavailable Unavailable [place], Borys Unavailable Unavailable [place], Borys Unavailable Unavailable [place], Borys Unavailable Unavailable [place], Borys Unavailable Unavailable [place], Borys Unavailable Unavailable Buniak, Borys Unavailable Unavailable Buniak, Borys Unavailable Unavailable Buniak, Borys Unavailable Unavailable Buniak, Borys Unavailable Unavailable Buniak, Borys Unavailable Unavailable Buniak, Borys Unavailable Unavailable Buniak, Borys Unavailable Unavailable Buniak, Borys Unavailable Unavailable Buniak, Borys Unavailable Unavailable Buniak, Borys Unavailable Unavailable Buniak, Borys Unavailable Unavailable Buniak, Borys Unavailable Unavailable Buniak, Borys Unavailable Unavailable Buniak, Borys Unavailable Unavailable Buniak, Borys Unavailable Unavailable Buniak, Borys Unavailable Unavailable Buniak, Borys Unavailable Unavailable Buniak, Borys Unavailable Unavailable Buniak, Borys Unavailable Unavailable Buniak, Borys Unavailable Unavailable Buniak, Borys Unavailable Unavailable Buniak, Borys Unavailable Unavailable Buniak, Borys Unavailable Unavailable Buniak, Borys Unavailable Unavailable Buniak, Borys Unavailable Unavailable [place], Borys Unavailable Unavailable [place], Borys Unavailable Unavailable [place], Borys Unavailable Unavailable [place], Borys Unavailable Unavailable [place], Borys MD Unavailable Unavailable [place], Borys MD Unavailable Unavailable [place], Borys MD Unavailable Unavailable [place], Borys MD Unavailable Unavailable [place], Borys MD Unavailable Unavailable [place], Borys MD Unavailable Unavailable [place], Borys MD Unavailable Unavailable [place], Borys MD Unavailable Unavailable [place], Borys MD Unavailable Unavailable [place], Borys MD Unavailable Unavailable [place], Borys MD Unavailable Unavailable [place], Borys MD Unavailable Unavailable [place], Borys MD Unavailable Unavailable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 ANSI-Medicaid [id number] Medicaid [id number] Medicaid [id number] [facility] [id number] Preferred Provider Organization (PPO) [id number] Medicaid Medigap Part B [id number] Self [id number] 65R ANSI-Medicaid [id number] Medicaid Medigap Part B [id number] Self [id number] 67R [facility] COMMUNITY PLAN [id number] 0 [id number] Medicaid Medigap Part B [id number] Self [id number] 65R ANSI-Medicaid [id number] Medicaid Medigap Part B [id number] Self [id number] [facility] Community Plan Commercial [id number] Self [id number] [facility] MEDICAID PI PI [facility] [id number] S [id number] Community Plan - [facility] Commercial [id number] Self [id number] Medicaid Medigap Part B [id number] Self [id number] 65R Medicaid Medigap Part B [id number] Self [id number] 65R Medicaid Medigap Part B [id number] Self [id number] 65R Medicaid Medigap Part B [id number] Self [id number] 65R Medicaid Medigap Part B [id number] Self [id number] 65R Medicaid Medigap Part B [id number] Self [id number] 65R MEDICAID [id number] Veronica [id number] [facility] COMMUNITY PLAN [id number] SP [id number] Medicaid Medigap Part B [id number] Self [id number] 65R Medicaid Medigap Part B [id number] Self [id number] 65R Medicaid Medigap Part B [id number] Self [id number] 65R [facility] COMMUNITY PLAN XIX [id number] 18 [id number] [place] [id number] S 0 [id number] [place] [id number] S [id number] [place] [id number] S [id number] [facility] MEDICAID OBDULIO HMO [id number] S [id number] Medicaid Medigap Part B [id number] Self [id number] 65R Medicaid Medigap Part B [id number] Self [id number] 65R MEDICAID M [id number] Self [id number] UN COMMUNITY PLAN MCDHMO [id number] SP [id number] [facility] Community Obdulio/Ess PLS Commercial [id number] Self [id number] BS [place] Trad/MX Commercial Self [employer] Medigap Part B Self Hmo [employer] Health Maintenance Organization (HMO) [id number] Medicaid Medigap Part B 1 1 Self 1 1 [facility] Obdulio/MCR Medigap Part B Self Medicaid [place] Self United [employer] Commercial Self MEDICAID [id number] Veronica [id number] [facility] MEDICAID [id number] Veronica [id number] [facility] Comm Plan Medicaid F [id number] SELF [id number] BC/BS Judge Hmo Medicaid Medigap Part B Self Medicaid Medigap Part B Self [facility] Plan-Obdulio Commercial Self RMO [facility]ENTRAL O [id number] S [id number] [facility] COMM PLAN OBDULIO W [id number] S [id number] [facility] Community Medicaid PL Commercial Self [facility] Comm Plan Medicaid F [id number] SELF [id number] MEDICAID [id number] SP [id number] MEDICAID P [id number] S [id number] MEDICAID [id number] S [id number] SELF PAY UNAVAILABLE SP UNAVAILA BLE SELF PAY SP UNAVAILABLE UNAVAILA BLE MEDICAID OBDULIO UNAVAILABLE UNAVAILA BLE UNITED [employer]CARE P [id number] S [id number] SELF PAY [id number] SP [id number] UNITED HEALTHCARE [id number] BLUE CROSS JUDGE PLAN [id number] SP [id number] MEDICAID W [id number] S [id number] BLUE CROSS JUDGE PLAN UNAVAILABLE UNAVAILABLE HMO BLUE [id number] SP [id number] HMO BLUE [id number] SP [id number] MEDICAID -RECURRING [id number] Problems, Conditions, and Diagnoses Code Display Name Description Problem Type Effective Dates Data Source(s) 890438965 Mild intermittent asthma Mild intermittent asthma Prob myles 05/17/2019 12:00:00 AM EST MEDENT ([facility] ) [id number] Allergic rhinitis caused by mold Allergi c rhinitis caused by mold Problem 05/02/2019 12:00:00 AM EST MED[facility] ([facility]) Note: On IT. 3+ reaction to alternaria m olds on scratch test. Completed 2015. [id number] Allergic rhinitis due to house dust mite Allergic rhinitis due to house dust mite Problem 05/02/2019 12:00:00 AM EST MED[facility] ([facility]) Note: On IT. 4+ reaction to dust mites o n scratch test. 4+ reaction to cockroaches on intradermal test Completed 2015. 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 Diagnosis 07/15/2019 05:45:00 PM [facility] F17.210 Nicotine dependence, cigarettes, uncompl icated NICOTINE DEPENDENCE, CIGARETTES, UNCOMPLICATED Diagnosis 07/15/2019 05:45:00 PM [facility] J45.909 Unspecified asthma, uncomplicated UNSPECIFIED THMA, UNCOMPLICATED Diagnosis 07/15/2019 05:45:00 PM [facility] I10 Essential (primary) hypertension ESSENTIAL (PRIMARY) H YPERTENSION Diagnosis 07/15/2019 05:45:00 PM [facility] G44.219 Episodic tension-type headache, not intr actable EPISODIC TENSION-TYPE HEADACHE, NOT INTRACTABLE Diagnosis 07/15/2019 05:45:00 PM [facility] R51 Headache HEADACHE Diagnosis 07/15/2019 05:45:00 PM [facility] [id number] Latex allergy status Latex allergy status Diagnosis 05/15/2019 04:47:00 PM [facility] [id number] Personal history of nicotine dependence Personal history of nicotine dependence Diagnosis 05/15/2019 04:47:00 PM [facility] W55402 Unspecified asthma, uncomplicated Unspecified as thma, uncomplicated Diagnosis 05/15/2019 04:47:00 PM [facility] [id number] Pain in right lower leg Pain in right lower leg Diagno sis 05/15/2019 04:47:00 PM [facility] R10.13 Epigastric pain Epigastric pain Diagnosis 02/15/2019 07:1 6:00 AM [facility] Surgeries/Procedures Procedure Description Date Indications Data Source(s) PROF LEXIE ERICKSON IMMNTX X W/PRV ALLGIC XTRCS NJXS 2020 12:00:00 AM EST [facility] ([facility] TSTG ANS FUNCJ CARDIOVAGAL INNERVAJ PARASYMP 0 12:00:00 AM EST [facility] ([facility]) TSTG ANS FUNCJ CARDIOVAGAL INNERVAJ PARASYMP 0 12:00:00 AM EST [facility] ([facility] ) TESTING AUTONOMIC NERVOUS SYSTEM FUNCTION 03/20/2020 1 2:00:00 AM EST [facility] ([facility] ) TESTING AUTONOMIC NERVOUS SYSTEM FUNCTION 03/20/2020 1 2:00:00 AM EST [facility] ([facility]) PROF LEXIE ERICKSON IMMNTX X W/PRV ALLGIC XTRCS NJXS 2019 12:00:00 AM EST [facility] ([facility]) CHEMODNRVTJ MUSC MUSC INNERVATED FACIAL NRV 02/28/2020 12:00:00 AM EST [facility] (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 02/13/2020 12:00:00 AM EST [facility] ([facility]) PROF LEXIE ERICKSON IMMNTX X W/PRV ALLGIC XTRCS NJXS 2019 12:00:00 AM EST [facility] ([facility]) PROF LEXIE ERICKSON IMMNTX X W/PRV ALLGIC XTRCS NJXS 2019 12:00:00 AM EST [facility] ([facility]) PROF LEXIE ERICKSON IMMNTX X W/PRV ALLGIC XTRCS NJXS 2019 12:00:00 AM EDT [facility] ([facility]) PROF LEXIE MANNINGG IMMNTX X W/PRV ALLGIC XTRCS NJXS 2019 12:00:00 AM EDT [facility] ([facility]) PROF OWEN ALLG IMMNTX X W/PRV ALLGIC XTRCS NJXS 2019 12:00:00 AM EDT [facility] ([facility]) CHEMODNRVTJ MUSC MUSC INNERVATED FACIAL NRV 11/20/2019 12:00:00 AM EDT [facility] ([facility]) PROF LEXIE MANNINGG IMMNTX X W/PRV ALLGIC XTRCS NJXS 2019 12:00:00 AM EDT [facility] ([facility]) PROF LEXIE MANNINGG IMMNTX X W/PRV ALLGIC XTRCS NJXS 2019 12:00:00 AM EDT [facility] ([facility]) Magnetic Resonance Angiogtaphy Head W/O Contrast Material(S) 10/07/2019 12:00:00 AM EDT [facility] ([facility] Magnetic Resonance Angiogtaphy Head W/O Contrast Material(S) 10/07/2019 12:00:00 AM EDT [facility] ([facility]) MRI BRAIN BRAIN STEM W/O CONTRAST MATERIAL 10/07/2019 12:00:00 AM EDT [facility] ([facility]) MRI BRAIN BRAIN STEM W/O CONTRAST MATERIAL 10/07/2019 12:00:00 AM EDT [facility] (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 09/19/2019 12:00:00 AM EDT [facility] ([facility]) PROF LEXIE MANNINGG IMMNTX X W/PRV ALLGIC XTRCS NJXS 2019 12:00:00 AM EDT [facility] ([facility]) PROF LEXIE MANNINGG IMMNTX X W/PRV ALLGIC XTRCS NJXS 2019 12:00:00 AM EDT [facility] ([facility]) [facility] ALLG IMMNTX X W/PRV ALLGIC XTRCS NJXS 2019 12:00:00 AM EDT [facility] ([facility]) PROF EVONNE ALLG IMMNTX X W/PRV ALLGIC XTRCS NJXS 2019 12:00:00 AM EDT [facility] ([facility]) PROF EVONNE ALLG IMMNTX X W/PRV ALLGIC XTRCS NJXS 2019 12:00:00 AM EDT [facility] ([facility]) [facility] ALLG IMMNTX X W/PRV ALLGIC XTRCS NJXS 2019 12:00:00 AM EDT [facility] ([facility]) PROF DOUGLASS ALLG IMMNTX X W/PRV ALLGIC XTRCS NJXS 2019 12:00:00 AM EDT [facility] ([facility]) PROF [facility] ALLG IMMNTX X W/PRV ALLGIC XTRCS NJXS 2019 12:00:00 AM EST [facility] ([facility]) [facility] ALLG IMMNTX X W/PRV ALLGIC XTRCS NJXS 2019 12:00:00 AM EST [facility] ([facility]) BRNCDILAT RSPSE SPMTRY PRE&POST-BRNCDILAT ADMN 020 12:00:00 AM EST [facility] ([facility]) [facility] ALLG IMMNTX X W/PRV ALLGIC XTRCS NJXS 2019 12:00:00 AM EST [facility] ([facility]) PREPJ& ALLERGEN IMMUNOTHERAPY 1/CRAWLER 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 04/07/2019 12:00:00 AM EST [facility] ([facility]) STREP A ASSAY W/OPTIC 04/03/2019 12:00:00 AM EST eCW1 ([facility]) Influenza A+B 04/03/2019 12:00:00 AM EST eCW1 ([facility]) PROF DOUGLASS ALLG IMMNTX X W/PRV ALLGIC XTRCS NJXS 2019 12:00:00 AM EST [facility] ([facility]) PROF OWEN ALLG IMMNTX X W/PRV ALLGIC XTRCS NJXS 2018 12:00:00 AM EST [facility] ([facility]) PROF OWEN ALLG IMMNTX X W/PRV ALLGIC XTRCS NJXS 2018 12:00:00 AM EST [facility] ([facility]) Results ID Date Data Source [id number] 03/11/2020 03:30:00 PM EST [facility] Name Value Range Interpretation Code Description Data Jaclyn rce(s) Supporting Document(s) Follow Up [facility] ICCGGm4vRaLJPbOoAEQmCklTNRekFObgTOWzT2S9CUggUc9SOTubsySoGTHbBd9+UHUuKR4eri7vLISw gMy [file] 52wc31iCbqBK/spindle setter+m453V8a4PAGA9Xg223pz6X/f5chcPAfQdAV36auilBEDTcx9ypn+40qm3okt4HY [file] lrEFLe5/cz1iShh5vpfMdGgyQMk8wzGc2uT8GOeTmkd4+frqNE+Frances+9+i88sPU4uz7N0hysKiOBu6dy 5ypC+a/mKzfX/fWPA4dnBW3FFCNFy4EImfQwi1mD9D FZazTk1lqbvcmta+customer service teller/jRzieTrp5SOjxb9AIUgspulZdaaViG906A8cunt+wsyyC9vh5UWEbO4uyaPJu [file] V3UV1rR9PIvLC+sd3mscUgcRz6joHnRWtMeGsHAV5/6f0IshpB7xD4T6KDIXTBpAKqwGYY9ff7bx+Manuscript Reader Wv/I04s/AI9qDldnReL4bUjUEl3MO5Nn9QTj01baU2eF3kYhZeVxty/FKVzrfzGt5uFqq8P0ZPks3H/c mA4S+3P2HGAA/S3HnzhtPseZJXXntUe5RZv3IfnhQ1 7c9Luj5IqORxIZ8bthXZuzPpho0qCngGMRorKAUgQV/rryFJ7iMt6Bc3XLKmHR+8nJu/8VPJOYk40/D5 deyqAMwzx+DQ9I9LWhWAebrvUl+ZIruPLQxxU6B4hG7kDJvvM3sXAE2orOEF/HRxlfEX66OI3W47I0Ws SO5bBwwK+PgJGmhj8xYzyfuzX9fBAM8cHx5QdiXrZ9 UyJ7HBgXSVF0UB7KLhdaINHTL6EE9WN6nLug5X1fyE8izA7tnXy1fvdFtyQIOBsxzI4M0+/I88WaRtJI /9R/ZF1NF/CZr8791sMwmTi0/RaeetycoMIGUpEW0t1Ib6tDqgg1C9+2x3gvwvWb5PQ+XcVFgOgiIcqF ibQ+/Xq6mgAJfM1AK54T6toIqMRMhLjdv6b+zF/z5/ ii/VVBwRi19lvB+3zy1Rp8PQsPGRB3keaIo7a0Smye5RCU07x/8JKqp2+adYHudLRMSu0Xa8bII1MAWB aQk5pFnYASBmWEvqwgULyozzLLydXeST/CzyP8x3xZq1i/IYEdSV+y85lX6amLrSZ19avuIln6la7Eaz UtnY9V5/nL0f3CAym78fnIK02omtbwnz575f6bXjZ4 AqdZhPS1pGhMJ1abI4dq7zgcsjXeI27EMGKOECi8q6zqCk2cXUGXNG1/a9d9FJbXecDuhoePgpuVSMhO GjYBcXK+jyUIsb36C0MccrpvUyobRshkz+BA/49RIka7EHoCnKw0dC+0ccwxS5JqAfdzwPmhknB8/[place] [file] c2lnF2fwOnZ6zB3as7MD9qbGmzuCC6K6GiNWqYIylIeQazYM4Ua7y980aE1sy/jZkRfKmJmpNhj6/Public Information Director [file] 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+kAa8YBomxrBfVvNCIt9cN36Fyb1d15bm7lCYQ4 7UbiEhBjkBBLYOT3RKdoAjBnwqWyI9Ahiau13OxKu+uxbu9gL08Yd82H2KLfYoZXntgbErl290akNiHj K3dFD29wD9ECTvPI2fY8CJScLW9wm9WNoT/6SFqzxDX5pGDUx7Fi4nwv/Sj78aHK5etumKwvCTBvHHY7 rqnZU5mV6x0lvzPD4DlveAIFeyAbUTjkl3pot4lt+F 9Kq5CBe/DMeUK612M04BS+mzOOk/PAbudok+lcNThiPloF5Bil0/I+VG3r4o+wrY14UzZqBewK2DqGCC eYOoh2iLHjIaMzD6Z6+DDxTY8gguu/Jerome+3JVRQqVkA9Ev3g6o6SINBzrV/Y4n4PIMQaggS79mWTBDA [file] uTjRvDZMkIhHxG7P+vp product marketing+X48Jz0u28cbJyXLo4L0DXTxMmZ83FPLUFbHKv2Qd2mW+E5OqQ2IQFN30IhTp [file] 11DCSxhpuI94VKGZcvqA0e2w6gHAaKbfnl1o++ED1zjXxfarCDuAeUn/1n+Dry Cleaner/6dIVnPVAolN4LfcVeJ [file] QWUKArykgrIJhraoYjyLKfUM6HCsFlPP1nkw5REzA8IFY6lCYyOz5SRIX0CoZ5VOzaUHSNDd== ID Date Data Source [id number] 01/24/2020 03:11:00 PM EST [facility] ([facility]) Name Value Range Interpretation Code Description Data Jaclyn rce(s) Supporting Document(s) Urine Color Laboratory test result MEDEN T ([facility]) Urine PH 7.0 units 5.0-9.0 [facility] Urine Appearance Laboratory test result [facility] ([facility]) Urine Leukocytes Laboratory test result [facility] ([facility]) Urine Blood Laboratory test result MEDEN T ([facility]) Specific gravity of Urine 1.015 1.005-1.030 FL DENT ([facility]) Urine Nitrite Laboratory test result MED ENT ([facility]) Urine Protein Laboratory test result 0-0 MED ENT ([facility]) Glucose [Presence] in Urine Laboratory test result [facility] ([facility]) Urine Urobilinogen 0.2 mg/dL 0.2-1.0 [facility] ([facility]) Bilirubin.total [Mass/volume] in Serum or Plasma Laboratory test resu lt MEDENT ([facility]) Urine Ketone Laboratory test result MEDE NT ([facility]) ID Date Data Source [id number] 01/08/2020 12:02:00 PM EDT [facility] ([facility]) Name Value Range Interpretation Code Description Data Jaclyn rce(s) Supporting Document(s) Glucose, Fasting 89 mg/dL 70-100 [facility] ([facility]) Blood Urea Nitrogen 9 mg/dL 7-18 [facility] ([facility]) Sodium Level 141 meq/L 136-145 [facility] ([facility]) Glomerular Filtration Rate Laboratory test result [facility] ([facility]) <content>Units are mL/min/1.73 m2</content>
<content></content>
<content>Chronic Kidney Disease Staging per NKF:</content>
<content></content>
<content>Stage I & II GFR >=60 Normal to Mildly Decreased</content>
<content>Stage III GFR 30- 59 Moderately Decreased</content>
<content>Stage IV GFR 15-29 Severely Decreased</content>
<content>Stage V GFR <15 Very Little GFR Left</content>
<content>ESRD GFR <15 on PUBLIC HEALTH REPRESENTATIVE</content>
<content></content> Creatinine For GFR 0.46 mg/dL 0.55-1.30 [facility] ([facility]) Chloride Level 107 meq/L 98-107 [facility] ([facility]) Carbon Dioxide Level 28 meq/L 21-32 [facility] ([facility] Potassium Serum 4.0 meq/L 3.5-5.1 [facility] ([facility]) Anion Gap 6 meq/L 8-16 [facility]) Calcium Level 8.1 mg/dL 8.5-10.1 [facility] ([facility]) ID Date Data Source [id number] 01/08/2020 12:02:00 PM EDT [facility] ([facility]) Name Value Range Interpretation Code Description Data Jaclyn rce(s) Supporting Document(s) White Blood Count 9.8 10 4.0-10.0 [facility] ([facility]) Hematocrit 38.1 % 36.0-47.0 [facility] ([facility]) Red Blood Count 3.81 10 4.00-5.40 [facility] ([facility]) Hemoglobin 12.6 g/dL 12.0-15.5 [facility] ([facility]) Mean Corpuscular Hemoglobin 33.1 pg 27.0-33.0 ME DENT ([facility]) Mean Corpuscular Volume 100.0 fl 80.0-96.0 [facility] ([facility]) Mean Corpuscular HGB Conc 33.1 g/dL 32.0-36.5 MEDE NT ([facility]) Red Cell Distribution Width 11.7 % 11.5-14.5 ME DENT ([facility]) Neutrophils % 67.7 % 36.0-66.0 [facility] ([facility]) Platelet Count, Automated 250 10 150-450 MEDE NT ([facility]) Lymph % 24.3 % 24.0-44.0 [facility] [place] % 6.0 % 0.0-5.0 [facility] Eos % 1.3 % 0.0-3.0 [facility] Neutrophils # 6.6 10 1.5-8.5 [facility] ([facility]) Baso % 0.5 % 0.0-1.0 [facility] Immature Granulocyte % 0.2 % 0-3.0 [facility] ([facility]) Nucleated Red Blood Cell % 0.0 % 0-0 MED ENT ([facility]) Eos # 0.1 10 0.0-0.5 [facility] Lymph # 2.4 10 1.5-5.0 [facility]) [place] # 0.6 10 0.0-0.8 [facility] Baso # 0.1 10 0.0-0.2 [facility] ID Date Data Source [id number] 01/08/2020 11:11:00 AM EDT [facility] ([facility]) Name Value Range Interpretation Code Description Data Jaclyn rce(s) Supporting Document(s) Reflex Urine Culture Laboratory test result [facility] ([facility]) <content>FULL REPORT IN LAB NOTES (eCW a nd [facility]).</content>
<content></content>
<content>ORGANISM 1: ESCHERICHIA COLI</content>
<content></content>
<content>COLONY COUNT 100,000</content>
<content></content>
<content>ORGANISM 2: LACTOBACILLUS SPECIES</content>
<content></content>
<content>COLONY COUNT 100,000</content>
<content>Most Lactobacillus species recovered from clinical</content>
<content>specimens are rarely pathogenic. Penicillin or</content>
<content>ampicillin with or without gentamicin is recommended</content>
<content>for treatment. Clindamycin and erythromycin are</content>
<content>alternative treatments. Vancomycin resistance has b een</content>
<content>reported.</content>
<content></content>
<content></content><br/ ><content>ORGANISM 1: ESCHERICHIA COLI</content>
<content>ORGANISM 2: LACTOBACILLUS SPECIES</content>
<content></content>
<content>ESCHERICHIA COLI: REACTION</content>
<content>TRIMETHOPRIM/SULFAMETHOXAZOLE IV 160mg TMP & 800mg SMXq6h >=320 R</content>
<content>TRIMETHOPRIM/SULFAMETHOXAZOLE PO Bactrim DS Bid >=320 R</content>
<content>AMPICILLIN IV 500mg q6h >=32 R</content>
<content>AMPICILLIN PO 500mg q6h fasting >=32 R</content>
<content>GENTAMICIN IV 80mg q8h <=1 S</content>
<content> NITROFURANTOIN PO 100mg BID <=16 S</content>
<content>CEFAZOLIN IV 1gm q8h <=4 S</content>
<content>LEVOFLOXACIN IV 500mg qd 1 S</content>
<content>LEVOFLOXACIN PO 250mg qd 1 S</content>
<content>LEVOFLOXACIN PO 500mg qd 1 S</content>
<content>TOBRAMYCIN IV 80mg q8h <=1 S</content>
<content>CEFTRIAXONE IV 1gm q24h <=1 S</content>
<content>CEFTAZIDIME IV 1gm q8h <=1 S</content>
<content>AMPICILLIN/SULBACTAM IV 1.5g q6h >=32 R</content>
<content>PIPERACILLIN/TAZOBACTAM IV 2.25 gm q6h <=4 S</content>
<content>AZTREONAM IV 1gm q8h <=1 S</content>
<content>ERTAPENEM IV 1gm qd <=0.5 S</content>
<content> MEROPENEM IV 1 gm q8h <=0.25 S</content>
<content>MEROPENEM IV 500 mg q8h <=0.25 S</content>
<content>TIGECYCLINE IV 50mg q12h <=0.5 S</content>
<content>CEFEPIME IV 1 gm q12h <=1 S</content>
<content>CEFEPIME IV 2 gm q12h <=1 S</content>
<content>EXTD BRD SPCTRM BETA LACTAMASE IV NEGATIVE FOR ESBL</content>
<content></content> ID Date Data Source [id number] 01/08/2020 11:11:00 AM EDT [facility] ([facility]) Name Value Range Interpretation Code Description Data Jaclyn rce(s) Supporting Document(s) WBC, Urine Man RFX Laboratory test result 0-3 [facility] ([facility]) RBC, Urine Laboratory test result 0-3 [facility] ([facility]) Squamous Epithelial Cell Urine Laboratory test result [facility] ([facility]) Bacteria, Urine Laboratory test result M [facility] ([facility]) Hyaline Cast, Urine Laboratory test result 0-1 [facility] ([facility]) Microscopic Exam Laboratory test result [facility] ([facility]) ID Date Data Source [id number] 01/08/2020 11:11:00 AM EDT [facility] ([facility]) Name Value Range Interpretation Code Description Data Jaclyn rce(s) Supporting Document(s) Appearance, Urine Manual RFX Laboratory test result [facility] ([facility]) PH,Urine Man Reflex 8.0 units 5.0-7.0 [facility] ([facility]) Color, Urine Manual Reflex Laboratory test result [facility] ([facility]) SP [place],Urine Manual Reflex 1.005 1.002-1.035 [facility] ([facility]) Glucose, Urine (Ua) Manual Laboratory test result [facility] ([facility]) Protein, Urine Manual Reflex Laboratory test result [facility] [facility] Bilirubin, Urine Manual Laboratory test result [facility] ([facility]) Urobilinogen, Urine Manual Laboratory test result [facility] ([facility]) Ketone, Urine Manual Laboratory test result [facility] ([facility]) Nitrite, Urine Manual RFX Laboratory test result [facility] ([facility]) Blood Urine Manual RFX Laboratory test result [facility] ([facility]) Leukocyte Esterase, Ur Man RFX Laboratory test result [facility] ([facility]) ID Date Data Source [id number] 07/15/2019 09:35:00 PM EDT [facility] Patient: NADIYA WILSON Observation Report - [facility].VisitID: [id number] [place] [address] [phone], FRegistration Date/Time: 07/15/2019 17:02 Weight:68 kg (S). Height/Length:59 inches (S). BMI:30.3 FAMILY HISTORYFather: Cancer, Heart Disease, Hypertension. INSTRUCTIONSYour Current Medications: Your current home medications have been reviewed. CONTINUE TAKING THE FOLLOWING MEDICATIONS:Bariatric Fusion Oral : 2x a day, Last: 07/15/2019. Benadryl Allergy Oral : Tablet 25 mg, 2 tablets daily, Last: 07/14/2019, at bedtime. Biotin Oral : Tablet 5000 mcg, 2 tablets daily, Last: 07/15/2019, every AM. Carafate Oral : 1 gm 4x a day, Last: 07/15/2019. Cetirizine HCl Oral : 10 mg daily, Last: 07/15/2019. Ferrous Sulfate Oral : 325 mg daily, Last: 07/15/2019. Magnesium Oral : 64 mg daily, Last: 07/14/2019. Nortriptyline HCl Oral : 75 mg daily, Last: 07/14/2019, every PM. Pantoprazole Sodium Oral : Tablet Delayed Release 40 mg, 1 tablet 2x a day, Last: 07/15/2019. Potassium Chloride ER Oral : Capsule Extended Release 10 meq, 1 capsule daily, Last: 07/15/2019. Premarin Oral : Tablet 0.625 mg, 1 tablet daily, Last: 07/15/2019. Singulair Oral : Tablet 10 mg, 1 tablet daily, Last: 07/14/2019, at bedtime. TiZANidine HCl Oral : Capsule 2 mg, daily, Last: 07/14/2019, at bedtime. (Electronically signed by Abby Dinh P.A. 07/15/2019 19:00) Name Value Range Interpretation Code Description Data Jaclyn rce(s) Supporting Document(s) ID Date Data Source [id number] 05/30/2019 12:30:00 PM EDT [facility] ([facility]) Name Value Range Interpretation Code Description Data Jaclyn rce(s) Supporting Document(s) Influenza A Amplification Laboratory test result [facility] ([facility]) Negative results do not preclude influen za or RSV virus infection and should not be used as the sole basis for treatment or other patient management decisions. Influenza B Amplification Laboratory test result [facility] Negative results do not preclude influen za or RSV virus infection and should not be used as the sole basis for treatment or other patient management decisions. ID Date Data Source [id number] 05/21/2019 06:34:00 PM EST [facility] ([facility]) Name Value Range Interpretation Code Description Data Jaclyn rce(s) Supporting Document(s) Gats Culture (Neg Strep SCR) Laboratory test result [facility]) FULL REPORT IN LAB NOTES (eCW and [facility] ). NEGATIVE FOR STREP PYOGENES (GROUP A) ID Date Data Source [id number] 05/21/2019 05:53:00 PM EST [facility] ([facility]) Name Value Range Interpretation Code Description [facility] Supporting Document(s) Red Blood Count 4.20 10 4.00-5.40 [facility] ([facility]) White Blood Count 7.7 10 4.0-10.0 [facility] ([facility]) Mean Corpuscular Volume 97.6 fl 80.0-96.0 M EDENT ([facility]) Hematocrit 41.0 % 36.0-47.0 [facility] ([facility]) Hemoglobin 13.8 g/dL 12.0-15.5 [facility] ([facility]) Mean Corpuscular HGB Conc 33.7 g/dL 32.0-36.5 [facility] ([facility]) Red Cell Distribution Width 11.4 % 11.5-14.5 [facility] ([facility]) Mean Corpuscular Hemoglobin 32.9 pg 27.0-33.0 [facility] ([facility]) Platelet Count, Automated 264 10 150-450 [facility] ([facility]) Lymphocytes/100 leukocytes in Blood by Automated count 46.8 % 24. 0-44.0 [facility] ([facility]) Neutrophils % 42.1 % 36.0-66.0 [facility] Baso % 0.9 % 0.0-1.0 [facility] Eos % 1.4 % 0.0-3.0 [facility] [place] % 8.5 % 0.0-5.0 [facility] Immature Granulocyte % 0.3 % 0-3.0 [facility] ([facility]) Neutrophils # 3.2 10 1.5-8.5 [facility] Nucleated Red Blood Cell % 0.0 % 0-0 [facility] ([facility]) [place] # 0.7 10 0.0-0.8 [facility] Lymph # 3.6 10 1.5-5.0 [facility] Eos # 0.1 10 0.0-0.5 [facility] Baso # 0.1 10 0.0-0.2 [facility] ID Date Data Source [id number] 05/21/2019 05:53:00 PM EST [facility] ([facility]) Name Value Range Interpretation Code Description Data Jaclyn rce(s) Supporting Document(s) C reactive protein [Mass/volume] in Serum or Plasma by High sensitivity method 0.46 mg/dL 0.00-0.30 [facility] ([facility] ID Date Data Source [id number] 05/21/2019 05:53:00 PM EST [facility] ([facility]) Name Value Range Interpretation Code Description Data Jaclyn rce(s) Supporting Document(s) Creatinine For GFR 0.58 mg/dL 0.55-1.30 [facility]) Glucose, Fasting 92 mg/dL 70-100 [facility] ([facility]) Blood Urea Nitrogen 9 mg/dL 7-18 [facility] ([facility]) Sodium Level 138 meq/L 136-145 [facility] ([facility]) Potassium Serum 3.8 meq/L 3.5-5.1 [facility] ([facility]) Glomerular Filtration Rate Laboratory test result [facility] ([facility]) <content>Units are mL/min/1.73 m2</content>
<content></content>
<content>Chronic Kidney Disease Staging per NKF:</content>
<content></content>
<content>Stage I & II GFR >=60 Normal to Mildly Decreased</content>
<content>Stage III GFR 30- 59 Moderately Decreased</content>
<content>Stage IV GFR 15-29 Severely Decreased</content>
<content>Stage V GFR <15 Very Little GFR Left</content>
<content>ESRD GFR <15 on PUBLIC HEALTH REPRESENTATIVE</content>
<content></content>
<content></content> Chloride Level 105 meq/L 98-107 [facility] ([facility]) Calcium Level 9.1 mg/dL 8.5-10.1 [facility] ([facility]) Anion gap in Serum or Plasma 3 meq/L 8-16 [facility] ([facility]) Carbon Dioxide Level 30 meq/L 21-32 [facility] ([facility]) ID Date Data Source [id number] 05/21/2019 05:53:00 PM EST [facility] ([facility], ) Name Value Range Interpretation Code Description Data Jaclyn rce(s) Supporting Document(s) Nucleated erythrocytes/100 leukocytes [Ratio] in Blood by Au tomated count 0.0 0-0 [facility] ([facility], ) ID Date Data Source [id number] 05/21/2019 05:53:00 PM EST [facility] ([facility], ) Name Value Range Interpretation Code Description Data Jaclyn rce(s) Supporting Document(s) Immature granulocytes/100 leukocytes in Blood by Automated count 0.3 0-3.0 [facility] ([facility], ) ID Date Data Source [id number] 05/21/2019 05:53:00 PM EST [facility] ([facility], ) Name Value Range Interpretation Code Description Data Jaclyn rce(s) Supporting Document(s) Basophils/100 leukocytes in Blood by Automated count 0.9 0.0-1 .0 [facility] ([facility], ) ID Date Data Source [id number] 05/21/2019 05:53:00 PM EST [facility] ([facility], ) Name Value Range Interpretation Code Description Data Jaclyn rce(s) Supporting Document(s) Eosinophils/100 leukocytes in Blood by Automated count 1.4 0.0 -3.0 [facility] ([facility], ) ID Date Data Source [id number] 05/21/2019 05:53:00 PM EST [facility] ([facility], ) Name Value Range Interpretation Code Description Data Jaclyn rce(s) Supporting Document(s) Monocytes/100 leukocytes in Blood by Automated count 8.5 0.0-5 .0 [facility] ([facility], ) ID Date Data Source [id number] 05/21/2019 05:53:00 PM EST [facility] ([facility]) Name Value Range Interpretation Code Description Data Jaclyn rce(s) Supporting Document(s) Lymphocytes/100 leukocytes in Blood by Automated count 46.8 24. 0-44.0 [facility] ([facility], ) ID Date Data Source [id number] 05/21/2019 05:53:00 PM EST [facility] ([facility]) Name Value Range Interpretation Code Description Data Jaclyn rce(s) Supporting Document(s) Neutrophils [#/volume] in Blood by Automated count 42.1 36.0-66 .0 [facility] ([facility], ) ID Date Data Source [id number] 05/21/2019 05:53:00 PM EST [facility] ([facility], ) Name Value Range Interpretation Code Description Data Jaclyn rce(s) Supporting Document(s) Platelets [#/volume] in Blood by Automated count 264 150-450 [facility] ([facility], ) ID Date Data Source [id number] 05/21/2019 05:53:00 PM EST [facility] ([facility], ) Name Value Range Interpretation Code Description Data Jaclyn rce(s) Supporting Document(s) Erythrocyte distribution width [Ratio] by Automated count 11.4 11.5-14.5 [facility] ([facility], ) ID Date Data Source [id number] 05/21/2019 05:53:00 PM EST [facility] ([facility], ) Name Value Range Interpretation Code Description Data Jaclyn rce(s) Supporting Document(s) Erythrocyte mean corpuscular hemoglobin concentration [Mass/volume] by Automated count 33.7 32.0-36.5 [facility] ([facility], ) ID Date Data Source [id number] 05/21/2019 05:53:00 PM EST [facility] ([facility], ) Name Value Range Interpretation Code Description Data Jaclyn rce(s) Supporting Document(s) Erythrocyte mean corpuscular hemoglobin [Entitic mass] by Au tomated count 32.9 27.0-33.0 [facility] ([facility], ) ID Date Data Source [id number] 05/21/2019 05:53:00 PM EST [facility] ([facility], ) Name Value Range Interpretation Code Description Data Jaclyn rce(s) Supporting Document(s) Erythrocyte mean corpuscular volume [Entitic volume] by Auto mated count 97.6 80.0-96.0 [facility] ID Date Data Source [id number] 05/21/2019 05:53:00 PM EST [facility] ([facility], ) Name Value Range Interpretation Code Description Data Jaclyn rce(s) Supporting Document(s) Hematocrit [Volume Fraction] of Blood by Automated count 41.0 3 6.0-47.0 [facility] ) ID Date Data Source [id number] 05/21/2019 05:53:00 PM EST [facility] ([facility], ) Name Value Range Interpretation Code Description Data Jaclyn rce(s) Supporting Document(s) Hemoglobin [Mass/volume] in Blood 13.8 12.0-15.5 [facility] ([facility], ) ID Date Data Source [id number] 05/21/2019 05:53:00 PM EST [facility] ([facility], ) Name Value Range Interpretation Code Description Data Jaclyn rce(s) Supporting Document(s) Erythrocytes [#/volume] in Blood by Automated count 4.20 4.00-5 .40 [facility] ([facility], ) ID Date Data Source [id number] 05/21/2019 05:53:00 PM EST [facility] ([facility], ) Name Value Range Interpretation Code Description Data Jaclyn rce(s) Supporting Document(s) Leukocytes [#/volume] in Blood by Automated count 7.7 4.0-10.0 [facility] ([facility], ) ID Date Data Source [id number] 05/21/2019 05:53:00 PM EST [facility] ([facility], ) Name Value Range Interpretation Code Description Data Jaclyn rce(s) Supporting Document(s) Influenza virus B RNA [Presence] in Naso pharynx by Probe and target amplification method Laboratory test result [facility] ([facility], ) ID Date Data Source [id number] 05/21/2019 05:53:00 PM EST [facility] ([facility], ) Name Value Range Interpretation Code Description Data Jaclyn rce(s) Supporting Document(s) Influenza virus A RNA [Presence] in Naso pharynx by Probe and target amplification method Laboratory test result [facility] ([facility], ) ID Date Data Source [id number] 05/21/2019 05:53:00 PM EST [facility] ([facility], ) Name Value Range Interpretation Code Description Data Jaclyn rce(s) Supporting Document(s) C reactive protein [Mass/volume] in Serum or Plasma by High sensitivity method 0.46 0.00-0.30 [facility] ([facility], ) ID Date Data Source [id number] 05/21/2019 05:53:00 PM EST [facility] ([facility], ) Name Value Range Interpretation Code Description Data Jaclyn rce(s) Supporting Document(s) Calcium [Moles/volume] in Serum or Plasma 9.1 8.5-10.1 [facility] ([facility], ) ID Date Data Source [id number] 05/21/2019 05:53:00 PM EST [facility] ([facility], ) Name Value Range Interpretation Code Description Data Jaclyn rce(s) Supporting Document(s) Anion gap 3 in Serum or Plasma 3 8-16 [facility] ([facility], ) ID Date Data Source [id number] 05/21/2019 05:53:00 PM EST [facility] ([facility], ) Name Value Range Interpretation Code Description Data Jaclyn rce(s) Supporting Document(s) Carbon dioxide, total [Moles/volume] in Serum or Plasma 30 21 -32 [facility] ([facility], ) ID Date Data Source [id number] 05/21/2019 05:53:00 PM EST [facility] ([facility], ) Name Value Range Interpretation Code Description Data Jaclyn rce(s) Supporting Document(s) Chloride [Moles/volume] in Serum or Plasma 105 98-107 [facility] ([facility]) ID Date Data Source [id number] 05/21/2019 05:53:00 PM EST [facility] ([facility]) Name Value Range Interpretation Code Description Data Jaclyn rce(s) Supporting Document(s) Potassium [Moles/volume] in Serum or Plasma 3.8 3.5-5.1 [facility] ([facility]) ID Date Data Source [id number] 05/21/2019 05:53:00 PM EST [facility] ([facility]) Name Value Range Interpretation Code Description Data Jaclyn rce(s) Supporting Document(s) Sodium [Moles/volume] in Serum or Plasma 138 136-145 [facility] ([facility]) ID Date Data Source [id number] 05/21/2019 05:53:00 PM EST [facility] ([facility]) Name Value Range Interpretation Code Description Data Jaclyn rce(s) Supporting Document(s) Glomerular filtration rate/1.73 sq M.pre dicted [Volume Rate/Area] in Serum or Plasma by Creatinine-based formula (MDRD) [facility] ID Date Data Source [id number] 05/21/2019 05:53:00 PM EST [facility] ([facility]) Name Value Range Interpretation Code Description Data Jaclyn rce(s) Supporting Document(s) Creatinine [Mass/volume] in Serum or Plasma 0.58 0.55-1.30 [facility] ID Date Data Source [id number] 05/21/2019 05:53:00 PM EST [facility] ([facility]) Name Value Range Interpretation Code Description Data Jaclyn rce(s) Supporting Document(s) Urea nitrogen [Mass/volume] in Serum or Plasma 9 7-18 [facility] ([facility]) ID Date Data Source [id number] 05/21/2019 05:53:00 PM EST [facility] ([facility]) Name Value Range Interpretation Code Description Data Jaclyn rce(s) Supporting Document(s) Glucose [Mass/volume] in Serum or Plasma 92 70-100 [facility] ([facility]) ID Date Data Source [id number] 05/21/2019 05:53:00 PM EST [facility] ([facility]) Name Value Range Interpretation Code Description Data Jaclyn rce(s) Supporting Document(s) aPTT in Blood by Coagulation assay 29.0 25.0-38.4 [facility] ([facility]) ID Date Data Source [id number] 05/21/2019 05:53:00 PM EST [facility] ([facility]) Name Value Range Interpretation Code Description Data Jaclyn rce(s) Supporting Document(s) INR in Platelet poor plasma by Coagulation assay 1.06 [facility] ([facility]) ID Date Data Source [id number] 05/21/2019 05:53:00 PM EST [facility] ([facility]) Name Value Range Interpretation Code Description Data Jaclyn rce(s) Supporting Document(s) Prothrombin time (PT) 13.5 11.8-14.0 [facility] ( [facility]) ID Date Data Source [id number] 05/21/2019 05:53:00 PM EST [facility] ([facility]) Name Value Range Interpretation Code Description Data Jaclyn rce(s) Supporting Document(s) Erythrocyte sedimentation rate by Westergren method 10 0-20 [facility] ([facility]) ID Date Data Source [id number] 05/21/2019 05:53:00 PM EST [facility] ([facility]) Name Value Range Interpretation Code Description Data Jaclyn rce(s) Supporting Document(s) Basophils [#/volume] in Blood by Automated count 0.1 0.0-0.2 [facility] ([facility]) ID Date Data Source [id number] 05/21/2019 05:53:00 PM EST [facility] ([facility]) Name Value Range Interpretation Code Description Data Jaclyn rce(s) Supporting Document(s) Eosinophils [#/volume] in Blood by Automated count 0.1 0.0-0.5 [facility] ([facility]) ID Date Data Source [id number] 05/21/2019 05:53:00 PM EST [facility] ([facility]) Name Value Range Interpretation Code Description Data Jaclyn rce(s) Supporting Document(s) Monocytes [#/volume] in Blood by Automated count 0.7 0.0-0.8 [facility] ([facility]) ID Date Data Source [id number] 05/21/2019 05:53:00 PM EST [facility] ([facility], ) Name Value Range Interpretation Code Description Data Jaclyn rce(s) Supporting Document(s) Lymphocytes [#/volume] in Blood by Automated count 3.6 1.5-5.0 [facility] ([facility], ) ID Date Data Source [id number] 05/21/2019 05:53:00 PM EST [facility] ([facility], ) Name Value Range Interpretation Code Description Data Jaclyn rce(s) Supporting Document(s) Neutrophils [#/volume] in Blood by Automated count 3.2 1.5-8.5 [facility] ([facility], ) ID Date Data Source [id number] 05/21/2019 05:53:00 PM EST [facility] ([facility]) Name Value Range Interpretation Code Description Data Jaclyn rce(s) Supporting Document(s) Erythrocyte sedimentation rate by Westergren method 10 mm/hr 0-20 [facility] ([facility]) ID Date Data Source [id number] 05/21/2019 05:53:00 PM EST [facility] ([facility]) Name Value Range Interpretation Code Description Data Jaclyn rce(s) Supporting Document(s) Red Blood Count 4.20 10 4.00-5.40 [facility] ([facility]) White Blood Count 7.7 10 4.0-10.0 [facility] ([facility]) Hemoglobin 13.8 g/dL 12.0-15.5 [facility] Hematocrit 41.0 % 36.0-47.0 [facility] ([facility] Mean Corpuscular Hemoglobin 32.9 pg 27.0-33.0 [facility] ([facility]) Mean Corpuscular Volume 97.6 fl 80.0-96.0 [facility] ([facility]) Mean Corpuscular HGB Conc 33.7 g/dL 32.0-36.5 MEDE NT ([facility]) Red Cell Distribution Width 11.4 % 11.5-14.5 [facility] ([facility]) Platelet Count, Automated 264 10 150-450 MED[facility] NT ([facility]) Neutrophils % 42.1 % 36.0-66.0 [facility] ([facility]) Lymph % 46.8 % 24.0-44.0 [facility] [place] % 8.5 % 0.0-5.0 [facility]) Baso % 0.9 % 0.0-1.0 [facility]) Eos % 1.4 % 0.0-3.0 [facility]) Immature Granulocyte % 0.3 % 0-3.0 [facility] ([facility]) Neutrophils # 3.2 10 1.5-8.5 [facility] ([facility]) Nucleated Red Blood Cell % 0.0 % 0-0 [facility] Lymph # 3.6 10 1.5-5.0 [facility]) [place] # 0.7 10 0.0-0.8 [facility]) Baso # 0.1 10 0.0-0.2 [facility]) Eos # 0.1 10 0.0-0.5 [facility]) ID Date Data Source [id number] 05/21/2019 05:53:00 PM EST [facility] ([facility]) Name Value Range Interpretation Code Description Data Jaclyn rce(s) Supporting Document(s) Influenza A Amplification Laboratory test result [facility] ([facility]) Negative results do not preclude influen za or RSV virus infection and should not be used as the sole basis for treatment or other patient management decisions. Influenza B Amplification Laboratory test result [facility] ([facility]) Negative results do not preclude influen za or RSV virus infection and should not be used as the sole basis for treatment or other patient management decisions. ID Date Data Source [id number] 05/21/2019 05:53:00 PM EST [facility] ([facility] Name Value Range Interpretation Code Description Data Jaclyn rce(s) Supporting Document(s) C reactive protein [Mass/volume] in Serum or Plasma by High sensitivity method 0.46 mg/dL 0.00-0.30 [facility] ([facility] ) ID Date Data Source [id number] 05/21/2019 05:53:00 PM EST [facility] ([facility]) Name Value Range Interpretation Code Description Data Jaclyn rce(s) Supporting Document(s) Glucose, Fasting 92 mg/dL 70-100 [facility] ([facility]) Creatinine For GFR 0.58 mg/dL 0.55-1.30 [facility] ([facility]) Blood Urea Nitrogen 9 mg/dL 7-18 [facility] ([facility]) Sodium Level 138 meq/L 136-145 [facility] ([facility]) Glomerular Filtration Rate Laboratory test result [facility] ([facility]) <content>Units are mL/min/1.73 m2</content>
<content></content>
<content>Chronic Kidney Disease Staging per NKF:</content>
<content></content>
<content>Stage I & II GFR >=60 Normal to Mildly Decreased</content>
<content>Stage III GFR 30- 59 Moderately Decreased</content>
<content>Stage IV GFR 15-29 Severely Decreased</content>
<content>Stage V GFR <15 Very Little GFR Left</content>
<content>ESRD GFR <15 on PUBLIC HEALTH REPRESENTATIVE</content>
<content></content> Potassium Serum 3.8 meq/L 3.5-5.1 [facility] ([facility]) Carbon Dioxide Level 30 meq/L 21-32 [facility] ([facility]) Chloride Level 105 meq/L 98-107 [facility] ([facility]) Anion Gap 3 meq/L 8-16 [facility]) Calcium Level 9.1 mg/dL 8.5-10.1 [facility] ([facility]) ID Date Data Source [id number] 05/21/2019 05:53:00 PM EST [facility] ([facility]) Name Value Range Interpretation Code Description Data Jaclyn rce(s) Supporting Document(s) aPTT in Blood by Coagulation assay 29.0 s 25.0-38.4 [facility] ([facility]) ID Date Data Source [id number] 05/21/2019 05:53:00 PM EST [facility] ([facility]) Name Value Range Interpretation Code Description Data Jaclyn rce(s) Supporting Document(s) Inr 1.06 [facility] THERAPUTIC HUMAN INR VALUES INDICATIONS NORMAL RANGES PROPHYLAXIS/TREATMENT OF: VENOUS THROMBOSIS 2.0-3.0 PULMONARY EMBOLISM 2.0-3.0 PREVENTION OF SYSTEMIC EMBOLISM FROM: TISSUE HEART VALVES 2.0-3.0 ACUTE MYOCARDIAL INFARCTION 2.0-3.0 VALVULAR HEART DISEASE 2.0-3.0 ATRIAL FIBRILLATION 2.0-3.0 MECHANICAL VALVES(HIGH RISK) 2.5-3.5 RECURRENT MYOCARDIAL INFARCTION 2.5-3.5 Prothrombin Time 13.5 s 11.8-14.0 [facility] ([facility]) ID Date Data Source [id number] 05/15/2019 04:47:00 PM EST [facility] 1 OrderSheet [facility] Emergency Department [address] [place] [address] Phone #: ext- [phone] 05/15/2019 16:26 Patient: NADIYA WILSON Sex: F : 1970 Age: 49yWEIGHT:69.8 kg (S) HEIGHT:60 inches (S) BMI:30.1 STATUS:Unknown status [id number]: Ceclor, Dilaudid, Erythromycin, Latex, Succinylcholine ChlorideCHIEF COMPLAINT: painDIAGNOSIS: Pain in lower limbLAB ORDERSOrder Description Priority Entered Acknowledged InitialedDIAGNOSTIC STUDY ORDERSOrder Description Priority Entered Acknowledged InitialedUS Lower Ext STAT 16:55 05/15/2019 16:55 DorisVenous Right Anna Mccracken RN(Oxygen?(No)) RN; Verbal order per; Francis Daily P.A.-C Reason for Study: Pain, Limb, Swelling, LimbKnee Complete Left STAT 17:48 05/15/2019 Cancelled: Other 17:48 Christopher(Oxygen?(No)) Francis Daily P.AJose David-C P.A.-C; Reason for Study: PainTibia Fibula AP And STAT 17:48 05/15/2019 Cancelled: Other 17:48 JackgilLAT Left Francis Daily P.A.-C(Oxygen?(No)) P.A.- C; Reason for Study: PainKnee Complete STAT 17:49 05/15/2019 19:07 Rekha,Right Francis Flores R.N.(Oxygen?(No)) P.A.-C; Reason for Study: PainTibia Fibula AP And STAT 17:49 05/15/2019 18:00 Rekha,LAT Right Francis Flores R.N.(Oxygen?(No)) P.A.-C; Reason for Study: PainMEDICATION/IV/DRIP/FLUID ORDERSOrder Description Priority Entered Acknowledged InitialedAtivan PO 0.5 mg 17:48 05/15/2019 18:06 Francis Da Silva R.N. P.A.-C; 2 OrderSheet [facility] Emergency Department [address] [place] [address] Phone #: ext- [phone] 05/15/2019 16:26 Patient: NADIYA WILSON Sex: F : 1970 Age: 49yTylenol 1 g PO X1 18:00 05/15/2019 18:06 Rekha,dose: 1000 mg Francis Flores R.N.(NOW x1) P.A.-C; Reason for ordering with alerts: Other (Sts she has has in the past with no issues or adverse SEs) -- 18:00 05/15/2019 Francis Gonzalez-CGENERAL ORDERSOrder Description Priority Entered Acknowledged Initialed[Electronically signed by Mark Da Silva R.N. (19:19 05/15/2019)][Electronically signed by Francis Daily P.A.-C (13:01 05/16/2019)][Electronically locked by Mark Da Silva R.N. (19:19 05/15/2019)] Name Value Range Interpretation Code Description Data Jaclyn rce(s) Supporting Document(s) ID Date Data Source [id number] 05/15/2019 04:47:00 PM EST [facility] 1 Medication Reconciliation Report [facility] Emergency Department [address] [place] [address] Phone #: ext- [phone] 05/15/2019 16:26 Patient: NADIYA WILSON Sex: F : 1970 Age: 49yWeight: 69.8 kgHeight/Length: 60 in.BMI: 30.1ALLERGIES: Ceclor, Dilaudid, Erythromycin, Latex, Succinylcholine ChlorideThe patient's Home Medications are listed below:THE FOLLOWING MEDICATIONS NEED TO BE RECONCILED: Acetaminophen Oral (500 mg) 1 tablet, last dose: 1330, prn Carafate Oral (1 gm) 1 tablet, 4x a day Cetirizine HCl Oral (10 mg) 1 tablet, daily Cytotec Oral (200 mcg) 1 tablet, daily Nortriptyline HCl Oral (75 mg) 1 capsule, daily Pantoprazole Sodium Oral (40 mg) 1 tablet, 2x a day Potassium Chloride ER Oral (10 meq) 1 capsule, daily Premarin Oral (0.625 mg) 1 tablet, daily Singulair Oral (10 mg) 1 tablet, dailyThe source(s) of the original Home Medication information:Not obtained.The following Medications were given to the patient in the Emergency Department:Ativan [PO] PO 0.5 mg, administered: 05/15/2019 6:06:00 PMTylenol [PO] PO 1000 mg, administered: 6:06:00 PMThe following Medications were prescribed to the patient: 2 Medication Reconciliation Report [facility] Emergency Department [address] [place] [address] Phone #: ext- [phone] 05/15/2019 16:26 Patient: NADIYA WILSON Sex: F : 1970 Age: 49ycyclobenzaprine 10 mg tablet Take 1 tablet three times a day for 4 days -- Dispense 12 tablet. Refills:0. Substitution permitted.[employer] [place] [address]. FaxNumber: .gabapentin 100 mg capsule Take 1 capsule three times a day for 4 days -- Dispense 12 capsule.Refills: 0. Substitution permitted.[employer] [address] [phone]. . -- Francis Daily P.A.-C Name Value Range Interpretation Code Description Data Jaclyn rce(s) Supporting Document(s) ID Date Data Source [id number] 05/15/2019 04:47:00 PM EST [facility] 1 Medication Administration Record [facility] Emergency Department [address] [place] [address] Phone #: ext- [phone] 05/15/2019 16:26 Patient: NADIYA WILSON Sex: F : 1970 Age: 49yWeight: 69.8 kgHeight/Length: 60 inBMI: 30.1ALLERGIES: Latex, Succinylcholine Chloride, Dilaudid, Ceclor, Erythromycin Date/Time Medication Administered Medication OrderedGiven ATIVAN [PO] (LORAZEPAM) Ativan PO 0.5 mg18:05/15/2019 Dose: 0.5 mg Tablets Mark Lugo R.N.Given TYLENOL [PO] (APAP) Tylenol 1 g PO X1 dose: 1000 mg18:06 05/15/2019 Dose: 1000 mg Tablets PO (NOW x1)Mark Da Silva R.N. Name Value Range Interpretation Code Description Data Jaclyn rce(s) Supporting Document(s) ID Date Data Source [id number] 05/15/2019 04:47:00 PM EST [facility] 1 General Instructions [facility] Emergency Department [address] [place] [address] Phone #: ext- [phone] 05/15/2019 16:26 Patient: NADIYA WILSON Sex: F : 1970 Age: 49yAcute right lower leg pain.INSTRUCTIONSUse crutches. Wear elastic wrap as directed.(Recommend to utilize OTC Motrin and Tylenol to control inflammation and pain management.Recommend to follow the instructions on the bottle and not to exceed.).Warnings: SEDATIVE MEDICATION: You were given sedative medication during your visit. Do not driveor operate dangerous machinery.Prescription Medications:cyclobenzaprine 10 mg tablet Take 1 tablet three times a day for 4 days -- Dispense 12 tablet. Refills:0. Substitution permitted.[employer] [address] [place] [phone]. .gabapentin 100 mg capsule Take 1 capsule three times a day for 4 days -- Dispense 12 capsule.Refills: 0. Substitution permitted.[employer] [address] [phone]. .Follow-up:Return to the emergency department as needed. Follow up with your healthcare provider in three days ifnot better. Call for an appointment.Understanding of the discharge instructions verbalized by patient. ADDITIONAL INFORMATIONMyofascial Pain SyndromeYour pain is caused by a state of chronic muscle tension. This condition is called by various names:myofascial pain, fibrositis, and trigger point pain. This can also be due to mechanical stress, such asworking at a computer terminal for long periods or work that requires repetitive motions of the arms orhands. It can also be caused by emotional stress, such as problems on the job or in your personallife. Sometimes there is no obvious cause. The pain can happen in the area of the muscle spasm or 2 General Instructions [facility] Emergency Department [address] [place] [address] Phone #: ext [phone] 05/15/2019 16:26 Patient: NADIYA WILSON Sex: F : 1970 Age: 49yat a site distant to it. For example, spasm of a neck muscle can cause headache. Spasm of themuscle near the shoulder blade can cause pain shooting down the arm.Home care Try to identify the factors that may be causing your problem and change them: o If you feel that emotional stress is a cause of your pain, learn methods to better deal with the stress in your life. These may include regular exercise, muscle relaxation techniques, meditation, or simply taking time out for yourself. Talk with your healthcare provider or go to a local bookstore and review the many books and tapes about reducing stress. o If you feel that physical stress is a cause for your pain, try to change any poor work habits. You may use gwls-jnp-pvinwed pain medicine to control pain, unless another medicine was prescribed. If you have chronic liver or kidney disease or ever had a stomach ulcer or gastrointestinal bleeding, talk with your healthcare provider before using these medicines. Apply an ice pack over the injured area for 15 to 20 minutes every 3 to 6 hours. You should do this for the first 24 to 48 hours. You can make an ice pack by filling a plastic bag that seals at the top with ice cubes and then wrapping it with a thin towel. Be careful not to injure your skin with the ice treatments. Ice should never be applied directly to skin. Continue the use of ice packs for relief of pain and swelling as needed. After 48 hours, apply heat (warm shower or warm bath) for 15 to 20 minutes several times a day, or alternate ice and heat. Massage the trigger point and stretch out the muscle. Trigger point massage can be done by applying heat to the area to warm and prepare the muscle. Then have someone apply steady thumb pressure directly on the knot in the muscle for 30 seconds. Release the pressure, then massage the surrounding muscle. Repeat the process, applying more pressure to the trigger point each time. Do this up to the limit of pain. With each treatment, the trigger point should become less tender and the pain should decrease. You can apply local pressure to trigger points in the back by lying on the floor with a tennis ball under the trigger point.Follow-up careFollow up with your healthcare provider, or as advised. You may need physical therapy if you don'trespond to home treatment alone.Call [phone] if you have: A trigger point in the chest muscles, pain that becomes more severe, lasts longer, or spreads 3 General Instructions [facility] Emergency Department [address] [place] [address] Phone #: ext- [phone] 05/15/2019 16:26 Patient: NADIYA WILSON Sex: F : 1970 Age: 49y into your shoulder, arm, or jaw Chest pain or discomfort Trouble breathing with or without chest discomfort Sweating, lightheadedness, nausea, or vomiting along with chest discomfort Sudden weakness or numbness in the arm, leg, or face, especially if this happens on one side of the bodyWhen to seek medical adviceCall your healthcare provider right away if any of these occur: A week passes and you have not improved If your pain worsens, regardless of its location [id number] [employer]. [address] [place] [address], [place] [address]. All rights reserved. This information is not intended as asubstitute for professional medical care. Always follow your healthcare professional's instructions. You have been given the following additional information: Myofascial Pain Syndrome(Electronically signed by Francis Daily P.A.-C 05/16/2019 13:01) Name Value Range Interpretation Code Description Data Jaclyn rce(s) Supporting Document(s) ID Date Data Source [id number] 05/15/2019 04:47:00 PM EST [facility] 1 Clinical Report - Nurses [facility] Emergency Department [address] [place] [address] Phone #: ext- [phone] 05/15/2019 16:26 Patient: NADIYA WILSON Sex: F : 1970 Age: 49yTRIAGEArrived by private vehicle. Historian: patient. Accompanied by family.Triage time: 16:05/15/2019. Acuity: LEVEL 4.Chief Complaint: RIGHT LOWER EXTREMITY PAIN and SWELLING.16:27 05/15/19. Alert. No acute distress.No injury occurred.SEPSIS SCREEN: NEGATIVE. Negative (no infec tion suspected/documented). --16:40 05/15/19 TAN Kuo16:27 05/15/19. BP: 171/84. MAP: 113. HR: 83. RR: 16. O2 saturation: 95%. Temp: 98.5 F. Pain levelnow: 8/10. Describes the quality as burning. It has been constant. Pain level at maximum: 8/10. It isdescribed as radiating to the right knee and right calf. It is worsened by exertion and movement. --16:402/24/20 Anna Mccracken RN.Weight: 69.8 kg stated. Height/Length: 60 inches Per Patient. BMI: 30.1. --16:27 05/15/19 TAN Kuo.MedicationsAcetaminophen Oral (Tablet 500 mg) 1 tablet, as needed, last dose 1330. --16:27 05/15/19 TAN Kuo Cytotec Oral (Tablet 200 mcg) 1 tablet, daily. --16:31 05/15/19 Anna Mccracken RN Carafate Oral (Tablet 1 gm) 1 tablet, 4x a day. --16:32 05/15/19 Anna Mccracken RN Cetirizine HCl Oral (Tablet 10 mg) 1 tablet, daily. --16:32 05/15/19 Anna Mccracken RN Pantoprazole Sodium Oral (Tablet Delayed Release 40 mg) 1 tablet, 2x a day. --16:32 05/15/19 TAN Kuo Singulair Oral (Tablet 10 mg) 1 tablet, daily. --16:32 05/15/19 Anna Mccracken RN Nortriptyline HCl Oral (Capsule 75 mg) 1 capsule, daily. --16:33 05/15/19 Anna Mccracken RN Premarin Oral (Tablet 0.625 mg) 1 tablet, daily. --16:33 05/15/19 Anna Mccracken RN Potassium Chloride ER Oral (Capsule Extended Release 10 meq) 1 capsule, daily. --16:33 05/15/19Anna Mccracken RN.AllergiesErythromycin.(hives) --16:28 05/15/19 Anna Mccracken RNCeclor. (stops breathing) --16:28 05/15/19 Anna Mccracken RNDilaudid. (seizure activity) --16:28 05/15/19 YUMIKO Phillipsuccinylcholine Chloride. (stops heart) --16:34 05/15/19 Anna Mccracken RNLatex.(rash) --16:34 05/15/19 Anna Mccracken RN. 2 Clinical Report - Nurses [facility] Emergency Department [address] [place], [place] [id number] Phone #: ext- [phone] 05/15/2019 16:26 Patient: NADIYA WILSON Sex: F : 1970 Age: 49y PROBLEMS: Environmental allergy. --16:34 05/15/19 Anna Mccracken RN. ADDITIONAL SURGERIES: ACL Repair Right Knee. Carpal Tunnel Surgery. Cholecystectomy [2014]. Hernia Repair [2010]. Hysterectomy [2014]. Jose M-en-Y gastrojejunostomy [2015]. --16:34 05/15/19 Anna Mccracken RN. History 16:27 05/15/19. PAST MEDICAL HX: Tetanus status: up-to-date. Immunizations: up-to-date. SOCIAL HX: Former smoker, end date 03/15/2019. No alcohol use or drug use. She was offered HIV testing but declined and hepatitis C testing but declined. She has not traveled outside the [place] Infectious disease exposure: No infectious disease exposure. Patient is not a known carrier of tuberculosis, hepatitis, HIV, MRSA or VRE. Patient is not a known carrier of CRE. SELF HARM ASSESSMENT: Self harm assessment was performed. The patient answered "no" to the question(s) "Do you have thoughts of harming or killing yourself?" and "Do you have a plan for harming or killing yourself?". ABUSE ASSESSMENT: Abuse assessment. The patient had positive responses to the question(s) "Do you feel safe in your home?" (yes). Abuse denied. No report of abuse. NUTRITIONAL RISK ASSESSMENT: The nutritional risk assessment revealed no deficiencies. FUNCTIONAL ASSESSMENT: Functional assessment: no impairments noted. LEARNING NEEDS ASSESSMENT: The learning needs assessment revealed no barriers. FALL RISK ASSESSMENT: Fall risk assessment completed. No risk factors identified. SKIN INTEGRITY ASSESSMENT: Skin integrity risk assessment completed. No skin integrity risk identified. --16:40 05/15/19 Anna Mccracken RN.PHYSICAL ASSESSMENTGENERAL / NEURO / PSYCH: Oriented X 4. Appears anxious.CVS: Capillary refill is greater than 2 seconds.EXTREMITIES: Extremity pulses are within normal limits. No lower extremity edema. No extremityerythema. No increased warmth on the extremities. Right leg: tenderness.SKIN: Skin is warm and dry. --18:05 05/15/19 Mark Da Silva R.N. 3 Clinical Report - Nurses [facility] Emergency Department [address] [place] [address] Phone #: ext- [phone] 05/15/2019 16:26 Patient: NADIYA WILSON Sex: F : 1970 Age: 49y 18:05 05/15/19. BP: 142/86. MAP: 104. HR: 86. RR: 16. O2 saturation: deferred. Temp: deferred. Pain level now: 10/29. --18:06 05/15/19 Mark Da Silva R.N.NURSING PROGRESS NOTES16:40 05/15/19. Two patient identifiers checked. Patient placed in chair. Brakes of chair on. Patientready for evaluation- PA notified. --16:40 05/15/19 Anna Mccracken RN 18:06 05/15/2019 Ativan (LORazepam) PO Tablets 0.5 mg given. --18:06 05/15/19 Mark Da Silva R.N. 18:06 05/15/2019 Tylenol (APAP) PO Tablets 1000 mg given. --18:06 05/15/19 Mark Da Silva R.N. 19:08 05/15/19. BP: 122/68. MAP: 86. HR: 86. RR: 20. O2 saturation: deferred. Temp: deferred. Pain level now: 06/29. --19:09 05/15/19 Mark Da Silva R.N.DISPOSITION / DISCHARGE Departure time: 19:19 05/15/2019. --19 :19 05/15/19 Mark Da Silva R.N. No learning barriers present. Discharge instructions provided and reviewed with the patient. The patient was discharged by the physician telecom assistant. She was discharged home and accompanied by spouse. She left ambulatory on crutches and via private vehicle. Patient driving. --19:19 05/15/19 Mark Da Silva R.N.Locked/Released at 05/15/2019 19:19 by Mark Da Silva R.N. Name Value Range Interpretation Code Description Data Jaclyn rce(s) Supporting Document(s) ID Date Data Source [id number] 05/15/2019 04:47:00 PM EST [facility] 1 Clinical Report - Physicians/Mid Levels [facility] Emergency Department [address] [place] [address] Phone #: ext- [phone] 05/15/2019 16:26 Patient: NADIYA WILSON Sex: F : 1970 Age: 49y Time Seen: 17:51 05/15/2019; initial patient contact, initial documentation. Arrived- By private vehicle.HISTORY OF PRESENT ILLNESS Chief Complaint: LOWER EXTREMITY PAIN. Severity is described as being moderate. The quality is noted to be dull, aching and "pain". This started about 1 weeks ago and is still present. Symptoms located in the area of the right leg. The patient has not had redness. No swelling, bladder dysfunction, bowel dysfunction, sensory loss or motor loss. No difficulty walking. ( Pt noted pain before leaving for [place]. Had discomfort in leg. Was in [place] for a week. Came back on Wednesday and still had pain. Came to the ER today for eval.). Patient denies an injury. Similar symptoms previously. None. Recent medical care: Not recently seen/assessed.REVIEW OF SYSTEMSNo cough, chest pain, difficulty breathing, fever or skin rash. No enlarged lymph nodes, neck pain, backpain, headache or blurred vision. No sore throat, abdominal pain, vomiting, diarrhea or black stools. Nodifficulty with urination or bloody stools. All other systems reviewed and are negative.PAST HISTORYSee nurses notes. Problems: Aneurysm, Cerebral. Anemia. Carpal Tunnel Syndrome. Abdominal Pain. Abnormal Test. Asthma. Allergies. Acute Pain. Muscle spasms of head AND/OR neck. Lower Extremity Pain. Sick Contact. Renal Colic. Gastric ulcer. Fall. Insect Bite(s). 2 Clinical Report - Physicians/Mid Levels [facility] Emergency Department [address] [place] [address] Phone #: ext- [phone] 05/15/2019 16:26 Patient: NADIYA WILSON Sex: F : 1970 Age: 49y Influenza. Environmental allergy. Additional Surgeries: ACL Repair Right Knee. Bilateral carpal tunnel. Carpal Tunnel Surgery. Cholecystectomy [2014]. Gastric bypass. Hernia Repair [2011]. Hiatlal hernia repair. Hysterectomy [2014]. Right knee ACL repair. Jose M-en-Y gastrojejunostomy [2016]. Umbilical Hernia Repair. Medications: Potassium Chloride ER Oral (Capsule Extended Release 10 meq) 1 capsule, daily. Premarin Oral (Tablet 0.625 mg) 1 tablet, daily. Nortriptyline HCl Oral (Capsule 75 mg) 1 capsule, daily. Singulair Oral (Tablet 10 mg) 1 tablet, daily. Pantoprazole Sodium Oral (Tablet Delayed Release 40 mg) 1 tablet, 2x a day. Cetirizine HCl Oral (Tablet 10 mg) 1 tablet, daily. Carafate Oral (Tablet 1 gm) 1 tablet, 4x a day. Cytotec Oral (Tablet 200 mcg) 1 tablet, daily. Acetaminophen Oral (Tablet 500 mg) 1 tablet, as needed, last dose 1330. Allergies: Ceclor. (stops breathing) Dilaudid. (seizure activity) Erythromycin.(hives) Latex.(rash) Succinylcholine Chloride. (stops heart).SOCIAL HISTORYFormer smoker. No alcohol use or drug use.ADDITIONAL NOTESThe nursing notes have been reviewed.PHYSICAL EXAMVital Signs: 05/15/2019 16:27 BP: 171/84. MAP: 113. HR: 83. RR: 16. O2 saturation: 95%. Temp: 98.5 F.Pain level now: 10/29. Have been reviewed. Oxygen saturation normal.Appearance: Alert. Oriented X3. No acute distress.ENT: Normal ENT inspec tion. Airway intact. TM's normal. Ears normal. Nose normal. Nares normal. 3 Clinical Report - Physicians/Mid Levels [facility] Emergency Department [address] [place] [address] Phone #: ext- [phone] 05/15/2019 16:26 -------- Patient: NADIYA WILSON Sex: F : 1970 Age: 49y Pharynx normal. Moist mucous membranes. Uvula midline. Voice normal. CVS: Normal heart rate and rhythm. No JVD present. Pulses normal. Capillary refill normal. Strong peripheral pulses. Heart sounds normal. Pulses: right radial 2+; left radial 2+; right dorsalis pedis 2+; left dorsalis pedis 2+; right posterior tibial 2+; left posterior tibial 2+. Respiratory: Chest normal on inspection. No respiratory distress. Unlabored respirations. Lungs clear. Good chest movement. Breath sounds normal and equal. Skin: Skin warm and dry. Extremities: Right leg: mild tenderness located in the anterior aspect of mid leg. Neurovascular intact distally. No erythema, swelling, laceration, abrasion or ecchymosis. No puncture wound. No right thigh complaints, right knee c omplaints, left knee complaints, left leg complaint or right ankle complaints. No right foot complaints, left foot complaints or left ankle complaints. Extremities otherwise negative. Neuro: Awake. Alert. Mood/affect normal. Speech normal. No motor deficit. No sensory deficit. Psych: Cognition normal. Thought process and content normal. Insight and judgement normal.LABS, X-RAYS, AND EKGRt Knee X-ray: (NAD). The X-rays were interpreted by the radiologist.Rt Tib/Fib X-ray: (NAD). The X-rays were interpreted by the radiologist.Lower Extremity Sonography: Armand guerrero Neal - 05/15/2019 6:44:27 PMnad. The study was interpreted by the radiologist.Laboratory Tests: Knee Complete Left: (ARCELIA: 05/15/2019 17:48) ( MsgRcvd 05/15/2019 17:49) Canceled Reason(s): Pain Reason(s): Pain TRANSPORTATION: WC IV? O2? Oxygen?(No) Room: ED : Will sign waiver Tibia Fibula AP And LAT Left: (ARCELIA: 05/15/2019 17:48) ( MsgRcvd 05/15/19 17:49) Canceled Reason(s): Pain Reason(s): Pain TRANSPORTATION: WC IV? O2? Oxygen?(No) Room: ED : Will sign waiver US Lower Ext Venous Right: (ARCELIA: 05/15/2019 16:55) ( MsgRcvd 05/15/2019 17:44) In Progress US DOPPLER UNI VENOUS LEG RT Reason(s): Pain, Limb TRANSPORTATION: WC IV? O2? Oxygen?(No) Room: ED : Hysterectomy.PROGRESS AND PROCEDURESCourse of Care: VSS, NAD, Aappropriate for age. Interacting well and appropriately for age. No use ofaccessory muscles. Able to verbalize appropriately for age. Able to follow commands. Smiling andplayful. Stable. Non-toxic looking. Enter room and patient lying peacefully in bed in NAD. Patient stable. Denies any new issues, concerns, or complaints. 4 Clinical Report - Physicians/Mid Levels [facility] Emergency Department [address] [place] [address] Phone #: ext- [phone] 05/15/2019 16:26 Patient: NADIYA WILSON Sex: F : 1970 Age: 49y PE demos NV intact b/l UE and LE. Noted TTP of RLE. Atraumatic and insidious onset. Will obtian labs and imaging for further eval. Pending results. Reviewed results. Discussed results with pt. Discussed tx plan with pt. Discussed and counseled on stable condition. Discussed importance of a f/u with PCP. Discussed return to ER criteria. Answered their questions. Indicates and verbalizes that they understand, agree, and will comply with above. Denies any new questions or concerns. Patient has capacity to understand. Discharge decision based on the following: patient's condition is stable; patient's exam is stable; social support is adequate; transportation is available; follow-up is available. Discussed of OTC Motrin and Tylenol to control inflammation and pain management. Informed to follow directions on bottle that are appropriate for age and/or w eight. Disposition: Discharged home in good and improved condition. Condition: good and stable.CLINICAL IMPRESSION Acute right lower leg pain.INSTRUCTIONS Use crutches. Wear elastic wrap as directed. (Recommend to utilize OTC Motrin and Tylenol to control inflammation and pain management. Recommend to follow the instructions on the bottle and not to exceed.). Warnings: SEDATIVE MEDICATION: You were given sedative medication during your visit. Do not drive or operate dangerous machinery. Prescription Medications: cyclobenzaprine 10 mg tablet Take 1 tablet three times a day for 4 days -- Dispense 12 tablet. Refills: 0. Substitution permitted. [facility] [phone]. . gabapentin 100 mg capsule Take 1 capsule three times a day for 4 days -- Dispense 12 capsule. Refills: 0. Substitution permitted. [facility] [place], [place] [id number]. FaxN umber: [phone] Clinical Report - Physicians/Mid Levels [facility] Emergency Department [address] [place] [address] Phone #: [phone] 05/15/2019 16:26 Patient: NADIYA WILSON Sex: F : 1970 Age: 49y Follow-up: Return to the emergency department as needed. Follow up with your healthcare provider in three days if not better. Call for an appointment. Understanding of the discharge instructions verbalized by patient.(Electronically signed by Francis Daily P.A.-C 05/16/2019 13:01) Name Value Range Interpretation Code Description Data Jaclyn rce(s) Supporting Document(s) ID Date Data Source [id number] 05/16/2019 09:52:00 [place] [address] PHONE: [phone] FAX: [phone] Name .................. : NEVILLE Mercedes Acct Number.................. : [id number] ROOM. ................. : TR-04 MR Number ................... : [id number] Stay type ............. : E/R Discharge Date......... ... : 05/15/19 Admit Date ......... : 05/15/19 Admit Phys .................... : TIFFANY HAYLEY Date of ....... : 1970 Family Phys ................... : MARK ANTHONY [employer] Phone .................. : [phone] Age ................................ : 49 Film# .................. .:[id number] Sex ................................. : F Unsigned transcriptions are preliminary reports and do not represent a medical or legal document TIBIA-FIBULA AP & [place] [id number] COMPLETE:05/15/19 19:03 KJE [id number] Reason(s): Pain RIGHT TIBIA AND FIBULA X-RAY: INDICATION: Pain. FINDINGS/IMPRESSION: There is no evidence of fracture or dislocation. No significant degenerative changes. No soft tissue abnormalities are visualized. Electronically Reviewed and Signed By Raman Acuna M.D. , 05/16/19 09:52, [place] Transcribe Initials: DZ , Transcribe Date: 05/15/19 20:57, Dictation Date: Copy for: DILLAN AVALOS via fax Copy for: TIFFANY Mendiola via fax Copy for: EMERGENCY DEPT via modem Copy for: 710 MED REC DISCHARGED Page 1 of 1 Name Value Range Interpretation Code Description Data Jaclyn rce(s) Supporting Document(s) ID Date Data Source [id number] 05/16/2019 09:52:00 AM EST [facility] [address] [place] [address] PHONE: [phone] FAX: [phone] Name .................. : NEVILLE Mercedes Acct Number.................. : [id number] ROOM. ................. : TR-04 MR Number ................... : [id number] Stay type ............. : E/R Discharge Date......... ... : 05/15/19 Admit Date ......... : 05/15/19 Admit Phys .................... : TIFFANY HAYLEY Date of ....... : 1970 Family Phys ................... : MARK ANTHONY NAN Phone .................. : [phone] Age ................................ : 49 Film# .................. .:[id number] Sex ................................. : F Unsigned transcriptions are preliminary reports and do not represent a medical or legal document KNEE COMPLETE-4 OR MORE S R [id number] COMPLETE:05/15/19 19:03 KJE [id number] Reason(s): Pain RIGHT KNEE X- RAY: INDICATION: Pain. FINDINGS/IMPRESSION: The patient is status post ACL repair. There is no fracture, dislocation or joint effusion. No significant degenerative change. Electronically Reviewed and Signed By Raman Acuna M.D. , 05/16/19 09:52, [place] Transcribe Initials: KITTY , Transcribe Date: 05/15/19 20:56, Dictation Date: Copy for: DILLAN AVALOS via fax Copy for: TIFFANY Mendiola via fax Copy for: EMERGENCY DEPT via mode Copy for: 710 MED REC DISCHARGED Page 1 of 1 Name Value Range Interpretation Code Description Data Jaclyn rce(s) Supporting Document(s) ID Date Data Source [id number] 05/16/2019 09:50:00 AM EST [facility] [address] [place] [address] PHONE: [phone] FAX: [phone] Name .................. : NEVILLE Mercedes Acct Number.................. : [id number] ROOM. ................. : -04 MR Number ................... : [id number] Stay type ............. : E/R Discharge Date......... ... : 05/15/19 Admit Date ......... : 05/15/19 Admit Phys .................... : TIFFANY HAYLEY Date of ....... : 1970 Family Phys ................... : [employer] Phone .................. : [phone] Age ................................ : 49 Film# .................. .:[id number] Sex ................................. : F Unsigned transcriptions are preliminary reports and do not represent a medical or legal document [place] [id number] COMPLETE:05/15/19 17:44 ADB [id number] Reason(s): Pain, Limb RIGHT LOWER EXTREMITY DUPLEX VENOUS DOPPLER ULTRASOUND: INDICATION: Pain and swelling. FINDINGS: There is normal compressibility of the deep venous system from the external iliac through the popliteal vein with normal augmentation identified. IMPRESSION: No evidence for any underlying DVT. Electronically Reviewed and Signed By Raman Acuna M.D. , 05/16/19 09:50, [place] Transcribe Initials: KITTY , Transcribe Date: 05/15/19 20:00, Dictation Date: Copy for: DILLAN AVALOS via fax Copy for: TIFFANY Mendiola via fax Copy for: EMERGENCY DEPT via modem Copy for: 710 MED REC DISCHARGED Page 1 of 1 Name Value Range Interpretation Code Description Data [facility] rce(s) Supporting Document(s) ID Date Data Source [id number] 04/05/2019 09:45:00 AM [facility] ([facility]) Name Value Range Interpretation Code Description Data [facility] rce(s) Supporting Document(s) Gastrointestinal (GI) Panel Laboratory test result [facility] ([facility]) This Gastrointestinal PCR Panel detects the following bacteria, parasites and viruses: Campylobacter (jejuni, coli and upsaliensis), Clostridium difficile (toxin A/B), Plesiomonas shigelloides, Salmonella, Yersinia enterocolitica, Vibrio (parahaemolyticus, vulnificus and cholerae), Vibrio clolerae, Enteroaggregative E. coli (EAEC), Enteropathogenis E. coli (EPEC), Enterotoxigenic E. coli (ETEC) it/st, Shiga-like producing E. coli (STEC) stx1/stc2, E.coli O157, Shigella/Enteroinvasive E. coli (EIEC), Cryptosporidium, Cyclospora cayetanensis, Entamoeba histolytica, Giardia lamblia, Adenovirus F 40/41, Astrovirus, Norovirus GI/GII, Rotavirus A and Sapovirus (I, II, IV, V). NEGATIVE by MULTIPLEXED NUCLEIC ACID PCR ID Date Data Source [id number] 04/05/2019 08:21:00 AM [facility] ([facility]) Name Value Range Interpretation Code Description Data [facility](s) Supporting Document(s) Glucose [Mass/volume] in Serum or Plasma 78 mg/dL 74-99 [facility] ([facility]) 100-125 mg/dL PRE-DIABETES/FASTING >126 mg/dL DIABETES/FASTING Creatinine 0.6 mg/dL 0.6-1.3 [facility] ([facility]) Urea nitrogen [Mass/volume] in Serum or Plasma 12 mg/dL 7-18 [facility] ([facility]) Potassium [Moles/volume] in Serum or Plasma 3.8 meq/L 3.5-5.1 [facility] ([facility]) Chloride [Moles/volume] in Serum or Plasma 103 meq/L 98-107 [facility] ([facility]) Sodium [Moles/volume] in Serum or Plasma 140 meq/L 136-145 [facility] ([facility]) Calcium [Mass/volume] in Serum or Plasma 8.9 mg/dL 8.5-10.1 [facility] ([facility]) Alkaline phosphatase isoenzyme [Units/volume] in Serum or Pl asma 63 mg/dL 46-116 [facility] ([facility]) Carbon dioxide, total [Moles/volume] in Serum or Plasma 29 meq/L 21 -32 [facility] ([facility]) Alanine aminotransferase [Enzymatic activity/volume] in Seru m or Plasma 18 U/L 12-78 [facility] ([facility]) Total Bilirubin 0.3 mg/dL 0.2-1.0 [facility] ([facility]) Aspartate aminotransferase [Enzymatic activity/volume] in Se rum or Plasma 8 U/L 15-37 [facility] ([facility]) Proteinase 3 Ab [Units/volume] in Serum 6.4 g/dL 6.4-8.2 [facility] ([facility]) Albumin [Mass/volume] in Serum or Plasma 3.5 g/dL 3.4-5.0 [facility] ([facility]) Glomerular filtration rate/1.73 sq M pre dicted among blacks [Volume Rate/Area] in Serum or Plasma by Creatinine-based formula (MDRD) Laboratory test result [facility] ([facility]) <content>CHRONIC KIDNEY DISEASE STAGING PER NKF</content>
<content></content>
<content>STAGE I & II GFR >= 60 NORMAL TO MILDLY DECREASED</content>
<content>STAGE III GFR 30-59 MODERATELY DECREASED</content>
<content>STAGE IV GFR 15-29 SEVERELY DECREASED</content>
<content>STAGE V GFR <15 VERY LITTLE GFR LEFT</content>
<content>ESRD GFR <15 ON PUBLIC HEALTH REPRESENTATIVE</content>
<content></content> Glomerular filtration rate/1.73 sq M pre dicted among non-blacks [Volume Rate/Area] in Serum or Plasma by Creatinine-based formula (MDRD) Laboratory test result [facility] ([facility] ) A/G Ratio 1.21 CALC 1.00-1.90 [facility] ID Date Data Source [id number] 04/05/2019 08:21:00 AM EST [facility] ([facility]) Name Value Range Interpretation Code Description Data Jaclyn rce(s) Supporting Document(s) Leukocytes [#/volume] in Blood by Automated count 5.4 x10*3/UL 4.1-10 .9 [facility] ([facility]) Hemoglobin [Mass/volume] in Blood 13.1 g/dL 12.0-18.0 [facility] ([facility]) Erythrocytes [#/volume] in Blood by Automated count 4.06 x10*6/UL 4.2 0-6.30 [facility] ([facility]) MCV 95.5 fL 80.0-97.0 [facility]) MCH 32.3 pg 26.0-32.0 [facility] ([facility]) Hematocrit [Volume Fraction] of Blood by Automated count 38.8 % 3 7.0-51.0 [facility] ([facility]) Platelets [#/volume] in Blood by Automated count 237 x10*3/UL 140-440 [facility] ([facility]) Erythrocyte distribution width [Ratio] by Automated count 11.5 % 11.6-13.7 [facility] ([facility]) MCHC 33.9 g/dL 31.0-38.0 [facility] ([facility]) Lymph % 38.5 % 10.0-58.5 [facility] ([facility]) MPV 9.0 FL 7.8-11.0 [facility] ([facility]) Mid % 9.2 % 1.7-9.3 [facility] ([facility]) Neut % 52.3 % 37.0-92.0 [facility]) Mid # 0.6 x10*3/UL 0.1-0.6 [facility] ([facility]) Lymph # 2.0 x10*3/UL 0.6-4.1 [facility] ([facility]) Neut # 2.8 x10*3/UL 2.0-7.8 [facility] ([facility]) ID Date Data Source GATS (NEGATIVE STREP SCREEN) 04/03/2019 12:00:00 AM EST [facility] ([facility]) Name Value Range Interpretation Code Description Data Jaclyn rce(s) Supporting Document(s) FULL REPORT IN LAB NOTES ([facility] and [facility]). GATS CULTURE (NEG STREP SCR) [facility] ([facility]) ID Date Data Source [id number] 02/22/2019 05:54:09 PM EST [facility] NT INFORMATIONPatient MRN Name Date of Age Gend*PT [id number] Abdi Wilsonie Mago 1970 48 years F OPPT Location Admission Date/Time Visit ID Attending Provider[facility] [employer] [facility] 02/15/19 0716 --- --- EPI ID CSN Admitting Provider [id number] Vineet Goezt MD([id number])Endoscopic Gastrojejunoscopy Procedure NotePatient: Nadiya Mercedes NevilleMRN: [id number] Date: 02/15/2019Surgeon(s):LINETTE Blankenshipre- operative Diagnosis:Epigastric pain [R10.13]Post-Op Diagnosis Codes: * Epigastric pain [R10.13] * Gastrojejunal ulcer [K28.9] * History of Jose M-en-Y gastric bypass [Z98.84] * History of morbid obesity [Z87.898] * Other chronic gastritis with hemorrhage [K29.51]Procedure: 1) EsophagogastrojejunoscopyAnesthesia/Sedation: Monitored Anesthesia Care (MAC) (see anesthesia report).Findings: Esophagus: NormalGE Junction: Normal and Z line regular at 35cmCardia: Evidence of gastritis and ulcers with stigmata of recent bleedingGastrojejunal anastomosis: Widely patent but with ulcer on the gastric side at 8o'clock position. There was stigmata of recent bleeding. Normal mucosa of theafferent and efferent jose m limbsSpecimens:ID Type Source Tests Collected by [facility] : pouch bx, assess for H pylori Tissue Biopsy SURGICAL PATHOLOGY EXAM MD Clementina 02/15/2019 0851Estimated Blood Loss: minimalComplications: None; patient tolerated the procedure well.Disposition: Stable to recovery room.Indications for Procedure/Consent: This is a 48 years female 3 years statuspost a gastric bypass. She presented with abdominal pain. An upper endoscopywas indicated to assess the cause of the patient's symptoms. After obtaininghistory and performing the physical examination, the procedure, indications,potential complications, including but not limited to bleeding, perforation,infection, adverse medication reaction, and alternatives were explained to thepatient. Patient appeared to understand the benefits and risks of thisprocedure. Informed consent was obtained from the patient after providingopportunity for questions.Procedure Details:The gastroscope was inserted into the mouth and advanced under directvisualization to the afferent and efferent jejunal limbs. A careful inspectionwas made as the gastroscope was withdrawn, findings and interventions aredescribed. Esophagus: Normal. GE Junction: Normal and Z line regular at 35cm.Pouch: Evidence of gastritis and ulcers with stigmata of recent bleeding.Gastrojejunal anastomosis: Widely patent but with ulcer on the gastric side at 8o'clock position. There was stigmata of recent bleeding. Normal mucosa of theafferent and efferent jose m limbs. Gastric pouch biopsied for h. Pylori. Aftercompletion of the examination, the patient was transferred to the recovery room.Implants: NoneImpression:- Ulcer on gastric side of GJ anastomosis, as described above.- Pouch biopsy for H. Pylori- Widely patent GJ anastomosis with normal mucosa of afferent and efferent limbsRecommen dations:-Follow up in office as scheduled.-Continue PPI/carafate/cytotec-Stop SmikingSignature: JENNIE Blankenshipate: February 15, 2019Time: 9:06 AMCC: Vineet Goetz [facility] WOLFGANG YA MD Name Value Range Interpretation Code Description Data Jaclyn rce(s) Supporting Document(s) ID Date Data Source [id number] 02/20/2019 10:52:00 AM EST [facility] ([facility]) Name Value Range Interpretation Code Description Data Jaclyn rce(s) Supporting Document(s) AB Screen (Indirect Goldy)Vis Laboratory test result [facility] ([facility]) Blood Type Laboratory test result [facility] ([facility]) ID Date Data Source [id number] 02/20/2019 10:52:00 AM EST [facility] ([facility]) Name Value Range Interpretation Code Description Data Jaclyn rce(s) Supporting Document(s) Lipoprotein lipase [Enzymatic activity/volume] in Serum or P lasma 138 U/L 73-393 [facility] ([facility]) ID Date Data Source [id number] 02/20/2019 10:52:00 AM EST [facility] ([facility]) Name Value Range Interpretation Code Description Data Jaclyn rce(s) Supporting Document(s) Glucose, Fasting 94 mg/dL 70-100 [facility] ([facility]) Creatinine For GFR 0.57 mg/dL 0.55-1.30 [facility] ([facility]) Blood Urea Nitrogen 10 mg/dL 7-18 [facility] ([facility]) Glomerular Filtration Rate [facility] <content>Units are mL/min/1.73 m2</content>
<content></content>
<content>Chronic Kidney Disease Staging per NKF:</content>
<content></content>
<content>Stage I & II GFR >=60 Normal to Mildly Decreased</content>
<content>Stage III GFR 30-59 Moderately Decreased</content>
<content>Stage IV GFR 15-29 Severely Decreased</content>
<content>Stage V GFR <15 Very Little GFR Left</content>
<content>ESRD GFR <15 on PUBLIC HEALTH REPRESENTATIVE</content>
<content></content> Sodium Level 143 meq/L 136-145 [facility] ([facility]) Potassium Serum 3.7 meq/L 3.5-5.1 [facility] ([facility]) Anion Gap 4 meq/L 8-16 [facility] Chloride Level 109 meq/L 98-107 [facility] ([facility]) Carbon Dioxide Level 30 meq/L 21-32 [facility] ([facility]) Calcium Level 9.0 mg/dL 8.5-10.1 [facility] ([facility]) ID Date Data Source [id number] 02/20/2019 10:52:00 AM EST [facility] ([facility]) Name Value Range Interpretation Code Description Data Jaclyn rce(s) Supporting Document(s) Ast/Sgot 8 U/L 7-37 [facility] ([facility]) Alt/SGPT 22 U/L 12-78 [facility] ([facility]) Bilirubin,Total 0.3 mg/dL 0.2-1.0 [facility] ([facility]) Alkaline Phosphatase 91 U/L 45-117 [facility] ([facility] Total Protein 7.1 GM/DL 6.4-8.2 [facility] ([facility]) Albumin 3.9 GM/DL 3.2-5.2 [facility] ([facility]) Bilirubin,Direct Laboratory test result 0.0-0.2 [facility] ([facility]) Albumin/Globulin Ratio 1.22 1.00-1.93 [facility] ([facility]) ID Date Data Source [id number] 02/20/2019 10:52:00 AM EST [facility] ([facility]) Name Value Range Interpretation Code Description Data Jaclyn rce(s) Supporting Document(s) aPTT in Blood by Coagulation assay 31.3 s 25.0-38.4 [facility] ([facility]) Lactate [Mass/volume] in Serum or Plasma 1.2 mmol/L 0.4-2.0 [facility] ([facility]) Y/N query for Sepsis Lactate Rule: Y ID Date Data Source [id number] 02/20/2019 10:52:00 AM EST [facility] ([facility]) Name Value Range Interpretation Code Description Data Jaclyn rce(s) Supporting Document(s) Prothrombin Time 14.6 s 11.8-14.0 [facility] ([facility]) Inr 1.17 [facility] ([facility]) THERAPUTIC HUMAN INR VALUES INDICATIONS NORMAL RANGES PROPHYLAXIS/TREATMENT OF: VENOUS THROMBOSIS 2.0-3.0 PULMONARY EMBOLISM 2.0-3.0 PREVENTION OF SYSTEMIC EMBOLISM FROM: TISSUE HEART VALVES 2.0-3.0 ACUTE MYOCARDIAL INFARCTION 2.0-3.0 VALVULAR HEART DISEASE 2.0-3.0 ATRIAL FIBRILLATION 2.0-3.0 MECHANICAL VALVES(HIGH RISK) 2.5-3.5 RECURRENT MYOCARDIAL INFARCTION 2.5-3.5 ID Date Data Source [id number] 02/20/2019 10:52:00 AM EST [facility] ([facility]) Name Value Range Interpretation Code Description Data Jaclyn rce(s) Supporting Document(s) White Blood Count 9.5 10 4.0-10.0 [facility] ([facility]) Red Blood Count 4.22 10 4.00-5.40 [facility] ([facility]) Hemoglobin 14.3 g/dL 12.0-15.5 [facility] ([facility]) Hematocrit 43.0 % 36.0-47.0 [facility]) Mean Corpuscular Volume 101.9 fl 80.0-96.0 [facility] ([facility]) Mean Corpuscular Hemoglobin 33.9 pg 27.0-33.0 FL [facility] ([facility]) Mean Corpuscular HGB Conc 33.3 g/dL 32.0-36.5 [facility] ([facility]) Red Cell Distribution Width 11.6 % 11.5-14.5 FL [facility] ([facility]) Lymph % 30.3 % 24.0-44.0 [facility]) Neutrophils % 63.4 % 36.0-66.0 [facility] ([facility]) Platelet Count, Automated 246 10 150-450 [facility] ([facility]) [place] % 4.8 % 0.0-5.0 [facility]) Eos % 0.8 % 0.0-3.0 [facility]) Baso % 0.4 % 0.0-1.0 [facility]) Immature Granulocyte % 0.3 % 0-3.0 [facility] ([facility]) Lymph # 2.9 10 1.5-5.0 [facility]) Nucleated Red Blood Cell % 0.0 % 0-0 MED [facility] ([facility]) Neutrophils # 6.0 10 1.5-8.5 [facility] ([facility]) Baso # 0.0 10 0.0-0.2 [facility]) [place] # 0.5 10 0.0-0.8 [facility]) Eos # 0.1 10 0.0-0.5 [facility]) ID Date Data Source [id number] 02/20/2019 10:52:00 AM EST [facility] ([facility], ) Name Value Range Interpretation Code Description Data Jaclyn rce(s) Supporting Document(s) Aspartate aminotransferase [Enzymatic activity/volume] in Se rum or Plasma 8 7-37 [facility] ([facility], ) ID Date Data Source [id number] 02/20/2019 10:52:00 AM EST [facility] ([facility], ) Name Value Range Interpretation Code Description Data Jaclyn rce(s) Supporting Document(s) Alanine aminotransferase [Enzymatic activity/volume] in Seru m or Plasma 22 12-78 [facility] ([facility], ) ID Date Data Source [id number] 02/20/2019 10:52:00 AM EST [facility] ([facility], ) Name Value Range Interpretation Code Description Data Jaclyn rce(s) Supporting Document(s) Alkaline phosphatase [Enzymatic activity/volume] in Serum or Scott sma 91 45-117 [facility] ([facility], ) ID Date Data Source [id number] 02/20/2019 10:52:00 AM EST [facility] ([facility], ) Name Value Range Interpretation Code Description Data Jaclyn rce(s) Supporting Document(s) Bilirubin.total [Mass/volume] in Serum or Plasma 0.3 0.2-1.0 [facility] ([facility], ) ID Date Data Source [id number] 02/20/2019 10:52:00 AM EST [facility] ([facility], ) Name Value Range Interpretation Code Description Data Jaclyn rce(s) Supporting Document(s) Bilirubin.direct [Mass/volume] in Serum or Plasma Laboratory test result 0.0-0.2 [facility] ([facility], ) ID Date Data Source [id number] 02/20/2019 10:52:00 AM EST [facility] ([facility]) Name Value Range Interpretation Code Description Data Jaclyn rce(s) Supporting Document(s) Protein [Mass/volume] in Serum or Plasma 7.1 6.4-8.2 [facility] ([facility], ) ID Date Data Source [id number] 02/20/2019 10:52:00 AM EST [facility] ([facility], ) Name Value Range Interpretation Code Description Data Jaclyn rce(s) Supporting Document(s) Albumin [Mass/volume] in Serum or Plasma 3.9 3.2-5.2 [facility] ([facility], ) ID Date Data Source [id number] 02/20/2019 10:52:00 AM EST [facility] ([facility], ) Name Value Range Interpretation Code Description Data Jaclyn rce(s) Supporting Document(s) Albumin/Globulin [Mass Ratio] in Serum or Plasma 1.22 1.00-1.93 [facility] ([facility], ) ID Date Data Source [id number] 02/20/2019 10:52:00 AM EST [facility] ([facility], ) Name Value Range Interpretation Code Description Data Jaclyn rce(s) Supporting Document(s) Lipase [Enzymatic activity/volume] in Serum or Plasma 138 73-3 93 [facility] ([facility], ) ID Date Data Source [id number] 02/20/2019 10:52:00 AM EST [facility] ([facility], ) Name Value Range Interpretation Code Description Data Jaclyn rce(s) Supporting Document(s) Laboratory test finding (navigational concept) 1.2 0.4-2.0 [facility] ([facility], ) ID Date Data Source [id number] 02/17/2019 11:56:55 AM EST [facility] [place] [facility] [id number]# Surgical Pathology ReportAccession #:[id number](s) ReceivedA: Pouch bxClinical Diagnosis and HistoryGastritis, marginal ulcer, assess for H. pyloriDIAGNOSISSTOMACH, POUCH, BIOPSY: OXYNTIC MUCOSA WITH NO PATHOLOGIC DIAGNOSIS. Gross DescriptionReceived in formalin labeled "pouch biopsy assess for H. pylori" is a 0.6cm tai-pink irregular fragment of tissue. Entirely submitted as A1, 1 + 1.Processed at [facility], Histopathology, [address], [place], [address].jgllmr/gmm Reported: 02/17/2019Electronically Signed Out By Florian Turner M.D. [facility] This report may include immunohistochemical or in-situ hybridizationresults. Testing was developed and the performance characteristicsdetermined by [facility] as required by CLIA '88. The FDAhas determined that approval for specific use is not necessary forclinical use. The quality of Hematoxylin and Eosin stains and asapplicable, for all immunohistochemical and/or special stains, includingpositive and negative controls, were reviewed and considered appropriate.ICD codes K29.70CPT codesA: 53565X Name Value Range Interpretation Code Description Data Jaclyn rce(s) Supporting Document(s) ID Date Data Source [id number] 02/15/2019 08:36:37 AM EST [facility] INFORMATIONPatient MRN Name Date of Age Gend*PT [id number] Nadiya Wilson 1970 48 years F OPPT Location Admission Date/Time Visit ID Attending ProviderEndo Terril 02/15/19 0716 --- Anna Blankenship([id number]) EPI ID CSN Admitting Provider [id number] Vineet Goetz MD([id number])H&P reviewed. The patient was examined and there are no changes to the H&P.The H&P that is being updated is available for review and was brought in Yan Goetz MD8:36 AM Name Value Range Interpretation Code Description Data Jaclyn rce(s) Supporting Document(s) Procedure Social History Code Duration Value Status Description Data Source(s ) Alcohol intake 02/15/2019 12:00:00 AM EST No completed [facility] Cigarette pack-years 02/15/2019 12:00:00 AM EST UNK completed [facility] Cigarettes smoked current (pack per day) - Reported 02/16/20 19 12:00:00 AM EST UNK completed [facility] Smoking 02/15/2019 12:00:00 AM EST Current every day smoker co mpleted Current every day smoker [facility] Vital Signs ID Date Data Source UNK Name Value Range Interpretation Code Description Data Source(s) Body mass index (BMI) [Ratio] 29.8 kg/m2 29.8 k g/m2 [facility] Oxygen saturation in Arterial blood by Pulse oximetry 95 % 95 % [facility] ([facility]) Body weight 154.00 [lb_av] 154.00 [lb_av] [facility] ([facility]) Body height 60.25 [in_i] 60.25 [in_i] [facility] 5'0.25" Heart rate 92 /min 92 /min [facility] ([facility]) Diastolic blood pressure 70 mm[Hg] 70 mm[Hg] [facility] ([facility]) Systolic blood pressure 120 mm[Hg] 120 mm[Hg] [facility]) [place] body weight 100 [lb_av] 100 [lb_av] [facility] ([facility], ) Body mass index (BMI) [Ratio] 30.1 kg/m2 30.1 k g/m2 [facility]) Body weight 154.00 [lb_av] 154.00 [lb_av] [facility] ([facility]) Body height 60 [in_i] 60 [in_i] [facility] ([facility], ) 5'0" Respiratory rate 12 /min 12 /min [facility] ( [facility]) Body mass index (BMI) [Ratio] 30.4 kg/m2 30.4 k g/m2 [facility] ([facility]) Body weight 157.00 [lb_av] 157.00 [lb_av] [facility] ([facility]) Body height 60.25 [in_i] 60.25 [in_i] [facility] ([facility]) 5'0.25" Heart rate 104 /min 104 /min [facility] ([facility]) Diastolic blood pressure 80 mm[Hg] 80 mm[Hg] [facility] ([facility]) RT Arm Systolic blood pressure 124 mm[Hg] 124 mm[Hg] [facility]) RT Arm [place] body weight 100 [lb_av] 100 [lb_av] [facility] ([facility]) Body mass index (BMI) [Ratio] 30.1 kg/m2 30.1 k g/m2 [facility] ([facility]) Body weight 154.00 [lb_av] 154.00 [lb_av] [facility] ([facility]) Body height 60 [in_i] 60 [in_i] [facility] ([facility]) 5'0" Respiratory rate 12 /min 12 /min [facility] ( [facility]) Body mass index (BMI) [Ratio] 31.2 kg/m2 31.2 k g/m2 [facility] ([facility]) Oxygen saturation in Arterial blood by Pulse oximetry 97 % 97 % [facility]) RM Air Body weight 161.00 [lb_av] 161.00 [lb_av] [facility] ([facility]) Body height 60.25 [in_i] 60.25 [in_i] [facility] ([facility]) 5'0.25" Heart rate 88 /min 88 /min [facility] ([facility]) Diastolic blood pressure 70 mm[Hg] 70 mm[Hg] [facility] ([facility]) RT Arm Systolic blood pressure 132 mm[Hg] 132 mm[Hg] [facility]) RT Arm Body mass index (BMI) [Ratio] 26.4 kg/m2 26.4 k g/m2 [facility] ([facility]) Body weight 135.00 [lb_av] 135.00 [lb_av] [facility] ([facility]) Body height 60 [in_i] 60 [in_i] [facility] ([facility]) 5'0" Respiratory rate 12 /min 12 /min [facility] ( [facility], ) Body mass index (BMI) [Ratio] 31.4 kg/m2 31.4 k g/m2 [facility] ([facility]) Oxygen saturation in Arterial blood by Pulse oximetry 98 % 98 % [facility] ([facility]) RM Air Body weight 162.00 [lb_av] 162.00 [lb_av] [facility] ([facility]) Body height 60.25 [in_i] 60.25 [in_i] [facility] ([facility]) 5'0.25" Body temperature 98.8 [degF] 98.8 [degF] [facility] ([facility]) Heart rate 82 /min 82 /min [facility] ([facility]) Diastolic blood pressure 80 mm[Hg] 80 mm[Hg] [facility] ([facility]) Systolic blood pressure 130 mm[Hg] 130 mm[Hg] M [facility] ([facility]) Body mass index (BMI) [Ratio] 31.4 kg/m2 31.4 k g/m2 [facility] ([facility]) Diastolic blood pressure 81 mm[Hg] 81 mm[Hg] [facility] ([facility]) Systolic blood pressure 127 mm[Hg] 127 mm[Hg] [facility]) Respiratory rate 20 /min 20 /min [facility] ( [facility]) Heart rate 79 /min 79 /min [facility] ([facility] Body height 60 [in_i] 60 [in_i] [facility] ([facility] 5'0" Body weight 161.00 [lb_av] 161.00 [lb_av] [facility] ([facility]) Body mass index (BMI) [Ratio] 30.6 kg/m2 30.6 k g/m2 [facility] ([facility]) Body weight 158.00 [lb_av] 158.00 [lb_av] [facility] ([facility]) Body height 60.25 [in_i] 60.25 [in_i] [facility]) 5'0.25" Body temperature 100.0 [degF] 100.0 [degF] MED[facility] NT ([facility]) Heart rate 83 /min 83 /min [facility] ([facility]) Diastolic blood pressure 78 mm[Hg] 78 mm[Hg] [facility] ([facility]) Systolic blood pressure 132 mm[Hg] 132 mm[Hg] M EDENT ([facility]) Body weight Measured 156 [lb_av] 156 [lb_av] eC W1 ([facility]) Diastolic blood pressure mm[Hg] eCW1 ([facility]) Systolic blood pressure 171 mm[Hg] 171 mm[Hg] e CW1 ([facility]) Body temperature [degF] eCW1 ([facility]) Respiratory rate 16 /min 16 /min eCW1 ([facility]) Heart rate 63 /min 63 /min eCW1 ([facility]) Body mass index (BMI) [Ratio] 30.46 kg/m2 30.46 kg/m2 W1 ([facility]) Body height 60 [in_us] 60 [in_us] eCW1 ([facility]) Body temperature 36.39 Lori 36.39 Lori [facility] Heart rate 71 /min 71 /min [facility] Diastolic blood pressure 73 mm[Hg] 73 mm[Hg] [facility] Systolic blood pressure 138 mm[Hg] 138 mm[Hg] [facility] Oxygen saturation in Arterial blood by Pulse oximetry 98 % 98 % [facility] Respiratory rate 18 /min 18 /min [facility] Body mass index (BMI) [Ratio] 29.49 kg/m2 29.49 kg/m2 [facility] Body weight 66.225 kg 66.225 kg [facility] Body height 149.9 cm 149.9 cm [facility] Patient Treatment Plan of Care Planned Activity Planned Date Details Description Data Source (s) triamcinolone acetonide 55 mcg nasal aerosol,spray 04/12/2018 11 :06:49 AM [facility] ([facility] montelukast 10 MG Oral Tablet 04/12/2018 11:06:49 AM [facility] ([facility]) tizanidine 2 MG Oral Tablet [facility]
--- NOTE | 2020-04-04 12:32 | REPVR ---
PROCEDURE INFORMATION: Exam: CT Head Without Contrast Exam date and time: 04/04/2020 12:22 PM Age: 49 years old Clinical indication: Pain; Headache; Migraine; Aura effect not specified; Other: N/a; Additional info: Severe headache right TECHNIQUE: Imaging protocol: Computed tomography of the head without contrast. Radiation optimization: All CT scans at this facility use at least one of these dose optimization techniques: automated exposure control; mA and/or kV adjustment per patient size (includes targeted exams where dose is matched to clinical indication); or iterative reconstruction. COMPARISON: CT Head without contrast 08/09/2019 5:40 PM FINDINGS: Brain: No acute intracranial hemorrhage, cerebral edema, or midline shift. Cerebral ventricles: No hydrocephalus. Bones/joints: No acute fracture. Paranasal sinuses: There is no acute sinusitis. Mastoid air cells: Visualized mastoid air cells are well aerated. Orbital cavity: Unremarkable as visualized. Soft tissues: Unremarkable. IMPRESSION: No acute intracranial abnormality. Electronically signed by: Bhupinder Vernon On 04/04/2020 12:32:15 PM
[2020-04-04] MEDS ORDERED: KETOROLAC 30 MG/ML 1ML VIAL IV ONE (13:15)
[2020-04-04] MEDS ORDERED: METOCLOPRAMIDE INJ 10MG/2ML VIAL (J2765 PER 1) IV ONE (13:15)
[2020-04-04] MEDS ORDERED: NS 1,000 ML IV ONE (13:15)
[2020-04-04] MEDS ORDERED: diphenhydrAMINE 50MG/ML VIAL (J1200) IV ONE (14:15)
[2020-04-04] MEDS ORDERED: ACETAMINOPHEN 325 MG TAB PO ONE (14:15)
[2020-04-04] MEDS ORDERED: dexameTHASONE 20MG/5ML VIAL (J1100 PER 1MG) IV ONE (14:15)
== END 2020-04-04 16:00 | disposition home or self-care (01) ==
LOC: M ED 11:31
DX: G43.909 Migraine, unspecified, not intractable, without status migrainosus (principal); I10 Essential (primary) hypertension; J45.909 Unspecified asthma, uncomplicated; K57.92 Diverticulitis of intestine, part unspecified, without perforation or abscess without bleeding; K27.9 Peptic ulcer, site unspecified, unspecified as acute or chronic, without hemorrhage or perforation; F32.9 Major depressive disorder, single episode, unspecified; F41.9 Anxiety disorder, unspecified; F17.200 Nicotine dependence, unspecified, uncomplicated; Z88.1 Allergy status to other antibiotic agents; Z88.8 Allergy status to other drugs, medicaments and biological substances; Z88.5 Allergy status to narcotic agent; Z91.040 Latex allergy status; Z91.018 Allergy to other foods; Z79.899 Other long term (current) drug therapy; Z79.818 Long term (current) use of other agents affecting estrogen receptors and estrogen levels; Z98.84 Bariatric surgery status
CPT/HCPCS: 70450; 96361; 96374; 96375; 99282; J1100; J1200; J1885; J2765

== ENCOUNTER → 2020-04-26 | Outpatient (CLI) | payer OTHER ==
[2020-04-26 10:41] LABS: HEMATOCRIT 40.4 % (36.0-47.0); HEMOGLOBIN 13.6 g/dl (12.0-15.5); MEAN CORPUSCULAR HEMOGLOBIN 33.4 pg (27.0-33.0); MEAN CORPUSCULAR HGB CONC 33.7 g/dl (32.0-36.5); MEAN CORPUSCULAR VOLUME 99.3 fl (80.0-96.0); PLATELET COUNT, AUTOMATED 237 10^3/uL (150-450); RED BLOOD COUNT 4.07 10^6/uL (4.00-5.40); WHITE BLOOD COUNT 8.3 10^3/uL (4.0-10.0)
[2020-04-26 11:18] LABS: ALBUMIN 3.5 GM/DL (3.2-5.2); ALT/SGPT 18 U/L (12-78); BILIRUBIN,TOTAL 0.2 MG/DL (0.2-1.0); BLOOD UREA NITROGEN 10 MG/DL (7-18); CARBON DIOXIDE LEVEL 31 MEQ/L (21-32); CHLORIDE LEVEL 106 MEQ/L (98-107); CREATININE FOR GFR 0.54 MG/DL (0.55-1.30); GLOMERULAR FILTRATION RATE > 60.0 (>58); GLUCOSE, FASTING 74 MG/DL (70-100); POTASSIUM SERUM 4.1 MEQ/L (3.5-5.1); SODIUM LEVEL 142 MEQ/L (136-145); THYROID STIMULATING HORMONE 0.987 uIU/ML (0.358-3.740); TOTAL PROTEIN 6.6 GM/DL (6.4-8.2)
[2020-04-26 11:19] LABS: FOLATE > 24.0 NG/ML (>5.4); TOTAL 25(OH) VITAMIN D 34.2 NG/ML (30.0-100.0); VITAMIN B12 LEVEL 834 PG/ML (247-911)
== END ==
LOC: M LAB 10:05
PROVIDERS: ATTEND Nurse Practitioner Adult Health
DX: K58.0 Irritable bowel syndrome with diarrhea (principal); K21.9 Gastro-esophageal reflux disease without esophagitis; R10.13 Epigastric pain

== ENCOUNTER → 2020-05-24 | Outpatient (CLI) | payer OTHER ==
--- NOTE | 2020-05-24 16:55 | REP ---
INDICATION: RT LEG PAIN SWELLING ? DVT COMPARISON: None. TECHNIQUE: Cooper scale and color Doppler evaluation right lower extremity using linear high frequency transducer. FINDINGS: Ultrasound examination of the right lower extremity deep venous structures from the common femoral vein to the popliteal vein demonstrates normal compressibility flow and wave patterns in response to respiration and augmentation. There is no evidence for deep venous thrombosis. IMPRESSION: No evidence for deep venous thrombosis. <Electronically signed by Hao Leyva > 05/24/20 1619
== END ==
LOC: M RAD 16:15
PROVIDERS: ATTEND Physician Assistant Medical
DX: M79.604 Pain in right leg (principal)

== ENCOUNTER → 2020-08-07 | Outpatient (CLI) | payer OTHER | LOC: M RAD 16:18 | PROVIDERS: ATTEND Physician Assistant Surgical | DX: R10.13 Epigastric pain (principal) ==

== ENCOUNTER → 2020-08-07 | Outpatient (CLI) | payer OTHER ==
[~2020-08-07] MED LIST changes: +GASTROGRAFIN SOLUTION 30ML (Q9963) As Ordered ONE; +ISOVUE-370 76% 100ML VIAL As Ordered ONE
== END ==
LOC: M RAD 16:21
PROVIDERS: ATTEND Nurse Practitioner Adult Health
DX: R10.9 Unspecified abdominal pain (principal); R31.9 Hematuria, unspecified
CPT/HCPCS: 74176; Q9963; Q9967

== ENCOUNTER → 2020-09-02 | Outpatient (REF) | payer OTHER ==
[~2020-09-02] MED LIST changes: -GASTROGRAFIN SOLUTION 30ML (Q9963) As Ordered ONE; -ISOVUE-370 76% 100ML VIAL As Ordered ONE
[2020-09-02 16:00] LABS: BACTERIA, URINE AUTO NEGATIVE (NEGATIVE); MUCUS, URINE SMALL (NEGATIVE); RBC, URINE AUTO 5 /HPF (0-3); SQUAMOUS EPITHELIAL CELL UR AU 1 /HPF (0-6); WBC, URINE AUTO 1 /HPF (0-3)
== END ==
LOC: M SMT 15:28
PROVIDERS: ATTEND Specialist
DX: N39.0 Urinary tract infection, site not specified (principal)

== ENCOUNTER → 2020-10-25 | Outpatient (REF) | payer OTHER ==
[2020-10-25 18:19] LABS: BACTERIA, URINE AUTO NEGATIVE (NEGATIVE); MUCUS, URINE SMALL (NEGATIVE); RBC, URINE AUTO 3 /HPF (0-3); SQUAMOUS EPITHELIAL CELL UR AU 1 /HPF (0-6); TRANSITIONAL EPITHELIAL AUTO 2 /HPF; WBC, URINE AUTO 7 /HPF (0-3)
== END ==
LOC: M SMT 17:06
PROVIDERS: ATTEND Specialist
DX: N39.0 Urinary tract infection, site not specified (principal)

== ENCOUNTER → 2020-12-05 | Outpatient (CLI) | payer OTHER ==
[~2020-12-05] MED LIST changes: +ISOVUE-370 76% 100ML VIAL As Ordered ONE
--- NOTE | 2020-12-06 07:16 | REP ---
INDICATION: SECONDARY AMENORRHEA. COMPARISON: 08/07/2020 TECHNIQUE: Axial precontrast, contrast-enhanced and delayed images from the lung bases to the pubic symphysis using 100 cc Isovue 370 intravenous contrast material. Coronal and sagittal reformations obtained. This CT examination was performed using the following dose reduction techniques: Automated exposure control, adjustment of mA and/or kv according to the patient's size, and the use of iterative reconstruction technique. FINDINGS: Lung bases are clear. Liver, spleen, pancreas, bilateral adrenal glands and kidneys are normal/stable. Small benign right adrenal adenoma again noted. Evidence for prior cholecystectomy. The patient is status post gastric bypass. Small and large bowel without obstruction or acute inflammatory process. Evidence for prior appendectomy suggested. Pelvis demonstrates normal bladder and prior hysterectomy. No ascites. No free air. No intraperitoneal or retroperitoneal adenopathy. Abdominal aorta and vasculature appear normal. Musculoskeletal structures are intact and without acute osseous abnormality. IMPRESSION: No acute abdominopelvic pathology appreciated. <Electronically signed by Hao Leyva > 12/06/20 [id number]
== END ==
LOC: M PLAIMG 12-04 09:58 → M RAD 17:25
PROVIDERS: ATTEND Urology
DX: R31.0 Gross hematuria (principal)
CPT/HCPCS: 74178; Q9967

== ENCOUNTER → 2020-12-06 | Outpatient (CLI) | payer OTHER ==
[~2020-12-06] MED LIST changes: -ISOVUE-370 76% 100ML VIAL As Ordered ONE
--- NOTE | 2020-12-06 15:19 | REP ---
INDICATION: PAIN RT THUMB/WRIST EVAL FOR LIGAMENT RUPTURE. COMPARISON: None. TECHNIQUE: Multiple sequences obtained in the axial, coronal and sagittal planes. Study is limited due to patient motion. FINDINGS: Triangular fibrocartilage complex:No evidence of tear. Scapholunate and lunatotriquetral ligaments: Intact. Flexor and extensor tendons: Intact. No tenosynovitis. Carpal tunnel region: No significant abnormality. No abnormal signal in median nerve. No ganglion cyst is seen. Joint fluid: No effusion. Distal radioulnar joint: No significant fluid present. Bone marrow:There is diffuse marrow edema in the lunate bone with subchondral cystic change in the base of the lunate bone. IMPRESSION: Diffuse nonspecific marrow edema in the lunate bone. Mild subchondral cystic change in the base of the lunate. Otherwise no evidence of internal derangement at the wrist. <Electronically signed by Yahir Cooper > 12/06/20 [id number]
--- NOTE | 2020-12-06 15:43 | REP ---
INDICATION: PAIN RT THUMB/WRIST EVAL FOR LIGAMENT RUPTURE. COMPARISON: None. TECHNIQUE: Multiple sequences obtained in the axial, coronal and sagittal planes. Study is extremely limited due to patient motion, as well as difficulty with patient positioning due to claustrophobia. FINDINGS: There is diffuse nonspecific marrow edema in the lunate bone with mild subcortical cystic change in the base of the lunate. The other visualized osseous structures of the right hand demonstrate no other abnormal bone marrow signal abnormality. No ganglion cyst is seen. There is a normal amount of joint fluid. The flexor and extensor tendons appear intact with no significant tenosynovitis. The visualized collateral ligaments at the metacarpophalangeal joints, particularly at the 1st metacarpophalangeal and interphalangeal joint appear intact. The collateral ligaments of the 2nd through 5th proximal and distal interphalangeal joints cannot be evaluated. The carpal tunnel region is unremarkable. IMPRESSION: Nonspecific marrow edema in the lunate as well as mild subchondral cystic change at the base of the lunate. No gross ligament tear as visualized. No evidence of tendon tear or tenosynovitis. <Electronically signed by Yahir Cooper > 12/06/20 [id number]
== END ==
LOC: M PLARAD 10:08
PROVIDERS: ATTEND Nurse Practitioner Adult Health
DX: S66.011A Strain of long flexor muscle, fascia and tendon of right thumb at wrist and hand level, initial encounter (principal); W18.30XA Fall on same level, unspecified, initial encounter; Y92.009 Unspecified place in unspecified non-institutional (private) residence as the place of occurrence of the external cause

== ENCOUNTER → 2020-12-19 | Outpatient (REF) | payer OTHER ==
[2020-12-19 14:28] LABS: INR 1.04
[2020-12-19 14:29] LABS: PARTIAL THROMBOPLASTIN TIME 35.5 SECONDS (25.9-37.0)
== END ==
LOC: M LAB REF 13:58
PROVIDERS: ATTEND Internal Medicine
DX: Z01.818 Encounter for other preprocedural examination (principal)

== ENCOUNTER → 2021-06-09 | Outpatient (CLI) | payer OTHER | LOC: M RAD 12:58 | PROVIDERS: ATTEND Nurse Practitioner Adult Health | DX: R42 Dizziness and giddiness (principal) ==

== ENCOUNTER 2021-06-17 13:18 | Emergency (ER) | payer OTHER ==
[~2021-06-17] VITALS: Ht 152.4 cm; Wt 68.2 kg
[2021-06-17] MEDS ORDERED: PERCOCET 5MG/325MG TAB PO ONE (15:20)
[2021-06-17] MEDS ORDERED: PERC5TAB12 PO (16:14)
[2021-06-17 16:18] VITALS: BP 136/77
== END 2021-06-17 16:21 | disposition home or self-care (01) ==
LOC: M ED 13:18 → EDBD 13:18 → M ED 16:21
DX: S22.31XA Fracture of one rib, right side, initial encounter for closed fracture (principal); W01.0XXA Fall on same level from slipping, tripping and stumbling without subsequent striking against object, initial encounter; Y92.9 Unspecified place or not applicable; Y93.9 Activity, unspecified; Y99.9 Unspecified external cause status; F17.200 Nicotine dependence, unspecified, uncomplicated; Z88.1 Allergy status to other antibiotic agents; Z88.2 Allergy status to sulfonamides; Z88.6 Allergy status to analgesic agent; Z91.02 Food additives allergy status; Z91.040 Latex allergy status

== ENCOUNTER → 2021-06-20 | Outpatient (REF) | payer OTHER ==
[~2021-06-20] MED LIST changes: +PERC5TAB12 PO
== END ==
LOC: M LAB REF 16:19
PROVIDERS: ATTEND Internal Medicine
DX: M25.541 Pain in joints of right hand (principal)

== ENCOUNTER → 2021-12-12 | Outpatient (CLI) | payer OTHER ==
[~2021-12-12] MED LIST changes: +PROHANCE 279.3MG/ML 15ML VIAL As Ordered ONE
== END ==
LOC: M RAD 08:03
PROVIDERS: ATTEND Internal Medicine Gastroenterology
DX: R10.13 Epigastric pain (principal)
CPT/HCPCS: 74183; A9576

== ENCOUNTER → 2022-01-07 | Outpatient (REF) | payer OTHER ==
[~2022-01-07] MED LIST changes: -PROHANCE 279.3MG/ML 15ML VIAL As Ordered ONE
[2022-01-07 16:15] LABS: C REACTIVE PROTEIN QUANTITATIV 0.67 MG/DL (0.00-0.30); RHEUMATOID FACTOR QUANT < 10.0 IU/ML (<15.0); URIC ACID 3.4 MG/DL (2.6-6.0)
[2022-01-09 00:07] LABS: ANA (HEP2) Negative (.); CYCLIC CITRULLINATED PEPTIDE 2 units (0-19)
== END ==
LOC: M LAB REF 12:46
PROVIDERS: ATTEND Nurse Practitioner Adult Health
DX: M79.10 Myalgia, unspecified site (principal)

== ENCOUNTER → 2022-03-31 | Outpatient (REF) | payer OTHER ==
[2022-03-31 13:20] LABS: APPEARANCE, URINE MANUAL CLEAR (CLEAR); COLOR, URINE MANUAL YELLOW (YELLOW)
[2022-03-31 13:21] LABS: BILIRUBIN, URINE MANUAL NEGATIVE (NEGATIVE); BLOOD URINE MANUAL NEGATIVE (NEGATIVE); GLUCOSE, URINE (UA) MANUAL NEGATIVE (NEGATIVE); KETONE, URINE MANUAL NEGATIVE (NEGATIVE); LEUKOCYTE ESTERASE, URINE MAN NEGATIVE (NEGATIVE); NITRITE, URINE MANUAL NEGATIVE (NEGATIVE); PROTEIN, URINE MANUAL NEGATIVE (NEGATIVE); UROBILINOGEN, URINE MANUAL NORMAL (NORMAL)
[2022-03-31 13:30] LABS: BASO # 0.1 10^3/uL (0.0-0.2); BASO % 0.6 % (0.0-1.0); EOS # 0.1 10^3/uL (0.0-0.5); EOS % 1.1 % (0.0-3.0); HEMATOCRIT 42.1 % (36.0-47.0); HEMOGLOBIN 13.8 g/dl (12.0-15.5); LYMPH # 2.3 10^3/uL (1.5-5.0); LYMPH % 25.6 % (24.0-44.0); MEAN CORPUSCULAR HEMOGLOBIN 32.9 pg (27.0-33.0); MEAN CORPUSCULAR HGB CONC 32.8 g/dl (32.0-36.5); MEAN CORPUSCULAR VOLUME 100.2 fl (80.0-96.0); MONO # 0.5 10^3/uL (0.0-0.8); MONO % 5.5 % (2.0-8.0); NEUTROPHILS # 6.1 10^3/uL (1.5-8.5); PLATELET COUNT, AUTOMATED 279 10^3/uL (150-450); WHITE BLOOD COUNT 9.1 10^3/uL (4.0-10.0)
[2022-03-31 13:49] LABS: ERYTHROCYTE SEDIMENTATION RATE 21 mm/hr (0-20)
[2022-03-31 14:03] LABS: ALBUMIN 3.8 G/DL (3.2-5.2); ALKALINE PHOSPHATASE 80 U/L (46-116); ALT/SGPT 12 U/L (7.0-40); AST/SGOT 11 U/L (<34); BILIRUBIN,TOTAL 0.3 MG/DL (0.3-1.2); BLOOD UREA NITROGEN 12 MG/DL (9-23); CALCIUM LEVEL 9.3 MG/DL (8.5-10.1); CARBON DIOXIDE LEVEL 27 MMOL/L (20-31); CHLORIDE LEVEL 104 MMOL/L (98-107); CREATININE FOR GFR 0.51 MG/DL (0.55-1.30); GLOMERULAR FILTRATION RATE > 60.0 (>58); GLUCOSE, FASTING 70 MG/DL (60-100); POTASSIUM SERUM 3.8 MMOL/L (3.5-5.1); SODIUM LEVEL 141 MMOL/L (136-145); TOTAL PROTEIN 6.7 G/DL (5.7-8.2)
[2022-03-31 14:49] LABS: COMPLEMENT C3 126.1 MG/DL (90.0-170.0); COMPLEMENT C4 39.7 MG/DL (12-36)
== END ==
LOC: M SFHCRHEU 09:16
PROVIDERS: ATTEND Internal Medicine Rheumatology
DX: M35.3 Polymyalgia rheumatica (principal); I73.00 Raynaud's syndrome without gangrene; H04.123 Dry eye syndrome of bilateral lacrimal glands; R76.8 Other specified abnormal immunological findings in serum; Z72.0 Tobacco use

== ENCOUNTER → 2022-04-01 | Outpatient (REF) | payer OTHER ==
[2022-04-02 14:37] LABS: TOTAL 25(OH) VITAMIN D 41.2 NG/ML (20.0-100.0)
== END ==
LOC: M LAB REF 16:15
PROVIDERS: ATTEND Nurse Practitioner Adult Health
DX: Z98.84 Bariatric surgery status (principal)

== ENCOUNTER → 2023-05-12 | Outpatient (REF) | payer OTHER ==
[~2023-05-12] MED LIST changes: +ENAL1TAB48 PO; -ENAL5TA PO; -K-TA10TA2 PO; +MONT-5 PO; +POTA-165 PO; -SING10TA32 PO
== END ==
LOC: M LAB REF 16:12
PROVIDERS: ATTEND Nurse Practitioner Adult Health
DX: N39.0 Urinary tract infection, site not specified (principal)

== ENCOUNTER → 2023-11-05 | Outpatient (REF) | payer OTHER ==
[2023-11-05 17:23] LABS: INR 1.03; PARTIAL THROMBOPLASTIN TIME 32.9 SECONDS (24.8-34.2); PROTHROMBIN TIME 13.2 SECONDS (12.5-14.5)
== END ==
LOC: M LAB REF 16:07
PROVIDERS: ATTEND Nurse Practitioner Adult Health
DX: S80.00XA Contusion of unspecified knee, initial encounter (principal); W18.30XA Fall on same level, unspecified, initial encounter; Y92.009 Unspecified place in unspecified non-institutional (private) residence as the place of occurrence of the external cause

== ENCOUNTER → 2023-11-19 | Outpatient (CLI) | payer OTHER | LOC: M RAD 14:32 | PROVIDERS: ATTEND Student in an Organized Health Care Education/Training Program | DX: M79.661 Pain in right lower leg (principal) ==

== ENCOUNTER → 2024-12-05 | Outpatient (REF) | payer OTHER | LOC: M LAB REF 12:12 | PROVIDERS: ATTEND Nurse Practitioner Adult Health | DX: R30.0 Dysuria (principal) ==